=== PATIENT | female | born 1950 | race Caucasian/White ===

== ENCOUNTER 2016-06-01 16:40 | Inpatient (IN) ==
[2016-06-01] MEDS ORDERED: 0.9 % Sodium Chloride 500 ML IVC ONE (17:02)
[2016-06-01] MEDS ORDERED: Insulin Regular, Human 100 UNIT/ML IV ONE (17:02)
--- NOTE | 2016-06-01 17:05 | Emergency Department Note ---
Disposition Clinical Impression: Diabetes Qualifiers: Diabetes mellitus type: type 2 Diabetes mellitus complication status: without complication Diabetes mellitus longterm insulin use: with longterm use Qualified Code(s): E11.9 - Type 2 diabetes mellitus without complications Abdominal wall contusion Qualifiers: Encounter type: initial encounter Qualified Code(s): S30.1XXA - Contusion of abdominal wall, initial encounter Disposition: Admitted As Inpatient Condition: Fair Referrals: Kiel Watkins MD [Primary Care Provider] - Forms: ED Satisfaction Letter Time of Disposition: 18:18 Fall HPI - General Chief Complaint: ED Fall Stated Complaint: fall with rib pain Time Seen by Provider: 06/01/16 17:00 Source: patient Mode of arrival: ambulatory Limitations: no limitations Nursing Notes Reviewed: Yes Vital Signs Reviewed: Yes - History of Present Illness HPI Narrative: 66-year-old who had suffered a stroke a few years back and states she's been unsteady in her feet ever since states that her sugars up and running high and she lost her balance today and fell she's complaining of pain in the left chest and left upper abdomen. It was 510 on arrival here. 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 Fall From: standing Place Fall Occurred: home Loss of Consciousness: none Prolonged Down Time?: no Symptoms Prior to Fall: lightheadedness Context: tripped/slipped Severity: moderate Quality: aching Associated symptoms (after fall): Denies: headache, neck pain, numbness, weakness - Related Data Home Medications Medication Instructions Recorded Confirmed Duloxetine HCl [Cymbalta] 60 mg PO DAILY 12/05/14 04/11/16 Insulin ASPART [NovoLOG] 2 - 16 unit SQ TIDWM 12/05/14 04/11/16 Insulin DETEMIR [Levemir] 50 unit SQ BID 01/13/15 04/11/16 Sucralfate [Carafate] 1 gm PO BID 01/13/15 04/11/16 Amitriptyline [Elavil] 50 mg PO HS 09/17/15 04/11/16 Atorvastatin Calcium [Lipitor] 80 mg PO HS 09/17/15 04/11/16 Isosorbide MONOnitrate (24 HR) 30 mg PO DAILY 11/02/15 04/11/16 [Imdur] Metformin [Glucophage] 500 mg PO BIDWM 11/02/15 04/11/16 Oxybutynin [Ditropan] 5 mg PO BID 11/02/15 04/11/16 Cholecalciferol (Vitamin D3) 50,000 unit PO FR 02/29/16 04/11/16 [Vitamin D3] Previous Rx's Medication Instructions Recorded Aspirin 81 mg PO DAILY #30 tab.chew 09/20/15 Clopidogrel [Plavix] 75 mg PO DAILY #30 tablet 09/20/15 Metoprolol [Lopressor] 12.5 mg PO BID #60 tablet 09/20/15 Morphine Sulfate 15 mg PO Q6HR PRN #20 tab 02/17/16 Nystatin POWDER [Nystop] 1 appl TP TID #1 bottle 02/17/16 Metoclopramide [Reglan] 5 mg PO QIDAC 30 Days 03/08/16 ClonazePAM [Klonopin] 0.5 mg PO BID #60 tablet 04/12/16 Pantoprazole Sodium [Protonix] 40 mg PO HS 30 Days 04/12/16 Allergies Allergy/AdvReac Type Severity Reaction Status Date / Time ampicillin Allergy Severe See Verified 06/01/16 16:47 Comments ciprofloxacin Allergy Severe See Verified 06/01/16 16:47 Comments codeine Allergy Severe See Verified 06/01/16 16:47 Comments Cortisone Allergy Severe See Verified 06/01/16 16:47 Comments Hydromorphone Allergy Severe See Verified 06/01/16 16:47 Comments Penicillins Allergy Severe See Verified 06/01/16 16:47 Comments phenazopyridine Allergy Severe See Verified 06/01/16 16:47 [Phenazopyridine] Comments Sulfa (Sulfonamide Allergy Severe See Verified 06/01/16 16:47 Antibiotics) Comments Oxycodone Allergy Intermediate Hives Verified 06/01/16 16:47 Constitutional: Denies: fever, chills, weakness, weight change Eyes: Denies: eye pain, eye discharge, vision change ENT ED: Denies: ear pain, throat pain, dental pain, hearing loss, epistaxis, congestion, dysphagia Cardiovascular: Reports: chest pain (Chest wall pain). Denies: palpitations, dyspnea on exertion, edema, syncope Respiratory: Denies: cough, dyspnea, wheezes, hemoptysis, stridor Gastrointestinal: Reports: abdominal pain. Denies: nausea, vomiting, diarrhea, constipation, hematemesis, melena, hematochezia Genitourinary: Denies: dysuria, frequency, hematuria, discharge Musculoskeletal: Denies: back pain, neck pain, arthralgia, myalgia Integumentary: Denies: rash, abrasion, lesions Neurological: Denies: headache, weakness, numbness, paresthesias, confusion, abnormal gait, vertigo Psychiatric: Denies: anxiety, depression, suicidal thoughts, homicidal thoughts , auditory hallucinations, visual hallucinations Endocrine: Denies: fatigue Hematological/Lymphatic: Denies: easy bleeding, easy bruising Allergic/Immunologic: Denies: facial swelling, urticaria Fall PMH - Past Medical History Medical history: Reports: arthritis, asthma, COPD, coronary artery disease, CVA , diabetes, GERD, hypertension, kidney stones, myocardial infarction, osteoporosis, renal disease, other Surgical history: Reports: appendectomy, cholecystectomy, hysterectomy, thyroidectomy, ureteral stent, other Psychiatric history: Reports: anxiety, depression [employer] 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: non-contributory - Social History Smoking Status: Former smoker Alcohol use: Reports: none Drug use: Reports: none Physical Exam - General Limitations: no limitations General appearance: alert - Head Head exam: atraumatic, normocephalic, normal inspection - Eye Eye exam: Present: normal appearance, PERRL, EOMI - ENT ENT exam: normal exam, normal oropharynx, mucous membranes moist - Neck Neck exam: Present: normal inspection, full ROM, trachea midline - Chest Chest inspection: Present: normal inspection, symmetric chest wall rise, tenderness (Left lateral chest wall) - Respiratory Respiratory exam: Present: normal lung sounds bilaterally - Cardiovascular Cardiovascular exam: Present: regular rate, normal rhythm, normal heart sounds - Abdominal Exam Abdominal exam: Present: soft, tenderness. Absent: guarding, rebound Abdominal tenderness: Present: LLQ - Extremities Exam Extremities exam: Present: normal inspection, full ROM. Absent: tenderness, pedal edema - Expanded Lower Extremity Exam Neurovascular/Tendon exam: Absent: motor deficit, sensory deficit, tendon deficit - Back Exam Back exam: Present: normal inspection, full ROM. Absent: tenderness - Neurological Exam Neurological exam: Present: alert, oriented X3 - Psychiatric Psychiatric exam: Present: normal affect, normal mood - Skin Skin exam: Present: warm, dry, intact, normal color Course - Consultations Consultation #1: I discussed the case with Viki Bella nurse practitioner who will admit the patient. Time: 18:26 Vital Signs Temperature 97.5 F L 06/01/16 16:41 Pulse Rate 91 06/01/16 16:41 Respiratory Rate 20 06/01/16 16:41 Blood Pressure 164/86 06/01/16 16:41 O2 Sat by Pulse Oximetry 97 06/01/16 16:41 Temperature 97.5 F L 06/01/16 16:41 Pulse Rate 82 06/01/16 18:24 Respiratory Rate 16 06/01/16 18:24 Blood Pressure 108/72 06/01/16 18:24 O2 Sat by Pulse Oximetry 93 L 06/01/16 18:24 Oxygen Delivery Oxygen Delivery Room Air Fall - Lab Data Lab results reviewed: Yes I reviewed the patient's lab results. Result diagrams: 06/01/16 17:12 06/01/16 17:12 Lab Results 06/01/16 06/01/16 06/01/16 Range/Units 16:59 17:12 17:12 WBC (4.3-11.1) K/mcL RBC (3.82-4.97) M/mcL Hgb (11.5-15.4) g/dL Hct (35.3-44.9) % MCV (83.0-100.0) fL MCH (28.0-33.3) pg MCHC (31.6-35.5) g/dL RDW (11.5-14.5) % Plt Count (140-400) K/mcL MPV (9.4-12.4) fL Immature Gran % (0-4) % Seg Neutrophils % % Lymphocytes % % Monocytes % % Eosinophils % % Basophils % % Neutrophils # (1.6-8.9) K/mcL Lymphocytes # (0.6-4.6) K/mcL Monocytes # (0.0-1.3) K/mcL Eosinophils # (0.0-0.6) K/mcL Basophils # (0.0-0.2) K/mcL PT 11.8 (9.4-12.1) Seconds INR 1.1 APTT 31.1 (26.0-36.0) Seconds Sodium (136-145) mEq/L Potassium (3.5-4.5) mEq/L Chloride (98-109) mEq/L Carbon Dioxide (19-29) mEq/L BUN (7-20) mg/dL Creatinine (0.57-1.11) mg/dL Est GFR ( Amer) (> 60) Est GFR (Non-Af Amer) (> 60) BUN/Creatinine Ratio (6-26) Glucose (70-99) mg/dL POC Glucose 510 H* (58-89) Calculated Osmolality (280-300) Calcium (8.6-10.8) mg/dL Troponin I (0-0.03) ng/mL Beta-Hydroxybutyric Acd 0.11 (0.02-0.27) mmol/L 06/01/16 06/01/16 06/01/16 Range/Units 17:12 17:12 17:12 WBC 4.3 (4.3-11.1) K/mcL RBC 4.66 (3.82-4.97) M/mcL Hgb 11.7 (11.5-15.4) g/dL Hct 35.5 (35.3-44.9) % MCV 76.2 L (83.0-100.0) fL MCH 25.1 L (28.0-33.3) pg MCHC 33.0 (31.6-35.5) g/dL RDW 15.2 H (11.5-14.5) % Plt Count 165 (140-400) K/mcL MPV 9.6 (9.4-12.4) fL Immature Gran % 0.2 (0-4) % Seg Neutrophils % 64.1 % Lymphocytes % 22.8 % Monocytes % 9.6 % Eosinophils % 3.1 % Basophils % 0.2 % Neutrophils # 2.7 (1.6-8.9) K/mcL Lymphocytes # 1.0 (0.6-4.6) K/mcL Monocytes # 0.4 (0.0-1.3) K/mcL Eosinophils # 0.1 (0.0-0.6) K/mcL Basophils # 0.0 (0.0-0.2) K/mcL PT (9.4-12.1) Seconds INR APTT (26.0-36.0) Seconds Sodium 129 L (136-145) mEq/L Potassium 5.0 H (3.5-4.5) mEq/L Chloride 97 L (98-109) mEq/L Carbon Dioxide 20 (19-29) mEq/L BUN 13 (7-20) mg/dL Creatinine 1.09 (0.57-1.11) mg/dL Est GFR ( Amer) > 60 (> 60) Est GFR (Non-Af Amer) 50 L (> 60) BUN/Creatinine Ratio 12 (6-26) Glucose 581 H* (70-99) mg/dL POC Glucose (58-89) Calculated Osmolality 295 (280-300) Calcium 8.9 (8.6-10.8) mg/dL Troponin I 0.00 (0-0.03) ng/mL Beta-Hydroxybutyric Acd (0.02-0.27) mmol/L - Radiology Data Radiology results reviewed: Yes I reviewed the patient's radiology results. Abdomen/Pelvis CT 06/01/16 17:01 IMPRESSION: No acute traumatic findings are identified. Chronic caliectasis and thickening uroepithelium in the upper pole moiety of the left kidney. Correlation for urinary tract infection is suggested. D/ / Yonatan Price MD / Yonatan Price MD Interpreting Provider: Yonatan Price MD Chest CT 06/01/16 17:01 IMPRESSION: No acute abnormality in the chest on the noncontrast CT. No evidence of left rib fracture. Three-vessel coronary atherosclerosis. D/ / 06/01/2016 17:36:54 Willian Davila MD / [email or web address] Interpreting Provider: Willian Davila MD - EKG Data EKG attestation: Yes I reviewed and interpreted this EKG. EKG shows normal: sinus rhythm Rate: normal Rhythm: NSR Interpretation: no acute changes
[2016-06-01 17:25] LABS: Basophils % 0.2 %; Eosinophils # 0.1 K/mcL (0.0-0.6); Eosinophils % 3.1 %; Hematocrit 35.5 % (35.3-44.9); Hemoglobin 11.7 g/dL (11.5-15.4); Immature Granulocytes % 0.2 % (0-4); Lymphocytes % 22.8 %; Mean Corpuscular Hemoglobin 25.1 pg (28.0-33.3); Mean Corpuscular Volume 76.2 fL (83.0-100.0); Mean Platelet Volume 9.6 fL (9.4-12.4); Monocytes # 0.4 K/mcL (0.0-1.3); Monocytes % 9.6 %; Neutrophils # 2.7 K/mcL (1.6-8.9); Platelet Count 165 K/mcL (140-400); Red Blood Count 4.66 M/mcL (3.82-4.97); Red Cell Distribution Width 15.2 % (11.5-14.5); Segmented Neutrophils % 64.1 %
[2016-06-01 17:26] LABS: INR 1.1; Prothrombin Time 11.8 Seconds (9.4-12.1)
[2016-06-01 17:28] LABS: Activated Partial Thrombo Time 31.1 Seconds (26.0-36.0)
[2016-06-01 17:34] LABS: BUN/Creatinine Ratio 12 (6-26); Blood Urea Nitrogen 13 mg/dL (7-20); Calcium 8.9 mg/dL (8.6-10.8); Carbon Dioxide 20 mEq/L (19-29); Chloride 97 mEq/L (98-109); Osmolality,Calculated 295 (280-300); Sodium 129 mEq/L (136-145); eGFR For African Americans > 60 (> 60); eGFR For Non-African Americans 50 (> 60)
[2016-06-01 17:37] LABS: Glucose 581 mg/dL (70-99)
[2016-06-01] MEDS ORDERED: Ondansetron 4 MG/2 ML VIAL IVP ONE (17:48)
[2016-06-01] MEDS ORDERED: *HR* Morphine 2 MG/ML SYRINGE IVP ONE (17:48)
[2016-06-01 19:33] LABS: Bilirubin,Urine Negative (Negative); Blood,Urine Negative (Negative); Clarity,Urine Cloudy (Clear); Color,Urine Yellow (Yellow); Glucose,Urine (UA) >=1000 mg/dL (Normal); Ketones,Urine Negative (Negative); Leukocyte Esterase,Urine Moderate (Negative); Nitrite,Urine Positive (Negative); PH,Urine 6.5 pH Units (5.0-8.0); Protein,Urine Negative (Neg-Trace); Specific Gravity,Urine > 1.030 (1.010-1.025); Urobilinogen,Urine Normal (Normal)
[2016-06-01 19:35] LABS: Bacteria,Urine Many per hpf (None-Few); Hyaline Casts,Urine None Seen per lpf (None-Few); Squamous Epithelial Cell,Urine Moderate per lpf (None-Few); WBC,Urine 50-100 per hpf (0-3)
[2016-06-01] MEDS ORDERED: Naloxone 0.4 MG/ML INJ IVP PRN (21:44)
[2016-06-01] MEDS ORDERED: Acetaminophen 325 MG TABLET PO PRN (21:44)
[2016-06-01] MEDS ORDERED: D5% in Water 1,000 ML IV PRN (21:49)
[2016-06-01] MEDS ORDERED: *HR* Dextrose 50 % in Water (Syg) 50 ML SYRINGE IVP PRN (21:49)
[2016-06-01] MEDS ORDERED: Dextrose Gel 15 GM PO PRN ×2 (21:49)
--- NOTE | 2016-06-01 21:57 | Internal Med History&Physical ---
Date of Encounter: 06/01/16 Time of Encounter: 21:54 Assessment and Plan (1) Hyperglycemia Current visit: No Status: Acute Patient reports her blood sugars have been running high since Saturday and she has tried to get them under control. It sounds like she takes her basal dose of insulin, but is not always great at taking her sliding scale. Diabetic diet Continue home basal dose of insulin (50u Detemir BID) High dose sliding scale correction insulin ACHS hypoglycemic protocol Check blood sugars ACHS (2) DM (diabetes mellitus), type 2 Current visit: No Status: Chronic Patient reports her blood sugars have been running high since Saturday and she has tried to get them under control. It sounds like she takes her basal dose of insulin, but is not always great at taking her sliding scale. 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 CT of chest showed no acute fracture of ribs. CT Abd/Plevis showed no acute traumatic findings. Pain control with IV morphine PRN Narcan PRN for respiratory depression. Qualifiers: Encounter type: initial encounter Qualified Code(s): S30.1XXA - Contusion of abdominal wall, initial encounter (4) Candidiasis of breast Current visit: No Status: Acute Patient with chronic candidal infection under folds of breasts Nystatin powder TID. (5) UTI (urinary tract infection) Current visit: No Status: Acute Patient reports she has had chronic UTIs, has had a ureteral stent placed and follows with [facility]. She is not currently on any antibiotics for a UTI. Her UA is concerning for UTI, but may be contaminated. She denies any dysuria. Will hold off on treatment until the culture comes back. Qualifiers: Urinary tract infection type: acute cystitis Hematuria presence: without hematuria Qualified Code(s): N30.00 - Acute cystitis without hematuria (6) Hyperkalemia Current visit: Yes Status: Acute potassium of 5.0. IV fluids 0.9NS at 125mL/hr Patient getting insulin for hyperglycemia and expect potassium to come down with fluids and insulin, recheck chemistry in the morning. (7) DVT prophylaxis Current visit: Yes Status: Acute encourage ambulation anti-embolic stockings Heparin 5,000u SQ BID Internal Medicine - H&P: HPI Chief complaint: fall, hyperglycemia Admitted From: Emergency Dept Plans for Post Hospital Care: Home History of present illness: Ms. Ordoñez is a 66 year old female with history of hypertension, type 2 diabetes, hyperlipidemia, CVA, COPD, coronary artery disease who presented to the emergency department today after falling and with complaints of her blood sugar running high. He reports she lost her balance and fell on her left side did not hit her head she is complaining of pain and tenderness in her left abdomen and left chest. Evaluation in the ED was significant for blood sugar of 581, hyponatremia with sodium of 129, hyperkalemia with potassium of 5.0, troponin was negative. She had a CT of her chest and abdomen to evaluate for injury, and did not reveal any acute rib fracture. She was given a 500 mL bolus and 8 units of insulin as well as pain medicine for pain control. Exam patient is alert and oriented in no distress. Auscultation heart has regular rate and rhythm. She is tender on her left side from her shoulder all the way down to her hip. Past Med Surg Social Fam HX - Past Medical History Medical history: arthritis, asthma, COPD, coronary artery disease, CVA, diabetes , GERD, hypertension, kidney stones, myocardial infarction, osteoporosis, renal disease, other Psychiatric history: anxiety, depression - Past Surgical History Surgical History: appendectomy, cholecystectomy, hysterectomy, thyroidectomy, ureteral stent, other - Social History Smoking Status: Former smoker (44 pack years) Smokeless Tobacco Status: No Alcohol use: none Drug use: none - Family History Father Hx Family Cardiac Disorders: Yes (AAA) Hx Family Endocrine Disorder: Yes (DM) Mother Adopted: No Living Status: Hx Family Cardiac Disorders: Yes (HTN) Hx Family Cancer: Yes (Colon) Internal Medicine - H&P: Meds Duloxetine HCl [Cymbalta] 60 mg PO DAILY 12/05/14 [History] Insulin ASPART [NovoLOG] 2 - 16 unit SQ TIDWM 12/05/14 [History] Insulin DETEMIR [Levemir] 50 unit SQ BID 01/13/15 [History] Sucralfate [Carafate] 1 gm PO BID 01/13/15 [History] Amitriptyline [Elavil] 50 mg PO HS 09/17/15 [History] Atorvastatin Calcium [Lipitor] 80 mg PO HS 09/17/15 [History] Aspirin 81 mg PO DAILY #30 tab.chew 09/20/15 [Rx] Clopidogrel [Plavix] 75 mg PO DAILY #30 tablet 09/20/15 [Rx] Metoprolol [Lopressor] 12.5 mg PO BID #60 tablet 09/20/15 [Rx] Isosorbide MONOnitrate (24 HR) [Imdur] 30 mg PO DAILY 11/02/15 [History] Metformin [Glucophage] 500 mg PO BIDWM 11/02/15 [History] Nystatin POWDER [Nystop] 1 appl TP TID #1 bottle 02/17/16 [Rx] Pantoprazole Sodium [Protonix] 40 mg PO HS 30 Days 04/12/16 [Rx] Alprazolam [Xanax 0.25 MG Tablet] 0.25 mg PO TID PRN 06/01/16 [History] Solifenacin Succinate [Vesicare] 10 mg PO DAILY 06/01/16 [History] Allergies ampicillin Allergy (Severe, Verified 06/01/16 16:47) See Comments DOCUMENTED IN [employer] ciprofloxacin Allergy (Severe, Verified 06/01/16 16:47) See Comments DOCUMENTED IN [email or web address]. codeine Allergy (Severe, Verified 06/01/16 16:47) See Comments DOCUMENTED IN [employer][email or web address]. Cortisone Allergy (Severe, Verified 06/01/16 16:47) See Comments DOCUMENTED IN [email or web address]. Hydromorphone Allergy (Severe, Verified 06/01/16 16:47) See Comments DOCUMENTED IN [employer][email or web address]. Penicillins Allergy (Severe, Verified 06/01/16 16:47) See Comments DOCUMENTED IN [employer][email or web address]. phenazopyridine [Phenazopyridine] Allergy (Severe, Verified 06/01/16 16:47) See Comments DOCUMENTED IN [employer][email or web address]. Sulfa (Sulfonamide Antibiotics) Allergy (Severe, Verified 06/01/16 16:47) See Comments DOCUMENTED IN [employer].66. Oxycodone Allergy (Intermediate, Verified 06/01/16 16:47) Hives All Systems PM: A 10-system review of systems was performed and is negative for pertinent findings except as documented above in the HPI. - Constitutional Constitutional: no chills, no fever(s), no night sweats - EENT Eyes: no change in vision, no discharge, no pain, no photophobia Ears: no ear discharge, no ear pain, no tinnitus Nose, mouth and throat: no dysphagia, no nasal discharge, no neck pain, no sore throat - Cardiovascular Cardiovascular ROS IM: chest pain (left sided tenderness after fall), no diaphoresis, no dyspnea, no lightheadedness, no palpitations, no syncope - Respiratory Respiratory: no cough, no dyspnea, no wheezing, no excessive phlegm production - Gastrointestinal Gastrointestinal: abdominal pain (left sided tenderness after fall), no diarrhea , no hematemesis, no hematochezia, no melena, no nausea, no vomiting - Genitourinary Genitourinary: no change in urinary stream, no dysuria, no flank pain, no hematuria - Musculoskeletal Musculoskeletal ROS IM: myalgias (left shoulder), no numbness, no tingling - Integumentary Integumentary IM: rash (under breasts), no unusual bruising - Neurological Neurological ROS: no confusion, no convulsions, no focal weakness, no numbness, no tingling, no tremor(s) - Hematologic/Lymphatic Hematologic/Lymphatic: no easy bruising - Constitutional Vitals: Temp Pulse Resp BP Pulse Ox 98.3 F 85 16 171/79 95 06/01/16 19:57 06/01/16 19:57 06/01/16 19:57 06/01/16 19:57 06/01/16 19:57 General appearance: Present: A&O X 3, no acute distress - Head Head exam: Present: atraumatic, normocephalic - Eye Eye exam: Present: PERRL, conjuntiva pink, sclera anicteric Pupils: Present: PERRL - Neck Neck exam general surgery: Present: supple, trachea midline. Absent: lymphadenopathy - Respiratory Respiratory exam: Present: CTAB. Absent: accessory muscle use, rales, rhonchi, wheezes - Cardiovascular Cardiovascular exam: Present: RRR, +S1, +S2. Absent: diastolic murmur, gallop, rubs, systolic murmur - GI/Abdominal GI/Abdominal exam: Present: normal bowel sounds, soft, tenderness (left sided), no peritoneal signs. Absent: distended - Extremities Exam Extremities exam: Present: warm, radial pulses palpable and symetrical. Absent : calf tenderness, cyanotic, pedal edema - Neurological Exam Neurological exam: Present: CN II-XII intact, oriented X3, no focal deficits. Absent: pronater drift, facial droop, speech deficit - Skin Skin exam: Present: dry, intact, rash (under breasts ) Internal Med - H&P Results - Labs CBC & Chem 7: 06/01/16 17:12 06/01/16 17:12 Labs: Urine 06/01/16 Range/Units 19:21 Urine Color Yellow (Yellow) Urine Clarity Cloudy A (Clear) Urine pH 6.5 (5.0-8.0) pH Units Ur Specific [place] > 1.030 H (1.010-1.025) Urine Protein Negative (Neg-Trace) mg/dL Urine Glucose (UA) >=1000 H (Normal) mg/dL All Lab Results (24 Hours) 06/01/16 06/01/16 06/01/16 Range/Units 16:59 17:12 17:12 WBC (4.3-11.1) K/mcL RBC (3.82-4.97) M/mcL Hgb (11.5-15.4) g/dL Hct (35.3-44.9) % MCV (83.0-100.0) fL MCH (28.0-33.3) pg MCHC (31.6-35.5) g/dL RDW (11.5-14.5) % Plt Count (140-400) K/mcL MPV (9.4-12.4) fL Immature Gran % (0-4) % Seg Neutrophils % % Lymphocytes % % Monocytes % % Eosinophils % % Basophils % % Neutrophils # (1.6-8.9) K/mcL Lymphocytes # (0.6-4.6) K/mcL Monocytes # (0.0-1.3) K/mcL Eosinophils # (0.0-0.6) K/mcL Basophils # (0.0-0.2) K/mcL PT 11.8 (9.4-12.1) Seconds INR 1.1 APTT 31.1 (26.0-36.0) Seconds Sodium (136-145) mEq/L Potassium (3.5-4.5) mEq/L Chloride (98-109) mEq/L Carbon Dioxide (19-29) mEq/L BUN (7-20) mg/dL Creatinine (0.57-1.11) mg/dL Est GFR ( Amer) (> 60) Est GFR (Non-Af Amer) (> 60) BUN/Creatinine Ratio (6-26) Glucose (70-99) mg/dL POC Glucose 510 H* (58-89) Calculated Osmolality (280-300) Calcium (8.6-10.8) mg/dL Troponin I (0-0.03) ng/mL Beta-Hydroxybutyric Acd 0.11 (0.02-0.27) mmol/L Urine Color (Yellow) Urine Clarity (Clear) Urine pH (5.0-8.0) pH Units Ur Specific [place] (1.010-1.025) Urine Protein (Neg-Trace) mg/dL Urine Glucose (UA) (Normal) mg/dL Urine Ketones (Negative) mg/dL Urine Blood (Negative) Urine Nitrite (Negative) Urine Bilirubin (Negative) Urine Urobilinogen (Normal) mg/dL Ur Leukocyte Esterase (Negative) Urine Microscopic RBC (0-3) per hpf Urine Microscopic WBC (0-3) per hpf Ur Squamous Epith Cells (None-Few) per lpf Urine Bacteria (None-Few) per hpf Hyaline Casts (None-Few) per lpf Ur Culture Indicated? (NO) 06/01/16 06/01/16 06/01/16 Range/Units 17:12 17:12 17:12 WBC 4.3 (4.3-11.1) K/mcL RBC 4.66 (3.82-4.97) M/mcL Hgb 11.7 (11.5-15.4) g/dL Hct 35.5 (35.3-44.9) % MCV 76.2 L (83.0-100.0) fL MCH 25.1 L (28.0-33.3) pg MCHC 33.0 (31.6-35.5) g/dL RDW 15.2 H (11.5-14.5) % Plt Count 165 (140-400) K/mcL MPV 9.6 (9.4-12.4) fL Immature Gran % 0.2 (0-4) % Seg Neutrophils % 64.1 % Lymphocytes % 22.8 % Monocytes % 9.6 % Eosinophils % 3.1 % Basophils % 0.2 % Neutrophils # 2.7 (1.6-8.9) K/mcL Lymphocytes # 1.0 (0.6-4.6) K/mcL Monocytes # 0.4 (0.0-1.3) K/mcL Eosinophils # 0.1 (0.0-0.6) K/mcL Basophils # 0.0 (0.0-0.2) K/mcL PT (9.4-12.1) Seconds INR APTT (26.0-36.0) Seconds Sodium 129 L (136-145) mEq/L Potassium 5.0 H (3.5-4.5) mEq/L Chloride 97 L (98-109) mEq/L Carbon Dioxide 20 (19-29) mEq/L BUN 13 (7-20) mg/dL Creatinine 1.09 (0.57-1.11) mg/dL Est GFR ( Amer) > 60 (> 60) Est GFR (Non-Af Amer) 50 L (> 60) BUN/Creatinine Ratio 12 (6-26) Glucose 581 H* (70-99) mg/dL POC Glucose (58-89) Calculated Osmolality 295 (280-300) Calcium 8.9 (8.6-10.8) mg/dL Troponin I 0.00 (0-0.03) ng/mL Beta-Hydroxybutyric Acd (0.02-0.27) mmol/L Urine Color (Yellow) Urine Clarity (Clear) Urine pH (5.0-8.0) pH Units Ur Specific [place] (1.010-1.025) Urine Protein (Neg-Trace) mg/dL Urine Glucose (UA) (Normal) mg/dL Urine Ketones (Negative) mg/dL Urine Blood (Negative) Urine Nitrite (Negative) Urine Bilirubin (Negative) Urine Urobilinogen (Normal) mg/dL Ur Leukocyte Esterase (Negative) Urine Microscopic RBC (0-3) per hpf Urine Microscopic WBC (0-3) per hpf Ur Squamous Epith Cells (None-Few) per lpf Urine Bacteria (None-Few) per hpf Hyaline Casts (None-Few) per lpf Ur Culture Indicated? (NO) 06/01/16 06/01/16 06/01/16 Range/Units 18:26 19:21 20:04 WBC (4.3-11.1) K/mcL RBC (3.82-4.97) M/mcL Hgb (11.5-15.4) g/dL Hct (35.3-44.9) % MCV (83.0-100.0) fL MCH (28.0-33.3) pg MCHC (31.6-35.5) g/dL RDW (11.5-14.5) % Plt Count (140-400) K/mcL MPV (9.4-12.4) fL Immature Gran % (0-4) % Seg Neutrophils % % Lymphocytes % % Monocytes % % Eosinophils % % Basophils % % Neutrophils # (1.6-8.9) K/mcL Lymphocytes # (0.6-4.6) K/mcL Monocytes # (0.0-1.3) K/mcL Eosinophils # (0.0-0.6) K/mcL Basophils # (0.0-0.2) K/mcL PT (9.4-12.1) Seconds INR APTT (26.0-36.0) Seconds Sodium (136-145) mEq/L Potassium (3.5-4.5) mEq/L Chloride (98-109) mEq/L Carbon Dioxide (19-29) mEq/L BUN (7-20) mg/dL Creatinine (0.57-1.11) mg/dL Est GFR ( Amer) (> 60) Est GFR (Non-Af Amer) (> 60) BUN/Creatinine Ratio (6-26) Glucose (70-99) mg/dL POC Glucose 431 H* 385 H (58-89) Calculated Osmolality (280-300) Calcium (8.6-10.8) mg/dL Troponin I (0-0.03) ng/mL Beta-Hydroxybutyric Acd (0.02-0.27) mmol/L Urine Color Yellow (Yellow) Urine Clarity Cloudy A (Clear) Urine pH 6.5 (5.0-8.0) pH Units Ur Specific [place] > 1.030 H (1.010-1.025) Urine Protein Negative (Neg-Trace) mg/dL Urine Glucose (UA) >=1000 H (Normal) mg/dL Urine Ketones Negative (Negative) mg/dL Urine Blood Negative (Negative) Urine Nitrite Positive A (Negative) Urine Bilirubin Negative (Negative) Urine Urobilinogen Normal (Normal) mg/dL Ur Leukocyte Esterase Moderate H (Negative) Urine Microscopic RBC 5-15 H (0-3) per hpf Urine Microscopic WBC 50-100 H (0-3) per hpf Ur Squamous Epith Cells Moderate H (None-Few) per lpf Urine Bacteria Many H (None-Few) per hpf Hyaline Casts None Seen (None-Few) per lpf Ur Culture Indicated? YES A (NO)
[2016-06-01] MEDS: Insulin DETEMIR 100 UNIT/ML X5UNITS SQ SCH (22:54)
[2016-06-01] MEDS: 0.9 % Sodium Chloride 1,000 ML IVC SCH (22:54)
[2016-06-01] MEDS: Insulin LISPRO 300 UNITS/3 ML VIAL SQ SCH (22:55)
[2016-06-01] MEDS: *HR* Morphine 2 MG/ML SYRINGE IVP PRN (23:29)
[2016-06-02] MEDS: *HR* Morphine 2 MG/ML SYRINGE IVP PRN ×5 (04:01→21:37)
[2016-06-02 05:54] LABS: BUN/Creatinine Ratio 12 (6-26); Blood Urea Nitrogen 10 mg/dL (7-20); Calcium 8.9 mg/dL (8.6-10.8); Carbon Dioxide 22 mEq/L (19-29); Chloride 102 mEq/L (98-109); Glucose 245 mg/dL (70-99); Magnesium 1.8 mg/dL (1.6-2.6); Osmolality,Calculated 285 (280-300); Phosphorous 4.2 mg/dL (2.3-4.7); Potassium 4.6 mEq/L (3.5-4.5); Sodium 134 mEq/L (136-145); eGFR For African Americans > 60 (> 60); eGFR For Non-African Americans > 60 (> 60)
[2016-06-02] MEDS: *HR* Heparin 5,000 UNIT/ML VIAL SQ SCH ×2 (06:04→17:24)
[2016-06-02 06:06] LABS: Basophils % 0.4 %; Eosinophils # 0.2 K/mcL (0.0-0.6); Eosinophils % 4.3 %; Hemoglobin 11.5 g/dL (11.5-15.4); Immature Granulocytes % 0.2 % (0-4); Lymphocytes % 22.6 %; Mean Corpuscular HGB Conc 32.9 g/dL (31.6-35.5); Mean Corpuscular Hemoglobin 25.5 pg (28.0-33.3); Mean Corpuscular Volume 77.6 fL (83.0-100.0); Mean Platelet Volume 9.7 fL (9.4-12.4); Monocytes # 0.5 K/mcL (0.0-1.3); Monocytes % 10.3 %; Neutrophils # 2.8 K/mcL (1.6-8.9); Platelet Count 136 K/mcL (140-400); Red Blood Count 4.51 M/mcL (3.82-4.97); Red Cell Distribution Width 15.3 % (11.5-14.5); Segmented Neutrophils % 62.2 %
[2016-06-02] MEDS: 0.9 % Sodium Chloride 1,000 ML IVC SCH (09:03)
[2016-06-02] MEDS: Insulin LISPRO 300 UNITS/3 ML VIAL SQ SCH ×4 (09:03→20:37)
[2016-06-02] MEDS: Nystatin POWDER 30 GM BOTTLE TP SCH ×3 (09:04→20:37)
[2016-06-02] MEDS: Sucralfate 1 GM TABLET PO SCH ×2 (09:04→20:17)
[2016-06-02] MEDS: Aspirin 81 MG TAB.CHEW PO SCH (09:04)
[2016-06-02] MEDS: Insulin DETEMIR 100 UNIT/ML X5UNITS SQ SCH ×2 (09:04→20:19)
[2016-06-02] MEDS: Isosorbide MONOnitrate (24 HR) 30 MG TAB.ER.24H PO SCH (09:04)
--- NOTE | 2016-06-02 14:39 | Internal Med Progress Note ---
Date of Encounter: 06/02/16 Time of Encounter: 07:30 - Assessment and plan (1) UTI (urinary tract infection) Current Visit: Yes Status: Acute Assessment and plan: Pt with hx of chronic UTIs. Culture shows gram neg bacillus - add Ceftriaxone and Macrobid (recent hx of VRE). Await final culture results for further treatment plan. Due to her prior history - her UTI is complicated. 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 Qualifiers: Urinary tract infection type: acute cystitis Hematuria presence: with hematuria Qualified Code(s): N30.01 - Acute cystitis with hematuria (2) Diabetes Current Visit: Yes Status: Acute Assessment and plan: Blood sugars markedly elevated prior to admission. Sugars somewhat better overnight with fluid hydration. Most likely worsened by UTI as well. Continue management of sugars as well as treatment of infection. 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 Symptomatic management. Qualifiers: Encounter type: subsequent encounter Qualified Code(s): S30.1XXD - Contusion of abdominal wall, subsequent encounter (4) Hyperkalemia Current Visit: Yes Status: Acute Assessment and plan: Following - will recheck tomorrow. It is lower today. (5) CAD (coronary artery disease) Current Visit: No Status: Chronic Assessment and plan: Chronic issue. Qualifiers: Coronary Disease-Associated Artery/Lesion type: [place] artery [place] vs. transplanted heart: [place] heart Associated angina: without angina Qualified Code(s): I25.10 - Atherosclerotic heart disease of [place] coronary artery without angina pectoris (6) Obesity (BMI 30-39.9) Current Visit: No Status: Chronic - Subjective Interval history: Ms. Ordoñez is currently in observation due to hyperglycemia and recent fall. She has contusion of her L side and appears to have UTI as well. She is moderate to high risk at this time due to potential of worsening infection and glucose fluctuations. Ms. Ordoñez is having a lot of L side pain from her fall. No dyspnea or chest pain. She overall is having a lot of malaise. Urine is dark and has odor - she feels there is an infection. Has been following at [facility] for renal issues. No GI symptoms at this time. No fever. - Constitutional Vitals: Temp Pulse Resp BP Pulse Ox 98.5 F 67 16 160/72 94 L 06/02/16 11:08 06/02/16 11:08 06/02/16 11:08 06/02/16 11:08 06/02/16 11:08 General appearance: Present: A&O X 3, morbidly obese, answers questions appropriately - Head Head exam: Present: normocephalic - Eye Eye exam: Present: conjuntiva pink - ENT ENT exam: Present: mucous membranes dry - Respiratory Respiratory exam: Present: decreased breath sounds, CTAB - Cardiovascular Cardiovascular exam: Present: RRR. Absent: tachycardia - GI/Abdominal GI/Abdominal exam: Present: soft. Absent: tenderness Additional comments: Tenderness to palpation on L side in area of recent fall. Some ecchymosis noted in this area. - Extremities Exam Extremities exam: Present: warm. Absent: tenderness - Neurological Exam Neurological exam: Present: alert, oriented X3 - Skin Skin exam: Present: intact, warm Additional comments: Ecchymosis present. Internal Medicine: Result - Labs CBC & Chem 7: 06/02/16 04:52 06/02/16 04:52 Labs: Short CBC 06/02/16 Range/Units 04:52 WBC 4.5 (4.3-11.1) K/mcL Hgb 11.5 (11.5-15.4) g/dL Hct 35.0 L (35.3-44.9) % Plt Count 136 L (140-400) K/mcL Neutrophils # 2.8 (1.6-8.9) K/mcL BMP 06/02/16 04:52 Sodium 134 L Potassium 4.6 H Chloride 102 Carbon Dioxide 22 BUN 10 Creatinine 0.84 Glucose 245 H Calcium 8.9 Urine 06/01/16 Range/Units 19:21 Urine Color Yellow (Yellow) Urine Clarity Cloudy A (Clear) Urine pH 6.5 (5.0-8.0) pH Units Ur Specific [place] > 1.030 H (1.010-1.025) Urine Protein Negative (Neg-Trace) mg/dL Urine Glucose (UA) >=1000 H (Normal) mg/dL - ABG Interpretation ABG results: PT/INR, D-dimer PT 11.8 Seconds (9.4-12.1) 06/01/16 17:12 Consult Discharge Plan - Plan Referrals: Kiel Watkins MD [Primary Care Provider] -
[2016-06-02] MEDS: Nitrofurantoin (BID) 100 MG CAPSULE PO SCH (17:24)
[2016-06-02] MEDS: ALPRAZolam 0.25 MG TABLET PO PRN (20:17)
[2016-06-03] MEDS: *HR* Morphine 2 MG/ML SYRINGE IVP PRN ×2 (02:28→22:41)
[2016-06-03 04:39] LABS: Hematocrit 35.9 % (35.3-44.9); Hemoglobin 11.7 g/dL (11.5-15.4); Mean Corpuscular HGB Conc 32.6 g/dL (31.6-35.5); Mean Corpuscular Hemoglobin 25.3 pg (28.0-33.3); Mean Corpuscular Volume 77.5 fL (83.0-100.0); Mean Platelet Volume 9.8 fL (9.4-12.4); Platelet Count 148 K/mcL (140-400); Red Blood Count 4.63 M/mcL (3.82-4.97); Red Cell Distribution Width 15.3 % (11.5-14.5)
[2016-06-03 05:06] LABS: Alanine Aminotransferase 35 Units/L (0-55); Albumin 3.1 g/dL (3.5-5.0); Albumin/Globulin Ratio 0.7 (1.1-2.2); Alkaline Phosphatase 173 Units/L (38-126); Aspartate Amino Transferase 42 Units/L (5-34); BUN/Creatinine Ratio 14 (6-26); Bilirubin,Total 0.8 mg/dL (0.2-1.2); Blood Urea Nitrogen 13 mg/dL (7-20); Calcium 9.5 mg/dL (8.6-10.8); Carbon Dioxide 26 mEq/L (19-29); Chloride 98 mEq/L (98-109); Globulin 4.2 g/dL (2.4-3.5); Glucose 151 mg/dL (70-99); Magnesium 1.6 mg/dL (1.6-2.6); Osmolality,Calculated 283 (280-300); Potassium 4.2 mEq/L (3.5-4.5); Sodium 135 mEq/L (136-145); Total Protein 7.3 g/dL (6.0-8.3); eGFR For African Americans > 60 (> 60); eGFR For Non-African Americans > 60 (> 60)
[2016-06-03] MEDS: *HR* Heparin 5,000 UNIT/ML VIAL SQ SCH ×2 (06:21→17:47)
[2016-06-03] MEDS: Aspirin 81 MG TAB.CHEW PO SCH (07:55)
[2016-06-03] MEDS: Sucralfate 1 GM TABLET PO SCH ×2 (07:55→20:36)
[2016-06-03] MEDS: Isosorbide MONOnitrate (24 HR) 30 MG TAB.ER.24H PO SCH (07:55)
[2016-06-03] MEDS: Nitrofurantoin (BID) 100 MG CAPSULE PO SCH (07:56)
[2016-06-03] MEDS: Insulin LISPRO 300 UNITS/3 ML VIAL SQ SCH ×4 (07:56→20:44)
[2016-06-03] MEDS: Nystatin POWDER 30 GM BOTTLE TP SCH ×3 (07:57→22:45)
[2016-06-03] MEDS: Insulin DETEMIR 100 UNIT/ML X5UNITS SQ SCH ×2 (10:01→20:37)
[2016-06-03] MEDS ORDERED: Ketorolac 15 MG/ML VIAL IVP PRN (14:32)
--- NOTE | 2016-06-03 18:49 | Internal Med Progress Note ---
Date of Encounter: 06/03/16 Time of Encounter: 15:15 - Assessment and plan (1) UTI (urinary tract infection) Current Visit: Yes Status: Acute Assessment and plan: Pt with hx of chronic UTIs. Culture now with E. coli. D/C macrobid and continue Ceftriaxone. Anticipate d/c on PO Keflex. Qualifiers: Urinary tract infection type: acute cystitis Hematuria presence: with hematuria Qualified Code(s): N30.01 - Acute cystitis with hematuria (2) E coli infection Current Visit: Yes Status: Acute Assessment and plan: E.coli UTI (3) Diabetes Current Visit: Yes Status: Acute Assessment and plan: Blood sugars overall are better than on admit. Continue current management and anticipate d/c tomorrow. Qualifiers: Diabetes mellitus type: type 2 Diabetes mellitus complication status: with hyperglycemia Diabetes mellitus custodial insulin use: with custodial use Qualified Code(s): E11.65 - Type 2 diabetes mellitus with hyperglycemia; Z79.4 - pen[facility]entiary (current) use of insulin (4) Abdominal wall contusion Current Visit: Yes Status: Acute Assessment and plan: Pt s/p fall. PO pain meds started. PT/OT. Qualifiers: Encounter type: subsequent encounter Qualified Code(s): S30.1XXD - Contusion of abdominal wall, subsequent encounter (5) Hyperkalemia Current Visit: Yes Status: Resolved Assessment and plan: Resolved (6) CAD (coronary artery disease) Current Visit: No Status: Chronic Assessment and plan: Chronic issue. Qualifiers: Coronary Disease-Associated Artery/Lesion type: [place] artery [place] vs. transplanted heart: [place] heart Associated angina: without angina Qualified Code(s): I25.10 - Atherosclerotic heart disease of [place] coronary artery without angina pectoris (7) Obesity (BMI 30-39.9) Current Visit: No Status: Chronic (8) DESTINEE (obstructive sleep apnea) Current Visit: Yes Status: Acute Assessment and plan: Respiratory therapy consult - Subjective Interval history: Ms. Ordoñez is currently admitted due to hyperglycemia and recent fall. She has contusion of her L side and UTI. She is moderate to high risk at this time due to potential of worsening infection and glucose fluctuations. Ms. Ordoñez is somnolent today - most likely from IV pain medications. She also has not been wearing CPAP/bipap (she has both machines at home). No fever. Still has a lot of pain in her side and has not gotten up much she says. No GI symptoms. - Constitutional Vitals: Temp Pulse Resp BP Pulse Ox 98.2 F 71 16 142/64 90 L 06/03/16 15:29 06/03/16 15:29 06/03/16 15:29 06/03/16 15:29 06/03/16 15:29 General appearance: Present: A&O X 3, morbidly obese, answers questions appropriately - Head Head exam: Present: normocephalic - Eye Eye exam: Present: conjuntiva pink - ENT ENT exam: Present: mucous membranes dry - Respiratory Respiratory exam: Present: decreased breath sounds, CTAB - Cardiovascular Cardiovascular exam: Present: RRR. Absent: systolic murmur, tachycardia - GI/Abdominal GI/Abdominal exam: Present: soft. Absent: tenderness Additional comments: Ecchymoses on side on L - Extremities Exam Extremities exam: Present: warm - Neurological Exam Neurological exam: Present: alert, oriented X3 - Skin Skin exam: Present: dry, warm. Absent: rash Internal Medicine: Result - Labs CBC & Chem 7: 06/03/16 03:50 06/03/16 03:50 Labs: Short CBC 06/03/16 Range/Units 03:50 WBC 4.2 L (4.3-11.1) K/mcL Hgb 11.7 (11.5-15.4) g/dL Hct 35.9 (35.3-44.9) % Plt Count 148 (140-400) K/mcL BMP 06/03/16 03:50 Sodium 135 L Potassium 4.2 Chloride 98 Carbon Dioxide 26 BUN 13 Creatinine 0.91 Glucose 151 H Calcium 9.5 Liver Function 06/03/16 Range/Units 03:50 Total Bilirubin 0.8 (0.2-1.2) mg/dL AST 42 H (5-34) Units/L ALT 35 (0-55) Units/L Alkaline Phosphatase 173 H (38-126) Units/L Albumin 3.1 L (3.5-5.0) g/dL - ABG Interpretation ABG results: PT/INR, D-dimer PT 11.8 Seconds (9.4-12.1) 06/01/16 17:12 - VTE Documentation of Mechanical Device: Graduated compression elastic hosiery Consult Discharge Plan - Plan Referrals: Kiel Watkins MD [Primary Care Provider] -
[2016-06-03] MEDS: ALPRAZolam 0.25 MG TABLET PO PRN (20:35)
--- NOTE | 2016-06-03 22:39 | Electrocardiograph Report ---
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
[2016-06-04] MEDS: *HR* Heparin 5,000 UNIT/ML VIAL SQ SCH (06:18)
[2016-06-04] MEDS: Sucralfate 1 GM TABLET PO SCH (09:18)
[2016-06-04] MEDS: Insulin DETEMIR 100 UNIT/ML X5UNITS SQ SCH (09:19)
[2016-06-04] MEDS: Aspirin 81 MG TAB.CHEW PO SCH (09:19)
[2016-06-04] MEDS: Isosorbide MONOnitrate (24 HR) 30 MG TAB.ER.24H PO SCH (09:19)
[2016-06-04] MEDS: Insulin LISPRO 300 UNITS/3 ML VIAL SQ SCH ×3 (09:19→16:48)
[2016-06-04] MEDS: Nystatin POWDER 30 GM BOTTLE TP SCH ×2 (09:23→14:55)
[2016-06-04] MEDS ORDERED: cephALEXin 500 MG CAPSULE PO SCH (10:00)
[2016-06-04] MEDS: traMADol 50 MG TABLET PO PRN ×2 (10:20→16:41)
[2016-06-04 11:36] VITALS: BP 127/74
--- NOTE | 2016-06-04 12:27 | Discharge Summary ---
Date of Encounter: 06/04/16 Time of Encounter: 07:50 - Discharge Diagnosis (1) UTI (urinary tract infection) Priority: Primary Status: Acute Qualifiers: Urinary tract infection type: acute cystitis Hematuria presence: with hematuria Qualified Code(s): N30.01 - Acute cystitis with hematuria (2) E coli infection Priority: Primary Status: Acute (3) Diabetes Priority: Secondary Status: Acute Qualifiers: Diabetes mellitus type: type 2 Diabetes mellitus complication status: with hyperglycemia Diabetes mellitus senior care insulin use: with senior care use Qualified Code(s): E11.65 - Type 2 diabetes mellitus with hyperglycemia; 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 transplanted heart: [place] heart Associated angina: without angina Qualified Code(s): I25.10 - Atherosclerotic heart disease of [place] coronary artery without angina pectoris (7) Obesity (BMI 30-39.9) Priority: Secondary Status: Chronic (8) DESTINEE (obstructive sleep apnea) Priority: Secondary Status: Acute - Discharge Medications Prescriptions: Cephalexin [Keflex] 500 mg PO BID #14 capsule Home Medications: Duloxetine HCl [Cymbalta] 60 mg PO DAILY 12/05/14 [History] Insulin ASPART [NovoLOG] 2 - 16 unit SQ TIDWM 12/05/14 [History] Insulin DETEMIR [Levemir] 50 unit SQ BID 01/13/15 [History] Sucralfate [Carafate] 1 gm PO BID 01/13/15 [History] Amitriptyline [Elavil] 50 mg PO HS 09/17/15 [History] Atorvastatin Calcium [Lipitor] 80 mg PO HS 09/17/15 [History] Aspirin 81 mg PO DAILY #30 tab.chew 09/20/15 [Rx] Clopidogrel [Plavix] 75 mg PO DAILY #30 tablet 09/20/15 [Rx] Metoprolol [Lopressor] 12.5 mg PO BID #60 tablet 09/20/15 [Rx] Isosorbide MONOnitrate (24 HR) [Imdur] 30 mg PO DAILY 11/02/15 [History] Metformin [Glucophage] 500 mg PO BIDWM 11/02/15 [History] Nystatin POWDER [Nystop] 1 appl TP TID #1 bottle 02/17/16 [Rx] Pantoprazole Sodium [Protonix] 40 mg PO HS 30 Days 04/12/16 [Rx] Alprazolam [Xanax 0.25 MG Tablet] 0.25 mg PO TID PRN 06/01/16 [History] Solifenacin Succinate [Vesicare] 10 mg PO DAILY 06/01/16 [History] Cephalexin [Keflex] 500 mg PO BID #14 capsule 06/04/16 [Rx] Allergies/Adverse Reactions: Allergies ampicillin Allergy (Severe, Verified 06/01/16 16:47) See Comments DOCUMENTED IN Where Was it Filmed.66. ciprofloxacin Allergy (Severe, Verified 06/01/16 16:47) See Comments DOCUMENTED IN Where Was it Filmed.66. codeine Allergy (Severe, Verified 06/01/16 16:47) See Comments DOCUMENTED IN Where Was it Filmed.66. Cortisone Allergy (Severe, Verified 06/01/16 16:47) See Comments DOCUMENTED IN Where Was it Filmed.66. Hydromorphone Allergy (Severe, Verified 06/01/16 16:47) See Comments DOCUMENTED IN Where Was it Filmed.66. Penicillins Allergy (Severe, Verified 06/01/16 16:47) See Comments DOCUMENTED IN Where Was it Filmed.66. phenazopyridine [Phenazopyridine] Allergy (Severe, Verified 06/01/16 16:47) See Comments DOCUMENTED IN Where Was it Filmed.66. Sulfa (Sulfonamide Antibiotics) Allergy (Severe, Verified 06/01/16 16:47) See Comments DOCUMENTED IN Where Was it Filmed.66. Oxycodone Allergy (Intermediate, Verified 06/01/16 16:47) Hives Date of admission: 06/02/16 15:14 Primary care physician: Kiel Watkins MD Consults: 06/02/16 15:15 Consult to Occupational Therapy [CONS] Routine Comment: Evaluate, develop and implement POC Consult to Physical Therapy [CONS] Routine Comment: Evaluate, develop and implement POC 06/03/16 18:54 Consult to Respiratory Therapy [CONS] Routine Reason for Consult: Pt with DESTINEE - ? cpap or bipap Call Completed: No 06/04/16 11:07 Consult to Certified Procedural Coder [CONS] Routine Reason for SW Consult: discharge planning, recommend inpt therapy or HH with 24 hour supervision. Discharging clinician: Richard Cornejo Anticipated date of discharge: 06/04/16 - Patient Status Disposition: Home, Self-Care Condition: Fair Functional capacity at discharge: independent ambulation Overall status at discharge: patient is progressing back to baseline - Discharge Instructions Follow Up With: Anthony Coburn MD [Non-Partnered Physician] - 06/08/16 10:45 am - Diet and Activity Activity: resume usual activities as tolerated Diet: advance to your usual diet Hospital course: Ms. Ordoñez is a 66 year old female with hx of recurrent UTIs presented to ED after a fall. She had been feeling weaker and fell hitting the L side of her body. She was evaluated and placed into observation. Ms. Ordoñez was placed in observation for weakness and fall. She was found to have a UTI and placed on IV Ceftriaxone. Ultimately culture was positive for E. coli. She was treated for pain associated with her fall and was admitted to inpatient due to complicated UTI. On 06/04/16 she was changed to PO abx. She was evaluated by PT and was recommended rehab admission but she did not want to pursue that stay. She understood her risk for falls and significant injury. She was afebrile and BP was controlled. At that time she was felt stable for d/c. Script for bedside commode written. - Time Spent with Patient Total time spent providing and/or coordinating discharge services: 40min - Constitutional Vitals: Temp Pulse Resp BP Pulse Ox 98.0 F 77 16 127/74 90 L 06/04/16 11:35 06/04/16 11:35 06/04/16 11:35 06/04/16 11:35 06/04/16 11:35 General appearance: Present: A&O X 3, morbidly obese, answers questions appropriately - Head Head exam: Present: normocephalic - Eye Eye exam: Present: conjuntiva pink - ENT ENT exam: Present: mucous membranes moist - Respiratory Respiratory exam: Present: decreased breath sounds, CTAB - Cardiovascular Cardiovascular exam: Present: RRR. Absent: tachycardia - GI/Abdominal GI/Abdominal exam: Present: soft. Absent: tenderness - Extremities Exam Extremities exam: Present: warm. Absent: tenderness - Neurological Exam Neurological exam: Present: alert, oriented X3, no focal deficits - Skin Skin exam: Present: dry (Ecchymoses improving.), warm. Absent: rash - VTE Documentation of Mechanical Device: Graduated compression elastic hosiery
== END 2016-06-04 17:16 | disposition home or self-care (01) | DRG 690 ==
LOC: 3BNU 16:40 → EMEROO 16:40 → SUATTDRO 18:41 → 3BNU 19:30
PROVIDERS: ADMIT Nurse Practitioner Acute Care; ATTEND Internal Medicine

== ENCOUNTER 2016-09-18 10:07 | Inpatient (IN) ==
--- NOTE | 2016-09-18 10:24 | Emergency Department Note ---
Disposition Clinical Impression: Pyelonephritis Disposition: Admitted As Inpatient Referrals: Kiel Watkins MD [Primary Care Provider] - Forms: Work/School Release, ED Satisfaction Letter Abdominal Pain HPI - General Chief Complaint: ED Abdominal Pain Stated Complaint: ABD Pain Time Seen by Provider: 09/18/16 10:15 Source: patient Mode of arrival: ambulatory Nursing Notes Reviewed: Yes Vital Signs Reviewed: Yes - History of Present Illness Pt Subjective Complaint: abdominal pain Onset (ago): week(s) (3) Consistency: intermittent Location: diffuse Pain Scale: 7 Quality: aching, fullness Radiation: none Migration to: no migration Improves with: nothing Worsens with: nothing Associated symptoms: Reports: nausea Treatments prior to arrival: none - Related Data Home Medications Medication Instructions Recorded Confirmed Duloxetine HCl [Cymbalta] 60 mg PO DAILY 12/05/14 09/18/16 Insulin ASPART [NovoLOG] 2 - 20 unit SQ TIDWM 12/05/14 09/18/16 Insulin DETEMIR [Levemir] 54 unit SQ BID 01/13/15 09/18/16 Atorvastatin Calcium [Lipitor] 80 mg PO HS 09/17/15 09/18/16 Isosorbide MONOnitrate (24 HR) 30 mg PO DAILY 11/02/15 09/18/16 [Imdur] ALPRAZolam [Xanax 0.25 MG Tablet] 0.25 mg PO TID PRN 06/01/16 09/18/16 Solifenacin Succinate [Vesicare] 10 mg PO DAILY 06/01/16 09/18/16 Ergocalciferol (VITAMIN D2) 50,000 unit PO WE 09/18/16 09/18/16 [Vitamin D2] Linagliptin [Tradjenta] 5 mg PO DAILY 09/18/16 09/18/16 Metformin HCl [Metformin HCl ER] 500 mg PO BID 09/18/16 09/18/16 Oxygen 2 l NS AD PRN 09/18/16 09/18/16 Pantoprazole Sodium [Protonix] 40 mg PO DAILY 09/18/16 09/18/16 Previous Rx's Medication Instructions Recorded Aspirin 81 mg PO DAILY #30 tab.chew 09/20/15 Clopidogrel [Plavix] 75 mg PO DAILY #30 tablet 09/20/15 Allergies Allergy/AdvReac Type Severity Reaction Status Date / Time ampicillin Allergy Unknown See Verified 09/18/16 13:24 Comments Cortisone Allergy Unknown Hives Verified 09/18/16 13:24 Oxycodone Allergy Unknown Hives Verified 09/18/16 13:24 Penicillins Allergy Unknown See Verified 09/18/16 13:24 Comments Sulfa (Sulfonamide Allergy Unknown See Verified 09/18/16 13:24 Antibiotics) Comments ciprofloxacin AdvReac Unknown Rash Verified 09/18/16 13:24 codeine AdvReac Unknown Itching Verified 09/18/16 13:24 Hydromorphone AdvReac Unknown Vomiting Verified 09/18/16 13:24 phenazopyridine AdvReac Unknown Vomiting Verified 09/18/16 13:24 [Phenazopyridine] tramadol AdvReac Unknown Vomiting Verified 09/18/16 13:24 hydrocodone AdvReac Itching Verified 09/18/16 13:24 All systems ED: reviewed and negative except as stated. 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 Psychiatric history: Reports: anxiety, depression - Social History Smoking status: Former smoker Alcohol use: Reports: none Drug use: Reports: none Physical Exam - General Limitations: no limitations General appearance: alert, in no apparent distress - Head Head exam: atraumatic, normocephalic, normal inspection - Eye Eye exam: Present: normal appearance, PERRL, EOMI - Expanded Eye Exam Pupils: Left: reactive - ENT ENT exam: normal exam, normal oropharynx, mucous membranes moist - Expanded ENT Exam External ear exam: Present: normal external inspection Mouth exam: Present: normal external inspection Teeth exam: Present: normal inspection Throat exam: Present: normal inspection - Neck Neck exam: Present: normal inspection, full ROM, trachea midline - Chest Chest inspection: Present: normal inspection, symmetric chest wall rise - Respiratory Respiratory exam: Present: normal lung sounds bilaterally - Cardiovascular Cardiovascular exam: Present: regular rate, normal rhythm, normal heart sounds - Abdominal Exam Abdominal exam: Present: soft, normal bowel sounds. Absent: guarding, rebound Abdominal tenderness: Present: diffuse, mild - Extremities Exam Extremities exam: Present: normal inspection, full ROM. Absent: tenderness, pedal edema - Expanded Upper Extremity Exam Shoulder exam: Present: normal inspection, full ROM Arm exam: Present: normal inspection, full ROM Elbow exam: Present: normal inspection, full ROM Forearm/Wrist exam: Present: normal inspection, full ROM Hand exam: Present: normal inspection, full ROM Vascular exam: Normal: capillary refill, radial pulse - Expanded Lower Extremity Exam Hip/Pelvis exam: Present: normal inspection, full ROM Upper leg exam: Present: normal inspection, full ROM Knee exam: Present: normal inspection, full ROM Lower leg exam: Present: normal inspection, full ROM Ankle exam: Present: normal inspection, full ROM Foot/toe exam: Present: normal inspection, full ROM Neurovascular/Tendon exam: Absent: motor deficit, sensory deficit, tendon deficit - Back Exam Back exam: Present: normal inspection, full ROM. Absent: tenderness - Neurological Exam Neurological exam: Present: alert, oriented X3 - Expanded Neurological Exam Patient oriented to: Present: person, place, time Coma Scale Eye Opening: Spontaneous Coma Scale Motor Response: Obeys Commands Coma Scale Verbal Response: Oriented Coma Scale Total: 15 - Psychiatric Psychiatric exam: Present: normal affect, normal mood - Skin Skin exam: Present: warm, dry, intact, normal color Course - Consultations Consultation #1: dr. melgoza may admit to hospitalist and they can consult if requested Time: 12:57 Vital Signs Temperature 97.8 F 09/18/16 10:09 Pulse Rate 87 09/18/16 10:09 Respiratory Rate 18 09/18/16 10:09 Blood Pressure 178/93 09/18/16 10:09 O2 Sat by Pulse Oximetry 96 09/18/16 10:09 Temperature 97.8 F 09/18/16 10:09 Pulse Rate 77 09/18/16 13:15 Respiratory Rate 18 09/18/16 13:15 Blood Pressure 169/99 09/18/16 13:15 O2 Sat by Pulse Oximetry 96 09/18/16 13:15 Oxygen Delivery Oxygen Delivery Room Air Abdominal Pain - Differential Diagnosis Differential Diagnosis: Likely: AAA, constipation, diverticulitis, diverticulosis, hernia, ischemic bowel, pancreatitis, small bowel obstruction - Medical Records Medical records reviewed: Yes I reviewed the patient's medical records. - Lab Data Lab results reviewed: Yes I reviewed the patient's lab results. Result diagrams: 09/18/16 10:37 09/18/16 10:37 Lab Results 09/18/16 09/18/16 09/18/16 Range/Units 10:37 10:37 10:37 WBC 5.2 (4.3-11.1) K/mcL RBC 4.59 (3.82-4.97) M/mcL Hgb 11.5 (11.5-15.4) g/dL Hct 35.3 (35.3-44.9) % MCV 76.9 L (83.0-100.0) fL MCH 25.1 L (28.0-33.3) pg MCHC 32.6 (31.6-35.5) g/dL RDW 15.0 H (11.5-14.5) % Plt Count 203 (140-400) K/mcL MPV 9.0 L (9.4-12.4) fL Immature Gran % 0.4 (0-4) % Seg Neutrophils % 66.3 % Lymphocytes % 21.6 % Monocytes % 7.5 % Eosinophils % 3.8 % Basophils % 0.4 % Neutrophils # 3.5 (1.6-8.9) K/mcL Lymphocytes # 1.1 (0.6-4.6) K/mcL Monocytes # 0.4 (0.0-1.3) K/mcL Eosinophils # 0.2 (0.0-0.6) K/mcL Basophils # 0.0 (0.0-0.2) K/mcL Immature Plt Fraction 3.5 (1.1-6.1) % PT 11.2 (9.4-12.1) Seconds INR 1.0 Sodium 132 L (136-145) mEq/L Potassium 4.1 (3.5-4.5) mEq/L Chloride 99 (98-109) mEq/L Carbon Dioxide 23 (19-29) mEq/L BUN 17 (7-20) mg/dL Creatinine 1.11 (0.57-1.11) mg/dL Est GFR ( Amer) 59 L (> 60) Est GFR (Non-Af Amer) 49 L (> 60) BUN/Creatinine Ratio 15 (6-26) Glucose 411 H (70-99) mg/dL Calculated Osmolality 293 (280-300) Lactic Acid (0.5-2.2) mmol/L Calcium 8.9 (8.6-10.8) mg/dL Total Bilirubin 0.8 (0.2-1.2) mg/dL Direct Bilirubin 0.3 (0.0-0.5) mg/dL Indirect Bilirubin 0.5 (0.0-1.2) mg/dL AST 17 (5-34) Units/L ALT 14 (0-55) Units/L Alkaline Phosphatase 122 (38-126) Units/L Troponin I (0-0.03) ng/mL Serum Total Protein 7.5 (6.0-8.3) g/dL Albumin 3.2 L (3.5-5.0) g/dL Globulin 4.3 H (2.4-3.5) g/dL Albumin/Globulin Ratio 0.7 L (1.1-2.2) Amylase 28 (25-125) Units/L Lipase 22 (8-78) Units/L Urine Color (Yellow) Urine Clarity (Clear) Urine pH (5.0-8.0) pH Units Ur Specific [place] (1.010-1.025) Urine Protein (Neg-Trace) mg/dL Urine Glucose (UA) (Normal) mg/dL Urine Ketones (Negative) mg/dL Urine Blood (Negative) Urine Nitrite (Negative) Urine Bilirubin (Negative) Urine Urobilinogen (Normal) mg/dL Ur Leukocyte Esterase (Negative) Urine Microscopic WBC (0-3) per hpf Ur Squamous Epith Cells (None-Few) per lpf Urine Bacteria (None-Few) per hpf Hyaline Casts (None-Few) per lpf Urine Yeast (None Seen) per hpf Ur Culture Indicated? (NO) 09/18/16 09/18/16 09/18/16 Range/Units 10:37 10:37 10:49 WBC (4.3-11.1) K/mcL RBC (3.82-4.97) M/mcL Hgb (11.5-15.4) g/dL Hct (35.3-44.9) % MCV (83.0-100.0) fL MCH (28.0-33.3) pg MCHC (31.6-35.5) g/dL RDW (11.5-14.5) % Plt Count (140-400) K/mcL MPV (9.4-12.4) fL Immature Gran % (0-4) % Seg Neutrophils % % Lymphocytes % % Monocytes % % Eosinophils % % Basophils % % Neutrophils # (1.6-8.9) K/mcL Lymphocytes # (0.6-4.6) K/mcL Monocytes # (0.0-1.3) K/mcL Eosinophils # (0.0-0.6) K/mcL Basophils # (0.0-0.2) K/mcL Immature Plt Fraction (1.1-6.1) % PT (9.4-12.1) Seconds INR Sodium (136-145) mEq/L Potassium (3.5-4.5) mEq/L Chloride (98-109) mEq/L Carbon Dioxide (19-29) mEq/L BUN (7-20) mg/dL Creatinine (0.57-1.11) mg/dL Est GFR ( Amer) (> 60) Est GFR (Non-Af Amer) (> 60) BUN/Creatinine Ratio (6-26) Glucose (70-99) mg/dL Calculated Osmolality (280-300) Lactic Acid 2.7 H (0.5-2.2) mmol/L Calcium (8.6-10.8) mg/dL Total Bilirubin (0.2-1.2) mg/dL Direct Bilirubin (0.0-0.5) mg/dL Indirect Bilirubin (0.0-1.2) mg/dL AST (5-34) Units/L ALT (0-55) Units/L Alkaline Phosphatase (38-126) Units/L Troponin I 0.00 (0-0.03) ng/mL Serum Total Protein (6.0-8.3) g/dL Albumin (3.5-5.0) g/dL Globulin (2.4-3.5) g/dL Albumin/Globulin Ratio (1.1-2.2) Amylase (25-125) Units/L Lipase (8-78) Units/L Urine Color Yellow (Yellow) Urine Clarity Cloudy A (Clear) Urine pH 5.0 (5.0-8.0) pH Units Ur Specific [place] 1.026 H (1.010-1.025) Urine Protein Negative (Neg-Trace) mg/dL Urine Glucose (UA) >=1000 H (Normal) mg/dL Urine Ketones Negative (Negative) mg/dL Urine Blood Negative (Negative) Urine Nitrite Negative (Negative) Urine Bilirubin Negative (Negative) Urine Urobilinogen Normal (Normal) mg/dL Ur Leukocyte Esterase Moderate H (Negative) Urine Microscopic WBC TNTC H (0-3) per hpf Ur Squamous Epith Cells Many H (None-Few) per lpf Urine Bacteria Moderate H (None-Few) per hpf Hyaline Casts None Seen (None-Few) per lpf Urine Yeast Moderate H (None Seen) per hpf Ur Culture Indicated? YES A (NO) - Radiology Data Radiology results reviewed: Yes I reviewed the patient's radiology results.
[2016-09-18 10:44] LABS: Basophils % 0.4 %; Eosinophils # 0.2 K/mcL (0.0-0.6); Eosinophils % 3.8 %; Hematocrit 35.3 % (35.3-44.9); Hemoglobin 11.5 g/dL (11.5-15.4); Immature Granulocytes % 0.4 % (0-4); Immature Platelets 3.5 % (1.1-6.1); Lymphocytes # 1.1 K/mcL (0.6-4.6); Lymphocytes % 21.6 %; Mean Corpuscular HGB Conc 32.6 g/dL (31.6-35.5); Mean Corpuscular Hemoglobin 25.1 pg (28.0-33.3); Mean Corpuscular Volume 76.9 fL (83.0-100.0); Monocytes # 0.4 K/mcL (0.0-1.3); Monocytes % 7.5 %; Neutrophils # 3.5 K/mcL (1.6-8.9); Platelet Count 203 K/mcL (140-400); Red Blood Count 4.59 M/mcL (3.82-4.97); Segmented Neutrophils % 66.3 %
[2016-09-18 10:49] LABS: Prothrombin Time 11.2 Seconds (9.4-12.1)
[2016-09-18 11:03] LABS: Albumin 3.2 g/dL (3.5-5.0); Albumin/Globulin Ratio 0.7 (1.1-2.2); Bilirubin,Direct 0.3 mg/dL (0.0-0.5); Bilirubin,Indirect 0.5 mg/dL (0.0-1.2); Bilirubin,Total 0.8 mg/dL (0.2-1.2); Calcium 8.9 mg/dL (8.6-10.8); Globulin 4.3 g/dL (2.4-3.5); Potassium 4.1 mEq/L (3.5-4.5); Total Protein 7.5 g/dL (6.0-8.3)
[2016-09-18 12:21] LABS: Bilirubin,Urine Negative (Negative); Blood,Urine Negative (Negative); Clarity,Urine Cloudy (Clear); Color,Urine Yellow (Yellow); Glucose,Urine (UA) >=1000 mg/dL (Normal); Ketones,Urine Negative (Negative); Leukocyte Esterase,Urine Moderate (Negative); Nitrite,Urine Negative (Negative); Protein,Urine Negative (Neg-Trace); Specific Gravity,Urine 1.026 (1.010-1.025); Urobilinogen,Urine Normal (Normal)
[2016-09-18 12:24] LABS: Bacteria,Urine Moderate per hpf (None-Few); Hyaline Casts,Urine None Seen per lpf (None-Few); Squamous Epithelial Cell,Urine Many per lpf (None-Few); WBC,Urine TNTC per hpf (0-3)
[2016-09-18] MEDS ORDERED: 0.9 % Sodium Chloride 1,000 ML IVC ONE (12:24)
[2016-09-18 12:38] LABS: Yeast,Urine Moderate per hpf (None Seen)
[2016-09-18] MEDS ORDERED: Cefepime HCl 1,000 MG in D5% in Water (Mini-Bag+) 100 ML IVPB STA (13:11)
[2016-09-18] MEDS ORDERED: Ondansetron 4 MG/2 ML VIAL IVP PRN (14:29)
[2016-09-18] MEDS ORDERED: Naloxone 0.4 MG/ML INJ IVP PRN (14:29)
[2016-09-18] MEDS ORDERED: 0.9 % Sodium Chloride 1,000 ML IVC SCH (14:30)
--- NOTE | 2016-09-18 14:31 | Event Note ---
Date of Encounter: 09/18/16 Time of Encounter: 14:30 Patient seen and examined. 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 According to prior cultures will start the patient on Zyvox and cefepime. Hydration. Urology consultation. She is full code
[2016-09-18] MEDS ORDERED: ALPRAZolam 0.25 MG TABLET PO PRN (14:39)
[2016-09-18] MEDS ORDERED: D5% in Water 1,000 ML IVC PRN (14:46)
[2016-09-18] MEDS ORDERED: Dextrose Gel 15 GM PO PRN ×2 (14:46)
[2016-09-18] MEDS ORDERED: *HR* Dextrose 50 % in Water (Syg) 50 ML SYRINGE IVP PRN (14:46)
--- NOTE | 2016-09-18 15:02 | Internal Med History&Physical ---
Date of Encounter: 09/18/16 Time of Encounter: 14:00 Assessment and Plan (1) Emphysematous pyelonephritis Current visit: Yes Status: Acute 1 patient has history of chronic urinary tract infections as well as history of polynephritis. She seen urology in the past at [facility] she has had a ureter stent placement in the past. She has been experiencing abdominal pain subjective fevers. CT of abdomen revealed emphysematous pyelonephritis. Patient was started on cefepime in the ER will add linezolid patient has history of VRE. Awaiting urine culture results 2 IV fluids 3 consult urology (2) CAD (coronary artery disease) Current visit: No Status: Chronic 1 has history of ERNESTO will continue with Plavix and aspirin. Lipitor and Imdur 2 cardiac diet Qualifiers: Coronary Disease-Associated Artery/Lesion type: [place] artery [place] vs. transplanted heart: [place] heart Associated angina: without angina Qualified Code(s): I25.10 - Atherosclerotic heart disease of [place] coronary artery without angina pectoris (3) CKD (chronic kidney disease) stage 3, GFR 30-59 ml/min Current visit: No Status: Chronic (4) Diabetes Current visit: Yes Status: Chronic 1 patient has had elevated blood sugars we will continue with long-acting as well as sliding scale insulin and Accu-Cheks before meals at bedtime. Patient has had poor oral intake will cut long-acting in half for now 2 diabetic diet Qualifiers: Diabetes mellitus type: type 2 Diabetes mellitus complication status: without complication Diabetes mellitus long term care phlebotomist insulin use: with long term care phlebotomist use Qualified Code(s): E11.9 - Type 2 diabetes mellitus without complications ; Z79.4 - long term care social worker (current) use of insulin (5) DVT prophylaxis Current visit: No Status: Acute 1 heparin subcutaneous Internal Medicine - H&P: HPI Chief complaint: abd pain Admitted From: Emergency Dept Plans for Post Hospital Care: Home History of present illness: Ms. Ordoñez is a 66 year old female past medical history of diabetes type 2 GERD to slip lipidemia hypertension CVA TIA COPD recurrent UTIs CAD with stent placement. According the patient for past 5 days she has been experiencing abdominal swelling lower abdominal pain radiating to bilateral flank. She has subjective fevers as well as nausea vomiting anorexia. Patient does have a history of chronic UTIs does see urology at [facility]. She presented to her PCP this a.m. who advised her go to the ER for evaluation. According to ER records lab work did reveal patient had UTI as well as lactate was 2.7 there was no leukocytosis rest of lab work was unremarkable. CT of abdomen revealed emphysematous pyelonephritis. Patient was given cefepime and IV fluids. ER physician did speak with urology who suggested admission per hospitalist and consult as needed. Presently patient does not appear to be in any distress. She is hemodynamically stable at this time. She does complain of some mild abdominal pain lung sounds are clear heart sounds S1-S2 with no rubs clicks murmurs gallops noted. I reviewed this case Dr. Cruz who agrees with plan. Past Med Surg Social Fam HX - Past Medical History Medical history: arthritis, asthma, COPD, coronary artery disease, CVA, diabetes , GERD, hypertension, kidney stones, myocardial infarction, osteoporosis, renal disease, other Psychiatric history: anxiety, depression - Past Surgical History Surgical History: appendectomy, cholecystectomy, hysterectomy, thyroidectomy, ureteral stent, other - Social History Smoking Status: Former smoker Smokeless Tobacco Status: No Alcohol use: none Drug use: none - Family History Father Hx Family Cardiac Disorders: Yes (AAA) Hx Family Endocrine Disorder: Yes (DM) Mother Adopted: No Living Status: Hx Family Cardiac Disorders: Yes (HTN) Hx Family Cancer: Yes (Colon) Internal Medicine - H&P: Meds Duloxetine HCl [Cymbalta] 60 mg PO DAILY 12/05/14 [History] Insulin ASPART [NovoLOG] 2 - 20 unit SQ TIDWM 12/05/14 [History] Insulin DETEMIR [Levemir] 54 unit SQ BID 01/13/15 [History] Atorvastatin Calcium [Lipitor] 80 mg PO HS 09/17/15 [History] Aspirin 81 mg PO DAILY #30 tab.chew 09/20/15 [Rx] Clopidogrel [Plavix] 75 mg PO DAILY #30 tablet 09/20/15 [Rx] Isosorbide MONOnitrate (24 HR) [Imdur] 30 mg PO DAILY 11/02/15 [History] ALPRAZolam [Xanax 0.25 MG Tablet] 0.25 mg PO TID PRN 06/01/16 [History] Solifenacin Succinate [Vesicare] 10 mg PO DAILY 06/01/16 [History] Ergocalciferol (VITAMIN D2) [Vitamin D2] 50,000 unit PO WE 09/18/16 [History] Linagliptin [Tradjenta] 5 mg PO DAILY 09/18/16 [History] Metformin HCl [Metformin HCl ER] 500 mg PO BID 09/18/16 [History] Oxygen 2 l NS AD PRN 09/18/16 [History] Pantoprazole Sodium [Protonix] 40 mg PO DAILY 09/18/16 [History] Allergies ampicillin Allergy (Unknown, Verified 09/18/16 13:24) See Comments unknown childhood reaction Cortisone Allergy (Unknown, Verified 09/18/16 13:24) Hives Oxycodone Allergy (Unknown, Verified 09/18/16 13:24) Hives Penicillins Allergy (Unknown, Verified 09/18/16 13:24) See Comments childhood reaction Sulfa (Sulfonamide Antibiotics) Allergy (Unknown, Verified 09/18/16 13:24) See Comments unknown childhood reaction ciprofloxacin Adverse Reaction (Unknown, Verified 09/18/16 13:24) Rash codeine Adverse Reaction (Unknown, Verified 09/18/16 13:24) Itching Hydromorphone Adverse Reaction (Unknown, Verified 09/18/16 13:24) Vomiting DOCUMENTED IN [employer] 5.66. phenazopyridine [Phenazopyridine] Adverse Reaction (Unknown, Verified 09/18/16 13:24) Vomiting tramadol Adverse Reaction (Unknown, Verified 09/18/16 13:24) Vomiting hydrocodone Adverse Reaction (Verified 09/18/16 13:24) Itching All Systems PM: A 10-system review of systems was performed and is negative for pertinent findings except as documented above in the HPI. - Constitutional Constitutional: anorexia, fever(s) - EENT Eyes: no change in vision, no discharge, no pain, no photophobia - Cardiovascular Cardiovascular ROS IM: no chest pain, no diaphoresis, no dyspnea, no lightheadedness, no palpitations, no syncope - Respiratory Respiratory: no cough, no dyspnea, no wheezing, no excessive phlegm production - Gastrointestinal Gastrointestinal: abdominal pain, nausea, vomiting - Genitourinary Genitourinary: no change in urinary stream, no dysuria, no flank pain, no hematuria - Musculoskeletal Musculoskeletal ROS IM: no numbness, no tingling - Integumentary Integumentary IM: no rash, no unusual bruising - Neurological Neurological ROS: no confusion, no convulsions, no focal weakness, no numbness, no tingling, no tremor(s) - Hematologic/Lymphatic Hematologic/Lymphatic: no easy bruising - Constitutional Vitals: Temp Pulse Resp BP Pulse Ox 97.4 F L 79 16 184/84 95 09/18/16 14:31 09/18/16 14:31 09/18/16 14:31 09/18/16 14:31 09/18/16 14:31 General appearance: Present: A&O X 3 - Head Head exam: Present: atraumatic, normocephalic - Eye Eye exam: Present: PERRL, conjuntiva pink, sclera anicteric Pupils: Present: PERRL - Neck Neck exam general surgery: Present: supple, trachea midline. Absent: lymphadenopathy - Respiratory Respiratory exam: Present: CTAB. Absent: accessory muscle use, rales, rhonchi, wheezes - Cardiovascular Cardiovascular exam: Present: RRR, +S1, +S2. Absent: diastolic murmur, gallop, rubs, systolic murmur - GI/Abdominal GI/Abdominal exam: Present: normal bowel sounds, soft, no peritoneal signs. Absent: distended, tenderness - Extremities Exam Extremities exam: Present: warm, radial pulses palpable and symetrical. Absent : calf tenderness, cyanotic, pedal edema - Back Exam Back exam: Present: CVA tenderness (L), CVA tenderness (R) - Neurological Exam Neurological exam: Present: CN II-XII intact, oriented X3, no focal deficits. Absent: pronater drift, facial droop, speech deficit - Skin Skin exam: Present: dry, intact Internal Med - H&P Results - Labs CBC & Chem 7: 09/18/16 10:37 09/18/16 10:37 - Diagnostic Studies CT scan - abdomen Additional comments: Abdomen/Pelvis CT 09/18/16 10:57 IMPRESSION: 1. Air within upper and midpole calyces in the left kidney, as well as in the proximal left ureter. If there has been no recent instrumentation, findings are concerning for emphysematous pyelonephritis. No hydronephrosis. 2. Air within the urinary bladder, either due to infection or recent catheterization/instrumentation. 3. Stable nonobstructing left renal calculi. 4. Cirrhosis. 5. Severe coronary artery disease and vascular atherosclerotic disease. D/ / 09/18/2016 11:49:06 Israel Tucker MD / Hanna Fabian Interpreting Provider: Israel Tucker MD
[2016-09-18] MEDS: 0.9 % Sodium Chloride 1,000 ML IVC SCH (15:52)
[2016-09-18] MEDS: Insulin LISPRO 300 UNITS/3 ML VIAL SQ SCH ×2 (17:20→20:28)
[2016-09-18] MEDS: *HR* Heparin 5,000 UNIT/ML VIAL SQ SCH (17:21)
[2016-09-18] MEDS: Cefepime HCl 1,000 MG in D5% in Water (Mini-Bag+) 100 ML IVPB SCH (17:22)
[2016-09-18] MEDS: *HR* Morphine 2 MG/ML SYRINGE IVP PRN (20:28)
[2016-09-18] MEDS: Insulin DETEMIR 100 UNIT/ML X5UNITS SQ SCH (20:28)
[2016-09-18] MEDS ORDERED: INSULIN DETEMIR 25 UNIT SQ SCH (21:00)
[2016-09-19] MEDS: *HR* Morphine 2 MG/ML SYRINGE IVP PRN ×5 (00:34→20:42)
[2016-09-19] MEDS: Cefepime HCl 1,000 MG in D5% in Water (Mini-Bag+) 100 ML IVPB SCH ×2 (05:10→18:06)
[2016-09-19] MEDS: *HR* Heparin 5,000 UNIT/ML VIAL SQ SCH ×2 (05:10→18:05)
[2016-09-19 05:55] LABS: Basophils % 0.3 %; Eosinophils # 0.2 K/mcL (0.0-0.6); Eosinophils % 5.3 %; Hematocrit 32.5 % (35.3-44.9); Hemoglobin 10.5 g/dL (11.5-15.4); Immature Granulocytes % 0.3 % (0-4); Lymphocytes % 26.2 %; Mean Corpuscular HGB Conc 32.3 g/dL (31.6-35.5); Mean Corpuscular Hemoglobin 24.8 pg (28.0-33.3); Mean Corpuscular Volume 76.7 fL (83.0-100.0); Mean Platelet Volume 9.7 fL (9.4-12.4); Monocytes # 0.4 K/mcL (0.0-1.3); Monocytes % 9.6 %; Neutrophils # 2.2 K/mcL (1.6-8.9); Platelet Count 159 K/mcL (140-400); Red Blood Count 4.24 M/mcL (3.82-4.97); Red Cell Distribution Width 14.6 % (11.5-14.5); Segmented Neutrophils % 58.3 %
[2016-09-19] MEDS: 0.9 % Sodium Chloride 1,000 ML IVC SCH (06:05)
[2016-09-19 06:14] LABS: BUN/Creatinine Ratio 14 (6-26); Blood Urea Nitrogen 13 mg/dL (7-20); Calcium 8.4 mg/dL (8.6-10.8); Carbon Dioxide 28 mEq/L (19-29); Chloride 103 mEq/L (98-109); Glucose 237 mg/dL (70-99); Osmolality,Calculated 290 (280-300); Sodium 136 mEq/L (136-145); eGFR For African Americans > 60 (> 60); eGFR For Non-African Americans > 60 (> 60)
--- NOTE | 2016-09-19 07:42 | Urology - Consult Note ---
Date of Encounter: 09/19/16 Time of Encounter: 07:37 - Assessment and Plan (1) Emphysematous pyelonephritis Current Visit: Yes Status: Acute Assessment and plan: no urological surgical intervention at this time. A stent has been placed into the past for this problem, but did not help the situation. continue IV abx until cultures return. call with any questions. patient can f/u with Dr. Bañuelos in 2-3 weeks. Urology CN:HPI Consult date: 09/19/16 Reason for consult Urology: Other (air in collecting system) Requesting physician: Viki Bella History of present illness: Lizz is a 66 y/o female well known to urology for recurrent UTIs. The patient has had persistent air in her collecting system on the left side. She was referred to [facility] for possible heminephrectomy vs nephrectomy but was unable to undergo that procedure. the patient now returns with abd pain and CT showing air in left upper pole. Past Med Surg Social Fam HX - Past Medical History Medical history: arthritis, asthma, COPD, coronary artery disease, CVA, diabetes , GERD, hypertension, kidney stones, myocardial infarction, osteoporosis, renal disease, other Psychiatric history: anxiety, depression - Past Surgical History Surgical History: appendectomy, cholecystectomy, hysterectomy, thyroidectomy, ureteral stent, other - Social History Smoking Status: Former smoker Smokeless Tobacco Status: No Alcohol use: none Drug use: none - Family History Father Hx Family Cardiac Disorders: Yes (AAA) Hx Family Endocrine Disorder: Yes (DM) Mother Adopted: No Living Status: Hx Family Cardiac Disorders: Yes (HTN) Hx Family Cancer: Yes (Colon) Medications and Allergies Duloxetine HCl [Cymbalta] 60 mg PO DAILY 12/05/14 [History] Insulin ASPART [NovoLOG] 2 - 20 unit SQ TIDWM 12/05/14 [History] Insulin DETEMIR [Levemir] 54 unit SQ BID 01/13/15 [History] Atorvastatin Calcium [Lipitor] 80 mg PO HS 09/17/15 [History] Aspirin 81 mg PO DAILY #30 tab.chew 09/20/15 [Rx] Clopidogrel [Plavix] 75 mg PO DAILY #30 tablet 09/20/15 [Rx] Isosorbide MONOnitrate (24 HR) [Imdur] 30 mg PO DAILY 11/02/15 [History] ALPRAZolam [Xanax 0.25 MG Tablet] 0.25 mg PO TID PRN 06/01/16 [History] Solifenacin Succinate [Vesicare] 10 mg PO DAILY 06/01/16 [History] Ergocalciferol (VITAMIN D2) [Vitamin D2] 50,000 unit PO WE 09/18/16 [History] Linagliptin [Tradjenta] 5 mg PO DAILY 09/18/16 [History] Metformin HCl [Metformin HCl ER] 500 mg PO BID 09/18/16 [History] Oxygen 2 l NS AD PRN 09/18/16 [History] Pantoprazole Sodium [Protonix] 40 mg PO DAILY 09/18/16 [History] Allergies ampicillin Allergy (Unknown, Verified 09/18/16 13:24) See Comments unknown childhood reaction Cortisone Allergy (Unknown, Verified 09/18/16 13:24) Hives Oxycodone Allergy (Unknown, Verified 09/18/16 13:24) Hives Penicillins Allergy (Unknown, Verified 09/18/16 13:24) See Comments childhood reaction Sulfa (Sulfonamide Antibiotics) Allergy (Unknown, Verified 09/18/16 13:24) See Comments unknown childhood reaction ciprofloxacin Adverse Reaction (Unknown, Verified 09/18/16 13:24) Rash codeine Adverse Reaction (Unknown, Verified 09/18/16 13:24) Itching Hydromorphone Adverse Reaction (Unknown, Verified 09/18/16 13:24) Vomiting DOCUMENTED IN [employer] 5.66. phenazopyridine [Phenazopyridine] Adverse Reaction (Unknown, Verified 09/18/16 13:24) Vomiting tramadol Adverse Reaction (Unknown, Verified 09/18/16 13:24) Vomiting hydrocodone Adverse Reaction (Verified 09/18/16 13:24) Itching Review of Systems ROS unobtainable: due to mental status Exam Initial Vital Signs Temp Pulse Resp BP Pulse Ox 97.8 F 87 18 178/93 96 09/18/16 10:09 09/18/16 10:09 09/18/16 10:09 09/18/16 10:09 09/18/16 10:09 - General physical appearance Present: well developed - Cardiovascular Cardiovascular exam IM: RRR - Abdomen Abdomen: Present: soft Urology Results - Labs 09/19/16 04:27 09/19/16 04:27 Abnormal lab results WBC 3.7 K/mcL (4.3-11.1) L 09/19/16 04:27 Hgb 10.5 g/dL (11.5-15.4) L 09/19/16 04:27 Hct 32.5 % (35.3-44.9) L 09/19/16 04:27 MCV 76.7 fL (83.0-100.0) L 09/19/16 04:27 MCH 24.8 pg (28.0-33.3) L 09/19/16 04:27 RDW 14.6 % (11.5-14.5) H 09/19/16 04:27 Glucose 237 mg/dL (70-99) H 09/19/16 04:27 POC Glucose 251 (58-89) H 09/18/16 20:17 Lactic Acid 2.7 mmol/L (0.5-2.2) H 09/18/16 10:37 Calcium 8.4 mg/dL (8.6-10.8) L 09/19/16 04:27 Albumin 3.2 g/dL (3.5-5.0) L 09/18/16 10:37 Globulin 4.3 g/dL (2.4-3.5) H 09/18/16 10:37 Albumin/Globulin Ratio 0.7 (1.1-2.2) L 09/18/16 10:37 Urine Clarity Cloudy (Clear) A 09/18/16 10:49 Ur Specific [place] 1.026 (1.010-1.025) H 09/18/16 10:49 Urine Glucose (UA) >=1000 mg/dL (Normal) H 09/18/16 10:49 Ur Leukocyte Esterase Moderate (Negative) H 09/18/16 10:49 Urine Microscopic WBC TNTC per hpf (0-3) H 09/18/16 10:49 Ur Squamous Epith Cells Many per lpf (None-Few) H 09/18/16 10:49 Urine Bacteria Moderate per hpf (None-Few) H 09/18/16 10:49 Urine Yeast Moderate per hpf (None Seen) H 09/18/16 10:49 Ur Culture Indicated? YES (NO) A 09/18/16 10:49 Diabetes panel 09/19/16 Range/Units 04:27 Sodium 136 (136-145) mEq/L Potassium 4.0 (3.5-4.5) mEq/L Chloride 103 (98-109) mEq/L Carbon Dioxide 28 (19-29) mEq/L BUN 13 (7-20) mg/dL Creatinine 0.92 (0.57-1.11) mg/dL Glucose 237 H (70-99) mg/dL Calcium 8.4 L (8.6-10.8) mg/dL Calcium panel 09/19/16 Range/Units 04:27 Calcium 8.4 L (8.6-10.8) mg/dL Pituitary panel 09/19/16 Range/Units 04:27 Sodium 136 (136-145) mEq/L Potassium 4.0 (3.5-4.5) mEq/L Chloride 103 (98-109) mEq/L Carbon Dioxide 28 (19-29) mEq/L BUN 13 (7-20) mg/dL Creatinine 0.92 (0.57-1.11) mg/dL Glucose 237 H (70-99) mg/dL Calcium 8.4 L (8.6-10.8) mg/dL Adrenal panel 09/19/16 Range/Units 04:27 Sodium 136 (136-145) mEq/L Potassium 4.0 (3.5-4.5) mEq/L Chloride 103 (98-109) mEq/L Carbon Dioxide 28 (19-29) mEq/L BUN 13 (7-20) mg/dL Creatinine 0.92 (0.57-1.11) mg/dL Glucose 237 H (70-99) mg/dL Calcium 8.4 L (8.6-10.8) mg/dL All other labs normal. - Imaging CT scan - abdomen: image reviewed CT scan - pelvis: image reviewed Consult Discharge Plan - Plan Referrals: Kiel Watkins MD [Primary Care Provider] -
[2016-09-19] MEDS: Insulin LISPRO 300 UNITS/3 ML VIAL SQ SCH ×6 (08:29→20:45)
[2016-09-19] MEDS: Isosorbide MONOnitrate (24 HR) 30 MG TAB.ER.24H PO SCH (08:29)
[2016-09-19] MEDS: Aspirin 81 MG TAB.CHEW PO SCH (08:30)
[2016-09-19] MEDS: Insulin DETEMIR 100 UNIT/ML X5UNITS SQ SCH ×2 (08:31→20:45)
--- NOTE | 2016-09-19 11:21 | Internal Med Progress Note ---
Date of Encounter: 09/19/16 Time of Encounter: 11:21 - Assessment and plan (1) Essential hypertension Current Visit: Yes Status: Chronic Assessment and plan: Uncontrolled Add Norvasc to regimen, continue to monitor (2) CAD (coronary artery disease) Current Visit: Yes Status: Chronic Assessment and plan: Stable, continue home meds Qualifiers: Coronary Disease-Associated Artery/Lesion type: [place] artery [place] vs. transplanted heart: [place] heart Associated angina: without angina Qualified Code(s): I25.10 - Atherosclerotic heart disease of [place] coronary artery without angina pectoris (3) Obstructive sleep apnea Current Visit: Yes Status: Chronic Assessment and plan: BiPAP at night, ensure (4) Diabetes mellitus with nephropathy Current Visit: Yes Status: Chronic Assessment and plan: Increase insulin, FS uncontrolled ADA diet FS ACHS (5) CKD (chronic kidney disease) stage 3, GFR 30-59 ml/min Current Visit: Yes Status: Chronic Assessment and plan: Cr stable (6) Pyelonephritis Current Visit: Yes Status: Acute Assessment and plan: Follow final cultures Continue Cefepime, Zyvox Continue IV morphine, add tylenol prn - Subjective Interval history: Seen and evaluated at the bedside. 66-year-old female with recurrent urinary tract infections and chronic emphysema on the left kidney Other past medical history includes coronary artery disease, CKD stage III, and diabetes mellitus. evaluation noted and appreciated. Patient had been referred to [facility] for a partial nephrectomy or total nephrectomy however patient reports procedure was canceled because she had an CT and was placed on Plavix. She is currently being managed for UTI, urinary culture is pending. - Constitutional Vitals: Temp Pulse Resp BP Pulse Ox 98.1 F 89 16 192/73 93 09/19/16 07:45 09/19/16 07:45 09/19/16 07:45 09/19/16 07:45 09/19/16 07:45 General appearance: Present: A&O X 3, pleasant, no acute distress - Head Head exam: Present: atraumatic, normocephalic - Eye Eye exam: Present: PERRL, conjuntiva pink, sclera anicteric Pupils: Present: PERRL - Neck Neck exam general surgery: Present: supple, trachea midline. Absent: lymphadenopathy - Respiratory Respiratory exam: Present: CTAB. Absent: accessory muscle use, rales, rhonchi, wheezes - Cardiovascular Cardiovascular exam: Present: RRR, +S1, +S2. Absent: diastolic murmur, gallop, rubs, systolic murmur - GI/Abdominal GI/Abdominal exam: Present: normal bowel sounds, soft, no peritoneal signs. Absent: distended, tenderness - Extremities Exam Extremities exam: Present: warm, radial pulses palpable and symetrical. Absent : calf tenderness, cyanotic, pedal edema - Back Exam Back exam: Present: CVA tenderness (L) - Neurological Exam Neurological exam: Present: alert, CN II-XII intact, oriented X3, no focal deficits. Absent: pronater drift, facial droop, speech deficit - Skin Skin exam: Present: dry, intact Internal Medicine: Result - Labs CBC & Chem 7: 09/19/16 04:27 09/19/16 04:27 Labs: Short CBC 09/19/16 Range/Units 04:27 WBC 3.7 L (4.3-11.1) K/mcL Hgb 10.5 L (11.5-15.4) g/dL Hct 32.5 L (35.3-44.9) % Plt Count 159 (140-400) K/mcL Neutrophils # 2.2 (1.6-8.9) K/mcL BMP 09/19/16 04:27 Sodium 136 Potassium 4.0 Chloride 103 Carbon Dioxide 28 BUN 13 Creatinine 0.92 Glucose 237 H Calcium 8.4 L - ABG Interpretation ABG results: PT/INR, D-dimer PT 11.2 Seconds (9.4-12.1) 09/18/16 10:37 Consult Discharge Plan - Plan Referrals: Kiel Watkins MD [Primary Care Provider] -
[2016-09-19] MEDS ORDERED: Acetaminophen 325 MG TABLET PO PRN (11:26)
[2016-09-19] MEDS: amLODIPine 5 MG TABLET PO SCH (13:25)
[2016-09-19] MEDS: Simethicone 80 MG TAB.CHEW PO PRN (14:44)
[2016-09-19] MEDS: Acetaminophen 325 MG TABLET PO PRN (18:07)
[2016-09-20] MEDS: *HR* Morphine 2 MG/ML SYRINGE IVP PRN ×3 (03:20→13:03)
[2016-09-20] MEDS: *HR* Heparin 5,000 UNIT/ML VIAL SQ SCH ×2 (06:18→17:11)
[2016-09-20] MEDS: Cefepime HCl 1,000 MG in D5% in Water (Mini-Bag+) 100 ML IVPB SCH ×2 (06:18→17:53)
[2016-09-20] MEDS: Simethicone 80 MG TAB.CHEW PO PRN ×2 (06:27→21:20)
[2016-09-20] MEDS: Acetaminophen 325 MG TABLET PO PRN (06:27)
[2016-09-20 06:51] LABS: Basophils % 0.5 %; Eosinophils # 0.2 K/mcL (0.0-0.6); Eosinophils % 4.9 %; Hematocrit 33.7 % (35.3-44.9); Hemoglobin 10.8 g/dL (11.5-15.4); Immature Granulocytes % 0.5 % (0-4); Lymphocytes # 1.1 K/mcL (0.6-4.6); Lymphocytes % 29.3 %; Mean Corpuscular Hemoglobin 24.5 pg (28.0-33.3); Mean Corpuscular Volume 76.6 fL (83.0-100.0); Mean Platelet Volume 9.4 fL (9.4-12.4); Monocytes # 0.4 K/mcL (0.0-1.3); Platelet Count 154 K/mcL (140-400); Red Cell Distribution Width 14.8 % (11.5-14.5); Segmented Neutrophils % 54.8 %
[2016-09-20 06:53] LABS: Potassium 4.6 mEq/L (3.5-4.5)
[2016-09-20] MEDS: Aspirin 81 MG TAB.CHEW PO SCH (07:28)
[2016-09-20] MEDS: Isosorbide MONOnitrate (24 HR) 30 MG TAB.ER.24H PO SCH (07:28)
[2016-09-20] MEDS: amLODIPine 5 MG TABLET PO SCH (07:28)
[2016-09-20] MEDS: Insulin LISPRO 300 UNITS/3 ML VIAL SQ SCH ×7 (07:30→20:19)
[2016-09-20] MEDS: Insulin DETEMIR 100 UNIT/ML X5UNITS SQ SCH ×2 (07:43→20:18)
--- NOTE | 2016-09-20 11:03 | Internal Med Progress Note ---
Date of Encounter: 09/20/16 Time of Encounter: 11:02 - Assessment and plan (1) Essential hypertension Current Visit: Yes Status: Chronic Assessment and plan: Controlled now, continue current meds (2) CAD (coronary artery disease) Current Visit: Yes Status: Chronic Assessment and plan: Stable, continue home meds Qualifiers: Coronary Disease-Associated Artery/Lesion type: [place] artery [place] vs. transplanted heart: [place] heart Associated angina: without angina Qualified Code(s): I25.10 - Atherosclerotic heart disease of [place] coronary artery without angina pectoris (3) Obstructive sleep apnea Current Visit: Yes Status: Chronic Assessment and plan: BiPAP at night, ensure (4) Diabetes mellitus with nephropathy Current Visit: Yes Status: Chronic Assessment and plan: Increase insulin, FS uncontrolled ADA diet FS ACHS (5) CKD (chronic kidney disease) stage 3, GFR 30-59 ml/min Current Visit: Yes Status: Chronic Assessment and plan: Cr stable (6) Pyelonephritis Current Visit: Yes Status: Acute Assessment and plan: Follow final cultures Continue Cefepime, Zyvox Continue IV morphine, add tylenol prn - Subjective Interval history: Seen and evaluated at the bedside. 66-year-old female with recurrent urinary tract infections and chronic emphysema on the left kidney Other past medical history includes coronary artery disease, CKD stage III, and diabetes mellitus. evaluation noted and appreciated. Patient had been referred to [facility] for a partial nephrectomy or total nephrectomy however patient reports procedure was canceled because she had an LA and was placed on Plavix. She is currently being managed for UTI Urine culture resulted today with mixed vitaly Repeat urine culture has been ordered and sent Patient with multiple non-specific and subjective complains Will await final urine culture before discharge - Constitutional Vitals: Temp Pulse Resp BP Pulse Ox 98.0 F 76 16 126/70 94 09/20/16 08:00 09/20/16 08:00 09/20/16 08:00 09/20/16 08:00 09/20/16 08:00 General appearance: Present: A&O X 3, pleasant, no acute distress - Head Head exam: Present: atraumatic, normocephalic - Eye Eye exam: Present: PERRL, conjuntiva pink, sclera anicteric Pupils: Present: PERRL - Neck Neck exam general surgery: Present: supple, trachea midline. Absent: lymphadenopathy - Respiratory Respiratory exam: Present: CTAB. Absent: accessory muscle use, rales, rhonchi, wheezes - Cardiovascular Cardiovascular exam: Present: RRR, +S1, +S2. Absent: diastolic murmur, gallop, rubs, systolic murmur - GI/Abdominal GI/Abdominal exam: Present: normal bowel sounds, soft, no peritoneal signs. Absent: distended, tenderness - Extremities Exam Extremities exam: Present: warm, radial pulses palpable and symetrical. Absent : calf tenderness, cyanotic, pedal edema - Back Exam Back exam: Absent: CVA tenderness (L), CVA tenderness (R) - Neurological Exam Neurological exam: Present: alert, CN II-XII intact, oriented X3, no focal deficits. Absent: pronater drift, facial droop, speech deficit - Skin Skin exam: Present: dry, intact Internal Medicine: Result - Labs CBC & Chem 7: 09/20/16 05:34 09/20/16 05:34 Labs: Short CBC 09/20/16 Range/Units 05:34 WBC 3.7 L (4.3-11.1) K/mcL Hgb 10.8 L (11.5-15.4) g/dL Hct 33.7 L (35.3-44.9) % Plt Count 154 (140-400) K/mcL Neutrophils # 2.0 (1.6-8.9) K/mcL BMP 09/20/16 05:34 Sodium 136 Potassium 4.6 H Chloride 101 Carbon Dioxide 28 BUN 12 Creatinine 1.10 Glucose 257 H Calcium 9.0 - ABG Interpretation ABG results: PT/INR, D-dimer PT 11.2 Seconds (9.4-12.1) 09/18/16 10:37 Consult Discharge Plan - Plan Referrals: Kiel Watkins MD [Primary Care Provider] - 09/27/16 2:15 pm
[2016-09-20] MEDS ORDERED: Acetaminophen 325 MG TABLET PO PRN (13:19)
[2016-09-20] MEDS: Sennosides/Docusate Sodium TABLET PO SCH ×2 (17:11→20:24)
[2016-09-20] MEDS: Linezolid 600 MG TABLET PO SCH (20:19)
[2016-09-20] MEDS ORDERED: traMADol 50 MG TABLET PO PRN (22:43)
[2016-09-20] MEDS ORDERED: *HR* Morphine 2 MG/ML SYRINGE IVP ONE (22:48)
[2016-09-21] MEDS: *HR* Heparin 5,000 UNIT/ML VIAL SQ SCH (06:21)
[2016-09-21] MEDS: Cefepime HCl 1,000 MG in D5% in Water (Mini-Bag+) 100 ML IVPB SCH (06:21)
[2016-09-21] MEDS: Insulin DETEMIR 100 UNIT/ML X5UNITS SQ SCH (09:23)
[2016-09-21] MEDS: Isosorbide MONOnitrate (24 HR) 30 MG TAB.ER.24H PO SCH (09:23)
[2016-09-21] MEDS: amLODIPine 5 MG TABLET PO SCH (09:23)
[2016-09-21] MEDS: Aspirin 81 MG TAB.CHEW PO SCH (09:24)
[2016-09-21] MEDS: Sennosides/Docusate Sodium TABLET PO SCH (09:24)
[2016-09-21] MEDS: Linezolid 600 MG TABLET PO SCH (09:24)
[2016-09-21] MEDS: Insulin LISPRO 300 UNITS/3 ML VIAL SQ SCH ×4 (09:24→12:10)
--- NOTE | 2016-09-21 09:33 | Discharge Summary ---
Date of Encounter: 09/21/16 Time of Encounter: 09:33 - Discharge Diagnosis (1) Essential hypertension Priority: Secondary Status: Chronic (2) CAD (coronary artery disease) Priority: Secondary Status: Chronic Qualifiers: Coronary Disease-Associated Artery/Lesion type: [place] artery [place] vs. transplanted heart: [place] heart Associated angina: without angina Qualified Code(s): I25.10 - Atherosclerotic heart disease of [place] coronary artery without angina pectoris (3) Obstructive sleep apnea Priority: Secondary Status: Chronic (4) Diabetes mellitus with nephropathy Priority: Secondary Status: Chronic (5) CKD (chronic kidney disease) stage 3, GFR 30-59 ml/min Priority: Secondary Status: Chronic (6) Pyelonephritis Priority: Primary Status: Acute - Discharge Medications Prescriptions: Amlodipine Besylate 10 mg PO DAILY #30 tablet Cefdinir [Omnicef] 300 mg PO BID #20 capsule Home Medications: Duloxetine HCl [Cymbalta] 60 mg PO DAILY 12/05/14 [History] Insulin ASPART [NovoLOG] 2 - 20 unit SQ TIDWM 12/05/14 [History] Insulin DETEMIR [Levemir] 54 unit SQ BID 01/13/15 [History] Atorvastatin Calcium [Lipitor] 80 mg PO HS 09/17/15 [History] Aspirin 81 mg PO DAILY #30 tab.chew 09/20/15 [Rx] Clopidogrel [Plavix] 75 mg PO DAILY #30 tablet 09/20/15 [Rx] Isosorbide MONOnitrate (24 HR) [Imdur] 30 mg PO DAILY 11/02/15 [History] ALPRAZolam [Xanax 0.25 MG Tablet] 0.25 mg PO TID PRN 06/01/16 [History] Solifenacin Succinate [Vesicare] 10 mg PO DAILY 06/01/16 [History] Ergocalciferol (VITAMIN D2) [Vitamin D2] 50,000 unit PO WE 09/18/16 [History] Linagliptin [Tradjenta] 5 mg PO DAILY 09/18/16 [History] Metformin HCl [Metformin HCl ER] 500 mg PO BID 09/18/16 [History] Pantoprazole Sodium [Protonix] 40 mg PO DAILY 09/18/16 [History] Amlodipine Besylate 10 mg PO DAILY #30 tablet 09/21/16 [Rx] Cefdinir [Omnicef] 300 mg PO BID #20 capsule 09/21/16 [Rx] Allergies/Adverse Reactions: Allergies ampicillin Allergy (Unknown, Verified 09/18/16 13:24) See Comments unknown childhood reaction Cortisone Allergy (Unknown, Verified 09/18/16 13:24) Hives Oxycodone Allergy (Unknown, Verified 09/18/16 13:24) Hives Penicillins Allergy (Unknown, Verified 09/18/16 13:24) See Comments childhood reaction Sulfa (Sulfonamide Antibiotics) Allergy (Unknown, Verified 09/18/16 13:24) See Comments unknown childhood reaction ciprofloxacin Adverse Reaction (Unknown, Verified 09/18/16 13:24) Rash codeine Adverse Reaction (Unknown, Verified 09/18/16 13:24) Itching Hydromorphone Adverse Reaction (Unknown, Verified 09/18/16 13:24) Vomiting DOCUMENTED IN [employer] 5.66. phenazopyridine [Phenazopyridine] Adverse Reaction (Unknown, Verified 09/18/16 13:24) Vomiting tramadol Adverse Reaction (Unknown, Verified 09/18/16 13:24) Vomiting hydrocodone Adverse Reaction (Verified 09/18/16 13:24) Itching Date of admission: 09/18/16 14:29 Primary care physician: Kiel Watkins MD Consults: 09/18/16 14:49 Consult to Urology [CONS] Routine Consulting Provider: Urology Yvonne Reason for Consult: pyelonephritis Time Notified: 14:50 Call Completed: No 09/18/16 14:51 Consult to Nutrition [CONS] Routine Comment: Consulting Provider: NUTRITION Reason for Dietary Consult: PO Supplementation Discharging clinician: Malick Wu Anticipated date of discharge: 09/21/16 - Patient Status Disposition: Home, Self-Care Condition: Fair Functional capacity at discharge: independent ambulation Overall status at discharge: patient is back to baseline - Discharge Instructions Instructions: Amlodipine (By mouth), Cefdinir (By mouth), Urinary Tract Infection in Women (DC) Follow Up With: Kiel Watkins MD [Primary Care Provider] - 09/27/16 2:15 pm - Diet and Activity Activity: resume usual activities as tolerated Diet: diabetic diet, low fat, low cholesterol, low salt diet Interval History: See below Hospital course: Ms. Ordoñez is a 66 year old female past medical history of diabetes type 2, GERD, HLD, HTN, hx of CVA, CAD s/p stents, COPD, recurrent UTIs . According to the patient for 5 days prior to presentation, she has been experiencing abdominal swelling, lower abdominal pain radiating to bilateral flank. She has subjective fevers as well as nausea, vomiting and anorexia. Patient does have a history of chronic UTIs ,does see urology at [facility]. 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 According to ER records lab work did reveal patient had UTI as well as lactate was 2.7 there was no leukocytosis rest of lab work was unremarkable. CT of abdomen revealed emphysematous pyelonephritis. Patient was given cefepime and IV fluids. ER physician did speak with urology who suggested admission per hospitalist and consult as needed. Urology evaluated and recommended no intervention at this time, to follow up with own urologist as outpatient Initial urine culture was mixed vitaly and contaminated. Patient was started on Cefepime and Zyvox due to her microbiology history and multiple allergies Rrepeat urine culture 09/20 was negative, no growth Patient is stable, no evidence of sepsis She is discharged home on oral cephalosporin after thorough review of 2 years of urine microbiology She is strongly educated on need for compliance with her antibiotics Her blood pressure and blood sugars were slightly uncontrolled , necessitating addition of amlodipine to her home regimen Follow up with PCP and her own urologist Plan of care discussed, verbalized understanding Other chronic medical conditions were stable - Time Spent with Patient Total time spent providing and/or coordinating discharge services: Greater than 30 minutes (45 minutes spent on chart review, patient encounter, medication reconciliation and prescription, documentation) - Constitutional Vitals: Temp Pulse Resp BP Pulse Ox 98.4 F 74 17 132/86 95 09/21/16 07:48 09/21/16 07:48 09/21/16 07:48 09/21/16 07:48 09/21/16 07:48 General appearance: Present: A&O X 3, pleasant, no acute distress - Head Head exam: Present: atraumatic, normocephalic - Eye Eye exam: Present: PERRL, conjuntiva pink, sclera anicteric Pupils: Present: PERRL - Neck Neck exam general surgery: Present: supple, trachea midline. Absent: lymphadenopathy - Respiratory Respiratory exam: Present: CTAB. Absent: accessory muscle use, rales, rhonchi, wheezes - Cardiovascular Cardiovascular exam: Present: RRR, +S1, +S2. Absent: diastolic murmur, gallop, rubs, systolic murmur - GI/Abdominal GI/Abdominal exam: Present: normal bowel sounds, soft, no peritoneal signs. Absent: distended, tenderness - Extremities Exam Extremities exam: Present: warm, radial pulses palpable and symetrical. Absent : calf tenderness, cyanotic, pedal edema - Back Exam Back exam: Absent: CVA tenderness (L), CVA tenderness (R) - Neurological Exam Neurological exam: Present: alert, CN II-XII intact, oriented X3, no focal deficits. Absent: pronater drift, facial droop, speech deficit - Skin Skin exam: Present: dry, intact
[2016-09-21 11:04] VITALS: BP 125/72
== END 2016-09-21 13:53 | disposition home or self-care (01) | DRG 690 ==
LOC: EMEROO 10:07 → 3ANU 10:07 → SUATTDRO 14:29
PROVIDERS: ADMIT Hospitalist; ATTEND Internal Medicine

== ENCOUNTER 2017-01-25 12:07 | Inpatient (IN) ==
[2017-01-25 14:04] LABS: Basophils % 0.4 %; Eosinophils # 0.2 K/mcL (0.0-0.6); Eosinophils % 2.2 %; Hematocrit 37.6 % (35.3-44.9); Hemoglobin 12.5 g/dL (11.5-15.4); Immature Granulocytes % 0.2 % (0-4); Immature Platelets 3.2 % (1.1-6.1); Lymphocytes # 1.9 K/mcL (0.6-4.6); Lymphocytes % 22.7 %; Mean Corpuscular HGB Conc 33.2 g/dL (31.6-35.5); Mean Corpuscular Hemoglobin 25.1 pg (28.0-33.3); Mean Corpuscular Volume 75.5 fL (83.0-100.0); Mean Platelet Volume 9.3 fL (9.4-12.4); Monocytes # 0.6 K/mcL (0.0-1.3); Monocytes % 7.4 %; Neutrophils # 5.7 K/mcL (1.6-8.9); Platelet Count 208 K/mcL (140-400); Red Blood Count 4.98 M/mcL (3.82-4.97); Segmented Neutrophils % 67.1 %
[2017-01-25 14:15] LABS: BUN/Creatinine Ratio 14 (6-26); Blood Urea Nitrogen 15 mg/dL (7-20); Calcium 9.3 mg/dL (8.6-10.8); Carbon Dioxide 19 mEq/L (19-29); Chloride 99 mEq/L (98-109); Glucose 394 mg/dL (70-99); Osmolality,Calculated 289 (280-300); Sodium 131 mEq/L (136-145); eGFR For African Americans > 60 (> 60); eGFR For Non-African Americans 52 (> 60)
[2017-01-25 15:08] LABS: Bilirubin,Urine Negative (Negative); Blood,Urine Moderate (Negative); Clarity,Urine Turbid (Clear); Color,Urine Yellow (Yellow); Glucose,Urine (UA) >=1000 mg/dL (Normal); Ketones,Urine Negative (Negative); Leukocyte Esterase,Urine Large (Negative); Nitrite,Urine Negative (Negative); Protein,Urine 30 mg/dL (Neg-Trace); Specific Gravity,Urine 1.023 (1.010-1.025); Urobilinogen,Urine Normal (Normal)
[2017-01-25 15:10] LABS: Bacteria,Urine Many per hpf (None-Few); Hyaline Casts,Urine Few per lpf (None-Few); WBC,Urine TNTC per hpf (0-3)
[2017-01-25 15:20] LABS: Squamous Epithelial Cell,Urine Moderate per lpf (None-Few)
[2017-01-25 15:21] LABS: Yeast,Urine Many per hpf (None Seen)
--- NOTE | 2017-01-25 15:55 | Emergency Department Note ---
Disposition Clinical Impression: UTI (urinary tract infection), Generalized weakness, Emphysematous pyelonephritis, Failure to thrive, Depression Disposition: Admitted As Inpatient Condition: Good Referrals: Kiel Watkins MD [Primary Care Provider] - Forms: ED Satisfaction Letter Time of Disposition: 18:16 Nausea/Vomiting/Diarrhea HPI - General Chief complaint: ED Nausea/Vomiting/Diarrhea Stated complaint: nausea, dehydration Time Seen by Provider: 01/25/17 14:59 Source: patient Mode of arrival: ambulatory Limitations: no limitations Nursing Notes Reviewed: Yes Vital Signs Reviewed: Yes - History of Present Illness HPI Narrative: Patient presents to the ED with the chief complaint of nausea, vomiting, diarrhea and dehydration. Patient reports that for the last 2 weeks she has been feeling very unwell. She states that 2 weeks ago she started having very watery, multiple times per day, nonbloody diarrhea that lasted for 10 days. The last 3 or 4 days. She is not had any bowel movements that have been abnormal. She now complains that since the diarrhea stopped that she has been vomiting after trying to eat or drink anything. States she has been unable to take any of her medications due to vomiting. States that she feels weak and dehydrated. She said very little urination over this time as well. She does state that she had an infection in her kidney a few months ago. After reviewing her medical record, it does seem that she had emphysematous pyelonephritis at that time. She reports that she feels similar to that. She has had no fever, chest pain, shortness of breath. She does complain of diffuse crampy abdominal pain and describes it as someone kicked her in the stomach is intermittent with nothing really making it better or worse. She also complains of right "kidney pain" - Related Data Home Medications Medication Instructions Recorded Confirmed Duloxetine HCl [Cymbalta] 60 mg PO DAILY 12/05/14 01/25/17 Insulin ASPART [NovoLOG] 0 unit SQ BID 12/05/14 01/25/17 Insulin DETEMIR [Levemir] 60 unit SQ BID 01/13/15 01/25/17 Atorvastatin Calcium [Lipitor] 80 mg PO HS 09/17/15 01/25/17 Isosorbide MONOnitrate (24 HR) 30 mg PO DAILY 11/02/15 01/25/17 [Imdur] ALPRAZolam [Xanax 0.25 MG Tablet] 0.25 mg PO TID PRN 06/01/16 01/25/17 Solifenacin Succinate [Vesicare] 10 mg PO DAILY 06/01/16 01/25/17 Linagliptin [Tradjenta] 5 mg PO DAILY 09/18/16 01/25/17 Metformin HCl [Metformin HCl ER] 500 mg PO BID 09/18/16 01/25/17 Pantoprazole Sodium [Protonix] 40 mg PO DAILY 09/18/16 01/25/17 Previous Rx's Medication Instructions Recorded Aspirin 81 mg PO DAILY #30 tab.chew 09/20/15 Clopidogrel [Plavix] 75 mg PO DAILY #30 tablet 09/20/15 Amlodipine Besylate 10 mg PO DAILY #30 tablet 09/21/16 Allergies Allergy/AdvReac Type Severity Reaction Status Date / Time ampicillin Allergy Unknown See Verified 01/25/17 12:17 Comments Cortisone Allergy Unknown Hives Verified 01/25/17 12:17 Oxycodone Allergy Unknown Hives Verified 01/25/17 12:17 Penicillins Allergy Unknown See Verified 01/25/17 12:17 Comments Sulfa (Sulfonamide Allergy Unknown See Verified 01/25/17 12:17 Antibiotics) Comments ciprofloxacin AdvReac Unknown Rash Verified 01/25/17 12:17 codeine AdvReac Unknown Itching Verified 01/25/17 12:17 Hydromorphone AdvReac Unknown Vomiting Verified 01/25/17 12:17 phenazopyridine AdvReac Unknown Vomiting Verified 01/25/17 12:17 [Phenazopyridine] tramadol AdvReac Unknown Vomiting Verified 01/25/17 12:17 hydrocodone AdvReac Itching Verified 01/25/17 12:17 All systems ED: reviewed and negative except as stated. Constitutional: Reports: weakness, weight change (loss). Denies: fever, chills Eyes: Denies: vision change Cardiovascular: Denies: chest pain Respiratory: Denies: cough, dyspnea Gastrointestinal: Reports: abdominal pain, nausea, vomiting, diarrhea. Denies: hematemesis, melena, hematochezia Genitourinary: Denies: dysuria Musculoskeletal: Reports: back pain Integumentary: Denies: rash Neurological: Reports: weakness. Denies: headache Psychiatric: Reports: depression Endocrine: Reports: fatigue Past Medical History - Past Medical History Attestation: Yes The following information was validated with the patient. 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 - Social History Smoking Status: Former smoker Smokeless Tobacco Status: No Alcohol use: Reports: none Drug use: Reports: none Physical Exam - General Limitations: no limitations General appearance: alert, in no apparent distress - Head Head exam: atraumatic, normocephalic, normal inspection - Eye Eye exam: Present: normal appearance, PERRL, EOMI - ENT ENT exam: mucous membranes dry - Neck Neck exam: Present: normal inspection, full ROM, trachea midline - Chest Chest inspection: Present: normal inspection, symmetric chest wall rise - Respiratory Respiratory exam: Present: normal lung sounds bilaterally - Cardiovascular Cardiovascular exam: Present: regular rate, normal rhythm, normal heart sounds - Abdominal Exam Abdominal exam: Present: soft, tenderness. Absent: Non-Tender, distention, guarding, rebound, rigidity Abdominal tenderness: Present: diffuse, mild - Extremities Exam Extremities exam: Present: normal inspection, full ROM. Absent: tenderness, pedal edema - Neurological Exam Neurological exam: Present: alert, oriented X3 - Psychiatric Psychiatric exam: Present: depressed, flat affect - Skin Skin exam: Present: warm, dry, intact, normal color Course Course Narrative: Patient presenting with 2 week history of nausea, vomiting, diarrhea, right flank pain. No fever. Has had insulin as pyelonephritis previously and states it feels similar. Lab work looks okay so far, we will proceed with a CT of her abdomen and pelvis. Upon reevaluation, she was also complaining of a headache that has been gradual in onset over the last 10 days or so. She states that she feels off balance at times as well but has not fallen. Therefore, we will CT her head. Patient will likely be admitted to the hospital for MRI and volume replacement Vital Signs Temperature 98.4 F 01/25/17 12:13 Pulse Rate 82 01/25/17 12:13 Respiratory Rate 18 01/25/17 12:13 Blood Pressure 128/84 01/25/17 12:13 O2 Sat by Pulse Oximetry 95 01/25/17 12:13 Temperature 98.4 F 01/25/17 12:13 Pulse Rate 85 01/25/17 17:26 Respiratory Rate 18 01/25/17 17:26 Blood Pressure 116/59 01/25/17 17:26 O2 Sat by Pulse Oximetry 97 01/25/17 17:26 Oxygen Delivery Oxygen Delivery Room Air Nausea/Vomiting/Diarrhea - Lab Data Result diagrams: 01/25/17 13:57 01/25/17 13:57 Lab Results 01/25/17 01/25/17 01/25/17 Range/Units 13:57 13:57 13:57 WBC 8.5 (4.3-11.1) K/mcL RBC 4.98 H (3.82-4.97) M/mcL Hgb 12.5 (11.5-15.4) g/dL Hct 37.6 (35.3-44.9) % MCV 75.5 L (83.0-100.0) fL MCH 25.1 L (28.0-33.3) pg MCHC 33.2 (31.6-35.5) g/dL RDW 15.0 H (11.5-14.5) % Plt Count 208 (140-400) K/mcL MPV 9.3 L (9.4-12.4) fL Immature Gran % 0.2 (0-4) % Seg Neutrophils % 67.1 % Lymphocytes % 22.7 % Monocytes % 7.4 % Eosinophils % 2.2 % Basophils % 0.4 % Neutrophils # 5.7 (1.6-8.9) K/mcL Lymphocytes # 1.9 (0.6-4.6) K/mcL Monocytes # 0.6 (0.0-1.3) K/mcL Eosinophils # 0.2 (0.0-0.6) K/mcL Basophils # 0.0 (0.0-0.2) K/mcL Immature Plt Fraction 3.2 (1.1-6.1) % Sodium 131 L (136-145) mEq/L Potassium 4.0 (3.5-4.5) mEq/L Chloride 99 (98-109) mEq/L Carbon Dioxide 19 (19-29) mEq/L BUN 15 (7-20) mg/dL Creatinine 1.06 (0.57-1.11) mg/dL Est GFR ( Amer) > 60 (> 60) Est GFR (Non-Af Amer) 52 L (> 60) BUN/Creatinine Ratio 14 (6-26) Glucose 394 H (70-99) mg/dL Calculated Osmolality 289 (280-300) Calcium 9.3 (8.6-10.8) mg/dL Troponin I 0.01 (0-0.03) ng/mL Urine Color (Yellow) Urine Clarity (Clear) Urine pH (5.0-8.0) pH Units Ur Specific Raymond (1.010-1.025) Urine Protein (Neg-Trace) mg/dL Urine Glucose (UA) (Normal) mg/dL Urine Ketones (Negative) mg/dL Urine Blood (Negative) Urine Nitrite (Negative) Urine Bilirubin (Negative) Urine Urobilinogen (Normal) mg/dL Ur Leukocyte Esterase (Negative) Urine Microscopic RBC (0-3) per hpf Urine Microscopic WBC (0-3) per hpf Ur Squamous Epith Cells (None-Few) per lpf Urine Bacteria (None-Few) per hpf Hyaline Casts (None-Few) per lpf Urine Yeast (None Seen) per hpf Ur Culture Indicated? (NO) 01/25/17 Range/Units 15:00 WBC (4.3-11.1) K/mcL RBC (3.82-4.97) M/mcL Hgb (11.5-15.4) g/dL Hct (35.3-44.9) % MCV (83.0-100.0) fL MCH (28.0-33.3) pg MCHC (31.6-35.5) g/dL RDW (11.5-14.5) % Plt Count (140-400) K/mcL MPV (9.4-12.4) fL Immature Gran % (0-4) % Seg Neutrophils % % Lymphocytes % % Monocytes % % Eosinophils % % Basophils % % Neutrophils # (1.6-8.9) K/mcL Lymphocytes # (0.6-4.6) K/mcL Monocytes # (0.0-1.3) K/mcL Eosinophils # (0.0-0.6) K/mcL Basophils # (0.0-0.2) K/mcL Immature Plt Fraction (1.1-6.1) % Sodium (136-145) mEq/L Potassium (3.5-4.5) mEq/L Chloride (98-109) mEq/L Carbon Dioxide (19-29) mEq/L BUN (7-20) mg/dL Creatinine (0.57-1.11) mg/dL Est GFR ( Amer) (> 60) Est GFR (Non-Af Amer) (> 60) BUN/Creatinine Ratio (6-26) Glucose (70-99) mg/dL Calculated Osmolality (280-300) Calcium (8.6-10.8) mg/dL Troponin I (0-0.03) ng/mL Urine Color Yellow (Yellow) Urine Clarity Turbid A (Clear) Urine pH 6.0 (5.0-8.0) pH Units Ur Specific Raymond 1.023 (1.010-1.025) Urine Protein 30 H (Neg-Trace) mg/dL Urine Glucose (UA) >=1000 H (Normal) mg/dL Urine Ketones Negative (Negative) mg/dL Urine Blood Moderate H (Negative) Urine Nitrite Negative (Negative) Urine Bilirubin Negative (Negative) Urine Urobilinogen Normal (Normal) mg/dL Ur Leukocyte Esterase Large H (Negative) Urine Microscopic RBC 3-5 H (0-3) per hpf Urine Microscopic WBC TNTC H (0-3) per hpf Ur Squamous Epith Cells Moderate H (None-Few) per lpf Urine Bacteria Many H (None-Few) per hpf Hyaline Casts Few (None-Few) per lpf Urine Yeast Many H (None Seen) per hpf Ur Culture Indicated? YES A (NO) S.B.A.Marcia. - S.B.A.RRenée Situation: Demographics, MOA Background: Presenting Complaint, Relevant PMH, Meds, & Allergies Assessment: Vital Signs, Course and respsone to treatment, Exam Concerns, Patient/Family Expectation, Pertinant Lab Results, Outstanding Labs Recommendation: Barrier(s) to disposition, Recommendation based on pending studies, treatments, or consults S.B.A.R. Report Given to: Hospitalist service S.B.A.Noe Repor Time: 18:14 Attestation Statement - Attestation Attestation: I, Riley Boyd DO, examined this patient [id number] and my medical decision-making was reviewed with Dr. Michael Cerda, Resident Physician. I agree with the documented findings, disposition and treatment plan as described except to the extent set forth below. Please see my progress notes for details. 66-year-old female presents to emergency room with complaint of diffuse abdominal pain with nausea and vomiting. Patient is tearful and crying during initial evaluation. She said that she lost her son several months ago. Patient denies any chest pain shortness of breath headache or vision changes. Denies fevers or chills. Denies any diarrhea. Vital signs on presentation otherwise stable. Patient is alert oriented and speaking in full sentences. Otherwise examination is benign. Belly is benign. She does have moderate right -sided CVA tenderness. After reviewing the chart and previous patient is concerning CT findings with an edematous emphysematous kidney secondary infection. Patient to have CT imaging of the abdomen includes labs urinalysis pain medication and nausea medication as needed and disposition we determined. Antibiotics to be started this time with concern for possible urinary tract infection with pyelonephritis. Patient is otherwise showing no acute neurologic , pulmonary, cardiac etiology at this time. See detailed documentation of the physical exam, medical intervention, medical decision making process and disposition in the resident physician's note Patient found to have air contained within the kidney still at this time. She also has persisting or tract symptoms. IV antibiotics given. Admission process to be completed.
[2017-01-25] MEDS ORDERED: 0.9 % Sodium Chloride 1,000 ML IVC ONE (16:03)
[2017-01-25] MEDS ORDERED: Ondansetron 4 MG/2 ML VIAL IVP ONE (16:03)
[2017-01-25] MEDS ORDERED: *HR* FentaNYL (PF) 100 MCG/2 ML VIAL IVP ONE (16:04)
[2017-01-25] MEDS ORDERED: Naloxone 0.4 MG/ML INJ IVP PRN (20:18)
--- NOTE | 2017-01-25 20:25 | Internal Med History&Physical ---
<Malick Wu T - Last Filed: 01/25/17 23:01> Date of Encounter: 01/25/17 Internal Medicine - H&P: HPI History of present illness: Ms. Ordoñez is a 66 year old female Internal Medicine - H&P: Meds Duloxetine HCl [Cymbalta] 60 mg PO DAILY 12/05/14 [History] Insulin ASPART [NovoLOG] 0 unit SQ BID 12/05/14 [History] Insulin DETEMIR [Levemir] 60 unit SQ BID 01/13/15 [History] Atorvastatin Calcium [Lipitor] 80 mg PO HS 09/17/15 [History] Aspirin 81 mg PO DAILY #30 tab.chew 09/20/15 [Rx] Clopidogrel [Plavix] 75 mg PO DAILY #30 tablet 09/20/15 [Rx] Isosorbide MONOnitrate (24 HR) [Imdur] 30 mg PO DAILY 11/02/15 [History] ALPRAZolam [Xanax 0.25 MG Tablet] 0.25 mg PO TID PRN 06/01/16 [History] Solifenacin Succinate [Vesicare] 10 mg PO DAILY 06/01/16 [History] Linagliptin [Tradjenta] 5 mg PO DAILY 09/18/16 [History] Metformin HCl [Metformin HCl ER] 500 mg PO BID 09/18/16 [History] Pantoprazole Sodium [Protonix] 40 mg PO DAILY 09/18/16 [History] Amlodipine Besylate 10 mg PO DAILY #30 tablet 09/21/16 [Rx] 3 Allergy/AdvReac Type Severity Reaction Status Date / Time ampicillin Allergy Unknown See Verified 01/25/17 12:17 Comments Cortisone Allergy Unknown Hives Verified 01/25/17 12:17 Oxycodone Allergy Unknown Hives Verified 01/25/17 12:17 Penicillins Allergy Unknown See Verified 01/25/17 12:17 Comments Sulfa (Sulfonamide Allergy Unknown See Verified 01/25/17 12:17 Antibiotics) Comments ciprofloxacin AdvReac Unknown Rash Verified 01/25/17 12:17 codeine AdvReac Unknown Itching Verified 01/25/17 12:17 Hydromorphone AdvReac Unknown Vomiting Verified 01/25/17 12:17 phenazopyridine AdvReac Unknown Vomiting Verified 09/22/17 12:17 [Phenazopyridine] tramadol AdvReac Unknown Vomiting Verified 01/25/17 12:17 hydrocodone AdvReac Itching Verified 01/25/17 12:17 All Systems PM: A 10-system review of systems was performed and is negative for pertinent findings except as documented above in the HPI. - Constitutional Vitals: Temp Pulse Resp BP Pulse Ox 98.8 F 78 16 121/65 96 01/25/17 20:13 01/25/17 20:13 01/25/17 20:13 01/25/17 20:13 01/25/17 20:13 Internal Med - H&P Results - Labs CBC & Chem 7: 01/25/17 13:57 01/25/17 13:57 - Attending Attestation I have independently seen and examined this patient on 01/25/17 and reviewed plan of care with the MOBILE SALES ASSISTANT/resident physician and the patient 66 F who presents with L flank pain and anhedonia. She's severely depressed. She has a PMH of CAD with Stents, HTN, DESTINEE, CKD III DM with severe neuropathy and Recurrent UTIS, Chronic L kidney emphysema. Physical exam is unremarkable, she has no CVA tenderness Labs and Imaging reveiwed: Abd CT is unchanged from prior since 03/2016, Head CT with remote cerebellar infarct, CXR unremarkable, CBC/Chem noted for pseudohyponatremia and hyperglycemia. 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 Previous cultures were positive for Escherichia coli sensitive to Rocephin. We will continue with Rocephin awaiting urine sensitivity 2 have patient follow-up with urology as outpatient consult as needed (2) Diabetes Current visit: No Status: Acute Patient's blood sugar elevated at 400. She states that she has had poor oral intake and has not been monitoring her blood sugars due to recent nausea vomiting. We will continue with sliding scale as well as basal insulin. 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 We will continue to monitor sodium. Correct glucose with sliding scale insulin. 2 (4) Depression Current visit: Yes Status: Acute Patient's son recently and she has had difficulty coping with the period she has been internalizing feelings. She is on Cymbalta. However feels that this is not helpful. She has not participated in grief counseling, were received any therapy treatment. She denies any suicidal ideations at this time. 2 we will consult psychiatry-consult has been placed and notified Qualifiers: Depression Type: unspecified Qualified Code(s): F32.9 - Major depressive disorder, single episode, unspecified (5) DVT prophylaxis Current visit: No Status: Acute 1 [facility] Internal Medicine - H&P: HPI Chief complaint: abd pain Admitted From: Emergency Dept Plans for Post Hospital Care: Home History of present illness: Ms. Ordoñez is a 66 year old female past medical history of recurrent UTIs chronic emphysema left kidney CAD CK D3 diabetes. Patient has been experiencing nausea vomiting diarrhea for the past 2 weeks. She states that she has been feeling well, whenever she eats she feels nauseated and is unable to eat. She has been feeling weak and dehydrated and has noticed a decrease in urination. She has not been taking her medications for approximately 1 week due to the nausea and vomiting. She has been taking her insulin however her blood sugars have been erratic. She has been experiencing diffuse crampy abdominal pain as well as intermittent sharp stabbing pain there were no aggravating or relieving factors. She also has been under a lot of stress with the recent loss of her son. She has felt overwhelmed and sad, however she feel she must stay strong for her family. She presented to the ER with the above complaints. Lab work was obtained which did reveal hyponatremia sodium 131 as well as elevated glucose. Urinalysis does reveal UTI. CT of abdomen obtained revealed a small focus of gas left upper pole renal calyx with mild distention which could be related to emphysematous pyelonephrosis, with underlying duplicated collecting system. The distention the renal calyx and enhancement of the ureteralial lining unchanged. previous cultures have grown Escherichia coli which was sensitive to Rocephin. Patient was initiated on Rocephin and has been admitted for further workup and evaluation. Presently the patient denies any chest pain or shortness of breath. Her lung sounds are clear heart sounds are regular S1- S2 no murmurs clicks or gallops murmurs noted. Abdomen is soft tender to palpation particularly suprapubic area no CVA tenderness appreciated. Patient did express that she has been feeling sad and overwhelmed since the of her son. She has not received any grief counseling she is on Cymbalta however she feels it is not helping. She denies any suicidal ideations at this time. I reviewed this case with Dr. Wu who agrees with plan. Past Med Surg Social Fam HX - Past Medical History Medical history: diabetes, hypertension, myocardial infarction, TIA Psychiatric history: anxiety, depression - Past Surgical History Surgical History: appendectomy, cholecystectomy, hysterectomy, thyroidectomy, ureteral stent, other - Social History Smoking Status: Former smoker Smokeless Tobacco Status: No Alcohol use: none Drug use: none - Family History Father Hx Family Cardiac Disorders: Yes (AAA) Hx Family Endocrine Disorder: Yes (DM) Mother Adopted: No Living Status: Hx Family Cardiac Disorders: Yes (HTN) Hx Family Cancer: Yes (Colon) All Systems PM: A 10-system review of systems was performed and is negative for pertinent findings except as documented above in the HPI. - Constitutional Constitutional: anorexia, no chills, no fever(s), no night sweats - EENT Eyes: no change in vision, no discharge, no pain, no photophobia - Cardiovascular Cardiovascular ROS IM: no chest pain, no diaphoresis, no dyspnea, no lightheadedness, no palpitations, no syncope - Respiratory Respiratory: no cough, no dyspnea, no wheezing, no excessive phlegm production - Gastrointestinal Gastrointestinal: abdominal pain, diarrhea, nausea, vomiting, no hematemesis, no hematochezia, no melena - Genitourinary Genitourinary: no change in urinary stream, no dysuria, no flank pain, no hematuria - Musculoskeletal Musculoskeletal ROS IM: no numbness, no tingling - Integumentary Integumentary IM: no rash, no unusual bruising - Neurological Neurological ROS: no confusion, no convulsions, no focal weakness, no numbness, no tingling, no tremor(s) - Hematologic/Lymphatic Hematologic/Lymphatic: no easy bruising - Constitutional Vitals: Temp Pulse Resp BP Pulse Ox 98.8 F 78 16 121/65 96 01/25/17 20:13 01/25/17 20:13 01/25/17 20:13 01/25/17 20:13 01/25/17 20:13 General appearance: Present: A&O X 3, answers questions appropriately - Head Head exam: Present: atraumatic, normocephalic - Eye Eye exam: Present: PERRL, conjuntiva pink, sclera anicteric Pupils: Present: PERRL - Neck Neck exam general surgery: Present: supple, trachea midline. Absent: lymphadenopathy - Respiratory Respiratory exam: Present: CTAB. Absent: accessory muscle use, rales, rhonchi, wheezes - Cardiovascular Cardiovascular exam: Present: RRR, +S1, +S2. Absent: diastolic murmur, gallop, rubs, systolic murmur - GI/Abdominal GI/Abdominal exam: Present: normal bowel sounds, soft, tenderness, no peritoneal signs. Absent: distended - Extremities Exam Extremities exam: Present: warm, radial pulses palpable and symmetrical. Absent : calf tenderness, cyanotic, pedal edema - Neurological Exam Neurological exam: Present: CN II-XII intact, oriented X3, no focal deficits. Absent: pronater drift, facial droop, speech deficit - Skin Skin exam: Present: dry, intact Internal Med - H&P Results - Labs CBC & Chem 7: 01/25/17 13:57 01/25/17 13:57 - Diagnostic Studies Other Images Additional comments: Chest X-Ray 01/25/17 13:23 IMPRESSION: No acute cardiopulmonary process. D/ / 01/25/2017 13:48:44 Sandeep Haider MD / bcarter Interpreting Provider: Sandeep Haider MD Abdomen/Pelvis CT 01/25/17 15:54 IMPRESSION: A small focus of gas is noted with tiny left upper pole renal calyx, with mild distension and enhancement which could be related to emphysematous pyonephrosis, with a underlying duplicated collecting system. On the basis of this study, it is difficult to tell where the ureters join, though it is felt to be in the region of the proximal ureter. Of note, the distention of the renal calyx and enhancement of the urothelial lining is unchanged dating back to March of 2016. No other acute process is identified in the abdomen or pelvis. D/ / Sandeep Wilkerson MD / Sandeep Wilkerson MD Interpreting Provider: Sandeep Wilkerson MD Head CT 01/25/17 15:54 IMPRESSION: 1. No acute intracranial abnormality. 2. Moderate chronic white matter microvascular ischemic changes. 3. Remote posterior left cerebellar infarct. D/ / Santosh Brady MD / Santosh Brady MD Interpreting Provider: Santosh Brady MD
[2017-01-25] MEDS ORDERED: D5% in Water 1,000 ML IVC PRN (20:29)
[2017-01-25] MEDS ORDERED: Dextrose Gel 15 GM PO PRN ×2 (20:29)
[2017-01-25] MEDS ORDERED: *HR* Dextrose 50 % in Water (Syg) 50 ML SYRINGE IVP PRN (20:29)
[2017-01-25] MEDS ORDERED: 0.9 % Sodium Chloride 1,000 ML IVC SCH (20:30)
[2017-01-25] MEDS ORDERED: Insulin LISPRO 300 UNITS/3 ML VIAL SQ SCH (21:00)
[2017-01-25] MEDS: Insulin DETEMIR 100 UNIT/ML X5UNITS SQ SCH (21:19)
[2017-01-26] MEDS: *HR* Morphine 2 MG/ML SYRINGE IVP PRN ×3 (00:33→18:56)
[2017-01-26 03:49] LABS: Basophils % 0.4 %; Eosinophils # 0.2 K/mcL (0.0-0.6); Eosinophils % 2.2 %; Hematocrit 34.8 % (35.3-44.9); Hemoglobin 11.4 g/dL (11.5-15.4); Immature Granulocytes % 0.4 % (0-4); Lymphocytes # 1.2 K/mcL (0.6-4.6); Lymphocytes % 15.9 %; Mean Corpuscular HGB Conc 32.8 g/dL (31.6-35.5); Mean Corpuscular Hemoglobin 24.7 pg (28.0-33.3); Mean Corpuscular Volume 75.5 fL (83.0-100.0); Mean Platelet Volume 9.8 fL (9.4-12.4); Monocytes # 0.7 K/mcL (0.0-1.3); Monocytes % 8.4 %; Neutrophils # 5.6 K/mcL (1.6-8.9); Platelet Count 157 K/mcL (140-400); Red Blood Count 4.61 M/mcL (3.82-4.97); Red Cell Distribution Width 15.1 % (11.5-14.5); Segmented Neutrophils % 72.7 %
[2017-01-26 03:55] LABS: Hemoglobin A1C 10.7 %
[2017-01-26 03:59] LABS: Calcium 9.2 mg/dL (8.6-10.8); Potassium 4.3 mEq/L (3.5-4.5)
[2017-01-26] MEDS: *HR* Heparin 5,000 UNIT/ML VIAL SQ SCH ×2 (06:18→17:25)
[2017-01-26] MEDS: Aspirin 81 MG TAB.CHEW PO SCH (09:14)
[2017-01-26] MEDS: amLODIPine 5 MG TABLET PO SCH (09:14)
[2017-01-26] MEDS: Isosorbide MONOnitrate (24 HR) 30 MG TAB.ER.24H PO SCH (09:14)
[2017-01-26] MEDS: Insulin DETEMIR 100 UNIT/ML X5UNITS SQ SCH ×2 (09:14→21:01)
[2017-01-26] MEDS: Insulin LISPRO 300 UNITS/3 ML VIAL SQ SCH ×4 (09:15→21:10)
--- NOTE | 2017-01-26 11:54 | Internal Med Progress Note ---
<NahidmagdalenaguzmanJose Francisco paulino - Last Filed: 01/26/17 17:03> Date of Encounter: 01/26/17 Time of Encounter: 11:40 - Assessment and plan (1) Complicated UTI (urinary tract infection) Current Visit: No Status: Acute Assessment and plan: Patient has a history of recurrent UTI likely secondary to her chronic emphysematous pyleonephrosis. Urine culture was collected and results are pending. Previous cultures revealed positive for E. Coli with sensitivity to rocpehin. Patient is currently afebrile. - On day 2 of antibiotics. Continue rocephin. - Added microbid 100 mg BID. (2) Diabetes Current Visit: No Status: Acute Assessment and plan: Erick's glucose level has dropped from 394 to 372. - Continue sliding scale and basal insulin. - Continue diabetic diet. 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 Corrected sodium level is 140. - Continue to monitor. (4) Depression Current Visit: Yes Status: Acute Qualifiers: Depression Type: unspecified Qualified Code(s): F32.9 - Major depressive disorder, single episode, unspecified (5) DVT prophylaxis Current Visit: No Status: Acute Assessment and plan: On lovenox. - Subjective Interval history: Ms. Ordoñez is a 66 year old female past medical history of recurrent UTIs chronic emphysema left kidney CAD CK D3 diabetes. Patient has been experiencing nausea vomiting diarrhea for the past 2 weeks. She has also been experiencing intermittent abdominal pain for the past 2 weeks. When seen today, patient says that she is still nauseous, put that has improved since yesterday. She denies any vomiting. She admits to generalized abdominal cramps. She also admits to some light-headedness whenever she moves too quickly, but denies any dizziness or syncope. She says that she felt like she had a fever earlier this morning. She denies any shortness of breath. She also denies any dysuria or hematuria. - Constitutional Vitals: Temp Pulse Resp BP Pulse Ox 98.9 F 73 16 126/72 100 01/26/17 07:26 01/26/17 07:26 01/26/17 07:26 01/26/17 07:26 01/26/17 07:26 General appearance: Present: A&O X 3, answers questions appropriately - Respiratory Respiratory exam: Present: CTAB. Absent: respiratory distress, rhonchi, stridor , wheezes, tachypnea - Cardiovascular Cardiovascular exam: Present: RRR, +S1, +S2, systolic murmur. Absent: diastolic murmur - GI/Abdominal GI/Abdominal exam: Present: normal bowel sounds, soft, tenderness (Tenderness to deep palpation in all 4 quadrants. ). Absent: guarding, rebound - Extremities Exam Extremities exam: Present: radial pulses palpable and symmetrical. Absent: pedal edema Additional comments: Pedal pulses intact bilaterally. - Back Exam Back exam: Present: CVA tenderness (R) Internal Medicine: Result - Labs CBC & Chem 7: 01/26/17 03:38 01/26/17 03:38 Labs: Short CBC 01/26/17 Range/Units 03:38 WBC 7.7 (4.3-11.1) K/mcL Hgb 11.4 L (11.5-15.4) g/dL Hct 34.8 L (35.3-44.9) % Plt Count 157 (140-400) K/mcL Neutrophils # 5.6 (1.6-8.9) K/mcL BMP 01/26/17 03:38 Sodium 133 L Potassium 4.3 Chloride 101 Carbon Dioxide 20 BUN 16 Creatinine 1.13 H Glucose 372 H Calcium 9.2 Consult Discharge Plan - Plan Referrals: Kiel Watkins MD [Primary Care Provider] - <Pedrito Gomes - Last Filed: 01/26/17 17:22> Date of Encounter: 01/26/17 - Constitutional Vitals: Temp Pulse Resp BP Pulse Ox 98.3 F 82 16 120/55 92 01/26/17 16:09 01/26/17 16:09 01/26/17 16:09 01/26/17 16:09 01/26/17 16:09 Internal Medicine: Result - Labs CBC & Chem 7: 01/26/17 03:38 01/26/17 03:38 Labs: Short CBC 01/26/17 Range/Units 03:38 WBC 7.7 (4.3-11.1) K/mcL Hgb 11.4 L (11.5-15.4) g/dL Hct 34.8 L (35.3-44.9) % Plt Count 157 (140-400) K/mcL Neutrophils # 5.6 (1.6-8.9) K/mcL BMP 01/26/17 03:38 Sodium 133 L Potassium 4.3 Chloride 101 Carbon Dioxide 20 BUN 16 Creatinine 1.13 H Glucose 372 H Calcium 9.2 - Attending Attestation I examined this patient and my medical decision-making was reviewed with the Resident Physician, Dr. Weinstein. I agree with the documented findings, disposition and treatment plan as described except to the extent set forth below. I have independently obtained history and examined the patient and my findings are summarized below: Patient reports lower abdominal pain On exam she is in no acute distress. Heart tones are regular. Abdomen is soft tender to palpation with voluntary guarding and no rebound. Plan: Continue with ceftriaxone for UTI. Per chart review she had multiple UTIs with Escherichia coli sensitive to ceftriaxone and 1 episode of VRE UTI sensitive to Macrobid. I will add Macrobid until urine culture and sensitivities are reported.
[2017-01-26] MEDS: Ondansetron 4 MG/2 ML VIAL IVP PRN (12:21)
[2017-01-26] MEDS: Nitrofurantoin (BID) 100 MG CAPSULE PO SCH (17:25)
[2017-01-27] MEDS: *HR* Morphine 2 MG/ML SYRINGE IVP PRN ×2 (02:09→09:21)
[2017-01-27] MEDS: *HR* Heparin 5,000 UNIT/ML VIAL SQ SCH ×2 (05:27→17:42)
[2017-01-27 06:44] LABS: Hematocrit 31.2 % (35.3-44.9); Hemoglobin 10.1 g/dL (11.5-15.4); Lymphocytes % 26.8 %; Mean Corpuscular HGB Conc 32.4 g/dL (31.6-35.5); Mean Corpuscular Hemoglobin 24.6 pg (28.0-33.3); Mean Corpuscular Volume 75.9 fL (83.0-100.0); Mean Platelet Volume 9.8 fL (9.4-12.4); Monocytes % 13.9 %; Platelet Count 136 K/mcL (140-400); Red Blood Count 4.11 M/mcL (3.82-4.97); Red Cell Distribution Width 14.8 % (11.5-14.5); Segmented Neutrophils % 54.6 %
[2017-01-27 06:45] LABS: BUN/Creatinine Ratio 16 (6-26); Basophils % 0.5 %; Blood Urea Nitrogen 17 mg/dL (7-20); Calcium 8.7 mg/dL (8.6-10.8); Carbon Dioxide 24 mEq/L (19-29); Chloride 102 mEq/L (98-109); Eosinophils # 0.1 K/mcL (0.0-0.6); Eosinophils % 3.2 %; Glucose 350 mg/dL (70-99); Lymphocytes # 1.1 K/mcL (0.6-4.6); Monocytes # 0.6 K/mcL (0.0-1.3); Neutrophils # 2.2 K/mcL (1.6-8.9); Osmolality,Calculated 292 (280-300); Potassium 4.6 mEq/L (3.5-4.5); Sodium 133 mEq/L (136-145); eGFR For African Americans > 60 (> 60); eGFR For Non-African Americans 50 (> 60)
--- NOTE | 2017-01-27 08:41 | Internal Med Progress Note ---
<NahidmagdalenaguzmanJose Francisco paulino - Last Filed: 01/27/17 12:42> Date of Encounter: 01/27/17 Time of Encounter: 07:40 - Assessment and plan (1) Complicated UTI (urinary tract infection) Current Visit: No Status: Acute Assessment and plan: Patient has a history of recurrent UTI likely secondary to her chronic emphysematous pyleonephrosis. Urine culture reveals gram negative meliza. Awaiting sensitivity results. Previous cultures revealed positive for E. Coli with sensitivity to rocpehin. Patient is currently afebrile. - On day 3 of antibiotics. Continue rocephin. - Continue microbid 100 mg BID. (2) Diabetes Current Visit: No Status: Acute Assessment and plan: Hopet's glucose level has dropped from 372 to 350. - Continue sliding scale and basal insulin. - Continue diabetic diet. Qualifiers: Diabetes mellitus type: type 2 Diabetes mellitus complication status: with hyperglycemia Diabetes mellitus build and release manager insulin use: with build and release manager use Qualified Code(s): E11.65 - Type 2 diabetes mellitus with hyperglycemia; Z79.4 - longterm (current) use of insulin (3) Hyponatremia Current Visit: No Status: Acute Assessment and plan: pseudo-hyponatremia secondary to hyperglycemia. Corrected sodium level is 139. - Continue to monitor. (4) Depression Current Visit: Yes Status: Acute Assessment and plan: Patient's son recently and she has had difficulty coping with the period she has been internalizing feelings. She is on Cymbalta. However feels that this is not helpful. She has not participated in grief counseling, were received any therapy treatment. Psych consult has been placed. Qualifiers: Depression Type: unspecified Qualified Code(s): F32.9 - Major depressive disorder, single episode, unspecified (5) DVT prophylaxis Current Visit: No Status: Acute Assessment and plan: On lovenox. - Subjective Interval history: Ms. Ordoñez is a 66 year old female past medical history of recurrent UTIs chronic emphysema left kidney CAD CK D3 diabetes. Patient has been experiencing nausea vomiting diarrhea for the past 2 weeks. She has also been experiencing intermittent abdominal pain for the past 2 weeks. When seen today, patient says that she is still nauseous and has not changed since yesterday. She denies any vomiting. She admits to suprapubic pain. She also admits to some light- headedness whenever she moves too quickly, but denies any dizziness or syncope. She denies any shortness of breath. She says that she has no burning sensation with urination but feels suprapubic pain/cramp. She denies any hematuria. Denies fever. - Constitutional Vitals: Temp Pulse Resp BP Pulse Ox 98.2 F 74 14 148/66 92 01/27/17 07:23 01/27/17 07:23 01/27/17 07:23 01/27/17 07:23 01/27/17 07:23 General appearance: Present: A&O X 3, answers questions appropriately - Respiratory Respiratory exam: Present: CTAB. Absent: respiratory distress, rhonchi, wheezes , tachypnea - Cardiovascular Cardiovascular exam: Present: RRR, +S1, +S2, systolic murmur. Absent: diastolic murmur, tachycardia - GI/Abdominal GI/Abdominal exam: Present: normal bowel sounds, soft, tenderness (Suprapubic pain/discomfort upon deep palpation. ). Absent: guarding - Extremities Exam Extremities exam: Present: radial pulses palpable and symmetrical. Absent: pedal edema Additional comments: Pedal pulses intact bilaterally. Internal Medicine: Result - Labs CBC & Chem 7: 01/27/17 06:20 01/27/17 06:20 Labs: Short CBC 01/27/17 Range/Units 06:20 WBC 4.1 L (4.3-11.1) K/mcL Hgb 10.1 L (11.5-15.4) g/dL Hct 31.2 L (35.3-44.9) % Plt Count 136 L (140-400) K/mcL Neutrophils # 2.2 (1.6-8.9) K/mcL BMP 01/27/17 06:20 Sodium 133 L Potassium 4.6 H Chloride 102 Carbon Dioxide 24 BUN 17 Creatinine 1.09 Glucose 350 H Calcium 8.7 Consult Discharge Plan - Plan Referrals: Kiel Watkins MD [Primary Care Provider] - <Pedrito Gomes - Last Filed: 01/27/17 17:42> Date of Encounter: 01/27/17 - Constitutional Vitals: Temp Pulse Resp BP Pulse Ox 98.0 F 80 16 143/62 92 01/27/17 16:01 01/27/17 16:01 01/27/17 16:01 01/27/17 16:01 01/27/17 16:01 Internal Medicine: Result - Labs CBC & Chem 7: 01/27/17 06:20 01/27/17 06:20 Labs: Short CBC 01/27/17 Range/Units 06:20 WBC 4.1 L (4.3-11.1) K/mcL Hgb 10.1 L (11.5-15.4) g/dL Hct 31.2 L (35.3-44.9) % Plt Count 136 L (140-400) K/mcL Neutrophils # 2.2 (1.6-8.9) K/mcL BMP 01/27/17 06:20 Sodium 133 L Potassium 4.6 H Chloride 102 Carbon Dioxide 24 BUN 17 Creatinine 1.09 Glucose 350 H Calcium 8.7 - Attending Attestation I examined this patient and my medical decision-making was reviewed with the Resident Physician, Dr Denney. I agree with the documented findings, disposition and treatment plan as described except to the extent set forth below. My findings are summarized below: Patient reports abdominal and back pain. Pain improves with IV morphine. On exam she is in no acute distress. Abdomen is soft, nontender, nondistended with normoactive bowel sounds. Addendum to plan: Depression: I appreciate psychiatry recommendations. I will increase Cymbalta to 90 mg daily. For abdominal pain we will start oral morphine sulfate. She has tolerated IV morphine and has a reported allergy to oxycodone. She has at high risk for morbidity, mortality and complications due to severe infection and treatment with IV controlled substances.
[2017-01-27] MEDS: Nitrofurantoin (BID) 100 MG CAPSULE PO SCH ×2 (09:12→17:41)
[2017-01-27] MEDS: Aspirin 81 MG TAB.CHEW PO SCH (09:12)
[2017-01-27] MEDS: amLODIPine 5 MG TABLET PO SCH (09:12)
[2017-01-27] MEDS: Isosorbide MONOnitrate (24 HR) 30 MG TAB.ER.24H PO SCH (09:12)
[2017-01-27] MEDS: Insulin DETEMIR 100 UNIT/ML X5UNITS SQ SCH ×2 (09:13→21:36)
[2017-01-27] MEDS: Insulin LISPRO 300 UNITS/3 ML VIAL SQ SCH ×7 (09:13→21:37)
[2017-01-27] MEDS: Ondansetron 4 MG/2 ML VIAL IVP PRN (13:12)
--- NOTE | 2017-01-27 14:25 | Consult Note ---
Date of Encounter: 01/27/17 Time of Encounter: 11:45 Assessment & Recommendation (1) Depression Current visit: Yes Status: Chronic Qualifiers: Depression Type: unspecified Qualified Code(s): F32.9 - Major depressive disorder, single episode, unspecified History of Present Illness Requesting Physician: Pedrito Gomes MD Reason for consult: DEPRESSION History of present illness: Ms. Ordoñez is a 66 year old female consulted today for depression. admitted for pain , vomiting and diarrhea as per her. she is a pleasant 66 yr old MWF lives with her family, h/o depression for several years and as per her cymbalta working fine before but recently feels it is not doing so well feeling sad, increase worry about her kids and not having energy or motivation to do things she used to do, denies any suicidal / homicidal ideas, no psychosis, no manic episode. she has not seen any psychiatrist and gets her cymbalta from PCP. she lost her son in , he had been ill and had congenital heart and other deficit since , she adapted him as new born , he was 24 yrs old, his twin as new born in patients arm, she has adapted 7 children and she has 3 of her own. she states i feel guilty as i cannot cry for him and i feel sad, she has good support system. she has multiple medical illness. A/P depressive disorder plan Increase cymbalta to 90 mg follow up with counselling and psychiatric out patient for depression. Thank you for consult. will sigh=n off. CC: Pedrito Gomes MD Past Med Surg Social Fam HX - Past Medical History Medical history: diabetes, hypertension, myocardial infarction, TIA - Past Psychiatric History Psychiatric history: Reports: anxiety, depression Family psychiatric history: Yes Family History of Suicide: Completed (patients maternal grand mother and paternal aunt commited suicide.) - Past Surgical History Surgical History: appendectomy, cholecystectomy, hysterectomy, thyroidectomy, ureteral stent, other - Social History Smoking Status: Former smoker Smokeless Tobacco Status: No Alcohol use: none Drug use: none - Family History Father Hx Family Cardiac Disorders: Yes (AAA) Hx Family Endocrine Disorder: Yes (DM) Mother Adopted: No Living Status: Hx Family Cardiac Disorders: Yes (HTN) Hx Family Cancer: Yes (Colon) Medications & Allergies Duloxetine HCl [Cymbalta] 60 mg PO DAILY 12/05/14 [History] Insulin ASPART [NovoLOG] 0 unit SQ BID 12/05/14 [History] Insulin DETEMIR [Levemir] 60 unit SQ BID 01/13/15 [History] Atorvastatin Calcium [Lipitor] 80 mg PO HS 09/17/15 [History] Aspirin 81 mg PO DAILY #30 tab.chew 09/20/15 [Rx] Clopidogrel [Plavix] 75 mg PO DAILY #30 tablet 09/20/15 [Rx] Isosorbide MONOnitrate (24 HR) [Imdur] 30 mg PO DAILY 11/02/15 [History] ALPRAZolam [Xanax 0.25 MG Tablet] 0.25 mg PO TID PRN 06/01/16 [History] Solifenacin Succinate [Vesicare] 10 mg PO DAILY 06/01/16 [History] Linagliptin [Tradjenta] 5 mg PO DAILY 09/18/16 [History] Metformin HCl [Metformin HCl ER] 500 mg PO BID 09/18/16 [History] Pantoprazole Sodium [Protonix] 40 mg PO DAILY 09/18/16 [History] Amlodipine Besylate 10 mg PO DAILY #30 tablet 09/21/16 [Rx] 3 Allergy/AdvReac Type Severity Reaction Status Date / Time ampicillin Allergy Unknown See Verified 01/25/17 12:17 Comments Cortisone Allergy Unknown Hives Verified 01/25/17 12:17 Oxycodone Allergy Unknown Hives Verified 01/25/17 12:17 Penicillins Allergy Unknown See Verified 01/25/17 12:17 Comments Sulfa (Sulfonamide Allergy Unknown See Verified 01/25/17 12:17 Antibiotics) Comments ciprofloxacin AdvReac Unknown Rash Verified 01/25/17 12:17 codeine AdvReac Unknown Itching Verified 01/25/17 12:17 Hydromorphone AdvReac Unknown Vomiting Verified 01/25/17 12:17 phenazopyridine AdvReac Unknown Vomiting Verified 01/25/17 12:17 [Phenazopyridine] tramadol AdvReac Unknown Vomiting Verified 01/25/17 12:17 hydrocodone AdvReac Itching Verified 01/25/17 12:17 Review of Systems Psychiatric: Reports: depression Mental Status Exam Patient orientation: Yes Person, Yes Time, Yes Place Level of alertness: Alert Patient appearance: Appropriate Behavior: cooperative Psychomotor activity: Normal Eye contact: Maintains Eye Contact Mood description: Depressed, Anxious Affect description: congruent with mood Speech pattern: Normal rate, Normal rhythm, Normal tone, Coherent Speech volume: Normal Thought process: Intact Thought content: Yes Intact, Yes Guilt Attention span: Capable of Focused Attention Memory description: Grossly Intact Patient reliability: Reliable Historian Intelligence estimate: Average Judgment: Good Insight: Full Results - Vital Signs Vital signs: Temp Pulse Resp BP Pulse Ox 98.4 F 79 16 147/75 92 01/27/17 11:01/27/17 11:01/27/17 11:01/27/17 11:01/27/17 11:09 - Labs Labs: Laboratory Last Values WBC 4.1 K/mcL (4.3-11.1) L 01/27/17 06:20 RBC 4.11 M/mcL (3.82-4.97) 01/27/17 06:20 Hgb 10.1 g/dL (11.5-15.4) L 01/27/17 06:20 Hct 31.2 % (35.3-44.9) L 01/27/17 06:20 MCV 75.9 fL (83.0-100.0) L 01/27/17 06:20 MCH 24.6 pg (28.0-33.3) L 01/27/17 06:20 MCHC 32.4 g/dL (31.6-35.5) 01/27/17 06:20 RDW 14.8 % (11.5-14.5) H 01/27/17 06:20 Plt Count 136 K/mcL (140-400) L 01/27/17 06:20 MPV 9.8 fL (9.4-12.4) 01/27/17 06:20 Immature Gran % 1.0 % (0-4) 01/27/17 06:20 Seg Neutrophils % 54.6 % 01/27/17 06:20 Lymphocytes % 26.8 % 01/27/17 06:20 Monocytes % 13.9 % 01/27/17 06:20 Eosinophils % 3.2 % 01/27/17 06:20 Basophils % 0.5 % 01/27/17 06:20 Neutrophils # 2.2 K/mcL (1.6-8.9) 01/27/17 06:20 Lymphocytes # 1.1 K/mcL (0.6-4.6) 01/27/17 06:20 Monocytes # 0.6 K/mcL (0.0-1.3) 01/27/17 06:20 Eosinophils # 0.1 K/mcL (0.0-0.6) 01/27/17 06:20 Basophils # 0.0 K/mcL (0.0-0.2) 01/27/17 06:20 Immature Plt Fraction 3.2 % (1.1-6.1) 01/25/17 13:57 Sodium 133 mEq/L (136-145) L 01/27/17 06:20 Potassium 4.6 mEq/L (3.5-4.5) H 01/27/17 06:20 Chloride 102 mEq/L (98-109) 01/27/17 06:20 Carbon Dioxide 24 mEq/L (19-29) 01/27/17 06:20 BUN 17 mg/dL (7-20) 01/27/17 06:20 Creatinine 1.09 mg/dL (0.57-1.11) 01/27/17 06:20 Est GFR ( Amer) > 60 (> 60) 01/27/17 06:20 Est GFR (Non-Af Amer) 50 (> 60) L 01/27/17 06:20 BUN/Creatinine Ratio 16 (6-26) 01/27/17 06:20 Glucose 350 mg/dL (70-99) H 01/27/17 06:20 POC Glucose 374 (58-89) H 01/26/17 19:53 Est Mean Plasma Glucose 260 mg/dl 01/26/17 03:38 Hemoglobin A1c 10.7 % (-5.6) H 01/26/17 03:38 Calculated Osmolality 292 (280-300) 01/27/17 06:20 Calcium 8.7 mg/dL (8.6-10.8) 01/27/17 06:20 Troponin I 0.01 ng/mL (0-0.03) 01/25/17 13:57 Urine Color Yellow (Yellow) 01/25/17 15:00 Urine Clarity Turbid (Clear) A 01/25/17 15:00 Urine pH 6.0 pH Units (5.0-8.0) 01/25/17 15:00 Ur Specific [place] 1.023 (1.010-1.025) 01/25/17 15:00 Urine Protein 30 mg/dL (Neg-Trace) H 01/25/17 15:00 Urine Glucose (UA) >=1000 mg/dL (Normal) H 01/25/17 15:00 Urine Ketones Negative mg/dL (Negative) 01/25/17 15:00 Urine Blood Moderate (Negative) H 01/25/17 15:00 Urine Nitrite Negative (Negative) 01/25/17 15:00 Urine Bilirubin Negative (Negative) 01/25/17 15:00 Urine Urobilinogen Normal mg/dL (Normal) 01/25/17 15:00 Ur Leukocyte Esterase Large (Negative) H 01/25/17 15:00 Urine Microscopic RBC 3-5 per hpf (0-3) H 01/25/17 15:00 Urine Microscopic WBC TNTC per hpf (0-3) H 01/25/17 15:00 Ur Squamous Epith Cells Moderate per lpf (None-Few) H 01/25/17 15:00 Urine Bacteria Many per hpf (None-Few) H 01/25/17 15:00 Hyaline Casts Few per lpf (None-Few) 01/25/17 15:00 Urine Yeast Many per hpf (None Seen) H 01/25/17 15:00 Ur Culture Indicated? YES (NO) A 01/25/17 15:00 Consult Discharge Plan - Plan Referrals: Kiel Watkins MD [Primary Care Provider] -
[2017-01-28 04:28] LABS: Basophils % 0.5 %; Eosinophils # 0.1 K/mcL (0.0-0.6); Eosinophils % 3.3 %; Hematocrit 31.8 % (35.3-44.9); Hemoglobin 10.4 g/dL (11.5-15.4); Immature Granulocytes % 0.7 % (0-4); Lymphocytes # 1.2 K/mcL (0.6-4.6); Lymphocytes % 28.4 %; Mean Corpuscular HGB Conc 32.7 g/dL (31.6-35.5); Mean Corpuscular Hemoglobin 25.2 pg (28.0-33.3); Monocytes # 0.5 K/mcL (0.0-1.3); Monocytes % 10.6 %; Neutrophils # 2.4 K/mcL (1.6-8.9); Nucleated Red Blood Cells 0.7 /100 WBC (0); Platelet Count 148 K/mcL (140-400); Red Blood Count 4.13 M/mcL (3.82-4.97); Red Cell Distribution Width 14.9 % (11.5-14.5); Segmented Neutrophils % 56.5 %
[2017-01-28 04:45] LABS: BUN/Creatinine Ratio 17 (6-26); Blood Urea Nitrogen 15 mg/dL (7-20); Calcium 9.4 mg/dL (8.6-10.8); Carbon Dioxide 26 mEq/L (19-29); Chloride 100 mEq/L (98-109); Glucose 204 mg/dL (70-99); Osmolality,Calculated 287 (280-300); Potassium 4.4 mEq/L (3.5-4.5); Sodium 135 mEq/L (136-145); eGFR For African Americans > 60 (> 60); eGFR For Non-African Americans > 60 (> 60)
[2017-01-28] MEDS: *HR* Heparin 5,000 UNIT/ML VIAL SQ SCH ×2 (06:30→18:05)
[2017-01-28] MEDS: Insulin LISPRO 300 UNITS/3 ML VIAL SQ SCH ×7 (08:32→21:49)
[2017-01-28] MEDS: amLODIPine 5 MG TABLET PO SCH (08:32)
[2017-01-28] MEDS: Nitrofurantoin (BID) 100 MG CAPSULE PO SCH (08:32)
[2017-01-28] MEDS: Isosorbide MONOnitrate (24 HR) 30 MG TAB.ER.24H PO SCH (08:32)
[2017-01-28] MEDS: Aspirin 81 MG TAB.CHEW PO SCH (08:32)
[2017-01-28] MEDS: Insulin DETEMIR 100 UNIT/ML X5UNITS SQ SCH ×2 (08:32→21:47)
--- NOTE | 2017-01-28 08:36 | Electrocardiograph Report ---
[place] [id number] Test Date: 2017-01-25 Pat Name: Lizz Orodñez Department: 102 Room: 3B16 Gender: F Learning Support Services Director: : [id number] Requested By: Harman Silverman Order Number: [id number] Reading MD: Nick Cabrera DO Measurements Intervals [place] Rate: 75 P: 25 NE: 147 QRS: 28 QRSD: 94 T: 60 QT: 393 QTc: 421 Interpretive Statements SINUS RHYTHM Electronically Signed On 01-27-2017 10:18:27 EDT by Nick Cabrera DO
[2017-01-28] MEDS: Ondansetron 4 MG/2 ML VIAL IVP PRN (12:41)
--- NOTE | 2017-01-28 13:36 | Internal Med Progress Note ---
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 with sensitivity to rocpehin -Patient is currently afebrile. -Continue rocephin day 4 -stop macrobid -most likely discharge tomorrow on PO in antibiotics (2) Diabetes Current Visit: No Status: Acute Assessment and plan: Erick's glucose level has improved and is now 204 - Continue high-dose sliding scale and basal insulin. 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 She is on Cymbalta. However feels that this is not helpful. She has not participated in grief counseling. -Appreciate that Psych consulted on patient and increased Cymbalta dose to 90mg - she is to follow up with counseling and psychiatric outpatient for depression Qualifiers: Depression Type: unspecified Qualified Code(s): F32.9 - Major depressive disorder, single episode, unspecified (5) DVT prophylaxis Current Visit: No Status: Acute Assessment and plan: On heparin SQ - Subjective Interval history: -Patient is lying in bed comfortably -she stated that she feels much better however her urine still has an odor -she stated that she has some nausea - Constitutional Vitals: Temp Pulse Resp BP Pulse Ox 98.5 F 83 18 114/67 94 01/28/17 11:13 01/28/17 11:13 01/28/17 11:13 01/28/17 11:13 01/28/17 11:13 General appearance: Present: A&O X 3, answers questions appropriately Exam: Gen.: Vitals noted. No acute distress. AAOx3 HEENT: oropharynx clear, Normocephalic, atraumatic Cardiac: RRR, no murmur, +S1/S2 Pulmonary: CTA bilaterally, no wheezes, rales or rhonchi Abdomen: soft, tender right lower quadrant and inguinal region, Bowel sounds noted, no guarding back: right CVA tenderness Extremities: no BLE edema, nontender calf, no cyanosis or clubbing Neuro: A&Ox3, moves all extremities, no focal deficits Psych: Appropriate mood and behavior Internal Medicine: Result - Labs CBC & Chem 7: 01/28/17 03:27 01/28/17 03:27 Labs: Short CBC 01/28/17 Range/Units 03:27 WBC 4.3 (4.3-11.1) K/mcL Hgb 10.4 L (11.5-15.4) g/dL Hct 31.8 L (35.3-44.9) % Plt Count 148 (140-400) K/mcL Neutrophils # 2.4 (1.6-8.9) K/mcL BMP 01/28/17 03:27 Sodium 135 L Potassium 4.4 Chloride 100 Carbon Dioxide 26 BUN 15 Creatinine 0.89 Glucose 204 H Calcium 9.4 Consult Discharge Plan - Plan Referrals: Kiel Watkins MD [Primary Care Provider] - 02/04/17 10:15 am <Pedrito Gomes - Last Filed: 01/28/17 19:19> - Constitutional Vitals: Temp Pulse Resp BP Pulse Ox 99.2 F 80 16 117/57 92 01/28/17 18:30 01/28/17 18:30 01/28/17 18:30 01/28/17 18:30 01/28/17 18:30 Internal Medicine: Result - Labs CBC & Chem 7: 01/28/17 03:27 01/28/17 03:27 Labs: Short CBC 01/28/17 Range/Units 03:27 WBC 4.3 (4.3-11.1) K/mcL Hgb 10.4 L (11.5-15.4) g/dL Hct 31.8 L (35.3-44.9) % Plt Count 148 (140-400) K/mcL Neutrophils # 2.4 (1.6-8.9) K/mcL BMP 01/28/17 03:27 Sodium 135 L Potassium 4.4 Chloride 100 Carbon Dioxide 26 BUN 15 Creatinine 0.89 Glucose 204 H Calcium 9.4 - Attending Attestation I examined this patient and my medical decision-making was reviewed with the Resident Physician, Dr. Andersen. I agree with the documented findings, disposition and treatment plan as described except to the extent set forth below. My findings are summarized below: Patient is in no acute distress, awake alert oriented. Heart is regular, no murmurs. Abdomen is soft, tender to palpation Plan: I will check a bladder residual. Consult ID due to recurrent UTIs. Continue with ceftriaxone. Increased dosing to 2 g daily due to slow clinical response.
[2017-01-28] MEDS: *HR* Morphine 2 MG/ML SYRINGE IVP PRN ×2 (15:50→21:37)
[2017-01-28] MEDS ORDERED: WATER IVPB SCH (20:00)
[2017-01-28] MEDS ORDERED: D5 IVPB SCH (20:00)
[2017-01-28] MEDS ORDERED: CEFTRIAXONE IVPB SCH (20:00)
[2017-01-29] MEDS: *HR* Morphine 2 MG/ML SYRINGE IVP PRN ×4 (03:27→21:39)
[2017-01-29] MEDS: *HR* Heparin 5,000 UNIT/ML VIAL SQ SCH ×2 (06:11→16:21)
[2017-01-29 06:12] LABS: Basophils % 0.4 %; Eosinophils # 0.1 K/mcL (0.0-0.6); Eosinophils % 2.8 %; Hematocrit 32.6 % (35.3-44.9); Hemoglobin 10.5 g/dL (11.5-15.4); Immature Granulocytes % 0.4 % (0-4); Lymphocytes # 1.4 K/mcL (0.6-4.6); Lymphocytes % 29.3 %; Mean Corpuscular HGB Conc 32.2 g/dL (31.6-35.5); Mean Corpuscular Hemoglobin 24.9 pg (28.0-33.3); Mean Corpuscular Volume 77.3 fL (83.0-100.0); Mean Platelet Volume 9.9 fL (9.4-12.4); Monocytes # 0.6 K/mcL (0.0-1.3); Neutrophils # 2.6 K/mcL (1.6-8.9); Platelet Count 162 K/mcL (140-400); Red Blood Count 4.22 M/mcL (3.82-4.97); Red Cell Distribution Width 15.3 % (11.5-14.5); Segmented Neutrophils % 55.1 %
[2017-01-29 06:16] LABS: BUN/Creatinine Ratio 17 (6-26); Blood Urea Nitrogen 17 mg/dL (7-20); Calcium 9.1 mg/dL (8.6-10.8); Carbon Dioxide 27 mEq/L (19-29); Chloride 98 mEq/L (98-109); Glucose 281 mg/dL (70-99); Osmolality,Calculated 292 (280-300); Potassium 4.4 mEq/L (3.5-4.5); Sodium 135 mEq/L (136-145); eGFR For African Americans > 60 (> 60); eGFR For Non-African Americans 53 (> 60)
[2017-01-29] MEDS: Isosorbide MONOnitrate (24 HR) 30 MG TAB.ER.24H PO SCH (08:08)
[2017-01-29] MEDS: Aspirin 81 MG TAB.CHEW PO SCH (08:08)
[2017-01-29] MEDS: amLODIPine 5 MG TABLET PO SCH (08:08)
[2017-01-29] MEDS: Insulin LISPRO 300 UNITS/3 ML VIAL SQ SCH ×7 (08:09→22:26)
[2017-01-29] MEDS: Insulin DETEMIR 100 UNIT/ML X5UNITS SQ SCH ×2 (08:11→22:25)
--- NOTE | 2017-01-29 10:47 | Discharge Summary ---
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 (3) Hyponatremia Priority: Secondary Status: Acute (4) Depression Priority: Secondary Status: Chronic Qualifiers: Depression Type: unspecified Qualified Code(s): F32.9 - Major depressive disorder, single episode, unspecified (5) DVT prophylaxis Priority: Secondary Status: Acute - Discharge Medications Prescriptions: cephALEXin [Keflex] 500 mg PO QID 10 Days #40 capsule Home Medications: Duloxetine HCl [Cymbalta] 60 mg PO DAILY 12/05/14 [History] Insulin ASPART [NovoLOG] 0 unit SQ BID 12/05/14 [History] Insulin DETEMIR [Levemir] 60 unit SQ BID 01/13/15 [History] Atorvastatin Calcium [Lipitor] 80 mg PO HS 09/17/15 [History] Aspirin 81 mg PO DAILY #30 tab.chew 09/20/15 [Rx] Clopidogrel [Plavix] 75 mg PO DAILY #30 tablet 09/20/15 [Rx] Isosorbide MONOnitrate (24 HR) [Imdur] 30 mg PO DAILY 11/02/15 [History] ALPRAZolam [Xanax 0.25 MG Tablet] 0.25 mg PO TID PRN 06/01/16 [History] Solifenacin Succinate [Vesicare] 10 mg PO DAILY 06/01/16 [History] Linagliptin [Tradjenta] 5 mg PO DAILY 09/18/16 [History] Metformin HCl [Metformin HCl ER] 500 mg PO BID 09/18/16 [History] Pantoprazole Sodium [Protonix] 40 mg PO DAILY 09/18/16 [History] Amlodipine Besylate 10 mg PO DAILY #30 tablet 09/21/16 [Rx] cephALEXin [Keflex] 500 mg PO QID 10 Days #40 capsule 01/30/17 [Rx] Allergies/Adverse Reactions: 3 Allergy/AdvReac Type Severity Reaction Status Date / Time ampicillin Allergy Unknown See Verified 01/25/17 12:17 Comments Cortisone Allergy Unknown Hives Verified 01/25/17 12:17 Oxycodone Allergy Unknown Hives Verified 01/25/17 12:17 Penicillins Allergy Unknown See Verified 01/25/17 12:17 Comments Sulfa (Sulfonamide Allergy Unknown See Verified 01/25/17 12:17 Antibiotics) Comments ciprofloxacin AdvReac Unknown Rash Verified 01/25/17 12:17 codeine AdvReac Unknown Itching Verified 01/25/17 12:17 Hydromorphone AdvReac Unknown Vomiting Verified 01/25/17 12:17 phenazopyridine AdvReac Unknown Vomiting Verified 01/25/17 12:17 [Phenazopyridine] tramadol AdvReac Unknown Vomiting Verified 01/25/17 12:17 hydrocodone AdvReac Itching Verified 01/25/17 12:17 Date of admission: 01/25/17 20:18 Primary care physician: Kiel Watkins MD Consults: 01/25/17 22:39 Consult to Psychiatry [CONS] Routine Consulting Provider: Psychiatry [facility] Reason for Consult: depression Time Notified: 22:39 Call Completed: Yes 01/28/17 12:33 Consult to Occupational Therapy [CONS] Routine Comment: Evaluate, develop and implement POC Reason for Consult: concern for fall Consult to Physical Therapy [CONS] Routine Comment: Evaluate, develop and implement POC Reason for Consult: evaluate for rehab 01/29/17 08:36 Consult to Infectious Diseases [CONS] Routine Consulting Provider: Infectious Disease [facility] Reason for Consult: recurrent UTI secondary to emphysematous pyelonephritis Call Completed: Yes - Patient Status Disposition: Home, Self-Care Condition: Good - Discharge Instructions Instructions: Chest Pain (DC), Urinary Tract Infection in Women (DC), Depression (DC), Diabetes Mellitus Type 2 in Adults (DC), Chronic Obstructive Pulmonary Disease (DC), Clostridium Difficile Infection (DC) Follow Up With: Kiel Watkins MD [Primary Care Provider] - 02/04/17 10:15 am Additional Instructions: Finish the antibiotic F/U with your urologist in about a week return to ED if you should worsen Hospital course: Ms. Ordoñez is a 66 year old female - Time Spent with Patient Total time spent providing and/or coordinating discharge services: - Constitutional Vitals: Temp Pulse Resp BP Pulse Ox 98.2 F 76 18 121/69 90 01/29/17 07:06 01/29/17 07:06 01/29/17 07:06 01/29/17 07:06 01/29/17 07:06 General appearance: Present: A&O X 3, answers questions appropriately Exam: Gen.: Vitals noted. No acute distress. AAOx3 HEENT: oropharynx clear, Normocephalic, atraumatic Neck: Supple. No adenopathy. Cardiac: RRR, no murmur, +S1/S2 Pulmonary: CTA bilaterally, no wheezes, rales or rhonchi, equal chest expansion Abdomen: soft, minimal generalized tenderness, Bowel sounds noted, no guarding Extremities: no BLE edema, nontender calf, no cyanosis or clubbing Neuro: A&Ox3, moves all extremities, no focal deficits Psych: Appropriate mood and behavior <Pedrito Gomes - Last Filed: 01/31/17 07:47> Date of Encounter: 01/31/17 Date of admission: 01/25/17 20:18 Primary care physician: Kiel Watkins MD Consults: 01/25/17 22:39 Consult to Psychiatry [CONS] Routine Consulting Provider: Psychiatry [place] Reason for Consult: depression Time Notified: 22:39 Call Completed: Yes 01/28/17 12:33 Consult to Occupational Therapy [CONS] Routine Comment: Evaluate, develop and implement POC Reason for Consult: concern for fall Consult to Physical Therapy [CONS] Routine Comment: Evaluate, develop and implement POC Reason for Consult: evaluate for rehab 01/29/17 08:36 Consult to Infectious Diseases [CONS] Routine Consulting Provider: Infectious Disease [facility] Reason for Consult: recurrent UTI secondary to emphysematous pyelonephritis Call Completed: Yes Hospital course: Ms. Ordoñez is a 66 year old female - Time Spent with Patient Total time spent providing and/or coordinating discharge services: - Constitutional Vitals: Temp Pulse Resp BP Pulse Ox 98.4 F 71 15 109/70 93 01/30/17 06:51 01/30/17 06:51 01/30/17 06:51 01/30/17 06:51 01/30/17 06:51 - Attending Attestation I examined this patient and my medical decision-making was reviewed with the Resident Physician, Dr. Andersen. I agree with the documented findings, disposition and treatment plan as described except to the extent set forth below. Patient reports improvement in abdominal pain. Nausea has resolved. Plan: I appreciate ID recommendations. Transition to oral Keflex in anticipation of discharge. Follow-up with urology.
--- NOTE | 2017-01-29 15:07 | Infectious Disease Consult ---
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 According to the patient, she sees a urologist at [facility] for this. Based on the CT scan, I am not sure how much of this is contributing to the patient's current symptoms as it appears these findings are stable since March 2016. Causative organism likely K. pneumoniae that is intermediate susceptibility to nitrofurantoin, but otherwise morales-sensitive. The patient's poorly-controlled diabetes could be contributing to this recurrence. Recommend the patient be evaluated by her urologist. Additionally, telephone contact with the patient's urologist at [facility] or a urology consult while hospitalized may be beneficial to discuss further plan of care and treatment options from their standpoint. Continue Rocephin 2 grams IV daily. Duration of treatment depends on the clinical picture, but likely 14 days total. We can switch the patient to oral antibiotics when ready for discharge. The patient's allergy list limits our antibiotic selections so we will have to use a second-line medication to treat this infection. Recommend keflex 500mg PO QID to complete the 14 day course of treatment. (2) UTI (urinary tract infection) Status: Acute Assessment and plan: Causative organism K. pneumoniae. Continue antibiotics as above. Qualifiers: Urinary tract infection type: acute cystitis Hematuria presence: without hematuria Qualified Code(s): N30.00 - Acute cystitis without hematuria (3) Abdominal pain Status: Acute Assessment and plan: Improved. Etiology not entirely clear: emphysematous pyelonephritis vs cystitis vs. gastroenteritis. CT scan shows emphysematous pyelonephritis, unchanged from previous CT scan done back in March 2016. Qualifiers: Abdominal location: unspecified location Qualified Code(s): R10.9 - Unspecified abdominal pain (4) Nausea and vomiting Status: Resolved Qualifiers: Vomiting type: unspecified Vomiting Intractability: unspecified Qualified Code(s): R11.2 - Nausea with vomiting, unspecified (5) Hyponatremia Status: Acute Assessment and plan: Likely pseudo-hyponatremia secondary to hyperglycemia. Improved. (6) Anemia Status: Chronic Qualifiers: Anemia type: unspecified type Qualified Code(s): D64.9 - Anemia, unspecified (7) CAD (coronary artery disease) Status: Chronic Qualifiers: Coronary Disease-Associated Artery/Lesion type: tribal artery [place] vs. transplanted heart: tribal heart Associated angina: without angina Qualified Code(s): I25.10 - Atherosclerotic heart disease of tribal coronary artery without angina pectoris (8) Obesity (BMI 30-39.9) Status: Chronic Infectious Disease HPI - Data of Consult Patient: known to practice within the last 3 years Consult date: 01/29/17 Requesting Physician: Pedrito Gomes MD Primary Care Provider: Kiel Watkins MD - Consult Narrative Reason for consult: Emphysematous pyelonephritis History of present illness: Ms. Ordoñez is a 66 year old female has medical history of diabetes, hypertension, CAD, chronic kidney disease stage III, recurrent UTI, and chronic left kidney emphysematous pyelonephritis. The patient was admitted to the hospital January 25 for nausea, dehydration, and UTI. We are consulted January 29 for further recommendations regarding emphysematous pyelonephritis. The patient is a 58 year 6-year-old female, well-known to infectious disease service as we've been consulted on her case multiple times. Patient presented to the emergency department with complaints of 2 weeks of feeling generally unwell. She reported diarrhea for 2 weeks prior to admission but stopped 3-4 days before she came to the ER. She states that after the diarrhea subsided, she started having vomiting, abdominal pain, and right flank pain. Upon arrival , patient was afebrile and hemodynamically stable. Her white blood cell count was normal. Chest x-ray was negative. CT the abdomen and pelvis showed left emphysematous pyelonephritis, really unchanged from a past CAT scan in March 2016. The patient was also reporting some dizziness so CT of the head was done that was negative. Urinalysis was obtained that was positive for large amounts of leukocyte esterase, too numerous to count white blood cells, and many bacteria. Urine culture grew out Klebsiella pneumoniae. The patient was started on empiric IV antibiotics and admitted to the hospital for further evaluation and treatment. Since Admission, the patient has remained afebrile with a normal white blood cell count. She states she feels about 40% better. He has received 5 days of IV Rocephin. We have been asked to evaluate and make further recommendations. During my exam today, the patient states that she didn't have any fevers or chills or rigors prior to admission. She does report some dizziness and nausea associated with movement. She endorses the history of 2 weeks of diarrhea prior to the onset of her nausea and vomiting that started about 4 days prior to admission. She reports generalized abdominal pain, worse in the right lower quadrant that radiates around to her right flank although her CT findings indicate left-sided emphysematous pyelonephritis. She reports that the intermittent nausea continues as well as the dizziness especially when she is up to the bathroom or turns over in bed too quickly. She describes the abdominal pain as a dull and aching in nature. She does report some vaginal discomfort with urination and states she has the urge to go to the bathroom every hour. She denies oral thrush or skin lesions. She denies chest pain, shortness of breath, or cough. She does report that she was seen by her urologist at [facility] in late November. CC: Pedrito Gomes MD Past Med Surg Social Fam HX - Past Medical History Attestation: Yes The following information was validated with the patient. Source: patient, old records reviewed, nursing notes reviewed Medical history: diabetes, hypertension, myocardial infarction, TIA Psychiatric history: anxiety, depression - Past Surgical History Surgical History: appendectomy, cholecystectomy, hysterectomy, thyroidectomy, ureteral stent, other - Social History Smoking Status: Former smoker Smokeless Tobacco Status: No Alcohol use: none Drug use: none Occupational status: unemployed Current living situation: Home, With Family Activity Level: Uses cane/walker Recent Out of Country Travel Within the Last 8 Weeks: No Exposure or Possible Exposure to Illness During Travel: No - Family History Father Hx Family Cardiac Disorders: Yes (AAA) Hx Family Endocrine Disorder: Yes (DM) Mother Adopted: No Living Status: Hx Family Cardiac Disorders: Yes (HTN) Hx Family Cancer: Yes (Colon) Infectious Disease-CN:Meds Duloxetine HCl [Cymbalta] 60 mg PO DAILY 12/05/14 [History] Insulin ASPART [NovoLOG] 0 unit SQ BID 12/05/14 [History] Insulin DETEMIR [Levemir] 60 unit SQ BID 01/13/15 [History] Atorvastatin Calcium [Lipitor] 80 mg PO HS 09/17/15 [History] Aspirin 81 mg PO DAILY #30 tab.chew 09/20/15 [Rx] Clopidogrel [Plavix] 75 mg PO DAILY #30 tablet 09/20/15 [Rx] Isosorbide MONOnitrate (24 HR) [Imdur] 30 mg PO DAILY 11/02/15 [History] ALPRAZolam [Xanax 0.25 MG Tablet] 0.25 mg PO TID PRN 06/01/16 [History] Solifenacin Succinate [Vesicare] 10 mg PO DAILY 06/01/16 [History] Linagliptin [Tradjenta] 5 mg PO DAILY 09/18/16 [History] Metformin HCl [Metformin HCl ER] 500 mg PO BID 09/18/16 [History] Pantoprazole Sodium [Protonix] 40 mg PO DAILY 09/18/16 [History] Amlodipine Besylate 10 mg PO DAILY #30 tablet 09/21/16 [Rx] 3 Allergy/AdvReac Type Severity Reaction Status Date / Time ampicillin Allergy Unknown See Verified 01/25/17 12:17 Comments Cortisone Allergy Unknown Hives Verified 01/25/17 12:17 Oxycodone Allergy Unknown Hives Verified 01/25/17 12:17 Penicillins Allergy Unknown See Verified 01/25/17 12:17 Comments Sulfa (Sulfonamide Allergy Unknown See Verified 01/25/17 12:17 Antibiotics) Comments ciprofloxacin AdvReac Unknown Rash Verified 01/25/17 12:17 codeine AdvReac Unknown Itching Verified 01/25/17 12:17 Hydromorphone AdvReac Unknown Vomiting Verified 01/25/17 12:17 phenazopyridine AdvReac Unknown Vomiting Verified 01/25/17 12:17 [Phenazopyridine] tramadol AdvReac Unknown Vomiting Verified 01/25/17 12:17 hydrocodone AdvReac Itching Verified 01/25/17 12:17 All systems: reviewed and no additional remarkable complaints except as stated Exam - Constitutional Vitals: Temp Pulse Resp BP Pulse Ox 98.4 F 70 18 100/61 93 01/29/17 11:16 01/29/17 11:16 01/29/17 11:16 01/29/17 11:16 01/29/17 11:16 General appearance: cooperative, no acute distress, obese - Head Head exam: Present: atraumatic, normal inspection, normocephalic - Eye Eye exam: Present: EOMI, normal appearance, PERRL Pupils: Present: normal accommodation - ENT ENT exam: Present: mucous membranes moist - Neck Neck exam: Present: normal inspection - Respiratory Respiratory exam: Present: CTAB. Absent: rales, respiratory distress, rhonchi, wheezes - Cardiovascular Cardiovascular exam: Present: RRR, +S1, +S2 - GI/Abdominal GI/Abdominal exam: Present: normal bowel sounds, soft, tenderness (RLQ). Absent : distended - Extremities Exam Extremities exam: Present: normal inspection. Absent: joint swelling, pedal edema, tenderness - Back Exam Back exam: Present: CVA tenderness (R). Absent: CVA tenderness (L), paraspinal tenderness, vertebral tenderness - Neurological Exam Neurological exam: Present: alert, oriented X3, no focal deficits - Psychiatric Psychiatric exam: Present: normal affect, normal mood - Skin Skin exam: Present: dry, intact, normal color, warm Infectious Disease CN: Results - Labs CBC & Chem 7: 01/30/17 03:08 01/30/17 03:08 Cultures: Cultures 01/25/17 15:00 Urine Culture - Final Urine,Clean Catch Klebsiella pneu.ssp pneumoniae Consult Discharge Plan - Plan Referrals: Kiel Watkins MD [Primary Care Provider] - 02/04/17 10:15 am
--- NOTE | 2017-01-29 16:31 | Internal Med Progress Note ---
<Raya Andersen - Last Filed: 01/29/17 16:17> Date of Encounter: 01/29/17 Time of Encounter: 09:40 - Assessment and plan (1) Complicated UTI (urinary tract infection) Current Visit: No Status: Acute Assessment and plan: Patient has a history of recurrent UTI likely secondary to her chronic emphysematous pyleonephrosis -Patient is currently afebrile with normal WBC -patient denies dysuria, bladder fullness. She states her urine odor has improved CT abdomen concerning for emphysematous pyelonephrosis -Urine culture reveals klebsiella pneu. with sensitivity to rocpehin -Continue rocephin day 5 -appreciate ID input -will have patient follow-up with urology outpatient. Either her urologist in [place] or one of the urologist at [place] -most likely discharge tomorrow on PO in antibiotics for 14 days total which include the hospital antibiotics (2) Diabetes Current Visit: No Status: Acute Assessment and plan: Erick's glucose level has improved and is now 204 - Continue high-dose sliding scale and basal insulin. - Continue diabetic diet Qualifiers: Diabetes mellitus type: type 2 Diabetes mellitus complication status: with hyperglycemia Diabetes mellitus formulation technician insulin use: with snf use Qualified Code(s): E11.65 - Type 2 diabetes mellitus with hyperglycemia; Z79.4 - biztalk software developer (current) use of insulin (3) Hyponatremia Current Visit: Yes Status: Acute Assessment and plan: Improving most likely pseudo-hyponatremia secondary to hyperglycemia - Continue to monitor (4) Depression Current Visit: Yes Status: Chronic Assessment and plan: Patient's son recently and she has had difficulty coping with the period she has been internalizing feelings. She is on Cymbalta. However feels that this is not helpful. She has not participated in grief counseling. -Appreciate that Psych consulted on patient and increased Cymbalta dose to 90mg - she is to follow up with counseling and psychiatric outpatient for depression Qualifiers: Depression Type: unspecified Qualified Code(s): F32.9 - Major depressive disorder, single episode, unspecified (5) DVT prophylaxis Current Visit: No Status: Acute Assessment and plan: On heparin SQ - Subjective Interval history: -Patient is lying in bed comfortably -she stated that she feels much better however her urine still has an odor -she denies dysuria, bladder fullness, fever, chills -she stated that she has some nausea just when she moves fast - Constitutional Vitals: Temp Pulse Resp BP Pulse Ox 98.4 F 79 18 115/71 90 01/29/17 15:14 01/29/17 15:14 01/29/17 15:14 01/29/17 15:14 01/29/17 15:14 General appearance: Present: A&O X 3, answers questions appropriately Exam: Gen.: Vitals noted. No acute distress. AAOx3 HEENT: oropharynx clear, Normocephalic, atraumatic Neck: Supple. No adenopathy. Cardiac: RRR, no murmur, +S1/S2 Pulmonary: CTA bilaterally, no wheezes, rales or rhonchi, equal chest expansion Abdomen: soft, minimal generalized tenderness, Bowel sounds noted, no guarding Extremities: no BLE edema, nontender calf, no cyanosis or clubbing Neuro: A&Ox3, moves all extremities, no focal deficits Psych: Appropriate mood and behavior Internal Medicine: Result - Labs CBC & Chem 7: 01/29/17 05:10 01/29/17 05:10 Labs: Short CBC 01/29/17 Range/Units 05:10 WBC 4.7 (4.3-11.1) K/mcL Hgb 10.5 L (11.5-15.4) g/dL Hct 32.6 L (35.3-44.9) % Plt Count 162 (140-400) K/mcL Neutrophils # 2.6 (1.6-8.9) K/mcL BMP 01/29/17 05:10 Sodium 135 L Potassium 4.4 Chloride 98 Carbon Dioxide 27 BUN 17 Creatinine 1.03 Glucose 281 H Calcium 9.1 Consult Discharge Plan - Plan Referrals: Kiel Watkins MD [Primary Care Provider] - 02/04/17 10:15 am <Pedrito Gomes - Last Filed: 01/30/17 08:17> Date of Encounter: 01/29/17 - Constitutional Vitals: Temp Pulse Resp BP Pulse Ox 98.4 F 71 15 109/70 93 01/30/17 06:51 01/30/17 06:51 01/30/17 06:51 01/30/17 06:51 01/30/17 06:51 Internal Medicine: Result - Labs CBC & Chem 7: 01/30/17 03:08 01/30/17 03:08 Labs: Short CBC 01/30/17 Range/Units 03:08 WBC 4.6 (4.3-11.1) K/mcL Hgb 10.3 L (11.5-15.4) g/dL Hct 32.3 L (35.3-44.9) % Plt Count 159 (140-400) K/mcL Neutrophils # 2.4 (1.6-8.9) K/mcL BMP 01/30/17 03:08 Sodium 135 L Potassium 4.4 Chloride 98 Carbon Dioxide 27 BUN 18 Creatinine 1.00 Glucose 243 H Calcium 9.1 - Attending Attestation I examined this patient and my medical decision-making was reviewed with the Resident Physician, Dr. Andersen. I agree with the documented findings, disposition and treatment plan as described except to the extent set forth below. I have independently obtained history and examined the patient and my findings are summarized below: Patient reports improvement in abdominal pain. Bladder residual yesterday was less than 60 mL. On exam she is in no acute distress. Abdomen is soft and nontender. Heart is regular. Plan: Consult ID. We will discuss the case with urology to address recurrent urinary tract infections. Continue with ceftriaxone 2 g IV daily for complicated UTI.
[2017-01-29] MEDS ORDERED: D5 IVPB SCH (22:00)
[2017-01-29] MEDS ORDERED: WATER IVPB SCH (22:00)
[2017-01-29] MEDS ORDERED: CEFTRIAXONE IVPB SCH (22:00)
[2017-01-30 04:27] LABS: Basophils % 0.4 %; Eosinophils # 0.2 K/mcL (0.0-0.6); Eosinophils % 3.7 %; Hematocrit 32.3 % (35.3-44.9); Hemoglobin 10.3 g/dL (11.5-15.4); Immature Granulocytes % 0.4 % (0-4); Lymphocytes # 1.5 K/mcL (0.6-4.6); Lymphocytes % 31.6 %; Mean Corpuscular HGB Conc 31.9 g/dL (31.6-35.5); Mean Corpuscular Hemoglobin 24.8 pg (28.0-33.3); Mean Corpuscular Volume 77.8 fL (83.0-100.0); Mean Platelet Volume 9.8 fL (9.4-12.4); Monocytes # 0.5 K/mcL (0.0-1.3); Monocytes % 11.1 %; Neutrophils # 2.4 K/mcL (1.6-8.9); Platelet Count 159 K/mcL (140-400); Red Blood Count 4.15 M/mcL (3.82-4.97); Red Cell Distribution Width 15.2 % (11.5-14.5); Segmented Neutrophils % 52.8 %
[2017-01-30] MEDS: Ondansetron 4 MG/2 ML VIAL IVP PRN (04:34)
[2017-01-30 04:40] LABS: BUN/Creatinine Ratio 18 (6-26); Blood Urea Nitrogen 18 mg/dL (7-20); Calcium 9.1 mg/dL (8.6-10.8); Carbon Dioxide 27 mEq/L (19-29); Chloride 98 mEq/L (98-109); Glucose 243 mg/dL (70-99); Osmolality,Calculated 290 (280-300); Potassium 4.4 mEq/L (3.5-4.5); Sodium 135 mEq/L (136-145); eGFR For African Americans > 60 (> 60); eGFR For Non-African Americans 55 (> 60)
[2017-01-30] MEDS: *HR* Heparin 5,000 UNIT/ML VIAL SQ SCH (05:45)
[2017-01-30] MEDS: *HR* Morphine 2 MG/ML SYRINGE IVP PRN (05:45)
--- NOTE | 2017-01-30 09:16 | Discharge Summary ---
<Raya Andersen - Last Filed: 01/30/17 12:15> Date of Encounter: 01/30/17 Time of Encounter: 09:10 - Discharge Diagnosis (1) Complicated UTI (urinary tract infection) Priority: Primary Status: Acute (2) Diabetes Priority: Secondary Status: Acute Qualifiers: Diabetes mellitus type: type 2 Diabetes mellitus complication status: with hyperglycemia Diabetes mellitus tank terminal gauger insulin use: with custodial use Qualified Code(s): E11.65 - Type 2 diabetes mellitus with hyperglycemia; Z79.4 - tank terminal gauger (current) use of insulin (3) Hyponatremia Priority: Secondary Status: Acute (4) Depression Priority: Secondary Status: Chronic Qualifiers: Depression Type: unspecified Qualified Code(s): F32.9 - Major depressive disorder, single episode, unspecified (5) DVT prophylaxis Priority: Secondary Status: Acute - Discharge Medications Prescriptions: cephALEXin [Keflex] 500 mg PO QID 10 Days #40 capsule Home Medications: Duloxetine HCl [Cymbalta] 60 mg PO DAILY 12/05/14 [History] Insulin ASPART [NovoLOG] 0 unit SQ BID 12/05/14 [History] Insulin DETEMIR [Levemir] 60 unit SQ BID 01/13/15 [History] Atorvastatin Calcium [Lipitor] 80 mg PO HS 09/17/15 [History] Aspirin 81 mg PO DAILY #30 tab.chew 09/20/15 [Rx] Clopidogrel [Plavix] 75 mg PO DAILY #30 tablet 09/20/15 [Rx] Isosorbide MONOnitrate (24 HR) [Imdur] 30 mg PO DAILY 11/02/15 [History] ALPRAZolam [Xanax 0.25 MG Tablet] 0.25 mg PO TID PRN 06/01/16 [History] Solifenacin Succinate [Vesicare] 10 mg PO DAILY 06/01/16 [History] Linagliptin [Tradjenta] 5 mg PO DAILY 09/18/16 [History] Metformin HCl [Metformin HCl ER] 500 mg PO BID 09/18/16 [History] Pantoprazole Sodium [Protonix] 40 mg PO DAILY 09/18/16 [History] Amlodipine Besylate 10 mg PO DAILY #30 tablet 09/21/16 [Rx] cephALEXin [Keflex] 500 mg PO QID 10 Days #40 capsule 01/30/17 [Rx] Allergies/Adverse Reactions: 3 Allergy/AdvReac Type Severity Reaction Status Date / Time ampicillin Allergy Unknown See Verified 01/25/17 12:17 Comments Cortisone Allergy Unknown Hives Verified 01/25/17 12:17 Oxycodone Allergy Unknown Hives Verified 01/25/17 12:17 Penicillins Allergy Unknown See Verified 01/25/17 12:17 Comments Sulfa (Sulfonamide Allergy Unknown See Verified 01/25/17 12:17 Antibiotics) Comments ciprofloxacin AdvReac Unknown Rash Verified 01/25/17 12:17 codeine AdvReac Unknown Itching Verified 01/25/17 12:17 Hydromorphone AdvReac Unknown Vomiting Verified 01/25/17 12:17 phenazopyridine AdvReac Unknown Vomiting Verified 01/25/17 12:17 [Phenazopyridine] tramadol AdvReac Unknown Vomiting Verified 01/25/17 12:17 hydrocodone AdvReac Itching Verified 01/25/17 12:17 Date of admission: 01/25/17 20:18 Primary care physician: Kiel Watkins MD Consults: 01/25/17 22:39 Consult to Psychiatry [CONS] Routine Consulting Provider: Psychiatry [place] Reason for Consult: depression Time Notified: 22:39 Call Completed: Yes 01/28/17 12:33 Consult to Occupational Therapy [CONS] Routine Comment: Evaluate, develop and implement POC Reason for Consult: concern for fall Consult to Physical Therapy [CONS] Routine Comment: Evaluate, develop and implement POC Reason for Consult: evaluate for rehab 01/29/17 08:36 Consult to Infectious Diseases [CONS] Routine Consulting Provider: Infectious Disease [place] Reason for Consult: recurrent UTI secondary to emphysematous pyelonephritis Call Completed: Yes Discharging clinician: Pedrito Gomes - Patient Status Disposition: Home, Self-Care Condition: Good Functional capacity at discharge: uses cane/walker Overall status at discharge: patient is progressing back to baseline - Discharge Instructions Instructions: Chest Pain (DC), Urinary Tract Infection in Women (DC), Depression (DC), Diabetes Mellitus Type 2 in Adults (DC), Chronic Obstructive Pulmonary Disease (DC), Clostridium Difficile Infection (DC) Follow Up With: Kiel Watkins MD [Primary Care Provider] - 02/04/17 10:15 am Additional Instructions: Finish the antibiotic F/U with your urologist in about a week return to ED if you should worsen - Diet and Activity Activity: ambulate only with your walker, resume usual activities as tolerated Diet: advance to your usual diet Hospital course: Ms. Ordoñez is a 66 year old female - Time Spent with Patient Total time spent providing and/or coordinating discharge services: - Constitutional Vitals: Temp Pulse Resp BP Pulse Ox 98.4 F 71 15 109/70 93 01/30/17 06:51 01/30/17 06:51 01/30/17 06:51 01/30/17 06:51 01/30/17 06:51 General appearance: Present: A&O X 3, answers questions appropriately Exam: Gen.: Vitals noted. No acute distress. AAOx3 HEENT: oropharynx clear, Normocephalic, atraumatic Neck: Supple. No adenopathy. Cardiac: RRR, no murmur, +S1/S2 Pulmonary: CTA bilaterally, no wheezes, rales or rhonchi, equal chest expansion Abdomen: soft, minimal right lower quadrant tender, Bowel sounds noted, no guarding MSK: ROM intact, no joint swelling noted Extremities: no BLE edema, nontender calf, no cyanosis or clubbing Neuro: A&Ox3, moves all extremities Psych: Appropriate mood and behavior <Pedrito Gomes - Last Filed: 01/30/17 17:39> Date of Encounter: 01/30/17 Date of admission: 01/25/17 20:18 Primary care physician: Kiel Watkins MD Consults: 01/25/17 22:39 Consult to Psychiatry [CONS] Routine Consulting Provider: Psychiatry [place] Reason for Consult: depression Time Notified: 22:39 Call Completed: Yes 01/28/17 12:33 Consult to Occupational Therapy [CONS] Routine Comment: Evaluate, develop and implement POC Reason for Consult: concern for fall Consult to Physical Therapy [CONS] Routine Comment: Evaluate, develop and implement POC Reason for Consult: evaluate for rehab 01/29/17 08:36 Consult to Infectious Diseases [CONS] Routine Consulting Provider: Infectious Disease [place] Reason for Consult: recurrent UTI secondary to emphysematous pyelonephritis Call Completed: Yes - Patient Status Functional capacity at discharge: uses cane/walker Overall status at discharge: patient is progressing back to baseline Hospital course: Ms. Ordoñez is a 66 year old female - Time Spent with Patient Total time spent providing and/or coordinating discharge services: - Constitutional Vitals: Temp Pulse Resp BP Pulse Ox 98.0 F 83 17 106/64 93 01/30/17 11:04 01/30/17 11:04 01/30/17 11:04 01/30/17 11:04 01/30/17 11:04 - Attending Attestation I examined this patient and my medical decision-making was reviewed with the Resident Physician, Dr. Andersen. I agree with the documented findings, disposition and treatment plan as described except to the extent set forth below. Patient's abdominal pain has improved. She received 4 days of treatment with IV ceftriaxone for complicated UTI. Plan: We will switch to oral Keflex and will discharge her home. We advised her to follow up closely with her urologist.
[2017-01-30] MEDS: Isosorbide MONOnitrate (24 HR) 30 MG TAB.ER.24H PO SCH (09:21)
[2017-01-30] MEDS: Aspirin 81 MG TAB.CHEW PO SCH (09:21)
[2017-01-30] MEDS: Insulin LISPRO 300 UNITS/3 ML VIAL SQ SCH ×4 (09:22→11:53)
[2017-01-30] MEDS: Insulin DETEMIR 100 UNIT/ML X5UNITS SQ SCH (09:22)
[2017-01-30] MEDS: amLODIPine 5 MG TABLET PO SCH (09:22)
[2017-01-30 11:09] VITALS: BP 106/64
--- NOTE | 2017-01-30 12:47 | Infectious Disease Progress No ---
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 According to the patient, she sees a [facility] for [facility]. Based on the CT scan, I am not sure how much of this is contributing to the patient's current symptoms as it appears these findings are stable since March 2016. Causative organism likely K. pneumoniae that is intermediate susceptibility to nitrofurantoin, but otherwise morales-sensitive. The patient's poorly-controlled diabetes could be contributing to this recurrence. Case discussed with Dr. Hoyos who spoke with Urology --> recommends follow-up with the patient's urologist in [place]. Continue Rocephin 2 grams IV daily. Duration of treatment depends on the clinical picture, but likely 14 days total. We can switch the patient to oral antibiotics when ready for discharge. The patient's allergy list limits our antibiotic selections so we will have to use a second-line medication to treat this infection. Recommend keflex 500mg PO QID to complete the 14 day course of treatment. (2) UTI (urinary tract infection) Current Visit: No Status: Acute Causative organism K. pneumoniae. Continue antibiotics as above. Qualifiers: Urinary tract infection type: acute cystitis Hematuria presence: without hematuria Qualified Code(s): N30.00 - Acute cystitis without hematuria (3) Abdominal pain Current Visit: No Status: Acute Improved. Etiology not entirely clear: emphysematous pyelonephritis vs cystitis vs. gastroenteritis. CT scan shows emphysematous pyelonephritis, unchanged from previous CT scan done back in March 2016. Qualifiers: Abdominal location: unspecified location Qualified Code(s): R10.9 - Unspecified abdominal pain (4) Hyponatremia Current Visit: Yes Status: Acute Likely pseudo-hyponatremia secondary to hyperglycemia. Improved. (5) Anemia Current Visit: No Status: Chronic Qualifiers: Anemia type: unspecified type Qualified Code(s): D64.9 - Anemia, unspecified (6) CAD (coronary artery disease) Current Visit: No Status: Chronic Qualifiers: Coronary Disease-Associated Artery/Lesion type: [place] artery [place] vs. transplanted heart: [place] heart Associated angina: without angina Qualified Code(s): I25.10 - Atherosclerotic heart disease of [place] coronary artery without angina pectoris (7) Obesity (BMI 30-39.9) Current Visit: No Status: Chronic - Subjective Interval history: Patient seen and examined. No acute events noted overnight. Patient states she feels tired this morning. States her nausea is improved. States dizziness still the same. Denies fevers, chills, rigors. States abdominal and right flank pain improved. Denies diarrhea. Denies dysuria or urinary complaints. Denies oral thrush or skin lesions. Infect Dis PN-Objective Data - Labs CBC & Chem 7: 01/30/17 03:08 01/30/17 03:08 Labs: Laboratory Results - last 24 hr 01/28/17 01/28/17 01/29/17 11:11 14:53 12:01 WBC RBC Hgb Hct MCV MCH MCHC RDW Plt Count MPV Immature Gran % Seg Neutrophils % Lymphocytes % Monocytes % Eosinophils % Basophils % Neutrophils # Lymphocytes # Monocytes # Eosinophils # Basophils # Sodium Potassium Chloride Carbon Dioxide BUN Creatinine Est GFR ( Amer) Est GFR (Non-Af Amer) BUN/Creatinine Ratio Glucose POC Glucose 292 H 325 H 210 H Calculated Osmolality Calcium 01/29/17 01/29/17 01/30/17 15:11 20:46 03:08 WBC 4.6 RBC 4.15 Hgb 10.3 L Hct 32.3 L MCV 77.8 L MCH 24.8 L MCHC 31.9 RDW 15.2 H Plt Count 159 MPV 9.8 Immature Gran % 0.4 Seg Neutrophils % 52.8 Lymphocytes % 31.6 Monocytes % 11.1 Eosinophils % 3.7 Basophils % 0.4 Neutrophils # 2.4 Lymphocytes # 1.5 Monocytes # 0.5 Eosinophils # 0.2 Basophils # 0.0 Sodium Potassium Chloride Carbon Dioxide BUN Creatinine Est GFR ( Amer) Est GFR (Non-Af Amer) BUN/Creatinine Ratio Glucose POC Glucose 269 H 260 H Calculated Osmolality Calcium 01/30/17 03:08 WBC RBC Hgb Hct MCV MCH MCHC RDW Plt Count MPV Immature Gran % Seg Neutrophils % Lymphocytes % Monocytes % Eosinophils % Basophils % Neutrophils # Lymphocytes # Monocytes # Eosinophils # Basophils # Sodium 135 L Potassium 4.4 Chloride 98 Carbon Dioxide 27 BUN 18 Creatinine 1.00 Est GFR ( Amer) > 60 Est GFR (Non-Af Amer) 55 L BUN/Creatinine Ratio 18 Glucose 243 H POC Glucose Calculated Osmolality 290 Calcium 9.1 Exam - Constitutional Vitals: Temp Pulse Resp BP Pulse Ox 98.0 F 83 17 106/64 93 01/30/17 11:04 01/30/17 11:04 01/30/17 11:04 01/30/17 11:04 01/30/17 11:04 General appearance: cooperative, no acute distress, obese - Head Head exam: Present: atraumatic, normal inspection, normocephalic - Eye Eye exam: Present: EOMI, normal appearance, PERRL Pupils: Present: normal accommodation - ENT ENT exam: Present: mucous membranes moist - Neck Neck exam: Present: normal inspection - Respiratory Respiratory exam: Present: CTAB. Absent: rales, respiratory distress, rhonchi, wheezes - Cardiovascular Cardiovascular exam: Present: RRR, +S1, +S2 - GI/Abdominal GI/Abdominal exam: Present: distended (obese), normal bowel sounds, soft, tenderness (generalized, mild) - Extremities Exam Extremities exam: Present: normal inspection. Absent: joint swelling, pedal edema, tenderness - Back Exam Back exam: Present: CVA tenderness (R), normal inspection. Absent: paraspinal tenderness, vertebral tenderness - Neurological Exam Neurological exam: Present: alert, oriented X3, no focal deficits - Psychiatric Psychiatric exam: Present: normal affect, normal mood - Skin Skin exam: Present: dry, intact, normal color, warm Consult Discharge Plan - Plan Instructions: Chest Pain (DC), Urinary Tract Infection in Women (DC), Depression (DC), Diabetes Mellitus Type 2 in Adults (DC), Chronic Obstructive Pulmonary Disease (DC), Clostridium Difficile Infection (DC) Additional Instructions: Finish the antibiotic F/U with your urologist in about a week return to ED if you should worsen Referrals: Kiel Watkins MD [Primary Care Provider] - 02/04/17 10:15 am Prescriptions: cephALEXin [Keflex] 500 mg PO QID 10 Days #40 capsule
== END 2017-01-30 13:39 | disposition home or self-care (01) | DRG 690 ==
LOC: EMEROO 12:07 → 3BNU 12:07 → SUATTDRO 20:18
PROVIDERS: ADMIT Nurse Practitioner Family; ATTEND Internal Medicine

== ENCOUNTER 2017-04-19 20:41 | Inpatient (IN) ==
[2017-04-19] MEDS ORDERED: 0.9 % Sodium Chloride 1,000 ML IVC ONE (21:15)
[2017-04-19 21:44] LABS: Bilirubin,Urine Negative (Negative); Blood,Urine Small (Negative); Clarity,Urine Cloudy (Clear); Color,Urine Yellow (Yellow); Glucose,Urine (UA) >=1000 mg/dL (Normal); Ketones,Urine Negative (Negative); Leukocyte Esterase,Urine Small (Negative); Nitrite,Urine Positive (Negative); Protein,Urine Negative (Neg-Trace); Specific Gravity,Urine > 1.030 (1.010-1.025); Urobilinogen,Urine Normal (Normal)
--- NOTE | 2017-04-19 21:49 | Emergency Department Note ---
Disposition Clinical Impression: Pyelonephritis UTI (urinary tract infection) Qualifiers: Urinary tract infection type: acute pyelonephritis Qualified Code(s): N10 - Acute pyelonephritis Hyperglycemia due to type 2 diabetes mellitus Qualifiers: Diabetes mellitus intermediate insulin use: with intermediate use Qualified Code(s): E11.65 - Type 2 diabetes mellitus with hyperglycemia Disposition: Admitted As Inpatient Condition: Fair Time of Disposition: 23:25 General Adult HPI - General Chief complaint: ED Urogenital-Female Stated complaint: R flank/rib pain x1 week Time Seen by Provider: 04/19/17 20:49 Source: patient Mode of arrival: ambulatory Limitations: no limitations Nursing Notes Reviewed: Yes Vital Signs Reviewed: Yes - History of Present Illness HPI Narrative: 67-year-old female presents him her department with right-sided flank pain. She is also complaining of incontinence as well as increased urination. Patient states that she has not taken her insulin she is a type II diabetic and is insulin-dependent. She says she has not felt well complaining of abdominal pain. She has been increasing with urination as well as incontinence this is normal for her. She has not had a bowel movement in 3 days which again is normal for her. They state she is having some generalized abdominal pain. Patient otherwise is having no complaints. She does not have any chest pain or shortness of breath, back pain, neck pain, headaches, blurry vision. No generalized weakness or pain or tingling or nausea arms or legs. He states there have been no falls. Patient says the flank pain is on her right side radiating to the front. She has noticed pain with urination. She does have history of UTIs that have been pyelonephritis. She has never a history of kidney stones. Patient has had many abdominal surgeries including hysterectomy , appendectomy, cholecystectomy. Pain Scale: 8 - Related Data Home Medications Medication Instructions Recorded Confirmed Duloxetine HCl [Cymbalta] 60 mg PO DAILY 12/05/14 01/25/17 Insulin ASPART [NovoLOG] 0 unit SQ BID 12/05/14 01/25/17 Insulin DETEMIR [Levemir] 60 unit SQ BID 01/13/15 01/25/17 Atorvastatin Calcium [Lipitor] 80 mg PO HS 09/17/15 01/25/17 Isosorbide MONOnitrate (24 HR) 30 mg PO DAILY 11/02/15 01/25/17 [Imdur] ALPRAZolam [Xanax 0.25 MG Tablet] 0.25 mg PO TID PRN 06/01/16 01/25/17 Solifenacin Succinate [Vesicare] 10 mg PO DAILY 06/01/16 01/25/17 Linagliptin [Tradjenta] 5 mg PO DAILY 09/18/16 01/25/17 Metformin HCl [Metformin HCl ER] 500 mg PO BID 09/18/16 01/25/17 Pantoprazole Sodium [Protonix] 40 mg PO DAILY 09/18/16 01/25/17 Previous Rx's Medication Instructions Recorded Aspirin 81 mg PO DAILY #30 tab.chew 09/20/15 Clopidogrel [Plavix] 75 mg PO DAILY #30 tablet 09/20/15 Amlodipine Besylate 10 mg PO DAILY #30 tablet 09/21/16 cephALEXin [Keflex] 500 mg PO QID 10 Days #40 capsule 01/30/17 Allergies Allergy/AdvReac Type Severity Reaction Status Date / Time ampicillin Allergy Unknown See Verified 04/19/17 20:46 Comments Cortisone Allergy Unknown Hives Verified 04/19/17 20:46 Oxycodone Allergy Unknown Hives Verified 04/19/17 20:46 Penicillins Allergy Unknown See Verified 04/19/17 20:46 Comments Sulfa (Sulfonamide Allergy Unknown See Verified 04/19/17 20:46 Antibiotics) Comments ciprofloxacin AdvReac Unknown Rash Verified 04/19/17 20:46 codeine AdvReac Unknown Itching Verified 04/19/17 20:46 Hydromorphone AdvReac Unknown Vomiting Verified 04/19/17 20:46 phenazopyridine AdvReac Unknown Vomiting Verified 04/19/17 20:46 [Phenazopyridine] tramadol AdvReac Unknown Vomiting Verified 04/19/17 20:46 hydrocodone AdvReac Itching Verified 04/19/17 20:46 Review of Systems: 10 point review of systems done and negative unless otherwise stated in history of present illness. All systems ED: reviewed and negative except as stated. Past Medical History - Past Medical History Attestation: Yes The following information was validated with the patient. Medical history: Reports: diabetes, hypertension, myocardial infarction, renal disease, TIA Surgical history: Reports: appendectomy, cholecystectomy, hysterectomy, thyroidectomy, ureteral stent, other Psychiatric history: Reports: anxiety, depression BALLOON DIPPER history: Reports: non-contributory - Social History Smoking Status: Current some day smoker Smokeless Tobacco Status: No Alcohol use: Reports: none Drug use: Reports: none Physical Exam - General Limitations: no limitations General appearance: alert, in no apparent distress - Head Head exam: atraumatic, normocephalic, normal inspection - Eye Eye exam: Present: normal appearance, PERRL, EOMI - ENT ENT exam: normal exam, normal oropharynx, mucous membranes moist - Neck Neck exam: Present: normal inspection, full ROM, trachea midline - Chest Chest inspection: Present: normal inspection, symmetric chest wall rise - Respiratory Respiratory exam: Present: normal lung sounds bilaterally - Cardiovascular Cardiovascular exam: Present: regular rate, normal rhythm, normal heart sounds - Abdominal Exam Abdominal exam: Present: soft, tenderness, normal bowel sounds. Absent: distention, guarding, rebound, rigidity Abdominal tenderness: Present: diffuse, mild - Extremities Exam Extremities exam: Present: normal inspection, full ROM. Absent: tenderness, pedal edema - Back Exam Back exam: Present: normal inspection, full ROM, CVA tenderness (L). Absent: tenderness, CVA tenderness (R) - Neurological Exam Neurological exam: Present: alert, oriented X3 - Skin Skin exam: Present: warm, dry, intact, normal color Course Course Narrative: 58-year-old female presents the emergency department complaining of abdominal pain as well as urinary issues and right flank pain. We will get CT abdomen and pelvis without contrast will get chest x-ray EKG, troponin, CBC, BMP, lipase , lactate, blood cultures. We will give patient IV fluids. Will also check for DKA meds including beta hydroxybutyrate as well as Accu-Chek. Patient is okay with this plan. Vital Signs Temperature 97.3 F L 04/19/17 20:46 Pulse Rate 106 04/19/17 20:46 Respiratory Rate 20 04/19/17 20:46 Blood Pressure 181/81 04/19/17 20:46 O2 Sat by Pulse Oximetry 97 04/19/17 20:46 Temperature 97.3 F L 04/19/17 20:46 Pulse Rate 106 04/19/17 20:46 Respiratory Rate 16 04/20/17 00:15 Blood Pressure 178/80 04/20/17 00:15 O2 Sat by Pulse Oximetry 97 04/19/17 20:46 Oxygen Delivery Oxygen Delivery Room Air Medical Decision Making - MDM Narrative Medical decision making narrative: 67-year-old female presents to the emergency department complaining of right flank pain as well as pain with urination, as well as dry mouth. Patient is a type II diabetic not been taking her medications. Patient did have an elevated glucose but there is no anion gap she was mildly acidotic but did have an elevated lactate. 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 We did give patient 10 units of insulin. She also got 1 L of IV fluids. She was not currently in DKA. There was some stranding on this. Patient's urine did show urinary tract infection so we treated her with 1 g Rocephin. Patient was also given IV fluids. Patient did not have an anion gap. Chest x-ray and EKG were normal. Patient no elevated troponin. Patient most likely needs to be admitted for continued IV antibiotics as well as her lactic acidosis. Spoke with the hospitalist, Dr. Joseph agreed to admit the patient to their service. Patient is admitted to the hospitalist service in stable condition. Abdomen/Pelvis CT 04/19/17 21:12 IMPRESSION: At least a moderate amount of stool throughout the colon. Gas within the upper pole calices of left kidney which shows adjacent stranding. There is also gas within the nondependent urinary bladder. Correlation for pyelitis and/or cystitis is recommended. Findings of the left kidney have been present on prior studies including most recent 01/26/2017 CT of the abdomen. D/ / Soniya Cervantes Cha, MD / Soniya Cervantes Cha, MD Interpreting Provider: Soniya Cervantes Cha, MD Chest X-Ray 04/19/17 21:13 IMPRESSION: Stable portable study. D/ / Soniya Cervantes Cha, MD / Soniya Cervantes Cha, MD Interpreting Provider: Soniya Cervantes Cha, MD - Medical Records Medical records reviewed: Yes I reviewed the patient's medical records. - Lab Data Lab results reviewed: Yes I reviewed the patient's lab results. Result diagrams: 04/19/17 21:51 04/19/17 21:51 Lab Results 04/19/17 04/19/17 04/19/17 Range/Units 21:36 21:51 21:51 WBC 5.6 (4.3-11.1) K/mcL RBC 5.16 H (3.82-4.97) M/mcL Hgb 12.7 (11.5-15.4) g/dL Hct 38.2 (35.3-44.9) % MCV 74.0 L (83.0-100.0) fL MCH 24.6 L (28.0-33.3) pg MCHC 33.2 (31.6-35.5) g/dL RDW 14.5 (11.5-14.5) % Plt Count 206 (140-400) K/mcL MPV 9.6 (9.4-12.4) fL Immature Gran % 0.4 (0-4) % Seg Neutrophils % 60.7 % Lymphocytes % 28.5 % Monocytes % 6.6 % Eosinophils % 3.4 % Basophils % 0.4 % Neutrophils # 3.4 (1.6-8.9) K/mcL Lymphocytes # 1.6 (0.6-4.6) K/mcL Monocytes # 0.4 (0.0-1.3) K/mcL Eosinophils # 0.2 (0.0-0.6) K/mcL Basophils # 0.0 (0.0-0.2) K/mcL VBG pH (7.32-7.42) pH Units VBG pCO2 (41-51) mmHg VBG pO2 (25-50) mmHg VBG HCO3 (21-27) mEq/L Sodium 131 L (136-145) mEq/L Potassium 3.3 L (3.5-4.5) mEq/L Chloride 93 L (98-109) mEq/L Carbon Dioxide 27 (19-29) mEq/L BUN 13 (7-20) mg/dL Creatinine 1.19 H (0.57-1.11) mg/dL Est GFR ( Amer) 55 L (> 60) Est GFR (Non-Af Amer) 45 L (> 60) BUN/Creatinine Ratio 11 (6-26) Glucose 621 H* (70-99) mg/dL Calculated Osmolality 301 H (280-300) Lactic Acid (0.5-2.2) mmol/L Calcium 9.5 (8.6-10.8) mg/dL Total Bilirubin 0.6 (0.2-1.2) mg/dL AST 22 (5-34) Units/L ALT 17 (0-55) Units/L Alkaline Phosphatase 154 H (38-126) Units/L Troponin I (0-0.03) ng/mL Serum Total Protein 8.2 (6.0-8.3) g/dL Albumin 3.3 L (3.5-5.0) g/dL Globulin 4.9 H (2.4-3.5) g/dL Albumin/Globulin Ratio 0.7 L (1.1-2.2) Lipase 16 (8-78) Units/L Beta-Hydroxybutyric Acd 0.10 (0.02-0.27) mmol/L Urine Color Yellow (Yellow) Urine Clarity Cloudy A (Clear) Urine pH 6.0 (5.0-8.0) pH Units Ur Specific [place] > 1.030 H (1.010-1.025) Urine Protein Negative (Neg-Trace) mg/dL Urine Glucose (UA) >=1000 H (Normal) mg/dL Urine Ketones Negative (Negative) mg/dL Urine Blood Small H (Negative) Urine Nitrite Positive A (Negative) Urine Bilirubin Negative (Negative) Urine Urobilinogen Normal (Normal) mg/dL Ur Leukocyte Esterase Small H (Negative) Urine Microscopic RBC 0-3 (0-3) per hpf Urine Microscopic WBC 50-100 H (0-3) per hpf Ur Squamous Epith Cells Few (None-Few) per lpf Urine Bacteria Many H (None-Few) per hpf Hyaline Casts Test Not Performed Urine Yeast Moderate H (None Seen) per hpf Ur Culture Indicated? YES A (NO) 04/19/17 04/19/17 04/19/17 Range/Units 21:51 21:51 22:08 WBC (4.3-11.1) K/mcL RBC (3.82-4.97) M/mcL Hgb (11.5-15.4) g/dL Hct (35.3-44.9) % MCV (83.0-100.0) fL MCH (28.0-33.3) pg MCHC (31.6-35.5) g/dL RDW (11.5-14.5) % Plt Count (140-400) K/mcL MPV (9.4-12.4) fL Immature Gran % (0-4) % Seg Neutrophils % % Lymphocytes % % Monocytes % % Eosinophils % % Basophils % % Neutrophils # (1.6-8.9) K/mcL Lymphocytes # (0.6-4.6) K/mcL Monocytes # (0.0-1.3) K/mcL Eosinophils # (0.0-0.6) K/mcL Basophils # (0.0-0.2) K/mcL VBG pH 7.38 (7.32-7.42) pH Units VBG pCO2 52 H (41-51) mmHg VBG pO2 39 (25-50) mmHg VBG HCO3 30 H (21-27) mEq/L Sodium (136-145) mEq/L Potassium (3.5-4.5) mEq/L Chloride (98-109) mEq/L Carbon Dioxide (19-29) mEq/L BUN (7-20) mg/dL Creatinine (0.57-1.11) mg/dL Est GFR ( Amer) (> 60) Est GFR (Non-Af Amer) (> 60) BUN/Creatinine Ratio (6-26) Glucose (70-99) mg/dL Calculated Osmolality (280-300) Lactic Acid 2.8 H (0.5-2.2) mmol/L Calcium (8.6-10.8) mg/dL Total Bilirubin (0.2-1.2) mg/dL AST (5-34) Units/L ALT (0-55) Units/L Alkaline Phosphatase (38-126) Units/L Troponin I 0.01 (0-0.03) ng/mL Serum Total Protein (6.0-8.3) g/dL Albumin (3.5-5.0) g/dL Globulin (2.4-3.5) g/dL Albumin/Globulin Ratio (1.1-2.2) Lipase (8-78) Units/L Beta-Hydroxybutyric Acd (0.02-0.27) mmol/L Urine Color (Yellow) Urine Clarity (Clear) Urine pH (5.0-8.0) pH Units Ur Specific [place] (1.010-1.025) Urine Protein (Neg-Trace) mg/dL Urine Glucose (UA) (Normal) mg/dL Urine Ketones (Negative) mg/dL Urine Blood (Negative) Urine Nitrite (Negative) Urine Bilirubin (Negative) Urine Urobilinogen (Normal) mg/dL Ur Leukocyte Esterase (Negative) Urine Microscopic RBC (0-3) per hpf Urine Microscopic WBC (0-3) per hpf Ur Squamous Epith Cells (None-Few) per lpf Urine Bacteria (None-Few) per hpf Hyaline Casts Urine Yeast (None Seen) per hpf Ur Culture Indicated? (NO) - Radiology Data Radiology results reviewed: Yes I reviewed the patient's radiology results. - EKG Data EKG #1 EKG attestation: Yes I reviewed and interpreted this EKG. EKG results narrative: EKG done at 2124 view myself and attending shows sinus rhythm at a rate of 95, TN interval 155, QRS 96, QTC 423 with a normal axis. No acute ST changes, no acute T-wave abnormalities, no signs of any heart strain or heart block or hypertrophy, no signs of WPW/Brugada syndrome. There is no old EKG to compare this time. Attestation Statement - Attestation Attestation: I, Eduardo Casarez, examined this patient and my medical decision-making was reviewed with the MANAGER STATE/PA/Advanced Practice Nurse/Resident Physician. I agree with the documented findings, disposition and treatment plan as described except to the extent set forth below. 67-year-old female presents to emergency department for evaluation of right flank and abdominal pain. Patient has a history of emphysematous pyelonephritis and has required multiple admissions in the past. Patient states her symptoms feel similar to her previous symptoms with this disease. Urinalysis shows likely urinary tract infection. He should not likely has pyelonephritis based on tenderness to percussion of the CVA. CT of the abdomen and pelvis shows gas within the pelvis of the left kidney with adjacent fat stranding consistent with pyelitis. Patient was started on antibiotics emergency department and she will be admitted for further care and observation.
[2017-04-19 22:02] LABS: RBC,Urine 0-3 per hpf (0-3); Squamous Epithelial Cell,Urine Few per lpf (None-Few); WBC,Urine 50-100 per hpf (0-3); Yeast,Urine Moderate per hpf (None Seen)
[2017-04-19 22:03] LABS: Bacteria,Urine Many per hpf (None-Few)
[2017-04-19 22:03] LABS: Basophils % 0.4 %; Eosinophils # 0.2 K/mcL (0.0-0.6); Eosinophils % 3.4 %; Hematocrit 38.2 % (35.3-44.9); Hemoglobin 12.7 g/dL (11.5-15.4); Immature Granulocytes % 0.4 % (0-4); Lymphocytes # 1.6 K/mcL (0.6-4.6); Lymphocytes % 28.5 %; Mean Corpuscular HGB Conc 33.2 g/dL (31.6-35.5); Mean Corpuscular Hemoglobin 24.6 pg (28.0-33.3); Mean Platelet Volume 9.6 fL (9.4-12.4); Monocytes # 0.4 K/mcL (0.0-1.3); Monocytes % 6.6 %; Neutrophils # 3.4 K/mcL (1.6-8.9); Platelet Count 206 K/mcL (140-400); Red Blood Count 5.16 M/mcL (3.82-4.97); Red Cell Distribution Width 14.5 % (11.5-14.5); Segmented Neutrophils % 60.7 %
[2017-04-19 22:14] LABS: VBG HCO3 30 mEq/L (21-27); VBG PCO2 52 mmHg (41-51); VBG PH 7.38 pH Units (7.32-7.42); VBG PO2 39 mmHg (25-50)
[2017-04-19 22:16] LABS: Albumin 3.3 g/dL (3.5-5.0); Albumin/Globulin Ratio 0.7 (1.1-2.2); Bilirubin,Total 0.6 mg/dL (0.2-1.2); Calcium 9.5 mg/dL (8.6-10.8); Globulin 4.9 g/dL (2.4-3.5); Potassium 3.3 mEq/L (3.5-4.5); Total Protein 8.2 g/dL (6.0-8.3)
[2017-04-19 22:19] LABS: Beta-Hydroxybutyric Acid 0.1 mmol/L (0.02-0.27)
[2017-04-19] MEDS ORDERED: cefTRIAXone 1,000 MG in Water for inj. (sterile) 10 ML IVPB ONE (22:30)
[2017-04-19] MEDS ORDERED: Insulin Human Regular 10 UNIT in 0.9 % Sodium Chloride 10 ML IV ONE (23:29)
--- NOTE | 2017-04-20 00:16 | Internal Med History&Physical ---
<Raya Andersen - Last Filed: 04/20/17 01:53> Date of Encounter: 04/20/17 Time of Encounter: 00:13 Assessment and Plan (1) Pyelonephritis Current visit: No Status: Acute CT shows pyelonephritis of left kidney however clinical presentation and patient complains of right sided back pain but does still has chronic left side pain. She has had chronic problems with both kidneys in the past. Right-sided back pain started 6 days ago, she came in tonight because of incontinence and foul-smelling urine. Denies dysuria, fever, chills, hematuria. She has an extensive history of the emphysematous pyelonephrosis. Last admission 01/25/2017 urine culture grew Klebsiella sensitive to Rocephin, Infectious disease was consulted and she had follow-up outpatient. Urology has not planned intervention in the past. CT Abd showed gas within the upper pole with stranding of left kidney consistent with Pyelitis and/or cystitis. Findings present on prior imaging. 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 Patient reported that she did not take her insulin yesterday. 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 Ordoñez is a 67 year old female with a past medical history significant for UTI and emphysematous pyelonephritis, HTN, HLD, DM who presented to [facility] ED complaining of right sided back pain that began 6 days ago. She describes it as a sharp non- radiating pain. She came in today due to becoming incontinent which typically happens when she has a UTI. Additionally, she has foul-smelling urine, nausea(chronic), increased urinary frequency. She denied fever, chills, dysuria, abdominal pain, vomiting, shortness of breath, chest pain. She has a urologist in [place]. After her last admission for pyelonephritis she followed up with infectious disease due to Klebsiella pneumonia growing on urine culture, but at that visit she did not have infection so they said she did not have to come back. Urology had been consulted at last admission and recommended that she follow up with her urologist in [place] due to the recurrent emphysematous pyelonephritis. It has been recommended to her by one urologist to have a nephrectomy, however her urologist in [place] does not want to do nephrectomy due to he believes that the cause of the recurrent pyelonephritis needs to be found 1st. In the ED urinalysis demonstrated positive UTI with leukocyte esterase and nitrite positive. Urine and blood culture sent. Tachycardia 106, WBC WNL, afebrile, lactic acid 2.8, hyperglycemia glucose 621. Patient given 10 units of regular insulin in ED. CT Abd showed gas within the upper pole with stranding of left kidney consistent with Pyelitis and/or cystitis. Chest x-ray was stable. EKG showed normal sinus rhythm with no ST changes. Past Med Surg Social Fam HX - Past Medical History Medical history: diabetes, hyperlipidemia, hypertension, myocardial infarction, renal disease, TIA Psychiatric history: anxiety, depression - Past Surgical History Surgical History: appendectomy, cholecystectomy, hysterectomy, thyroidectomy, ureteral stent, other - Social History Smoking Status: Current some day smoker Smokeless Tobacco Status: No Alcohol use: none Drug use: none - Family History Father Hx Family Cardiac Disorders: Yes (AAA) Hx Family Endocrine Disorder: Yes (DM) Mother Adopted: No Living Status: Hx Family Cardiac Disorders: Yes (HTN) Hx Family Cancer: Yes (Colon) Internal Medicine - H&P: Meds Duloxetine HCl [Cymbalta] 60 mg PO DAILY 12/05/14 [History] Insulin ASPART [NovoLOG] 0 unit SQ BID 12/05/14 [History] Insulin DETEMIR [Levemir] 60 unit SQ BID 01/13/15 [History] Atorvastatin Calcium [Lipitor] 80 mg PO HS 09/17/15 [History] Aspirin 81 mg PO DAILY #30 tab.chew 09/20/15 [Rx] Clopidogrel [Plavix] 75 mg PO DAILY #30 tablet 09/20/15 [Rx] Isosorbide MONOnitrate (24 HR) [Imdur] 30 mg PO DAILY 11/02/15 [History] ALPRAZolam [Xanax 0.25 MG Tablet] 0.25 mg PO TID PRN 06/01/16 [History] Solifenacin Succinate [Vesicare] 10 mg PO DAILY 06/01/16 [History] Linagliptin [Tradjenta] 5 mg PO DAILY 09/18/16 [History] Metformin HCl [Metformin HCl ER] 500 mg PO BID 09/18/16 [History] Pantoprazole Sodium [Protonix] 40 mg PO DAILY 09/18/16 [History] Amlodipine Besylate 10 mg PO DAILY #30 tablet 09/21/16 [Rx] cephALEXin [Keflex] 500 mg PO QID 10 Days #40 capsule 01/30/17 [Rx] 3 Allergy/AdvReac Type Severity Reaction Status Date / Time ampicillin Allergy Unknown See Verified 04/19/17 20:46 Comments Cortisone Allergy Unknown Hives Verified 04/19/17 20:46 Oxycodone Allergy Unknown Hives Verified 04/19/17 20:46 Penicillins Allergy Unknown See Verified 04/19/17 20:46 Comments Sulfa (Sulfonamide Allergy Unknown See Verified 04/19/17 20:46 Antibiotics) Comments ciprofloxacin AdvReac Unknown Rash Verified 04/19/17 20:46 codeine AdvReac Unknown Itching Verified 04/19/17 20:46 Hydromorphone AdvReac Unknown Vomiting Verified 04/19/17 20:46 phenazopyridine AdvReac Unknown Vomiting Verified 04/19/17 20:46 [Phenazopyridine] tramadol AdvReac Unknown Vomiting Verified 04/19/17 20:46 hydrocodone AdvReac Itching Verified 04/19/17 20:46 All Systems PM: A 10-system review of systems was performed and is negative for pertinent findings except as documented above in the HPI. - Constitutional Constitutional: no chills, no fever(s), no weakness - EENT Nose, mouth and throat: dry mouth, no sinus pain, no sore throat - Cardiovascular Cardiovascular ROS IM: no chest pain, no diaphoresis, no palpitations, no syncope - Respiratory Respiratory: no cough, no dyspnea, no wheezing - Gastrointestinal Gastrointestinal: nausea, no abdominal pain, no cramping, no hematochezia, no melena, no vomiting - Genitourinary Genitourinary: flank pain (right sided worse than left), urinary frequency, urinary incontinence, no dysuria, no hematuria - Integumentary Integumentary IM: no rash, no skin ulcer - Neurological Neurological ROS: no dizziness, no focal weakness, no headache(s) - Psychiatric Psychiatric: no confusion - Hematologic/Lymphatic Hematologic/Lymphatic: no lymphadenopathy - Constitutional Vitals: Temp Pulse Resp BP Pulse Ox 97.3 F L 106 20 181/81 97 04/19/17 20:46 04/19/17 20:46 04/19/17 20:46 04/19/17 20:46 04/19/17 20:46 General appearance: Present: A&O X 3, pleasant, no acute distress, obese - Head Head exam: Present: atraumatic, normocephalic - ENT ENT exam: Present: mucous membranes dry - Respiratory Respiratory exam: Present: CTAB. Absent: rales, rhonchi, stridor - Cardiovascular Cardiovascular exam: Present: RRR, +S1, +S2. Absent: clicks - GI/Abdominal GI/Abdominal exam: Present: normal bowel sounds, soft. Absent: guarding, tenderness - Extremities Exam Extremities exam: Present: normal inspection. Absent: calf tenderness - Back Exam Back exam: Present: CVA tenderness (L), CVA tenderness (R) (right worse). Absent: rash noted - Psychiatric Psychiatric exam: Present: normal affect, normal mood - Skin Skin exam: Present: dry, intact Internal Med - H&P Results - Labs CBC & Chem 7: 04/19/17 21:51 04/19/17 21:51 Labs: Short CBC 04/19/17 Range/Units 21:51 WBC 5.6 (4.3-11.1) K/mcL Hgb 12.7 (11.5-15.4) g/dL Hct 38.2 (35.3-44.9) % Plt Count 206 (140-400) K/mcL Neutrophils # 3.4 (1.6-8.9) K/mcL BMP 04/19/17 21:51 Sodium 131 L Potassium 3.3 L Chloride 93 L Carbon Dioxide 27 BUN 13 Creatinine 1.19 H Glucose 621 H* Calcium 9.5 Cardiac Enzymes 04/19/17 Range/Units 21:51 Troponin I 0.01 (0-0.03) ng/mL Liver Function 04/19/17 Range/Units 21:51 Total Bilirubin 0.6 (0.2-1.2) mg/dL AST 22 (5-34) Units/L ALT 17 (0-55) Units/L Alkaline Phosphatase 154 H (38-126) Units/L Albumin 3.3 L (3.5-5.0) g/dL Urine 04/19/17 Range/Units 21:36 Urine Color Yellow (Yellow) Urine Clarity Cloudy A (Clear) Urine pH 6.0 (5.0-8.0) pH Units Ur Specific [place] > 1.030 H (1.010-1.025) Urine Protein Negative (Neg-Trace) mg/dL Urine Glucose (UA) >=1000 H (Normal) mg/dL - ABG Interpretation ABG results: 04/19/17 22:08 VBG pH 7.38 VBG pCO2 52 H VBG pO2 39 VBG HCO3 30 H - Impressions ITS Impressions Abdomen/Pelvis CT 04/19/17 21:12 IMPRESSION: At least a moderate amount of stool throughout the colon. Gas within the upper pole calices of left kidney which shows adjacent stranding. There is also gas within the nondependent urinary bladder. Correlation for pyelitis and/or cystitis is recommended. Findings of the left kidney have been present on prior studies including most recent 01/26/2017 CT of the abdomen. D/ / Soniya Cervantes Cha, MD / Soniya Cervantes Cha, MD Interpreting Provider: Soniya Cervantes Cha, MD Chest X-Ray 04/19/17 21:13 IMPRESSION: Stable portable study. D/ / Soniya Cervantes Cha, MD / Soniya Cervantes Cha, MD Interpreting Provider: Soniya Cervantes Cha, MD <Mario Joseph - Last Filed: 04/20/17 02:21> Date of Encounter: 04/20/17 Internal Medicine - H&P: HPI History of present illness: Ms. Ordoñez is a 67 year old female All Systems PM: A 10-system review of systems was performed and is negative for pertinent findings except as documented above in the HPI. - Constitutional Vitals: Temp Pulse Resp BP Pulse Ox 97.9 F 92 18 154/91 95 04/20/17 00:39 04/20/17 00:39 04/20/17 00:39 04/20/17 00:39 04/20/17 00:39 Internal Med - H&P Results - Labs CBC & Chem 7: 04/20/17 01:52 04/20/17 01:52 Labs: Short CBC 04/20/17 Range/Units 01:52 WBC 6.8 (4.3-11.1) K/mcL Hgb 11.6 (11.5-15.4) g/dL Hct 34.4 L (35.3-44.9) % Plt Count 185 (140-400) K/mcL Neutrophils # 4.2 (1.6-8.9) K/mcL - Attending Attestation I examined this patient and my medical decision-making was reviewed with the Resident Physician. I agree with the documented findings, disposition and treatment plan as described except to the extent set forth below Reported 5 days hx of right flank pain associated with urinary incontinent today Denies n/v/diarrhea/fever/chills/constipation Some constipation General - AAO x 3 Psych - Appropriate affect/speech. No agitation Eyes - GLORIA. Eye lids intact. No scleral icterus Heart - Sinus. RRR. S1 and S2 present. No added HS/murmurs appreciated. No elevated JVD appreciated. Lung - Adequate air entry b/l, No crackles/wheezes appreciated GI - Soft, non-tender. No hepatosplenomegaly/ascites. BS+ - right CVA tenderness Skin - Intact. No rash/petechiae/ecchymosis. Warm extremities MSK - Joints with normal ROM. No joint swellings ROS 14 point review of systems reviewed as best as possible given presentation. Pertinent positive or negative as per HPI or otherwise reviewed as negative XR/XR chest 1V portable IMPRESSION: Stable portable study. CT/CT abd pelvis wo no iv no oral IMPRESSION: At least a moderate amount of stool throughout the colon. Gas within the upper pole calices of left kidney which shows adjacent stranding. There is also gas within the nondependent urinary bladder. Correlation for pyelitis and/or cystitis is recommended. Findings of the left kidney have been present on prior studies including most recent 01/26/2017 CT of the abdomen. 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 reports poor compliance
[2017-04-20] MEDS ORDERED: Naloxone 0.4 MG/ML INJ IVP PRN (00:20)
[2017-04-20] MEDS ORDERED: Ondansetron ODT 4 MG TAB.RAPDIS SL PRN (00:20)
[2017-04-20] MEDS ORDERED: *HR* Dextrose 50 % in Water (Syg) 50 ML SYRINGE IVP PRN (00:27)
[2017-04-20] MEDS ORDERED: Dextrose Gel 15 GM PO PRN (00:29)
[2017-04-20] MEDS ORDERED: *HR* Morphine 2 MG/ML SYRINGE IVP PRN (00:30)
[2017-04-20] MEDS ORDERED: Insulin Human Regular 100 UNIT in 0.9 % Sodium Chloride 100 ML IVC SCH (00:30)
[2017-04-20] MEDS: 0.9 % Sodium Chloride 1,000 ML IVC SCH ×2 (01:11→11:09)
[2017-04-20] MEDS: Insulin LISPRO 300 UNITS/3 ML VIAL SQ SCH ×5 (01:12→21:25)
[2017-04-20 02:00] LABS: Basophils % 0.4 %; Eosinophils # 0.2 K/mcL (0.0-0.6); Eosinophils % 3.1 %; Hematocrit 34.4 % (35.3-44.9); Hemoglobin 11.6 g/dL (11.5-15.4); Immature Granulocytes % 0.3 % (0-4); Lymphocytes # 1.8 K/mcL (0.6-4.6); Lymphocytes % 26.8 %; Mean Corpuscular HGB Conc 33.7 g/dL (31.6-35.5); Mean Corpuscular Hemoglobin 24.7 pg (28.0-33.3); Mean Corpuscular Volume 73.3 fL (83.0-100.0); Mean Platelet Volume 9.4 fL (9.4-12.4); Monocytes # 0.6 K/mcL (0.0-1.3); Monocytes % 8.1 %; Neutrophils # 4.2 K/mcL (1.6-8.9); Platelet Count 185 K/mcL (140-400); Red Blood Count 4.69 M/mcL (3.82-4.97); Red Cell Distribution Width 14.4 % (11.5-14.5); Segmented Neutrophils % 61.3 %
[2017-04-20] MEDS ORDERED: Potassium Chloride 40 MEQ, Lidocaine 1% 2 ML in D5% in Water 500 ML IVPB ONE ×2 (02:00→06:55)
[2017-04-20 02:15] LABS: BUN/Creatinine Ratio 15 (6-26); Blood Urea Nitrogen 13 mg/dL (7-20); Calcium 8.7 mg/dL (8.6-10.8); Carbon Dioxide 26 mEq/L (19-29); Chloride 98 mEq/L (98-109); Glucose 329 mg/dL (70-99); Osmolality,Calculated 291 (280-300); Potassium 2.9 mEq/L (3.5-4.5); Sodium 134 mEq/L (136-145); eGFR For African Americans > 60 (> 60); eGFR For Non-African Americans > 60 (> 60)
[2017-04-20] MEDS: *HR* Morphine 2 MG/ML SYRINGE IVP PRN ×4 (02:39→21:23)
[2017-04-20] MEDS ORDERED: Potassium Chloride Elixir 20 MEQ/15 ML UDC GTUBE ONE (06:56)
[2017-04-20] MEDS: *HR* Heparin 5,000 UNIT/ML VIAL SQ SCH ×2 (07:23→17:19)
[2017-04-20] MEDS: cefTRIAXone 2,000 MG in Water for inj. (sterile) 20 ML IVP SCH (08:33)
[2017-04-20] MEDS ORDERED: Insulin DETEMIR 100 UNIT/ML X5UNITS SQ SCH (09:00)
[2017-04-20] MEDS: Ondansetron 4 MG/2 ML VIAL IVP PRN ×2 (14:32→21:24)
--- NOTE | 2017-04-20 15:32 | Internal Med Progress Note ---
<Estuardo Montes - Last Filed: 04/20/17 15:29> Date of Encounter: 04/20/17 Time of Encounter: 15:30 - Assessment and plan (1) Pyelonephritis Current Visit: No Status: Acute Assessment and plan: Symptomatic pyelonephritis with hx of chronic emphysematous pyleonephrosis.- Urology has not planned intervention in the past. CT Abd showed gas within the upper pole with stranding of left kidney consistent with Pyelitis and/or cystitis. Findings present on prior imaging. CXR stable - Most recent UTI 01/25/17 grew Klebsiella sensitive to Rocephin. urinalysis positive for leukocyte esterase and nitrate Plan: - Continue Rocephin, patient afebrile, no leukocytosis, asymptomatic. - Urine cultures pending. - Control hyperglycemia to decrease glucose urea. (2) Complicated UTI (urinary tract infection) Current Visit: No Status: Acute Assessment and plan: Plan as above. -recurrent UTI likely secondary to her chronic emphysematous pyleonephrosis (3) MARIBEL (acute kidney injury) Current Visit: No Status: Acute Assessment and plan: resolved, likely secondary to urinary tract infection and pyelonephritis. - Discontinue IV fluids, recommend/encouraged oral intake (4) Hypokalemia Current Visit: No Status: Acute Assessment and plan: Potassium 2.9. After potassium chloride replacement repeat potassium is 4.0. - Stop further replacement at this time - If she continues to have hypokalemia consider renal loss, also hyperglycemia. Plan: - recheck in am. Replace as necessary. (5) Hyperglycemia due to type 2 diabetes mellitus Current Visit: Yes Status: Acute Assessment and plan: Current blood sugar is 337, patient takes Levemir 60 units twice a day. She was on Levemir 10 units twice a day since admission. 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 - Subjective Interval history: Ms. Ordoñez has been seen and evaluated at bedside.she is alert awake interactive no acute distress. She states that she has occasional sharp pain that comes and goes in her back but is tolerable at this time. Much improved since admission. Denies any chest pain, palpitations, shortness of breath, abdominal pains nausea vomiting diarrhea constipation. She has a Ledezma catheter in place and denies any urinary discomfort. She does feel tired for which she says is a chronic issue and that she is iron deficient - Constitutional Vitals: Temp Pulse Resp BP Pulse Ox 98.9 F 83 15 151/67 96 04/20/17 11:02 04/20/17 11:02 04/20/17 11:02 04/20/17 11:02 04/20/17 11:02 General appearance: Present: A&O X 3, pleasant, no acute distress, obese - Head Head exam: Present: atraumatic, normocephalic - Eye Eye exam: Present: PERRL, conjuntiva pink, sclera anicteric Pupils: Present: PERRL - Neck Neck exam general surgery: Present: supple, trachea midline. Absent: lymphadenopathy - Respiratory Respiratory exam: Present: CTAB. Absent: accessory muscle use, rales, rhonchi, wheezes - Cardiovascular Cardiovascular exam: Present: RRR, +S1, +S2. Absent: diastolic murmur, gallop, rubs, systolic murmur - GI/Abdominal GI/Abdominal exam: Present: normal bowel sounds, soft, no peritoneal signs. Absent: distended, tenderness - Extremities Exam Extremities exam: Present: warm, radial pulses palpable and symmetrical. Absent : calf tenderness, cyanotic, pedal edema - Neurological Exam Neurological exam: Present: CN II-XII intact, oriented X3, no focal deficits. Absent: pronater drift, facial droop, speech deficit - Skin Skin exam: Present: dry, intact Internal Medicine: Result - Labs CBC & Chem 7: 04/20/17 01:52 04/20/17 13:26 Labs: BMP 04/20/17 13:26 Potassium 4.0 D Consult Discharge Plan - Plan Referrals: Kiel Watkins MD [Primary Care Provider] - <Richard Cornejo - Last Filed: 04/20/17 17:30> Date of Encounter: 04/20/17 - Constitutional Vitals: Temp Pulse Resp BP Pulse Ox 98.9 F 83 18 125/66 96 04/20/17 17:12 04/20/17 17:12 04/20/17 17:12 04/20/17 17:12 04/20/17 17:12 Internal Medicine: Result - Labs CBC & Chem 7: 04/20/17 01:52 04/20/17 13:26 Labs: BMP 04/20/17 13:26 Potassium 4.0 D - Attending Attestation I examined this patient and my medical decision-making was reviewed with the Resident Physician on 04/20/17. I agree with the documented findings, disposition and treatment plan as described except to the extent set forth below. Ms Ordoñez was admitted early this AM for acute pyelonephritis. She has hx of emphysematous pyelonephritis. She does not have obstruction. She has been recommended to go to [facility] in the past for further evaluation and treatment ( partial or complete nephrectomy). Agree with assessment and plan as documented above.
[2017-04-20 16:39] LABS: % Iron Saturation 11 % (15-50); Iron 35 mcg/dL (50-170); Transferrin 223 mg/dL (180-382)
[2017-04-20 16:59] LABS: Ferritin 82 ng/ml (5-204)
[2017-04-20] MEDS: Insulin DETEMIR 100 UNIT/ML X5UNITS SQ SCH ×2 (17:26→21:24)
[2017-04-20] MEDS ORDERED: Iron Sucrose Complex 200 MG in 0.9 % Sodium Chloride 100 ML IVPB ONE (17:45)
[2017-04-21] MEDS: *HR* Morphine 2 MG/ML SYRINGE IVP PRN ×4 (03:55→22:17)
[2017-04-21] MEDS: Ondansetron 4 MG/2 ML VIAL IVP PRN ×4 (03:55→22:24)
[2017-04-21] MEDS: *HR* Heparin 5,000 UNIT/ML VIAL SQ SCH ×2 (06:47→16:56)
[2017-04-21 07:43] LABS: Basophils % 0.4 %; Eosinophils # 0.3 K/mcL (0.0-0.6); Eosinophils % 5.7 %; Hematocrit 36.9 % (35.3-44.9); Hemoglobin 11.8 g/dL (11.5-15.4); Immature Granulocytes % 0.2 % (0-4); Lymphocytes # 1.2 K/mcL (0.6-4.6); Lymphocytes % 26.5 %; Mean Corpuscular Hemoglobin 24.2 pg (28.0-33.3); Mean Corpuscular Volume 75.6 fL (83.0-100.0); Mean Platelet Volume 9.7 fL (9.4-12.4); Monocytes # 0.3 K/mcL (0.0-1.3); Monocytes % 7.4 %; Neutrophils # 2.7 K/mcL (1.6-8.9); Platelet Count 185 K/mcL (140-400); Red Blood Count 4.88 M/mcL (3.82-4.97); Red Cell Distribution Width 14.7 % (11.5-14.5); Segmented Neutrophils % 59.8 %
[2017-04-21 07:59] LABS: Alanine Aminotransferase 53 Units/L (0-55); Albumin 2.8 g/dL (3.5-5.0); Albumin/Globulin Ratio 0.7 (1.1-2.2); Alkaline Phosphatase 238 Units/L (38-126); Aspartate Amino Transferase 91 Units/L (5-34); BUN/Creatinine Ratio 9 (6-26); Bilirubin,Total 0.8 mg/dL (0.2-1.2); Blood Urea Nitrogen 7 mg/dL (7-20); Calcium 8.9 mg/dL (8.6-10.8); Carbon Dioxide 29 mEq/L (19-29); Chloride 101 mEq/L (98-109); Globulin 4.3 g/dL (2.4-3.5); Glucose 209 mg/dL (70-99); Osmolality,Calculated 290 (280-300); Potassium 3.6 mEq/L (3.5-4.5); Sodium 138 mEq/L (136-145); Total Protein 7.1 g/dL (6.0-8.3); eGFR For African Americans > 60 (> 60); eGFR For Non-African Americans > 60 (> 60)
[2017-04-21] MEDS: Insulin DETEMIR 100 UNIT/ML X5UNITS SQ SCH ×2 (08:05→20:15)
[2017-04-21] MEDS: cefTRIAXone 2,000 MG in Water for inj. (sterile) 20 ML IVP SCH (08:05)
[2017-04-21] MEDS: Insulin LISPRO 300 UNITS/3 ML VIAL SQ SCH ×4 (08:06→20:18)
--- NOTE | 2017-04-21 14:37 | Internal Med Progress Note ---
<JyotiEstuardo Jay - Last Filed: 04/21/17 15:18> Date of Encounter: 04/21/17 Time of Encounter: 14:34 - Assessment and plan (1) Pyelonephritis Current Visit: Yes Status: Acute Assessment and plan: Symptomatic pyelonephritis with hx of chronic emphysematous pyleonephrosis.- Urology has not planned intervention in the past. CT Abd showed gas within the upper pole with stranding of left kidney consistent with Pyelitis and/or cystitis. Findings present on prior imaging. CXR stable - Most recent UTI 01/25/17 grew Klebsiella sensitive to Rocephin. urinalysis positive for leukocyte esterase and nitrate 04/21: UC growing Gram negative rods. Stable continue current treatment. Plan: - Continue Rocephin, patient afebrile, no leukocytosis, asymptomatic. - Urine cultures pending. - Control hyperglycemia to decrease glucose urea. (2) Complicated UTI (urinary tract infection) Current Visit: Yes Status: Acute Assessment and plan: Plan as above. -recurrent UTI likely secondary to her chronic emphysematous pyleonephrosis (3) MARIBEL (acute kidney injury) Current Visit: Yes Status: Acute Assessment and plan: resolved, likely secondary to urinary tract infection and pyelonephritis. - Discontinue IV fluids, recommend/encouraged oral intake (4) Hypokalemia Current Visit: Yes Status: Acute Assessment and plan: Potassium 3.6. - Stop further replacement at this time Plan: - recheck in am. - Replace as necessary. (5) Hyperglycemia due to type 2 diabetes mellitus Current Visit: Yes Status: Acute Assessment and plan: Current blood sugar is 200's, patient takes Levemir 60 units twice a day. 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 - Senna and Miralax scheduled. - Encouraged oral hydration. Qualifiers: Qualified Code(s): K59.00 - Constipation, unspecified (7) DVT prophylaxis Current Visit: Yes Status: Acute Assessment and plan: Subcutaneous heparin every 8 hours. - Subjective Interval history: Ms. Ordoñez has been seen and evaluated at bedside.she is alert awake interactive no acute distress. She complains of continued right sided flank pain and nausea. She states that the pain is the same as prior, stays localized but she does have some abdominal discomfort and nausea. She has felt constipated and did have a bowel movement earlier but has had fewer bowel movements than her usual. Her is at bedside and after long discussion regarding her diabetes she only takes 60 units Levemir once a day and mealtime dosing. Her glucoses usually run in the 300s at home and she is unable to read her glucometer so she does not check her glucose regularly. She has very unhappy with her medical stay and says that she has undergone significant medical health issues the last several years which have been draining her. - Constitutional Vitals: Temp Pulse Resp BP Pulse Ox 98.1 F 79 17 151/72 98 04/21/17 11:15 04/21/17 11:15 04/21/17 11:15 04/21/17 11:15 04/21/17 11:15 General appearance: Present: A&O X 3, pleasant, no acute distress, obese - Head Head exam: Present: atraumatic, normocephalic - Eye Eye exam: Present: PERRL, conjuntiva pink, sclera anicteric Pupils: Present: PERRL - Neck Neck exam general surgery: Present: supple, trachea midline. Absent: lymphadenopathy - Respiratory Respiratory exam: Present: CTAB. Absent: accessory muscle use, rales, rhonchi, wheezes - Cardiovascular Cardiovascular exam: Present: RRR, +S1, +S2. Absent: diastolic murmur, gallop, rubs, systolic murmur - GI/Abdominal GI/Abdominal exam: Present: normal bowel sounds, soft, tenderness (palpation of the right upper quadrent. ), no peritoneal signs. Absent: distended - Extremities Exam Extremities exam: Present: warm, radial pulses palpable and symmetrical. Absent : calf tenderness, cyanotic, pedal edema - Neurological Exam Neurological exam: Present: CN II-XII intact, oriented X3, no focal deficits. Absent: pronater drift, facial droop, speech deficit - Skin Skin exam: Present: dry, intact Internal Medicine: Result - Labs CBC & Chem 7: 04/21/17 07:05 04/21/17 07:05 Labs: Short CBC 04/21/17 Range/Units 07:05 WBC 4.6 (4.3-11.1) K/mcL Hgb 11.8 (11.5-15.4) g/dL Hct 36.9 (35.3-44.9) % Plt Count 185 (140-400) K/mcL Neutrophils # 2.7 (1.6-8.9) K/mcL BMP 04/21/17 07:05 Sodium 138 Potassium 3.6 Chloride 101 Carbon Dioxide 29 BUN 7 Creatinine 0.78 Glucose 209 H Calcium 8.9 Liver Function 04/21/17 Range/Units 07:05 Total Bilirubin 0.8 (0.2-1.2) mg/dL AST 91 H (5-34) Units/L ALT 53 (0-55) Units/L Alkaline Phosphatase 238 H (38-126) Units/L Albumin 2.8 L (3.5-5.0) g/dL Consult Discharge Plan - Plan Referrals: Kiel Watkins MD [Primary Care Provider] - <Richard Cornejo - Last Filed: 04/21/17 16:03> Date of Encounter: 04/21/17 - Assessment and plan (1) Acute pyelonephritis Current Visit: Yes Status: Acute Assessment and plan: Pt with recurrent pyelonephritis. Currently on IV abx. Final cx result pending - gram neg meliza growing (2) Constipation Current Visit: Yes Status: Acute Qualifiers: Constipation type: slow transit constipation Qualified Code(s): K59.01 - Slow transit constipation (3) Hyperglycemia due to type 2 diabetes mellitus Current Visit: Yes Status: Acute Qualifiers: Diabetes mellitus custodial insulin use: with custodial use Qualified Code( s): E11.65 - Type 2 diabetes mellitus with hyperglycemia; Z79.4 - [facility] ( current) use of insulin; Z79.4 - [facility] (current) use of insulin; Z79.4 - terminal worker (current) use of insulin; Z79.4 - [facility] (current) use of insulin (4) Hypokalemia Current Visit: Yes Status: Acute (5) Abdominal pain Current Visit: No Status: Acute Qualifiers: Abdominal location: right upper quadrant Qualified Code(s): R10.11 - Right upper quadrant pain (6) Hypertension Current Visit: No Status: Chronic Qualifiers: Hypertension type: essential hypertension Qualified Code(s): I10 - Essential (primary) hypertension (7) Anemia Current Visit: No Status: Chronic Qualifiers: Anemia type: other cause Other causes of anemia: chronic disease, other Qualified Code(s): D63.8 - Anemia in other chronic diseases classified elsewhere (8) CAD (coronary artery disease) Current Visit: No Status: Chronic Qualifiers: Coronary Disease-Associated Artery/Lesion type: [place] artery [place] vs. transplanted heart: [place] heart Associated angina: without angina Qualified Code(s): I25.10 - Atherosclerotic heart disease of [place] coronary artery without angina pectoris - Constitutional Vitals: Temp Pulse Resp BP Pulse Ox 98.7 F 77 18 126/89 97 04/21/17 15:04 04/21/17 15:04 04/21/17 15:04 04/21/17 15:04 04/21/17 15:04 Internal Medicine: Result - Labs CBC & Chem 7: 04/21/17 07:05 04/21/17 07:05 Labs: Short CBC 04/21/17 Range/Units 07:05 WBC 4.6 (4.3-11.1) K/mcL Hgb 11.8 (11.5-15.4) g/dL Hct 36.9 (35.3-44.9) % Plt Count 185 (140-400) K/mcL Neutrophils # 2.7 (1.6-8.9) K/mcL BMP 04/21/17 07:05 Sodium 138 Potassium 3.6 Chloride 101 Carbon Dioxide 29 BUN 7 Creatinine 0.78 Glucose 209 H Calcium 8.9 Liver Function 04/21/17 Range/Units 07:05 Total Bilirubin 0.8 (0.2-1.2) mg/dL AST 91 H (5-34) Units/L ALT 53 (0-55) Units/L Alkaline Phosphatase 238 H (38-126) Units/L Albumin 2.8 L (3.5-5.0) g/dL - Attending Attestation I examined this patient and my medical decision-making was reviewed with the Resident Physician on 04/21/17. I agree with the documented findings, disposition and treatment plan as described except to the extent set forth below. Ms Ordoñez is currently admitted for acute pyelonephritis. She remains moderate to high risk due to potential for worsening clinical status. Ms Ordoñez feels very tired today. She is still having RUQ discomfort. CT showed constipation. No fever or chills. Some nausea. No diarrhea (constipated on CT ). Blood sugars out of control at home due to difficulty seeing her glucometer. Exam Alert. Comfortable Mucus membranes dry Heart reg Lungs clear at this time. I/P 1. Pyelonephritis 2. RUQ pain 3. Constipation Further diagnoses and plan as above.
[2017-04-21] MEDS: Sennosides 8.6 MG TABLET PO SCH (20:17)
[2017-04-22] MEDS: Ondansetron 4 MG/2 ML VIAL IVP PRN ×2 (04:28→11:48)
[2017-04-22] MEDS: *HR* Morphine 2 MG/ML SYRINGE IVP PRN (04:28)
[2017-04-22] MEDS: *HR* Heparin 5,000 UNIT/ML VIAL SQ SCH ×2 (06:31→18:43)
[2017-04-22] MEDS: Sennosides 8.6 MG TABLET PO SCH ×2 (08:29→20:35)
[2017-04-22] MEDS: cefTRIAXone 2,000 MG in Water for inj. (sterile) 20 ML IVP SCH (08:30)
[2017-04-22] MEDS: Insulin LISPRO 300 UNITS/3 ML VIAL SQ SCH ×4 (08:31→20:32)
[2017-04-22] MEDS: Insulin DETEMIR 100 UNIT/ML X5UNITS SQ SCH ×2 (08:31→20:33)
[2017-04-22 09:06] LABS: BUN/Creatinine Ratio 9 (6-26); Blood Urea Nitrogen 10 mg/dL (7-20); Calcium 9.2 mg/dL (8.6-10.8); Carbon Dioxide 30 mEq/L (19-29); Chloride 97 mEq/L (98-109); Glucose 399 mg/dL (70-99); Osmolality,Calculated 296 (280-300); Sodium 135 mEq/L (136-145); eGFR For African Americans > 60 (> 60); eGFR For Non-African Americans 51 (> 60)
[2017-04-22 09:07] LABS: Potassium 4.2 mEq/L (3.5-4.5)
[2017-04-22] MEDS ORDERED: Insulin DETEMIR 100 UNIT/ML X5UNITS SQ SCH (09:25)
--- NOTE | 2017-04-22 09:35 | Internal Med Progress Note ---
<Masood Decker - Last Filed: 04/22/17 10:47> Date of Encounter: 04/22/17 Time of Encounter: 09:00 - Assessment and plan (1) Pyelonephritis Current Visit: No Status: Acute Assessment and plan: Urine cultures did grow E. Coli sensitive to Rocephin which she is already on Sensitivities demonstrate resistance to ampicillin, Levaquin, and Bactrim; will consider Macrobid upon DC Blood cultures remain negative and she is afebrile without elevated white count or tachycardia Still does not have adequate pain control, will increase morphine to q4hr Plan to transfer off 2N to any bed without telemetry (2) Complicated UTI (urinary tract infection) Current Visit: Yes Status: Acute Assessment and plan: Plan as above with Rocephin IV (3) Hyperglycemia due to type 2 diabetes mellitus Current Visit: Yes Status: Acute Assessment and plan: Sugars remain elevated in 300's this morning Will increase basal Levemir from 25 to 40 units BID Continue high dose SSI and ACHS accuchecks Qualifiers: Diabetes mellitus care home insulin use: with meterman use Qualified Code( s): E11.65 - Type 2 diabetes mellitus with hyperglycemia; 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 She still is having left flank pain from her chronic pyelonephritis, but states she has not experienced any fevers since admission. Has no issues with breathing, although she was placed on oxygen overnight due to de-saturating in the high 80s. Denies any chest pain, nausea, vomiting, diarrhea, or constipation. - Constitutional Vitals: Temp Pulse Resp BP Pulse Ox 98.4 F 74 18 103/56 98 04/22/17 07:09 04/22/17 07:09 04/22/17 07:09 04/22/17 07:09 04/22/17 08:36 General appearance: Present: cooperative, pleasant, no acute distress, obese - Head Head exam: Present: atraumatic, normocephalic - Eye Eye exam: Present: PERRL, conjuntiva pink, sclera anicteric - Neck Neck exam general surgery: Present: supple, trachea midline. Absent: lymphadenopathy - Respiratory Respiratory exam: Present: CTAB. Absent: accessory muscle use, rales, rhonchi, wheezes - Cardiovascular Cardiovascular exam: Present: RRR, +S1, +S2. Absent: diastolic murmur, gallop, rubs, systolic murmur - GI/Abdominal GI/Abdominal exam: Present: normal bowel sounds, soft, no peritoneal signs. Absent: distended, tenderness - Extremities Exam Extremities exam: Present: warm, radial pulses palpable and symmetrical. Absent : calf tenderness, cyanotic, pedal edema - Neurological Exam Neurological exam: Present: alert, no focal deficits. Absent: facial droop, speech deficit - Skin Skin exam: Present: dry, intact Internal Medicine: Result - Labs CBC & Chem 7: 04/21/17 07:05 04/22/17 08:47 Labs: BMP 04/22/17 08:47 Sodium 135 L Potassium 4.2 Chloride 97 L Carbon Dioxide 30 H BUN 10 Creatinine 1.07 Glucose 399 H Calcium 9.2 Consult Discharge Plan - Plan Referrals: Kiel Watkins MD [Primary Care Provider] - (SENT WEB REQUEST ON 04-22-17 @ 4700) <Richard Cornejo - Last Filed: 04/22/17 15:18> Date of Encounter: 04/22/17 - Assessment and plan (1) Acute pyelonephritis Current Visit: Yes Status: Acute (2) Constipation Current Visit: Yes Status: Acute Qualifiers: Constipation type: slow transit constipation Qualified Code(s): K59.01 - Slow transit constipation (3) Hyperglycemia due to type 2 diabetes mellitus Current Visit: Yes Status: Acute Qualifiers: Diabetes mellitus meterman insulin use: with care home use Qualified Code( s): E11.65 - Type 2 diabetes mellitus with hyperglycemia; Z79.4 - half-way ( current) use of insulin; Z79.4 - half-way (current) use of insulin; Z79.4 - termite control servicer (current) use of insulin; Z79.4 - half-way (current) use of insulin (4) Hypokalemia Current Visit: Yes Status: Resolved (5) Abdominal pain Current Visit: No Status: Resolved Qualifiers: Abdominal location: right upper quadrant Qualified Code(s): R10.11 - Right upper quadrant pain (6) Hypertension Current Visit: No Status: Chronic Qualifiers: Hypertension type: essential hypertension Qualified Code(s): I10 - Essential (primary) hypertension (7) Anemia Current Visit: No Status: Chronic Qualifiers: Anemia type: other cause Other causes of anemia: chronic disease, other Qualified Code(s): D63.8 - Anemia in other chronic diseases classified elsewhere (8) CAD (coronary artery disease) Current Visit: No Status: Chronic Qualifiers: Coronary Disease-Associated Artery/Lesion type: [place] artery [place] vs. transplanted heart: [place] heart Associated angina: without angina Qualified Code(s): I25.10 - Atherosclerotic heart disease of [place] coronary artery without angina pectoris - Constitutional Vitals: Temp Pulse Resp BP Pulse Ox 98.7 F 79 16 143/60 93 04/22/17 14:34 04/22/17 14:34 04/22/17 14:34 04/22/17 14:34 04/22/17 14:34 Internal Medicine: Result - Labs CBC & Chem 7: 04/21/17 07:05 04/22/17 08:47 Labs: BMP 04/22/17 08:47 Sodium 135 L Potassium 4.2 Chloride 97 L Carbon Dioxide 30 H BUN 10 Creatinine 1.07 Glucose 399 H Calcium 9.2 - Attending Attestation I examined this patient and my medical decision-making was reviewed with the Resident Physician on 04/22/17. I agree with the documented findings, disposition and treatment plan as described except to the extent set forth below. Ms Ordoñez is currently admitted for acute L emphysematous pyelonephritis. She remains moderate to high risk due to continued pain and need for continued IV abx. Ms Ordoñez is still having pain in her L side. No fever. Appetite is fair. No diarrhea. Still no BM recorded in chart. Tolerating IV abx. Exam Alert. Comfortable Mucus membranes dry Heart reg No wheeze Abd soft I/P 1. Acute emphysematous pyelo - cx with E. coli. On IV Ceftriaxone. Continues with pain in area. Will ask urology for input regarding any other needed treatment. 2. Hyperglycemia - adjusting insulin. She cannot read her accucheck machine well. 3. HTN Further diagnoses and plan as above.
[2017-04-22] MEDS ORDERED: *HR* Morphine 2 MG/ML SYRINGE IVP SCH (12:00)
--- NOTE | 2017-04-22 12:08 | Electrocardiograph Report ---
[address] [address] Test Date: 2017-04-19 Pat Name: Lizz Ordoñez Department: 103 Room: 2N02 Gender: F Paleobotanist: EKP : 1950 Requested By: Devan Carlson Order Number: [id number] Reading MD: Artem Ochoa MD Measurements Intervals [place] Rate: 95 P: 52 VT: 155 QRS: 38 QRSD: 96 T: 59 QT: 371 QTc: 423 Interpretive Statements SINUS RHYTHM Electronically Signed On 04-22-2017 12:06:34 EST by Artem Ochoa MD
[2017-04-22] MEDS: *HR* Promethazine 25 MG/ML VIAL IVP PRN (14:58)
[2017-04-22] MEDS ORDERED: *HR* Morphine 2 MG/ML SYRINGE IVP PRN (15:15)
--- NOTE | 2017-04-22 17:13 | Urology - Consult Note ---
Date of Encounter: 04/22/17 Time of Encounter: 17:11 - Assessment and Plan (1) Complicated UTI (urinary tract infection) Current Visit: Yes Status: Acute Assessment and plan: 67-year-old woman with poorly controlled diabetes and chronic urinary tract infection. Her recent CT again showed gas within her left upper pole collecting system. She has some small stone debris in the lower pole calyx. The stone fragments are quite small. Her urine culture has grown out Escherichia coli which is sensitive to cephalosporins. She has been given Rocephin while in the hospital. Management of her urinary tract infections has been very difficult. With her diabetes, the infections become more severe. We have referred her to a tertiary care center, and there hasn't been much definitive treatment for her. Again is reasonable to continue with antibiotic coverage at this time with a cephalosporin. Consider cefdinir 300 mg by mouth twice a day for 10 days upon discharge. In regards to management of her nephrolithiasis, we can discuss further as an outpatient. The stone fragments are very small, and removal of them will be unlikely to improve her clinical status. It may be reasonable to repeat a nuclear renal scan in the future to follow her renal function. She had a nuclear renal scan on August 29, 2015 which showed 40% function of the left kidney with the right kidney showing 60% function. If her renal function differential has worsened on the left side, we might consider nephrectomy if this left kidney is no longer functioning. However, she has had a recent CO and is a very poor surgical candidate for a nephrectomy. I will continue to follow along with you while she is an inpatient. Thank you very much for allowing me to participate in her care. (2) Nephrolithiasis Current Visit: Yes Status: Acute Urology CN:HPI Consult date: 04/22/17 Reason for consult Urology: Other (Emphysematous pyelonephritis) Requesting physician: Masood Decker History of present illness: 67-year-old woman who is well-known to the urology service was readmitted for left emphysematous pyelonephritis. She previously had left ureteral stent placed , but this did not seem to improve her risk of infection. Her blood sugars showed significant hyperglycemia. Urine culture is growing out Escherichia coli. She has been afebrile since admission. Her white blood cell count is normal. She was referred to Dr. Rosa at [facility] for further evaluation. She is somnolent today and was not particularly detailed in her history. Based upon previous notes it seems like he had performed a diagnostic ureteroscopy, which led to a postoperative urinary tract infection requiring admission. According to her, he is not entertaining nephrectomy or upper pole heminephrectomy at this time. Past Med Surg Social Fam HX - Past Medical History Medical history: diabetes, hyperlipidemia, hypertension, myocardial infarction, renal disease, TIA Psychiatric history: anxiety, depression - Past Surgical History Surgical History: appendectomy, cholecystectomy, hysterectomy, thyroidectomy, ureteral stent, other - Social History Smoking Status: Current some day smoker Smokeless Tobacco Status: No Alcohol use: none Drug use: none - Family History Father History Unknown: Yes Hx Family Cardiac Disorders: Yes (AAA) Hx Family Endocrine Disorder: Yes (DM) Mother History Unknown: Yes Adopted: No Living Status: Hx Family Cardiac Disorders: Yes (HTN) Hx Family Cancer: Yes (Colon) Medications and Allergies Duloxetine HCl [Cymbalta] 60 mg PO BID 12/05/14 [History] Insulin ASPART [NovoLOG] 2 - 20 unit SQ TID PRN 12/05/14 [History] Insulin DETEMIR [Levemir] 54 unit SQ BID 01/13/15 [History] Atorvastatin Calcium [Lipitor] 80 mg PO HS 09/17/15 [History] Aspirin 81 mg PO DAILY #30 tab.chew 09/20/15 [Rx] Isosorbide MONOnitrate (24 HR) [Imdur] 30 mg PO DAILY 11/02/15 [History] ALPRAZolam [Xanax 0.25 MG Tablet] 0.25 mg PO TID PRN 06/01/16 [History] Solifenacin Succinate [Vesicare] 10 mg PO DAILY 06/01/16 [History] Pantoprazole Sodium [Protonix] 40 mg PO DAILY 09/18/16 [History] Amlodipine Besylate 10 mg PO DAILY #30 tablet 09/21/16 [Rx] 3 Allergy/AdvReac Type Severity Reaction Status Date / Time ampicillin Allergy Unknown See Verified 04/19/17 20:46 Comments Cortisone Allergy Unknown Hives Verified 04/19/17 20:46 Oxycodone Allergy Unknown Hives Verified 04/19/17 20:46 Penicillins Allergy Unknown See Verified 04/19/17 20:46 Comments Sulfa (Sulfonamide Allergy Unknown See Verified 04/19/17 20:46 Antibiotics) Comments ciprofloxacin AdvReac Unknown Rash Verified 04/19/17 20:46 codeine AdvReac Unknown Itching Verified 04/19/17 20:46 Hydromorphone AdvReac Unknown Vomiting Verified 04/19/17 20:46 phenazopyridine AdvReac Unknown Vomiting Verified 04/19/17 20:46 [Phenazopyridine] tramadol AdvReac Unknown Vomiting Verified 04/19/17 20:46 hydrocodone AdvReac Itching Verified 04/19/17 20:46 Review of Systems - Constitutional no chills, no fever(s) - EENT Nose, mouth and throat: no dizziness - Cardiovascular no chest pain - Respiratory no dyspnea - Gastrointestinal no nausea, no vomiting - Genitourinary Genitourinary: no flank pain, no hematuria - Musculoskeletal no back pain - Integumentary no erythema, no rash - Neurological no weakness - Psychiatric no suicidal ideation - Hematologic/Lymphatic no easy bleeding - Allergic/Immunologic no wheezing Exam Initial Vital Signs Temp Pulse Resp BP Pulse Ox 97.3 F L 106 20 181/81 97 04/19/17 20:46 04/19/17 20:46 04/19/17 20:46 04/19/17 20:46 04/19/17 20:46 - General physical appearance Present: well developed, well nourished, no distress - Eyes Absent: icteric - ENT Present: normal nares - Neck Present: no masses - Respiratory Present: normal respiratory effort - Cardiovascular Cardiovascular exam IM: RRR - Abdomen Abdomen: Present: soft Urology Results - Labs 04/21/17 07:05 04/22/17 08:47 Abnormal lab results MCV 75.6 fL (83.0-100.0) L 04/21/17 07:05 MCH 24.2 pg (28.0-33.3) L 04/21/17 07:05 RDW 14.7 % (11.5-14.5) H 04/21/17 07:05 VBG pCO2 52 mmHg (41-51) H 04/19/17 22:08 VBG HCO3 30 mEq/L (21-27) H 04/19/17 22:08 Sodium 135 mEq/L (136-145) L 04/22/17 08:47 Chloride 97 mEq/L (98-109) L 04/22/17 08:47 Carbon Dioxide 30 mEq/L (19-29) H 04/22/17 08:47 Est GFR (Non-Af Amer) 51 (> 60) L 04/22/17 08:47 Glucose 399 mg/dL (70-99) H 04/22/17 08:47 POC Glucose 361 (58-89) H 04/22/17 16:00 Iron 35 mcg/dL (50-170) L 04/20/17 16:18 % Saturation 11 % (15-50) L 04/20/17 16:18 AST 91 Units/L (5-34) H 04/21/17 07:05 Alkaline Phosphatase 238 Units/L (38-126) H 04/21/17 07:05 Albumin 2.8 g/dL (3.5-5.0) L 04/21/17 07:05 Globulin 4.3 g/dL (2.4-3.5) H 04/21/17 07:05 Albumin/Globulin Ratio 0.7 (1.1-2.2) L 04/21/17 07:05 Urine Clarity Cloudy (Clear) A 04/19/17 21:36 Ur Specific [place] > 1.030 (1.010-1.025) H 04/19/17 21:36 Urine Glucose (UA) >=1000 mg/dL (Normal) H 04/19/17 21:36 Urine Blood Small (Negative) H 04/19/17 21:36 Urine Nitrite Positive (Negative) A 04/19/17 21:36 Ur Leukocyte Esterase Small (Negative) H 04/19/17 21:36 Urine Microscopic WBC 50-100 per hpf (0-3) H 04/19/17 21:36 Urine Bacteria Many per hpf (None-Few) H 04/19/17 21:36 Urine Yeast Moderate per hpf (None Seen) H 04/19/17 21:36 Ur Culture Indicated? YES (NO) A 04/19/17 21:36 Diabetes panel 04/22/17 Range/Units 08:47 Sodium 135 L (136-145) mEq/L Potassium 4.2 (3.5-4.5) mEq/L Chloride 97 L (98-109) mEq/L Carbon Dioxide 30 H (19-29) mEq/L BUN 10 (7-20) mg/dL Creatinine 1.07 (0.57-1.11) mg/dL Glucose 399 H (70-99) mg/dL Calcium 9.2 (8.6-10.8) mg/dL Calcium panel 04/22/17 Range/Units 08:47 Calcium 9.2 (8.6-10.8) mg/dL Pituitary panel 04/22/17 Range/Units 08:47 Sodium 135 L (136-145) mEq/L Potassium 4.2 (3.5-4.5) mEq/L Chloride 97 L (98-109) mEq/L Carbon Dioxide 30 H (19-29) mEq/L BUN 10 (7-20) mg/dL Creatinine 1.07 (0.57-1.11) mg/dL Glucose 399 H (70-99) mg/dL Calcium 9.2 (8.6-10.8) mg/dL Adrenal panel 04/22/17 Range/Units 08:47 Sodium 135 L (136-145) mEq/L Potassium 4.2 (3.5-4.5) mEq/L Chloride 97 L (98-109) mEq/L Carbon Dioxide 30 H (19-29) mEq/L BUN 10 (7-20) mg/dL Creatinine 1.07 (0.57-1.11) mg/dL Glucose 399 H (70-99) mg/dL Calcium 9.2 (8.6-10.8) mg/dL All other labs normal. - Imaging CT scan - abdomen: report reviewed, image reviewed CT scan - pelvis: report reviewed, image reviewed Consult Discharge Plan - Plan Referrals: Kiel Watkins MD [Primary Care Provider] - (SENT WEB REQUEST ON 04-22-17 @ 1798)
[2017-04-23] MEDS: *HR* Promethazine 25 MG/ML VIAL IVP PRN (00:02)
[2017-04-23 05:02] LABS: Alanine Aminotransferase 42 Units/L (0-55); Albumin 2.7 g/dL (3.5-5.0); Albumin/Globulin Ratio 0.7 (1.1-2.2); Alkaline Phosphatase 184 Units/L (38-126); Aspartate Amino Transferase 29 Units/L (5-34); BUN/Creatinine Ratio 15 (6-26); Bilirubin,Total 0.6 mg/dL (0.2-1.2); Blood Urea Nitrogen 14 mg/dL (7-20); Carbon Dioxide 28 mEq/L (19-29); Chloride 100 mEq/L (98-109); Globulin 3.9 g/dL (2.4-3.5); Glucose 178 mg/dL (70-99); Osmolality,Calculated 287 (280-300); Potassium 4.2 mEq/L (3.5-4.5); Sodium 136 mEq/L (136-145); Total Protein 6.6 g/dL (6.0-8.3); eGFR For African Americans > 60 (> 60); eGFR For Non-African Americans > 60 (> 60)
[2017-04-23 05:06] LABS: Basophils % 0.4 %; Eosinophils # 0.2 K/mcL (0.0-0.6); Eosinophils % 4.3 %; Hemoglobin 11.4 g/dL (11.5-15.4); Immature Granulocytes % 0.4 % (0-4); Lymphocytes # 1.4 K/mcL (0.6-4.6); Lymphocytes % 31.2 %; Mean Corpuscular HGB Conc 31.7 g/dL (31.6-35.5); Mean Corpuscular Hemoglobin 24.4 pg (28.0-33.3); Mean Corpuscular Volume 77.1 fL (83.0-100.0); Mean Platelet Volume 9.8 fL (9.4-12.4); Monocytes # 0.4 K/mcL (0.0-1.3); Neutrophils # 2.4 K/mcL (1.6-8.9); Platelet Count 179 K/mcL (140-400); Red Blood Count 4.67 M/mcL (3.82-4.97); Red Cell Distribution Width 14.9 % (11.5-14.5); Segmented Neutrophils % 54.7 %
[2017-04-23] MEDS: *HR* Heparin 5,000 UNIT/ML VIAL SQ SCH (06:02)
[2017-04-23 07:12] VITALS: BP 149/83
--- NOTE | 2017-04-23 07:47 | Urology Progress Note ---
Date of Encounter: 04/23/17 Time of Encounter: 07:45 - Assessment and Plan (1) Complicated UTI (urinary tract infection) Current Visit: Yes Status: Acute Assessment and plan: Yogesh to d/c home with oral antibiotics. Follow up in urology clinic in 2-3 weeks for further discussion. Consider repeat referral to Dr. Rosa. Yogesh to d/c [place]. (2) Nephrolithiasis Current Visit: Yes Status: Acute Assessment and plan: Will hold off on treatment at this time as these are very small stones. Progress Note Narrative: No changes overnight. Urine is draining clear in the [place]. No fevers or chills. Objective Initial Vital Signs Temp Pulse Resp BP Pulse Ox 97.3 F L 106 20 181/81 97 04/19/17 20:46 04/19/17 20:46 04/19/17 20:46 04/19/17 20:46 04/19/17 20:46 - General physical appearance Present: well developed, well nourished, no distress - Respiratory Present: normal respiratory effort - Abdomen Present: soft - Genitourinary Urine Appearance: Present: Clear - Labs 04/23/17 04:38 04/23/17 04:38 Diabetes panel 04/22/17 04/23/17 Range/Units 08:47 04:38 Sodium 135 L 136 (136-145) mEq/L Potassium 4.2 4.2 (3.5-4.5) mEq/L Chloride 97 L 100 (98-109) mEq/L Carbon Dioxide 30 H 28 (19-29) mEq/L BUN 10 14 (7-20) mg/dL Creatinine 1.07 0.91 (0.57-1.11) mg/dL Glucose 399 H 178 H (70-99) mg/dL Calcium 9.2 9.0 (8.6-10.8) mg/dL AST 29 (5-34) Units/L ALT 42 (0-55) Units/L Alkaline Phosphatase 184 H (38-126) Units/L Albumin 2.7 L (3.5-5.0) g/dL Calcium panel 04/22/17 04/23/17 Range/Units 08:47 04:38 Calcium 9.2 9.0 (8.6-10.8) mg/dL Albumin 2.7 L (3.5-5.0) g/dL Pituitary panel 04/22/17 04/23/17 Range/Units 08:47 04:38 Sodium 135 L 136 (136-145) mEq/L Potassium 4.2 4.2 (3.5-4.5) mEq/L Chloride 97 L 100 (98-109) mEq/L Carbon Dioxide 30 H 28 (19-29) mEq/L BUN 10 14 (7-20) mg/dL Creatinine 1.07 0.91 (0.57-1.11) mg/dL Glucose 399 H 178 H (70-99) mg/dL Calcium 9.2 9.0 (8.6-10.8) mg/dL Adrenal panel 04/22/17 04/23/17 Range/Units 08:47 04:38 Sodium 135 L 136 (136-145) mEq/L Potassium 4.2 4.2 (3.5-4.5) mEq/L Chloride 97 L 100 (98-109) mEq/L Carbon Dioxide 30 H 28 (19-29) mEq/L BUN 10 14 (7-20) mg/dL Creatinine 1.07 0.91 (0.57-1.11) mg/dL Glucose 399 H 178 H (70-99) mg/dL Calcium 9.2 9.0 (8.6-10.8) mg/dL Total Bilirubin 0.6 (0.2-1.2) mg/dL AST 29 (5-34) Units/L ALT 42 (0-55) Units/L Alkaline Phosphatase 184 H (38-126) Units/L Albumin 2.7 L (3.5-5.0) g/dL Consult Discharge Plan - Plan Referrals: Kiel Watkins MD [Primary Care Provider] - (SENT WEB REQUEST ON 04-22-17 @ 1371)
--- NOTE | 2017-04-23 07:47 | Discharge Summary ---
Date of Encounter: 04/23/17 Time of Encounter: 07:45 - Discharge Diagnosis (1) UTI (urinary tract infection) Priority: Primary Status: Acute Qualifiers: Urinary tract infection type: acute cystitis Hematuria presence: without hematuria Qualified Code(s): N30.00 - Acute cystitis without hematuria (2) CAD (coronary artery disease) Priority: Secondary Status: Chronic Qualifiers: Coronary Disease-Associated Artery/Lesion type: [place] artery [place] vs. transplanted heart: [place] heart Associated angina: without angina Qualified Code(s): I25.10 - Atherosclerotic heart disease of [place] coronary artery without angina pectoris (3) Generalized weakness Priority: Primary Status: Chronic (4) Diabetes Priority: Secondary Status: Acute Qualifiers: Diabetes mellitus type: type 2 Diabetes mellitus complication status: with hyperglycemia Diabetes mellitus joint terminal attack controller insulin use: with assisted use Qualified Code(s): E11.65 - Type 2 diabetes mellitus with hyperglycemia; Z79.4 - terminal gauger (current) use of insulin (5) MARIBEL (acute kidney injury) Priority: Primary Status: Resolved - Discharge Medications Prescriptions: Cefdinir [Omnicef] 300 mg PO BID #20 capsule Home Medications: Duloxetine HCl [Cymbalta] 60 mg PO BID 12/05/14 [History] Insulin ASPART [NovoLOG] 2 - 20 unit SQ TID PRN 12/05/14 [History] Insulin DETEMIR [Levemir] 54 unit SQ BID 01/13/15 [History] Atorvastatin Calcium [Lipitor] 80 mg PO HS 09/17/15 [History] Aspirin 81 mg PO DAILY #30 tab.chew 09/20/15 [Rx] Isosorbide MONOnitrate (24 HR) [Imdur] 30 mg PO DAILY 11/02/15 [History] ALPRAZolam [Xanax 0.25 MG Tablet] 0.25 mg PO TID PRN 06/01/16 [History] Solifenacin Succinate [Vesicare] 10 mg PO DAILY 06/01/16 [History] Pantoprazole Sodium [Protonix] 40 mg PO DAILY 09/18/16 [History] Amlodipine Besylate 10 mg PO DAILY #30 tablet 09/21/16 [Rx] Cefdinir [Omnicef] 300 mg PO BID #20 capsule 04/23/17 [Rx] Allergies/Adverse Reactions: 3 Allergy/AdvReac Type Severity Reaction Status Date / Time ampicillin Allergy Unknown See Verified 04/19/17 20:46 Comments Cortisone Allergy Unknown Hives Verified 04/19/17 20:46 Oxycodone Allergy Unknown Hives Verified 04/19/17 20:46 Penicillins Allergy Unknown See Verified 04/19/17 20:46 Comments Sulfa (Sulfonamide Allergy Unknown See Verified 04/19/17 20:46 Antibiotics) Comments ciprofloxacin AdvReac Unknown Rash Verified 04/19/17 20:46 codeine AdvReac Unknown Itching Verified 04/19/17 20:46 Hydromorphone AdvReac Unknown Vomiting Verified 04/19/17 20:46 phenazopyridine AdvReac Unknown Vomiting Verified 04/19/17 20:46 [Phenazopyridine] tramadol AdvReac Unknown Vomiting Verified 04/19/17 20:46 hydrocodone AdvReac Itching Verified 04/19/17 20:46 Date of admission: 04/20/17 04:22 Primary care physician: Kiel Watkins MD Consults: 04/22/17 09:26 Consult to Occupational Therapy [CONS] Routine Comment: Evaluate, develop and implement POC Reason for Consult: history of frequent falls, CVA, may need HH/rehab upon DC Consult to Physical Therapy [CONS] Routine Comment: Evaluate, develop and implement POC Reason for Consult: history of frequent falls, CVA, may need HH/rehab upon DC Consult to Small Business Consultant [CONS] Routine Reason for SW Consult: history of frequent falls, CVA, may need HH/rehab upon DC 04/22/17 11:08 Consult to Invasive Line Access Team [CONS] Routine Reason for Consult: limited vascular access Line Type: EPIV 04/22/17 13:11 Consult to Urology [CONS] Routine Consulting Provider: Urology Yvonne Reason for Consult: chronic pyelonephritis, possible stones complicating UTI Call Completed: No - Patient Status Disposition: Home, Self-Care Overall status at discharge: patient is progressing back to baseline - Discharge Instructions Instructions: Urinary Tract Infection in Women (DC) Follow Up With: Kiel Watkins MD [Primary Care Provider] - 05/08/17 3:15 pm () Additional Instructions: Follow-up appointments: If there is not an appointment listed below, please call your physician and schedule a follow-up appointment. If you have congestive heart failure and your symptoms return, make an appointment with your physician. Medication List: Carry an up to date list of medications you are taking at all time. We have given you an updated medication list including any new medications that you have been prescribed. Please provide that list to your primary provider Symptoms: If your condition changes or you experience any of the following symptoms, notify your physician immediately: Unusual or worsening pain, fever, persistent nausea and vomiting, bleeding, increase in swelling (especially in your legs), sudden weight gain, extreme dizziness, chest pain, increased drainage or redness from a wound or incision. Go to the emergency department if you experience a problem with breathing. Weights: If you have a history of swelling or shortness of breath, weigh yourself daily and notify your physician if you have a weight gain of two or more pounds in one day or 5 or more pounds in a week. If you experience any of the warning signs for stroke: Sudden numbness or weakness of the face, arm or leg; especially on one side of the body, sudden confusion, trouble speaking or understanding, sudden trouble seeing in one or both eyes, sudden trouble walking, dizziness, loss of balance or coordination, sudden sever headache with no cause; Call 911 or go to the emergency room. Stroke is a medical emergency. Some risk factors for stroke: Age, cigarette smoking, diabetes, excessive alcohol consumption, family history , high blood pressure, overweight, physical inactivity, prior stroke, heart attack, diagnosis of carotid artery stenosis or other artery disease. If you smoke, STOP: Smoking or tobacco use significantly increases your risk of heart and lung disease. Your chance of disease greatly increases if you continue to smoke. For more information, call the [place] tobacco quit line for smoking cessation QUIT-NOW ( ) - Diet and Activity Activity: resume usual activities as tolerated Diet: diabetic diet Hospital course: Ms. Ordoñez is a 67 year old female with a past medical history significant for UTI and emphysematous pyelonephritis, HTN, HLD, DM who presented to [facility] ED complaining of right sided back pain that began 6 days ago. She had become incontinent which typically happens when she has a UTI. Additionally, she has had foul-smelling urine and increased urinary frequency. In the ED urinalysis demonstrated positive UTI with leukocyte esterase and nitrite positive. She had tachycardia, WBC WNL, afebrile, lactic acid 2.8, hyperglycemia glucose 621. Patient given 10 units of regular insulin in ED. CT Abd showed gas within the upper pole with stranding of left kidney consistent with Pyelitis and/or cystitis. She was treated for pyelonephritis with IV Rocephin. She was seen by urology as she has had a history of pyelonephritis in the past and and apparently was recommended a nephrectomy at some point. Urology recommended against it for now. They did do recommend that the patient be treated appropriately oral antibiotics and they recommended cefdinir total. The patient was stable for discharge on 04/23/2017 - Time Spent with Patient Total time spent providing and/or coordinating discharge services: - Constitutional Vitals: Temp Pulse Resp BP Pulse Ox 98.3 F 71 16 149/83 97 04/23/17 07:06 04/23/17 07:06 04/23/17 07:06 04/23/17 07:06 04/23/17 07:06 General appearance: Present: cooperative, pleasant, no acute distress, obese Exam: GEN: NAD CVS: RRR. S1, S2, No m/r/g RESP: CTAB ABD: Soft, NT, ND, +BS EXT: No edema. 2+ DP. No rashes NEURO: Nonfocal
[2017-04-23] MEDS ORDERED: Aspirin 81 MG TAB.CHEW PO SCH (09:00)
[2017-04-23] MEDS: Insulin LISPRO 300 UNITS/3 ML VIAL SQ SCH (09:20)
[2017-04-23] MEDS: cefTRIAXone 2,000 MG in Water for inj. (sterile) 20 ML IVP SCH (09:22)
[2017-04-23] MEDS: Insulin DETEMIR 100 UNIT/ML X5UNITS SQ SCH (09:22)
[2017-04-23] MEDS: Sennosides 8.6 MG TABLET PO SCH (09:22)
--- NOTE | 2017-04-23 10:54 | Physician Discharge Referral ---
Home Health/Hosp Referral Info Transfer to: Home Health - Diagnosis (1) UTI (urinary tract infection) Status: Acute (2) CAD (coronary artery disease) Priority: Secondary Status: Chronic (3) Generalized weakness Priority: Primary Status: Chronic (4) Diabetes Priority: Secondary Status: Acute (5) MARIBEL (acute kidney injury) Priority: Primary Status: Resolved (6) Hyperglycemia Priority: Secondary Status: Acute (7) Hypoglycemia Priority: Secondary Status: Acute - Respiratory Orders Smoking Cessation: Smoking cessation has been advised. For more information, call the [place] Tobacco Quit Line at 8-773-SKHANOW. - Diet/Nutrition Diet/Nutrition Orders: Regular - Services Needed Following services are medically necessary services: Nursing, Home Health Aide, Physical Therapy, Med Social Work - Transfer Medications Prescriptions: Cefdinir [Omnicef] 300 mg PO BID #20 capsule Home Medications: Duloxetine HCl [Cymbalta] 60 mg PO BID 12/05/14 [History] Insulin ASPART [NovoLOG] 2 - 20 unit SQ TID PRN 12/05/14 [History] Insulin DETEMIR [Levemir] 54 unit SQ BID 01/13/15 [History] Atorvastatin Calcium [Lipitor] 80 mg PO HS 09/17/15 [History] Aspirin 81 mg PO DAILY #30 tab.chew 09/20/15 [Rx] Isosorbide MONOnitrate (24 HR) [Imdur] 30 mg PO DAILY 11/02/15 [History] ALPRAZolam [Xanax 0.25 MG Tablet] 0.25 mg PO TID PRN 06/01/16 [History] Solifenacin Succinate [Vesicare] 10 mg PO DAILY 06/01/16 [History] Pantoprazole Sodium [Protonix] 40 mg PO DAILY 09/18/16 [History] Amlodipine Besylate 10 mg PO DAILY #30 tablet 09/21/16 [Rx] Cefdinir [Omnicef] 300 mg PO BID #20 capsule 04/23/17 [Rx] Allergies/Adverse Reactions: 3 Allergy/AdvReac Type Severity Reaction Status Date / Time ampicillin Allergy Unknown See Verified 04/19/17 20:46 Comments Cortisone Allergy Unknown Hives Verified 04/19/17 20:46 Oxycodone Allergy Unknown Hives Verified 04/19/17 20:46 Penicillins Allergy Unknown See Verified 04/19/17 20:46 Comments Sulfa (Sulfonamide Allergy Unknown See Verified 04/19/17 20:46 Antibiotics) Comments ciprofloxacin AdvReac Unknown Rash Verified 04/19/17 20:46 codeine AdvReac Unknown Itching Verified 04/19/17 20:46 Hydromorphone AdvReac Unknown Vomiting Verified 04/19/17 20:46 phenazopyridine AdvReac Unknown Vomiting Verified 04/19/17 20:46 [Phenazopyridine] tramadol AdvReac Unknown Vomiting Verified 04/19/17 20:46 hydrocodone AdvReac Itching Verified 04/19/17 20:46 Certification: Further, I certify that my clinical findings support that this patient is homebound (i.e. absences from home require considerable and taxing effort and are for medical reasons or zoroastrian services or infrequently or short duration when for other reasons) because: Homebound Reason: Patient requires assistance of a person or device to safely leave home Attestation: My signature below is to certify that this patient is under my care and that I, or nurse practitioner, or a physician's assistant director of security working with me, has a face-to -face encounter with this patient.
== END 2017-04-23 12:00 | disposition home or self-care (01) | DRG 690 ==
LOC: 2ANU 20:41 → EMEROO 20:41 → 2NNU 23:52 → SUATTDRO 04-20 04:22 → 3ANU 04-22 12:10
PROVIDERS: ADMIT Internal Medicine Hematology & Oncology; ATTEND Internal Medicine

== ENCOUNTER 2018-05-02 16:09 | Observation (INO) ==
[2018-05-02] MEDS ORDERED: 0.9 % Sodium Chloride 1,000 ML IVC ONE (16:25)
[2018-05-02] MEDS ORDERED: Prochlorperazine 10 MG/2 ML VIAL IVP ONE (16:34)
--- NOTE | 2018-05-02 16:40 | Emergency Department Note ---
Disposition Clinical Impression: Dizziness, Elevated blood pressure reading, Hyperglycemia CVA (cerebral vascular accident) Qualifiers: CVA mechanism: unspecified Qualified Code(s): I63.9 - Cerebral infarction, unspecified Headache Qualifiers: Headache type: unspecified Headache chronicity pattern: unspecified pattern Intractability: not intractable Qualified Code(s): R51 - Headache Disposition: Admitted As Inpatient Condition: Fair Referrals: Kiel Watkins MD [Primary Care Provider] - Forms: ED Satisfaction Letter General Adult HPI - General Chief complaint: ED Headache Stated complaint: Migraine Time Seen by Provider: 05/02/18 16:22 Source: EMS Limitations: no limitations Nursing Notes Reviewed: Yes Vital Signs Reviewed: Yes - History of Present Illness Pain Scale: 8 - Related Data Home Medications Medication Instructions Recorded Confirmed Duloxetine HCl [Cymbalta] 60 mg PO BID 12/05/14 04/23/18 Insulin ASPART [NovoLOG] 24 unit SQ BID 12/05/14 04/23/18 Atorvastatin Calcium [Lipitor] 10 mg PO HS 09/17/15 04/23/18 Pantoprazole Sodium [Protonix] 40 mg PO DAILY 09/18/16 04/23/18 Ergocalciferol (VITAMIN D2) 50,000 unit PO QWEEK 02/19/18 04/23/18 [Vitamin D2] Gabapentin [Neurontin] 300 mg PO HS 02/19/18 04/23/18 Mirabegron [Myrbetriq] 50 mg PO DAILY 02/19/18 04/23/18 metFORMIN [Glucophage] 500 mg PO BIDWM 02/19/18 04/23/18 Allergies Allergy/AdvReac Type Severity Reaction Status Date / Time ampicillin Allergy Unknown See Verified 05/02/18 16:21 Comments Cortisone Allergy Unknown Hives Verified 05/02/18 16:21 Oxycodone Allergy Unknown Hives Verified 05/02/18 16:21 Penicillins Allergy Unknown See Verified 05/02/18 16:21 Comments Sulfa (Sulfonamide Allergy Unknown See Verified 05/02/18 16:21 Antibiotics) Comments ciprofloxacin AdvReac Unknown Rash Verified 05/02/18 16:21 codeine AdvReac Unknown Itching Verified 05/02/18 16:21 Hydromorphone AdvReac Unknown Vomiting Verified 05/02/18 16:21 phenazopyridine AdvReac Unknown Vomiting Verified 05/02/18 16:21 [Phenazopyridine] tramadol AdvReac Unknown Vomiting Verified 05/02/18 16:21 hydrocodone AdvReac Itching Verified 04/23/18 09:19 Past Medical History - Past Medical History Medical history: Reports: COPD, CVA, diabetes, hyperlipidemia, hypertension, myocardial infarction, renal disease, other Surgical history: Reports: appendectomy, cholecystectomy, hysterectomy, thyroidectomy, ureteral stent, other Psychiatric history: Reports: anxiety, depression 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 - Social History Smoking Status: Former smoker Smokeless Tobacco Status: No Alcohol use: Reports: none, occasionally Drug use: Reports: none Physical Exam - General Limitations: no limitations General appearance: alert, in no apparent distress Course Vital Signs Temperature 98.4 F 05/02/18 16:15 Pulse Rate 80 05/02/18 16:15 Respiratory Rate 16 05/02/18 16:15 Blood Pressure 160/79 05/02/18 16:15 O2 Sat by Pulse Oximetry 94 05/02/18 16:15 Temperature 98.4 F 05/02/18 16:15 Pulse Rate 75 05/02/18 18:42 Respiratory Rate 16 05/02/18 18:42 Blood Pressure 164/74 05/02/18 18:42 O2 Sat by Pulse Oximetry 94 05/02/18 18:42 Oxygen Delivery Oxygen Delivery Room Air Medical Decision Making - [facility] Narrative Medical decision making narrative: Head CT 05/02/18 16:23 IMPRESSION: 1. No acute intracranial abnormality. 2. Cerebral and cerebellar parenchymal volume loss with chronic microvascular white matter ischemic disease. D/ / Yonatan Alarcon MD / Yonatan Alarcon MD Interpreting Provider: Yonatan Alarcon MD 1900 hrs. with her symptoms were negative and bring her into the hospital hospice as accepted - Lab Data Result diagrams: 05/02/18 18:01 05/02/18 16:24 Lab Results 05/02/18 05/02/18 05/02/18 Range/Units 16:24 16:35 18:01 WBC 5.6 (4.3-11.1) K/mcL RBC 4.64 (3.82-4.97) M/mcL Hgb 11.6 (11.5-15.4) g/dL Hct 36.0 (35.3-44.9) % MCV 77.6 L (83.0-100.0) fL MCH 25.0 L (28.0-33.3) pg MCHC 32.2 (31.6-35.5) g/dL RDW 14.9 H (11.5-14.5) % Plt Count 168 (140-400) K/mcL MPV 9.7 (9.4-12.4) fL Immature Gran % 0.4 (0-4) % Seg Neutrophils % 57.9 % Lymphocytes % 29.5 % Monocytes % 9.1 % Eosinophils % 2.7 % Basophils % 0.4 % Neutrophils # 3.3 (1.6-8.9) K/mcL Lymphocytes # 1.7 (0.6-4.6) K/mcL Monocytes # 0.5 (0.0-1.3) K/mcL Eosinophils # 0.2 (0.0-0.6) K/mcL Basophils # 0.0 (0.0-0.2) K/mcL Sodium 134 L (136-145) mEq/L Potassium 4.3 (3.5-5.1) mEq/L Chloride 101 (98-107) mEq/L Carbon Dioxide 28 (23-29) mEq/L BUN 15 (8-23) mg/dL Creatinine 0.97 (0.60-1.20) mg/dL Est GFR ( Amer) > 60 (> 60) Est GFR (Non-Af Amer) 57 L (> 60) BUN/Creatinine Ratio 15 (6-26) Glucose 275 H (70-105) mg/dL Calculated Osmolality 289 (280-300) Calcium 9.0 (8.6-10.3) mg/dL Specimen Rejected Clotted Attestation Statement - Attestation Attestation: This documentation is done with the assistance of Dragon dictation. Despite efforts made to ensure accuracy, there may be inaccuracies in scarifier operator or spelling and typographical errors. I examined this patient and my medical decision-making was reviewed with the Resident Physician. I agree with the documented findings, disposition and treatment plan as described except to the extent set forth below. Patient seen and evaluated on arrival with EMS and Dr. Britton, I agree with his evaluation and management plan, supervised the care the patient's stay. Patient presents today from home. She said she had a sudden headache about an hour ago. She sits in the back of her head. She felt like she is in a pass out but did not her helped lower her to the ground. She did not strike her head she has no deficits in her arms or no deficits of speech she said she has had "micro strokes" in the past but nothing that left her with any deficits. Says she gets headaches once a while but nothing like this. She was nauseous earlier but not now. Denies any chest pain. Blood pressure is elevated by medics. Were going to give her some for headache CT her head check labs and reassess. She is in agreement with this plan.
--- NOTE | 2018-05-02 16:53 | Emergency Department Note ---
Disposition Clinical Impression: Dizziness, Elevated blood pressure reading, Hyperglycemia CVA (cerebral vascular accident) Qualifiers: CVA mechanism: unspecified Qualified Code(s): I63.9 - Cerebral infarction, unspecified Headache Qualifiers: Headache type: unspecified Headache chronicity pattern: unspecified pattern Intractability: not intractable Qualified Code(s): R51 - Headache Disposition: Admitted As Inpatient Condition: Fair Referrals: Kiel Watkins MD [Primary Care Provider] - Forms: ED Satisfaction Letter Time of Disposition: 18:52 Headache HPI - General Chief Complaint: ED Headache Stated Complaint: Migraine Time Seen by Provider: 05/02/18 16:22 Source: patient, EMS Mode of arrival: EMS Limitations: no limitations Nursing Notes Reviewed: Yes Vital Signs Reviewed: Yes - History of Present Illness HPI Narrative: A 68-year-old female with history of CVA, COPD, chronic kidney disease and diabetes high blood pressure presents for evaluation of headache. Patient noted a sudden onset headache that occurred prior to presentation. States it occurred about an hour prior to presentation. Noted to occur in the back of her head feels a sharp pain. Reported some dizziness which is described as not the room spinning. Possibly additional. Patient also noted that she was leaning into the left side. Does have a history of CVA in the past with alert slurred speech and facial droop with leaning to the right side. Patient denies being any blood thinners. Patient denies any chest pain. No fevers. No nausea or vomiting. Pain Scale: 8 - Related Data Home Medications Medication Instructions Recorded Confirmed Duloxetine HCl [Cymbalta] 60 mg PO BID 12/05/14 04/23/18 Insulin ASPART [NovoLOG] 24 unit SQ BID 12/05/14 04/23/18 Atorvastatin Calcium [Lipitor] 10 mg PO HS 09/17/15 04/23/18 Pantoprazole Sodium [Protonix] 40 mg PO DAILY 09/18/16 04/23/18 Ergocalciferol (VITAMIN D2) 50,000 unit PO QWEEK 02/19/18 04/23/18 [Vitamin D2] Gabapentin [Neurontin] 300 mg PO HS 02/19/18 04/23/18 Mirabegron [Myrbetriq] 50 mg PO DAILY 02/19/18 04/23/18 metFORMIN [Glucophage] 500 mg PO BIDWM 02/19/18 04/23/18 Allergies Allergy/AdvReac Type Severity Reaction Status Date / Time ampicillin Allergy Unknown See Verified 05/02/18 16:21 Comments Cortisone Allergy Unknown Hives Verified 05/02/18 16:21 Oxycodone Allergy Unknown Hives Verified 05/02/18 16:21 Penicillins Allergy Unknown See Verified 05/02/18 16:21 Comments Sulfa (Sulfonamide Allergy Unknown See Verified 05/02/18 16:21 Antibiotics) Comments ciprofloxacin AdvReac Unknown Rash Verified 05/02/18 16:21 codeine AdvReac Unknown Itching Verified 05/02/18 16:21 Hydromorphone AdvReac Unknown Vomiting Verified 05/02/18 16:21 phenazopyridine AdvReac Unknown Vomiting Verified 05/02/18 16:21 [Phenazopyridine] tramadol AdvReac Unknown Vomiting Verified 05/02/18 16:21 hydrocodone AdvReac Itching Verified 04/23/18 09:19 All systems ED: reviewed and negative except as stated. 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 Absent: miosis - ENT ENT exam: normal exam, mucous membranes moist - Neck Neck exam: Present: normal inspection - Chest Chest inspection: Present: normal inspection, symmetric chest wall rise - Respiratory Respiratory exam: Present: normal lung sounds bilaterally. Absent: respiratory distress - Cardiovascular Cardiovascular exam: Present: regular rate, normal rhythm. Absent: systolic murmur - Abdominal Exam Abdominal exam: Present: soft, Non-Tender - Extremities Exam Extremities exam: Present: normal inspection. Absent: pedal edema - Expanded Lower Extremity Exam Neurovascular/Tendon exam: Present: normal capillary refill - Back Exam Back exam: Present: normal inspection - Neurological Exam Neurological exam: Present: alert, oriented X3, CN II-XII intact - Expanded Neurological Exam Patient oriented to: Present: person, place, time Speech: Present: fluid speech Cranial nerves: EOM function (II, III, IV, ): Normal, facial sensation (V): Normal, facial palsy (VII): Normal, spinal accessory function (XI): Normal, tongue deviation (XII): Normal Cerebellar function: finger to nose: Normal Motor strength - LUE: 5/5 Motor strength - RUE: 5/5 Motor strength - LLE: 5/5 Motor strength - RLE: 5/5 Coma Scale Eye Opening: Spontaneous Coma Scale Motor Response: Obeys Commands Coma Scale Verbal Response: Oriented Coma Scale Total: 15 - Skin Skin exam: Present: warm, dry, intact, normal color Course Course Narrative: Patient seen and examined. Patient is not a stroke alert is a patient has no neurologic deficits. Patient will get a head CT given her prior history. Patient also given appropriate pain medication basic labs. Disposition likely be admission. - Reevaluation(s) Reevaluation #1: Patient's neuro exam is unchanged. Difficulty obtaining IV access. Will attem pt ultrasound-guided IV. Time: 18:07 Reevaluation #2: Patient seen and examined. Patient received her pain medication. Patient's initial negative head CT for bleed. Given the patient's dizziness as well as leaning to the left side patient will be admitted for possible CVA. Time: 18:50 Vital Signs Temperature 98.4 F 05/02/18 16:15 Pulse Rate 80 05/02/18 16:15 Respiratory Rate 16 05/02/18 16:15 Blood Pressure 160/79 05/02/18 16:15 O2 Sat by Pulse Oximetry 94 05/02/18 16:15 Temperature 98.4 F 05/02/18 16:15 Pulse Rate 75 05/02/18 18:42 Respiratory Rate 16 05/02/18 18:42 Blood Pressure 164/74 05/02/18 18:42 O2 Sat by Pulse Oximetry 94 05/02/18 18:42 Oxygen Delivery Oxygen Delivery Room Air Headache - MDM Narrative Medical decision making narrative: Patient presented for concerns of a headache. Patient did have a headache that occurred 1 hour prior to ED presentation. Patient did meet a six-hour cutoff window with a negative head CT for acute bleed for subarachnoid. Patient does not appear to have a subarachnoid however the patient does have some dizziness as well as feeling like she is following to the left side. Does have a history of CVA in the remote past she states approximately 4-5 years ago. Patient denies any focal weaknesses. On exam the patient has no acute findings. Patient was given some Compazine to help with the headache. Patient had get basic labs and a head CT which showed evidence of chronic microvascular disease. Patient was hypertensive initially upon ED presentation and blood pressure improved with ED evaluation. Patient's symptoms are not necessarily consistent with subarachnoid with a negative head CT was in a six-hour onset of headache. Patient would likely benefit from MRI with vascular neck imaging and optimal medical management. Patient was not a stroke alert. - Lab Data Lab results reviewed: Yes I reviewed the patient's lab results. Result diagrams: 05/02/18 18:01 05/02/18 16:24 Lab Results 05/02/18 05/02/18 05/02/18 Range/Units 16:24 16:35 18:01 WBC 5.6 (4.3-11.1) K/mcL RBC 4.64 (3.82-4.97) M/mcL Hgb 11.6 (11.5-15.4) g/dL Hct 36.0 (35.3-44.9) % MCV 77.6 L (83.0-100.0) fL MCH 25.0 L (28.0-33.3) pg MCHC 32.2 (31.6-35.5) g/dL RDW 14.9 H (11.5-14.5) % Plt Count 168 (140-400) K/mcL MPV 9.7 (9.4-12.4) fL Immature Gran % 0.4 (0-4) % Seg Neutrophils % 57.9 % Lymphocytes % 29.5 % Monocytes % 9.1 % Eosinophils % 2.7 % Basophils % 0.4 % Neutrophils # 3.3 (1.6-8.9) K/mcL Lymphocytes # 1.7 (0.6-4.6) K/mcL Monocytes # 0.5 (0.0-1.3) K/mcL Eosinophils # 0.2 (0.0-0.6) K/mcL Basophils # 0.0 (0.0-0.2) K/mcL Sodium 134 L (136-145) mEq/L Potassium 4.3 (3.5-5.1) mEq/L Chloride 101 (98-107) mEq/L Carbon Dioxide 28 (23-29) mEq/L BUN 15 (8-23) mg/dL Creatinine 0.97 (0.60-1.20) mg/dL Est GFR ( Amer) > 60 (> 60) Est GFR (Non-Af Amer) 57 L (> 60) BUN/Creatinine Ratio 15 (6-26) Glucose 275 H (70-105) mg/dL Calculated Osmolality 289 (280-300) Calcium 9.0 (8.6-10.3) mg/dL Specimen Rejected Clotted - Radiology Data Radiology results reviewed: Yes I reviewed the patient's radiology results. Head CT 05/02/18 16:23 IMPRESSION: 1. No acute intracranial abnormality. 2. Cerebral and cerebellar parenchymal volume loss with chronic microvascular white matter ischemic disease. D/ / Yonatan Alarcon MD / Yonatan Alarcon MD Interpreting Provider: Yonatan Alarcon MD - EKG Data EKG attestation: Yes I reviewed and interpreted this EKG. EKG shows normal: sinus rhythm Rate: normal Rhythm: NSR [place]/QRS: left axis deviation S.B.A.RRenée - S.B.AJanuary Situation: Demographics Background: Presenting Complaint Assessment: Vital Signs, Course and respsone to treatment, Patient/Family Expectation Recommendation: Barrier(s) to disposition, Recommendation based on pending studies, treatments, or consults S.B.A.RRenée Report Given to: Hospitalist Nova Repor Time: 18:58 NIH Stroke Scale - Level of Consciousness LOC: Alert - LOC Questions LOC Questions: Answers both correctly - LOC Commands LOC Commands: Performs both correctly - Best Gaze Best Gaze: Normal - Visual Visual: No visual loss - Facial Palsy Facial Palsy: Normal - Motor Arms Motor Arm-Left: No drift for 10 seconds Motor Arm-Right: No drift for 10 seconds - Motor Legs Motor Leg-Left: No drift for 5 seconds Motor Leg-Right: No drift for 5 seconds - Limb Ataxia Limb Ataxia: Absent of affected limb too weak to perform exam - Sensory Sensory: Normal - Best Language Best Language: No aphasia - Dysarthria Dysarthria: Normal - Extinction and Inattention Extinction and Inattention: Normal - NIHSS Total Score NIHSS Total Score: 0
[2018-05-02 17:29] LABS: BUN/Creatinine Ratio 15 (6-26); Blood Urea Nitrogen 15 mg/dL (8-23); Carbon Dioxide 28 mEq/L (23-29); Chloride 101 mEq/L (98-107); Glucose 275 mg/dL (70-105); Osmolality,Calculated 289 (280-300); Potassium 4.3 mEq/L (3.5-5.1); Sodium 134 mEq/L (136-145); eGFR For Non-African Americans 57 (> 60)
[2018-05-02 18:35] LABS: Basophils % 0.4 %; Eosinophils # 0.2 K/mcL (0.0-0.6); Eosinophils % 2.7 %; Hemoglobin 11.6 g/dL (11.5-15.4); Immature Granulocytes % 0.4 % (0-4); Lymphocytes # 1.7 K/mcL (0.6-4.6); Lymphocytes % 29.5 %; Mean Corpuscular HGB Conc 32.2 g/dL (31.6-35.5); Mean Corpuscular Volume 77.6 fL (83.0-100.0); Mean Platelet Volume 9.7 fL (9.4-12.4); Monocytes # 0.5 K/mcL (0.0-1.3); Monocytes % 9.1 %; Neutrophils # 3.3 K/mcL (1.6-8.9); Platelet Count 168 K/mcL (140-400); Red Blood Count 4.64 M/mcL (3.82-4.97); Red Cell Distribution Width 14.9 % (11.5-14.5); Segmented Neutrophils % 57.9 %
[2018-05-02] MEDS ORDERED: Aspirin 325 MG TABLET PO ONE (18:47)
[2018-05-02] MEDS ORDERED: Naloxone 0.4 MG/ML INJ IVP PRN (20:33)
--- NOTE | 2018-05-02 20:39 | Internal Med History&Physical ---
Date of Encounter: 05/02/18 Time of Encounter: 21:45 Internal Medicine - H&P: HPI Chief complaint: CVA Admitted From: Emergency Dept History of present illness: Ms. Ordoñez is a 68 year old female Patient presented to the emergency room for evaluation of headache, which had a sudden onset about an hour prior to her presentation. Headache focal to the back of her head and sharp in nature. She also reported some dizziness as if the room was spinning around her. She has a history of CVA in the past that presented with slurred speech, facial droop and right side leaning that occurred 4-5 years ago. In the emergency room patient was evaluated and demonstrated no neurological deficits. Her CBC showed MCV of 77.6 otherwise within normal limits. BMP showed baseline chronic kidney disease stage III and elevated glucose of 275. Head CT showed no acute intracranial abnormality, but did demonstrate cerebral and cerebellar parenchymal volume loss with chronic microvascular white matter ischemic disease. Patient was given a dose of aspirin, as well as Compazine for her nausea. She was also started on IV fluid bolus and admitted to the hospital for further observation. On my evaluation patient states that her headache is much improved. She said it started about 3 PM in the afternoon had noted that she was starting to fall towards her left which is unusual for her. After her previous stroke she was falling to the right. She is also noticed struggling with word finding. Her convinced her to come to the hospital. Currently her headache is improved but she has some slight nausea, but no vomiting. She denies diarrhea, constipation, chest pain abdominal pain. She also denies vision changes. Past Med Surg Social Fam HX - Past Medical History Medical history: COPD, CVA, diabetes, hyperlipidemia, hypertension, myocardial infarction, renal disease, other Additional medical history: broke right ankle Psychiatric history: anxiety, depression - Past Surgical History Surgical History: appendectomy, cholecystectomy, hysterectomy, thyroidectomy, ureteral stent, other Additional surgical history: bladder surgery, TRACH - Social History Smoking Status: Former smoker Smokeless Tobacco Status: No Alcohol use: none, occasionally Drug use: none - Family History Father Hx Family Cardiac Disorders: Yes (AAA) Hx Family Endocrine Disorder: Yes (DM) Mother Adopted: No Living Status: Hx Family Cardiac Disorders: Yes (HTN) Hx Family Cancer: Yes (Colon) Internal Medicine - H&P: Meds Duloxetine HCl [Cymbalta] 60 mg PO BID 12/05/14 [History] Insulin ASPART [NovoLOG] 10 - 24 unit SQ TID 12/05/14 [History] Atorvastatin Calcium [Lipitor] 10 mg PO HS 09/17/15 [History] Pantoprazole Sodium [Protonix] 40 mg PO DAILY 09/18/16 [History] Ergocalciferol (VITAMIN D2) [Vitamin D2] 50,000 unit PO CAMPOS 02/19/18 [History] Gabapentin [Neurontin] 300 mg PO HS 02/19/18 [History] Mirabegron [Myrbetriq] 50 mg PO DAILY 02/19/18 [History] metFORMIN [Glucophage] 500 mg PO BIDWM 02/19/18 [History] Insulin Degludec [Tresiba Flextouch U-100] 110 unit SQ QAM 05/02/18 [History] Allergy/AdvReac Type Severity Reaction Status Date / Time ampicillin Allergy Unknown See Verified 05/02/18 16:21 Comments Cortisone Allergy Unknown Hives Verified 05/02/18 16:21 Oxycodone Allergy Unknown Hives Verified 05/02/18 16:21 Penicillins Allergy Unknown See Verified 05/02/18 16:21 Comments Sulfa (Sulfonamide Allergy Unknown See Verified 05/02/18 16:21 Antibiotics) Comments ciprofloxacin AdvReac Unknown Rash Verified 05/02/18 16:21 codeine AdvReac Unknown Itching Verified 05/02/18 16:21 Hydromorphone AdvReac Unknown Vomiting Verified 05/02/18 16:21 phenazopyridine AdvReac Unknown Vomiting Verified 05/02/18 16:21 [Phenazopyridine] tramadol AdvReac Unknown Vomiting Verified 05/02/18 16:21 hydrocodone AdvReac Itching Verified 04/23/18 09:19 All Systems PM: A 10-system review of systems was performed and is negative for pertinent findings except as documented above in the HPI. - Constitutional Vitals: Temp Pulse Resp BP Pulse Ox 98.4 F 82 16 176/92 95 05/02/18 16:15 05/02/18 20:20 05/02/18 20:20 05/02/18 20:20 05/02/18 20:16 General appearance: Present: cooperative, A&O X 3, pleasant, no acute distress, answers questions appropriately Exam: - - Head Head exam: Present: normal inspection - Eye Eye exam: Present: EOMI, normal appearance - Neck Neck exam general surgery: Present: full ROM. Absent: tenderness - Respiratory Respiratory exam: Present: CTAB. Absent: decreased breath sounds, respiratory distress, wheezes - Cardiovascular Cardiovascular exam: Present: RRR. Absent: diastolic murmur, systolic murmur - GI/Abdominal GI/Abdominal exam: Present: normal bowel sounds, soft. Absent: tenderness - Extremities Exam Extremities exam: Present: warm, radial pulses palpable and symmetrical. Absent : calf tenderness, pedal edema, tenderness - Neurological Exam Neurological exam: Present: no focal deficits. Absent: strengths equal and symetr throughout, facial droop, speech deficit Additional comments: Left-sided weakness upper and lower extremity greater than right. No facial droop. - Skin Skin exam: Present: dry, normal color, warm Internal Med - H&P Results - Labs CBC & Chem 7: 05/02/18 18:01 05/02/18 16:24 Labs: Short CBC 05/02/18 Range/Units 18:01 WBC 5.6 (4.3-11.1) K/mcL Hgb 11.6 (11.5-15.4) g/dL Hct 36.0 (35.3-44.9) % Plt Count 168 (140-400) K/mcL Neutrophils # 3.3 (1.6-8.9) K/mcL BMP 05/02/18 16:24 Sodium 134 L Potassium 4.3 Chloride 101 Carbon Dioxide 28 BUN 15 Creatinine 0.97 Glucose 275 H Calcium 9.0 - Impressions ITS Impressions Head CT 05/02/18 16:23 IMPRESSION: 1. No acute intracranial abnormality. 2. Cerebral and cerebellar parenchymal volume loss with chronic microvascular white matter ischemic disease. D/ / 05/02/2018 18:09:41 Yonatan Alarcon MD / lennie Interpreting Provider: Yonatan Alarcon MD - Assessment and plan (1) CVA (cerebral vascular accident) Current Visit: Yes Status: Acute Assessment and plan: Patient demonstrates left-sided weakness. CT head showed no acute intracranial abnormality. Patient's brain MRI performed this evening also showed no acute infarct. Patient's last echocardiogram was 2 years ago. Echocardiogram in the morning Carotid Dopplers PT OT consultation Neurology consultation Speech therapy consultation Continue aspirin Continue statin Qualifiers: CVA mechanism: unspecified Qualified Code(s): I63.9 - Cerebral infarction, unspecified (2) Headache Current Visit: Yes Status: Acute Assessment and plan: Improved after interventions in the emergency room. Continue to monitor Qualifiers: Headache type: unspecified Headache chronicity pattern: unspecified pattern Intractability: not intractable Qualified Code(s): R51 - Headache (3) Hyperglycemia due to type 2 diabetes mellitus Current Visit: No Status: Acute Assessment and plan: Diabetic diet Insulin sliding scale as needed Monitor blood sugars with meals and at night Qualifiers: Diabetes mellitus rat exterminator insulin use: with rat exterminator use Qualified Code(s): E11.65 - Type 2 diabetes mellitus with hyperglycemia; Z79.4 - long-term (current) use of insulin (4) DVT prophylaxis Current Visit: No Status: Acute Assessment and plan: Subcutaneous heparin - Time Spent With Patient Total time spent is greater than 50% in coordination of care (as documented) at patient's floor/unit and/or counseling patient: Greater than 35 minutes
[2018-05-03] MEDS ORDERED: D5% in Water 1,000 ML IVC PRN (00:49)
[2018-05-03] MEDS ORDERED: Dextrose Gel 15 GM/37.5 ML TUBE PO PRN ×2 (00:49)
[2018-05-03] MEDS ORDERED: *HR* Dextrose 50 % in Water (Syg) 50 ML SYRINGE IVP PRN (00:49)
[2018-05-03 03:38] LABS: BUN/Creatinine Ratio 14 (6-26); Blood Urea Nitrogen 14 mg/dL (8-23); Calcium 8.6 mg/dL (8.6-10.3); Carbon Dioxide 26 mEq/L (23-29); Chloride 105 mEq/L (98-107); Glucose 257 mg/dL (70-105); Osmolality,Calculated 295 (280-300); Potassium 3.7 mEq/L (3.5-5.1); Sodium 138 mEq/L (136-145); eGFR For Non-African Americans 55 (> 60)
[2018-05-03] MEDS: *HR* Heparin 5,000 UNIT/ML VIAL SQ SCH ×2 (05:57→17:05)
[2018-05-03 06:25] LABS: Hematocrit 34.7 % (35.3-44.9); Mean Corpuscular HGB Conc 31.7 g/dL (31.6-35.5); Mean Corpuscular Hemoglobin 24.9 pg (28.0-33.3); Mean Corpuscular Volume 78.5 fL (83.0-100.0); Mean Platelet Volume 9.4 fL (9.4-12.4); Platelet Count 153 K/mcL (140-400); Red Blood Count 4.42 M/mcL (3.82-4.97)
[2018-05-03] MEDS: Insulin LISPRO 300 UNITS/3 ML VIAL SQ SCH ×3 (09:22→17:05)
[2018-05-03] MEDS: Aspirin 81 MG TAB.CHEW PO SCH (09:25)
[2018-05-03] MEDS: Nystatin POWDER 30 GM BOTTLE TP SCH ×2 (11:27→20:01)
--- NOTE | 2018-05-03 12:51 | Neurology - Consult Note ---
Date of Encounter: 05/03/18 Time of Encounter: 12:45 Assessment and Plan (1) Vascular headache, not intractable Current Visit: Yes Status: Acute Patient does not give her profound history of recurrent headaches that are severe. I do believe that this was a vascular type headache likely migraine, provoked by uncontrolled hypertension. She is doing much better now and neuroimaging although revealed abnormalities on the MRI did not reveal evidence of an acute infarct. Her metabolic profile other than the hyponatremia and hyperglycemia is fairly unremarkable. Carotid Doppler study and echocardiogram were unremarkable. Although I believe that this was simply a symptomatic headache due to uncontrolled hypertension, I would recommend obtaining a CTA scan of the brain in order to rule out the outside chance of an aneurysm. He mentions that her father had an aneurysm. I will reevaluate her tomorrow. History of Present Illness HPI: The chart was reviewed, the patient was seen and examined personally. Ms. Ordoñez is a 68 year old female who is seen for neurologic consultation secondary to headache and dizziness. The headache and dizziness onset suddenly yesterday while at home. She denies doing anything out of the ordinary. She states that she was simply walking from one room to the other. She experienced a very intense headache in the occipital nuchal region. She denied any recent changes, numbness tingling or paresthesias of the face arms or legs. She did feel "dizzy however denies vertigo. She felt as though she was "falling to the left". Upon arrival to the ED she was hypotensive, with 204/98 being the highest recorded blood pressure since admission. She has had a series of testing including laboratory work which revealed her to be slightly hyponatremic sodium 134, and glucose was elevated at 275. Otherwise her glucose, electrolytes panel, BUN/creatinine CBC with differential were fairly unremarkable. MRI scan of the brain did reveal significant deep white matter hyperintensities consistent with lacunar infarcts, there is an old left cerebellar lacunar infarct and si gnificant right matter changes in the reta were also present. There is some cortical atrophy and small chronic infarct in the left parietal lobe. She states that she felt somewhat nauseated, but does not vomit. Her symptoms are improved with Compazine which helped a headache and nausea. She feels much better now. Past Med Surg Social Fam HX - Past Medical History Medical history: COPD, CVA, diabetes, hyperlipidemia, hypertension, myocardial infarction, renal disease, other Additional medical history: broke right ankle Psychiatric history: anxiety, depression - Past Surgical History Surgical History: appendectomy, cholecystectomy, hysterectomy, thyroidectomy, ureteral stent, other Additional surgical history: bladder surgery, TRACH - Social History Smoking Status: Former smoker Smokeless Tobacco Status: No Alcohol use: none, occasionally Drug use: none - Family History Father Hx Family Cardiac Disorders: Yes (AAA) Hx Family Endocrine Disorder: Yes (DM) Mother Adopted: No Living Status: Hx Family Cardiac Disorders: Yes (HTN) Hx Family Cancer: Yes (Colon) Medications and Allergies Duloxetine HCl [Cymbalta] 60 mg PO BID 12/05/14 [History] Insulin ASPART [NovoLOG] 10 - 24 unit SQ TID 12/05/14 [History] Atorvastatin Calcium [Lipitor] 10 mg PO HS 09/17/15 [History] Pantoprazole Sodium [Protonix] 40 mg PO DAILY 09/18/16 [History] Ergocalciferol (VITAMIN D2) [Vitamin D2] 50,000 unit PO CAMPOS 02/19/18 [History] Gabapentin [Neurontin] 300 mg PO HS 02/19/18 [History] Mirabegron [Myrbetriq] 50 mg PO DAILY 02/19/18 [History] metFORMIN [Glucophage] 500 mg PO BIDWM 02/19/18 [History] Insulin Degludec [Tresiba Flextouch U-100] 110 unit SQ QAM 05/02/18 [History] Allergy/AdvReac Type Severity Reaction Status Date / Time ampicillin Allergy Unknown See Verified 05/02/18 16:21 Comments Cortisone Allergy Unknown Hives Verified 05/02/18 16:21 Oxycodone Allergy Unknown Hives Verified 05/02/18 16:21 Penicillins Allergy Unknown See Verified 05/02/18 16:21 Comments Sulfa (Sulfonamide Allergy Unknown See Verified 05/02/18 16:21 Antibiotics) Comments ciprofloxacin AdvReac Unknown Rash Verified 05/02/18 16:21 codeine AdvReac Unknown Itching Verified 05/02/18 16:21 Hydromorphone AdvReac Unknown Vomiting Verified 05/02/18 16:21 phenazopyridine AdvReac Unknown Vomiting Verified 05/02/18 16:21 [Phenazopyridine] tramadol AdvReac Unknown Vomiting Verified 05/02/18 16:21 hydrocodone AdvReac Itching Verified 04/23/18 09:19 All Systems: The remainder of the systems were reviewed and are negative Review of Systems: The balance of the systems review is negative. Physical Examination - Vital Signs Vital Signs: Initial Vital Signs Temp Pulse Resp BP Pulse Ox 98.4 F 80 16 160/79 94 05/02/18 16:15 05/02/18 16:15 05/02/18 16:15 05/02/18 16:15 05/02/18 16:15 - Neurologic Detailed motor examination: other (No focal or lateralized deficits are present. There is some giveaway weakness of the shoulder girdle.) Detailed sensory examination: other (There is decreased sensation to pinprick in a distal to proximal gradient.) Reflex and gait examination: other (Deep tendon reflexes are diminished of the upper and lower extremities throughout. No long tract signs are present. No ankle clonus is present.) Mental Status Examination: awake, alert, oriented to person, oriented to place, oriented to time, follows commands appropriately, answers questions appropriately, no agnosia, no aphasia, no aproxia Cranial nerve examination: PERRL, EOMI, visual rothman intact, corneal reflexes brisk symmetrically, sensory to face intact, mastication intact, no facial asymmetry is present, no dysarthria, hearing is intact symmetrically, soft palate elevates bilaterally upon phonation, tongue protrudes midline Cerebellar examination: no dysmetria, performs finger to nose and heel to alvarez symmetrically without ataxia Results - Laboratory Findings CBC and BMP: 05/03/18 06:07 05/03/18 03:05 Abnormal lab findings: Abnormal lab results Hgb 11.0 g/dL (11.5-15.4) L 05/03/18 06:07 Hct 34.7 % (35.3-44.9) L 05/03/18 06:07 MCV 78.5 fL (83.0-100.0) L 05/03/18 06:07 MCH 24.9 pg (28.0-33.3) L 05/03/18 06:07 RDW 15.0 % (11.5-14.5) H 05/03/18 06:07 Est GFR (Non-Af Amer) 55 (> 60) L 05/03/18 03:05 Glucose 257 mg/dL (70-105) H 05/03/18 03:05 Consult Discharge Plan - Plan Referrals: Kiel Watkins MD [Primary Care Provider] -
[2018-05-03] MEDS ORDERED: Isovue-370 500 ML INFUS..BTL IV ONE (13:02)
--- NOTE | 2018-05-03 13:15 | Internal Med Progress Note ---
Hospitalist Progress Note - Encounter Date of Encounter: 05/03/18 Time of Encounter: 13:12 - Subjective Interval History: I evaluated patient earlier today. She had come to the ER with complaints of sudden onset severe headache radiating from her posterior head up to the front. She does not have that severe headache anymore. She also has had resolution of weakness in her left upper and lower extremity. She reports that she mainly felt like she was falling towards her left side but not did not perceive any focal weakness. She denies any vision changes. No nausea or vomiting. Denies a history of migraine headaches or recurrent episodes of headaches. - Exam Vitals: Temp Pulse Resp BP Pulse Ox 98.6 F 90 17 157/76 97 05/03/18 12:00 05/03/18 13:10 05/03/18 12:00 05/03/18 13:10 05/03/18 12:00 Exam: General: Patient is alert, no acute distress, oriented x 3 Respiratory: Good respiratory effort. Normal breath sounds. No wheezing or crackles. Cardiovascular: Regular rate and rhythm. s1 and s2 normal No clicks, rubs, gallops, or murmurs. No pedal edema Abdomen: Abdomen is soft, nontender. Bowel sounds are present Musculoskeletal: Spontaneously moving all extremities Skin: warm, dry, intact. Neuro: Alert oriented x 3 normal cranial nerves, patient reports decreased sensation on the left side of her face compared to the right. Normal strength in all 4 extremities. no focal deficits - Assessment and Plan (1) Elevated blood pressure reading Current Visit: Yes Status: Acute Assessment and Plan: Patient has elevated blood pressure. Has not been on any medications for hypertension at home. We will start her on lisinopril as her uncontrolled blood pressure may have caused her headache. Blood pressure was 190/83 this afternoo n. We will also place her on intravenous hydralazine. (2) CVA (cerebral vascular accident) Current Visit: Yes Status: Ruled-out Assessment and Plan: MRI negative for any acute stroke. Neurology consult appreciated. (3) Vascular headache, not intractable Current Visit: Yes Status: Acute Assessment and Plan: Patient reports symptoms of sudden onset headache which could be migraine or due to uncontrolled hypertension. Neurology consult appreciated. We will await CT angiogram per the recommendations. Continue symptomatic treatment. PTOT consultation to evaluate. (4) DVT prophylaxis Current Visit: No Status: Acute Assessment and Plan: On subcutaneous heparin (5) Diabetes Current Visit: Yes Status: Chronic Assessment and Plan: Patient is blood sugars were 136 this morning. We will continue sliding scale insulin and adjust insulin regimen accordingly. Patient is a Tresiba at home. We will resume this medication aS patient reports poor response to Levemir. DVT Prophylaxis: On subcutaneous heparin - Time Spent with Patient Total time spent is greater than 50% in coordination of care (as documented) at patient's floor/unit and/or counseling patient: Internal Medicine: Result - Labs CBC & Chem 7: 05/03/18 06:07 05/03/18 03:05 Labs: Short CBC 05/02/18 05/03/18 Range/Units 18:01 06:07 WBC 5.6 4.7 (4.3-11.1) K/mcL Hgb 11.6 11.0 L (11.5-15.4) g/dL Hct 36.0 34.7 L (35.3-44.9) % Plt Count 168 153 (140-400) K/mcL Neutrophils # 3.3 (1.6-8.9) K/mcL BMP 05/02/18 05/03/18 16:24 03:05 Sodium 134 L 138 Potassium 4.3 3.7 Chloride 101 105 Carbon Dioxide 28 26 BUN 15 14 Creatinine 0.97 1.00 Glucose 275 H 257 H Calcium 9.0 8.6 - Impressions Impressions Head CT 05/02/18 16:23 IMPRESSION: 1. No acute intracranial abnormality. 2. Cerebral and cerebellar parenchymal volume loss with chronic microvascular white matter ischemic disease. D/ / 05/02/2018 18:09:41 Yonatan Alarcon MD / lennie Interpreting Provider: Yonatan Alarcon MD Brain MRI 05/02/18 20:34 IMPRESSION: No acute infarct. D/ / Arjun Maynard MD / Arjun Maynard MD Interpreting Provider: Arjun Maynard MD Echocardiogram 05/03/18 01:36 Impressions: LVEF 65-70%. Normal LV chamber size, wall thickness and systolic function. Indeterminate diastolic function. Normal right ventricular structure and function. No significant valvular dysfunction. No evidence of pulmonary hypertension. Non-diagnostic of PFO with agitated saline contrast. Left Ventricular Wall Motion: Rest Echo Findings All wall segments showed normal motion. Findings: ECG Findings * Normal sinus rhythm. Study Quality * Technically sub-optimal due to clinical status, no TDI.. Left Ventricle * LVEF 65-70%. * Normal LV chamber size, wall thickness and systolic function. * Indeterminate diastolic function. Right Ventricle * Normal right ventricular structure and function. Left Atrium * Normal left atrial size. Right Atrium * Normal right atrial size. Interatrial Septum * Non-diagnostic of PFO with agitated saline contrast. * No evidence of PFO by color Doppler. Aortic Valve * Moderately calcified aortic valve leaflets. * No aortic stenosis. * No aortic regurgitation. Mitral Valve * Moderately calcified mitral valve leaflets. * No mitral stenosis. * No mitral regurgitation. Tricuspid Valve * Normal tricuspid valve structure. * No tricuspid stenosis. * Trace tricuspid regurgitation. * Unable to estimate RVSP due to lack of TR jet. * No evidence of pulmonary hypertension. * Estimated RA pressure is 3 mmHg. Pulmonic Valve * Pulmonic valve is not well visualized. * No pulmonic stenosis. * Trace pulmonic regurgitation. Aorta * Normally sized aortic root. Pericardium * The pericardium appears normal. IVC * Normal IVC dimensions and inspiratory collapse. 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
[2018-05-03] MEDS ORDERED: Insulin LISPRO 300 UNITS/3 ML VIAL SQ SCH (21:00)
[2018-05-03] MEDS ORDERED: MYRBETRIQ 50 MG TABLET PO SCH (21:00)
[2018-05-03] MEDS ORDERED: Gabapentin 300 MG CAPSULE PO SCH (21:00)
[2018-05-04] MEDS: *HR* Heparin 5,000 UNIT/ML VIAL SQ SCH (05:25)
[2018-05-04 07:41] VITALS: BP 149/82
[2018-05-04] MEDS: Aspirin 81 MG TAB.CHEW PO SCH (08:39)
[2018-05-04] MEDS: Nystatin POWDER 30 GM BOTTLE TP SCH (08:40)
[2018-05-04] MEDS: Insulin LISPRO 300 UNITS/3 ML VIAL SQ SCH ×2 (08:41→12:38)
[2018-05-04] MEDS ORDERED: TRESIBA FLEXTOUCH 200 UNITS/ML SQ SCH (09:00)
[2018-05-04] MEDS ORDERED: Acetaminophen 325 MG TABLET PO PRN (12:58)
--- NOTE | 2018-05-04 13:46 | Discharge Summary ---
- NOTES TO OUTPATIENT PROVIDER Notes to Outpatient Provider: Patient with history of COPD, diabetes, hypertension, prior CVA who presented to the ER with complaints of severe headache of sudden onset along with weakness resulting in her falling towards her left side with ambulation. She was evaluated in the ER and hospitalized for further workup with concern for stroke. She had an MRI of the brain which did not show any acute stroke. Neurology was consulted for her headache. Neurology recommended doing a CT angiogram to rule out any aneurysm. CT of the head was done which did not show any aneurysm. Patient does have vertebral artery stenosis. Patient's headache has now resolved. Does not have any focal weakness. Clinically, she is stable to be discharged home. She will follow up with neurology after discharge for further management of her headaches which appear to be vascular in nature. Patient also has uncontrolled hypertension and has been placed on lisinopril. She will follow up with her primary care provider for further management of this condition. Date of Encounter: 05/04/18 Time of Encounter: 13:44 - Discharge Diagnosis (1) Vascular headache, not intractable Priority: Primary Status: Acute (2) Essential hypertension Priority: Secondary Status: Chronic (3) Elevated blood pressure reading Priority: Secondary Status: Acute (4) CVA (cerebral vascular accident) Priority: Secondary Status: Ruled-out Qualifiers: CVA mechanism: unspecified Qualified Code(s): I63.9 - Cerebral infarction, unspecified (5) DVT prophylaxis Priority: Secondary Status: Acute (6) Diabetes Priority: Secondary Status: Chronic Qualifiers: Diabetes mellitus type: type 2 Diabetes mellitus fci insulin use: with fci use Diabetes mellitus complication status: without complication Qualified Code(s): E11.9 - Type 2 diabetes mellitus without complications; 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 Ordoñez is a 68 year old female Patient with history of COPD, diabetes, hypertension, prior CVA who presented to the ER with complaints of severe headache of sudden onset along with weakness resulting in her falling towards her left side with ambulation. She was evaluated in the ER and hospitalized for further workup with concern for stroke. She had an MRI of the brain which did not show any acute stroke. Neurology was consulted for her headache. Neurology recommended doing a CT angiogram to rule out any aneurysm. CT of the head was done which did not show any aneurysm. Patient does have vertebral artery stenosis. Patient's headache has now resolved. Does not have any focal weakness. Clinically, she is stable to be discharged home. She will follow up with neurology after discharge for further management of her headaches which appear to be vascular in nature. Patient also has uncontrolled hypertension and has been placed on lisinopril. She will follow up with her primary care provider for further management of hypertension. Discharge discussed with: patient, family - Time Spent with Patient Total time spent providing and/or coordinating discharge services: Less than 30 minutes (25 min) - Discharge Medications Prescriptions: Aspirin Enteric Coated [Aspirin EC] 81 mg PO DAILY #30 tablet. Lisinopril [Zestril] 5 mg PO DAILY #30 tablet Nystatin POWDER [Nystop] 1 appl TP BID #1 bottle Home Medications: Duloxetine HCl [Cymbalta] 60 mg PO BID 12/05/14 [History] Insulin ASPART [NovoLOG] 10 - 24 unit SQ TID 12/05/14 [History] Atorvastatin Calcium [Lipitor] 10 mg PO HS 09/17/15 [History] Pantoprazole Sodium [Protonix] 40 mg PO DAILY 09/18/16 [History] Ergocalciferol (VITAMIN D2) [Vitamin D2] 50,000 unit PO CAMPOS 02/19/18 [History] Gabapentin [Neurontin] 300 mg PO HS 02/19/18 [History] Mirabegron [Myrbetriq] 50 mg PO DAILY 02/19/18 [History] metFORMIN [Glucophage] 500 mg PO BIDWM 02/19/18 [History] Insulin Degludec [Tresiba Flextouch U-100] 110 unit SQ QAM 05/02/18 [History] Aspirin Enteric Coated [Aspirin EC] 81 mg PO DAILY #30 tablet. 05/04/18 [Rx] Lisinopril [Zestril] 5 mg PO DAILY #30 tablet 05/04/18 [Rx] Nystatin POWDER [Nystop] 1 appl TP BID #1 bottle 05/04/18 [Rx] Allergies/Adverse Reactions: Allergy/AdvReac Type Severity Reaction Status Date / Time ampicillin Allergy Unknown See Verified 05/02/18 16:21 Comments Cortisone Allergy Unknown Hives Verified 05/02/18 16:21 Oxycodone Allergy Unknown Hives Verified 05/02/18 16:21 Penicillins Allergy Unknown See Verified 05/02/18 16:21 Comments Sulfa (Sulfonamide Allergy Unknown See Verified 05/02/18 16:21 Antibiotics) Comments ciprofloxacin AdvReac Unknown Rash Verified 05/02/18 16:21 codeine AdvReac Unknown Itching Verified 05/02/18 16:21 Hydromorphone AdvReac Unknown Vomiting Verified 05/02/18 16:21 phenazopyridine AdvReac Unknown Vomiting Verified 05/02/18 16:21 [Phenazopyridine] tramadol AdvReac Unknown Vomiting Verified 05/02/18 16:21 hydrocodone AdvReac Itching Verified 04/23/18 09:19 Date of admission: 05/02/18 19:34 Primary care physician: Kiel Watkins MD Consults: 05/03/18 00:43 Consult to Neurology [CONS] Routine Consulting Provider: Neurology [facility] Reason for Consult: CVA, history of strokes in the past. Currently feeling weak to the left and struggling with word finding. Call Completed: No 05/03/18 00:46 Consult to Speech Therapy [CONS] Routine Comment: Evaluate, develop and implement POC Reason for Consult: CVA, having difficulty with word finding. Denies issues with swallowing. Passed bedside swallow evaluation. Call Completed: No Discharging clinician: Vashti Yadav Anticipated date of discharge: 05/04/18 - Constitutional Vitals: Temp Pulse Resp BP Pulse Ox 98.2 F 79 16 149/82 95 05/04/18 07:31 05/04/18 07:31 05/04/18 07:31 05/04/18 07:31 05/04/18 07:31 General appearance: Present: cooperative, A&O X 3, pleasant, no acute distress, answers questions appropriately Exam: . - Respiratory Respiratory exam: Present: CTAB. Absent: accessory muscle use, rales, rhonchi, wheezes - Cardiovascular Cardiovascular exam: Present: RRR, +S1, +S2. Absent: diastolic murmur, gallop, rubs, systolic murmur - GI/Abdominal GI/Abdominal exam: Present: normal bowel sounds, soft, no peritoneal signs. Absent: distended, tenderness - Patient Status Disposition: Home, Self-Care Condition: Good Functional capacity at discharge: independent ambulation Overall status at discharge: patient is progressing back to baseline - Discharge Instructions Instructions: Chronic Hypertension (DC) Follow Up With: Kiel Watkins MD [Primary Care Provider] - (in 1-2 weeks) Dwaine Antonio DO [Partnered Physician] - (in 1-2 weeks) - Diet and Activity Activity: increase activity as tolerated Diet: diabetic diet, low fat, low cholesterol, low salt diet
--- NOTE | 2018-05-06 15:14 | Electrocardiograph Report ---
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
--- NOTE | 2018-05-07 11:35 | Electrocardiograph Report ---
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
== END 2018-05-04 15:40 | disposition home or self-care (01) ==
LOC: EMEROOARM 16:09 → 2NENU 16:09
PROVIDERS: ADMIT Internal Medicine; ATTEND Internal Medicine

== ENCOUNTER 2018-12-31 20:03 | Inpatient (IN) ==
[2018-12-31] MEDS ORDERED: Ondansetron 4 MG/2 ML VIAL IVP ONE (20:55)
[2018-12-31] MEDS ORDERED: *HR* FentaNYL (PF) 100 MCG/2 ML VIAL IVP ONE (20:58)
[2018-12-31] MEDS ORDERED: Isovue-370 500 ML BOTTLE IVP ONE (20:58)
--- NOTE | 2018-12-31 21:19 | Emergency Department Note ---
Disposition Clinical Impression: Pyelonephritis of left kidney Disposition: Admitted As Inpatient Condition: Good Referrals: Kiel Watkins MD [Primary Care Provider] - Forms: ED Satisfaction Letter, Work/School Release Time of Disposition: 23:39 General Adult HPI - General Chief complaint: ED General Medical Stated complaint: L Flank Pain Time Seen by Provider: 12/31/18 20:16 Source: patient, family Mode of arrival: private vehicle Limitations: physical limitation Nursing Notes Reviewed: Yes Vital Signs Reviewed: Yes - History of Present Illness HPI Narrative: 68-year-old female that was recently diagnosed with possible UTI, but was told to wait until she hears from her primary care physician to start any antibiotics. Patient presents with bilateral flank pain that has been worsening for the last week. Patient was seen by her primary care physician who gave her prescription for Macrobid but told her not to start taking until culture results were available. Patient is also reporting some nausea, anorexia, suprapubic a bdominal pain. Patient denies hematuria that she knows of. Patient denies fevers or chills. Pain Scale: 8 - Related Data Home Medications Medication Instructions Recorded Confirmed Duloxetine HCl [Cymbalta] 60 mg PO BID 12/05/14 12/31/18 Insulin ASPART [NovoLOG] 10 - 24 unit SQ BID 12/05/14 12/31/18 Pantoprazole Sodium [Protonix] 40 mg PO DAILY 09/18/16 12/31/18 Ergocalciferol (VITAMIN D2) 50,000 unit PO CAMPOS 02/19/18 12/31/18 [Vitamin D2] Gabapentin [Neurontin] 300 mg PO HS 02/19/18 12/31/18 Mirabegron [Myrbetriq] 50 mg PO DAILY 02/19/18 12/31/18 metFORMIN [Glucophage] 1,000 mg PO BID 02/19/18 12/31/18 Insulin Degludec [Tresiba 86 unit SQ QAM 05/02/18 12/31/18 Flextouch U-100] Atorvastatin Calcium [Lipitor] 1 tab PO DAILY 08/05/18 12/31/18 Clotrimazole 1% CRM 1 appl .ROUTE BID 08/05/18 12/31/18 Doxylamine Succinate [Unisom] 1 tab PO HS 08/05/18 12/31/18 Topiramate [Topamax] 25 mg PO DAILY 09/26/18 12/31/18 Clopidogrel [Plavix] 75 mg PO DAILY 10/30/18 12/31/18 Previous Rx's Medication Instructions Recorded Aspirin Enteric Coated [Aspirin EC] 81 mg PO DAILY #30 tablet. 05/04/18 Lisinopril [Zestril] 5 mg PO DAILY #30 tablet 05/04/18 Metoprolol XL (24 HR) Succ [Toprol 25 mg PO DAILY #30 tab.er.24h 09/27/18 XL] Allergies Allergy/AdvReac Type Severity Reaction Status Date / Time ampicillin Allergy Unknown See Verified 12/31/18 20:25 Comments Cortisone Allergy Unknown Hives Verified 12/31/18 20:25 oxycodone [Oxycodone] Allergy Unknown Hives Verified 12/31/18 20:25 Penicillins Allergy Unknown See Verified 12/31/18 20:25 Comments Sulfa (Sulfonamide Allergy Unknown See Verified 12/31/18 20:25 Antibiotics) Comments ciprofloxacin AdvReac Unknown Rash Verified 12/31/18 20:25 codeine AdvReac Unknown Itching Verified 12/31/18 20:25 hydromorphone [Hydromorphone] AdvReac Unknown Vomiting Verified 12/31/18 20:25 phenazopyridine AdvReac Unknown Vomiting Verified 12/31/18 20:25 [Phenazopyridine] tramadol AdvReac Unknown Vomiting Verified 12/31/18 20:25 hydrocodone AdvReac Itching Verified 12/31/18 20:25 Review of Systems: In addition to that documented in the HPI above, the additional ROS was obtained: Constitutional: Denies fevers or chills Eyes: Denies vision changes ENMT: Denies sore throat CV: Denies chest pain Resp: Denies SOB GI: Denies vomiting or diarrhea Reports nausea and suprapubic abd pain : Denies painful urination but states she has never had dysuria even when she had "severe UTI's" in the past. MSK: Denies recent trauma Skin: Reports skin itching so bad that she scratches it until it bleeds Neuro: Denies new numbness or tingling or weakness Reports chronic numbness/tingling in her fingers Endocrine: Denies unexpected weight loss Heme: Denies bleeding disorders Past Medical History - Past Medical History Attestation: Yes The following information was validated with the patient. Medical history: Reports: COPD, coronary artery disease, CVA, diabetes, GERD, hyperlipidemia, hypertension, kidney stones, myocardial infarction, renal disease, TIA, other Surgical history: Reports: appendectomy, cataract, cholecystectomy, hysterectomy, orthopedic, other, thyroidectomy, ureteral stent, other Psychiatric history: Reports: anxiety, depression [employer] history: Reports: non-contributory - Social History Smoking Status: Former smoker Smokeless Tobacco Status: No Alcohol use: Reports: none Drug use: Reports: none Physical Exam General: A&O x 3. No acute distress. Appears uncomfortable. Well developed, well nourished. Head: atraumatic, normocephalic. ENT: No conjunctival injection, no scleral icterus. PERRLA. EOMI. Oropharynx non- erythematous. mucous membranes moist. Neuro: No focal deficits, no speech deficit, no facial droop, mentating well. BUE/BLE Str 5/5. Pulm: Lungs CTAB A/P. No wheezes, rales, ronchi. Cardio: RRR no m/r/g. Chest not tender to palpation. Abd: Soft, non-distended. Normoactive bowel sounds. Tender to palpation in suprapubic area specifically, as well as RUQ, and mild diffuse pain. No guarding. Non rigid. Yeast in the fold of her pannus. Back: Pain with palpation of bilateral flanks Extremities: Radial pulses 2+ brianda, dorsalis pedis/posterior tibialis 2+ brianda. No LE edema. No cyanosis, clubbing. Skin: Multiple areas of excoriation consistent with her story of scratching. Psych: Appropriate mood and affect. Answers questions appropriately. Cooperative with exam. - General Limitations: physical limitation General appearance: alert Course Vital Signs Temperature 99.0 F 12/31/18 20:19 Pulse Rate 108 12/31/18 20:19 Respiratory Rate 22 12/31/18 20:19 Blood Pressure 100/52 12/31/18 20:19 O2 Sat by Pulse Oximetry 96 12/31/18 20:19 Temperature 99.0 F 12/31/18 20:19 Pulse Rate 102 12/31/18 22:13 Respiratory Rate 22 12/31/18 20:19 Blood Pressure 103/73 12/31/18 22:13 O2 Sat by Pulse Oximetry 96 12/31/18 20:19 Oxygen Delivery Oxygen Delivery Room Air Medical Decision Making - MDM Narrative Medical decision making narrative: 68-year-old female that presents with concern for bilateral flank pain with possible UTI diagnosed last week without any antibiotics taken. We will obtain CBC, BMP, lipase, LFTs, lactic. We will obtain CT with IV contrast if renal function is sufficient. Disposition pending. 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 Patient was started on 1 g of Rocephin. Urology was consulted who state that they will see the patient in the morning. They had nothing to add to the workup. Patient was admitted to the hospitalist Dr. Tee who agreed to accept the patient to his service. Results of the workup including any imaging and/or labwork was shared with the patient at bedside. Patient was given an opportunity to ask questions at bedside and all of their concerns were addressed. Patient verbalized understanding and agreement with plan of care. Pt remained stable while in the department. On reexamination patient states that her pain had only decreased to a 9 out of 10, from a 10 out of 10. Patient will be given an additional dose of pain control before she leaves the department. - Medical Records Medical records reviewed: Yes I reviewed the patient's medical records. - Lab Data Lab results reviewed: Yes I reviewed the patient's lab results. Result diagrams: 12/31/18 21:15 12/31/18 21:15 Lab Results 12/31/18 12/31/18 12/31/18 Range/Units 21:15 21:15 21:15 WBC 15.4 H (4.3-11.1) K/mcL RBC 4.69 (3.82-4.97) M/mcL Hgb 12.2 (11.5-15.4) g/dL Hct 36.9 (35.3-44.9) % MCV 78.7 L (83.0-100.0) fL MCH 26.0 L (28.0-33.3) pg MCHC 33.1 (31.6-35.5) g/dL RDW 15.6 H (11.5-14.5) % Plt Count 209 (140-400) K/mcL MPV 9.7 (9.4-12.4) fL Immature Gran % 0.7 (0-4) % Seg Neutrophils % 80.2 % Lymphocytes % 10.4 % Monocytes % 8.1 % Eosinophils % 0.3 % Basophils % 0.3 % Neutrophils # 12.4 H (1.6-8.9) K/mcL Lymphocytes # 1.6 (0.6-4.6) K/mcL Monocytes # 1.2 (0.0-1.3) K/mcL Eosinophils # 0.1 (0.0-0.6) K/mcL Basophils # 0.0 (0.0-0.2) K/mcL Sodium 126 L (136-145) mEq/L Potassium 4.4 (3.5-5.1) mEq/L Chloride 94 L (98-107) mEq/L Carbon Dioxide 22 L (23-29) mEq/L BUN 18 (8-23) mg/dL Creatinine 1.45 H (0.60-1.20) mg/dL Est GFR ( Amer) 43 L (> 60) Est GFR (Non-Af Amer) 36 L (> 60) BUN/Creatinine Ratio 12 (6-26) Glucose 227 H (70-105) mg/dL Calculated Osmolality 271 L (280-300) Lactic Acid 1.7 (0.5-2.2) mmol/L Calcium 9.3 (8.6-10.3) mg/dL Total Bilirubin 0.9 (0.3-1.0) mg/dL Direct Bilirubin 0.3 H (0.0-0.2) mg/dL Indirect Bilirubin 0.6 (0.0-1.2) mg/dL AST 17 (13-39) Units/L ALT 10 (7-52) Units/L Alkaline Phosphatase 85 (34-104) Units/L Troponin I < 0.03 (< 0.04) ng/mL Serum Total Protein 7.9 (6.4-8.9) g/dL Albumin 4.0 (3.5-5.7) g/dL Globulin 3.9 H (2.4-3.5) g/dL Albumin/Globulin Ratio 1.0 L (1.1-2.2) Lipase 10 L (11-82) Units/L Urine Color (Yellow) Urine Clarity (Clear) Urine pH (5.0-8.0) pH Units Ur Specific [place] (1.010-1.025) Urine Protein (Neg-Trace) mg/dL Urine Glucose (UA) (Normal) mg/dL Urine Ketones (Negative) mg/dL Urine Blood (Negative) Urine Nitrite (Negative) Urine Bilirubin (Negative) Urine Urobilinogen (Normal) mg/dL Ur Leukocyte Esterase (Negative) Urine Microscopic RBC (0-3) per hpf Urine Microscopic WBC (0-3) per hpf Ur Squamous Epith Cells (None-Few) per lpf Urine Bacteria (None-Few) per hpf Hyaline Casts (None-Few) per lpf Ur Culture Indicated? (NO) Urine Creatinine mg/dL Urine Sodium mEq/L Urine Potassium mEq/L Urine Chloride mEq/L 12/31/18 12/31/18 Range/Units 22:48 22:48 WBC (4.3-11.1) K/mcL RBC (3.82-4.97) M/mcL Hgb (11.5-15.4) g/dL Hct (35.3-44.9) % MCV (83.0-100.0) fL MCH (28.0-33.3) pg MCHC (31.6-35.5) g/dL RDW (11.5-14.5) % Plt Count (140-400) K/mcL MPV (9.4-12.4) fL Immature Gran % (0-4) % Seg Neutrophils % % Lymphocytes % % Monocytes % % Eosinophils % % Basophils % % Neutrophils # (1.6-8.9) K/mcL Lymphocytes # (0.6-4.6) K/mcL Monocytes # (0.0-1.3) K/mcL Eosinophils # (0.0-0.6) K/mcL Basophils # (0.0-0.2) K/mcL Sodium (136-145) mEq/L Potassium (3.5-5.1) mEq/L Chloride (98-107) mEq/L Carbon Dioxide (23-29) mEq/L BUN (8-23) mg/dL Creatinine (0.60-1.20) mg/dL Est GFR ( Amer) (> 60) Est GFR (Non-Af Amer) (> 60) BUN/Creatinine Ratio (6-26) Glucose (70-105) mg/dL Calculated Osmolality (280-300) Lactic Acid (0.5-2.2) mmol/L Calcium (8.6-10.3) mg/dL Total Bilirubin (0.3-1.0) mg/dL Direct Bilirubin (0.0-0.2) mg/dL Indirect Bilirubin (0.0-1.2) mg/dL AST (13-39) Units/L ALT (7-52) Units/L Alkaline Phosphatase (34-104) Units/L Troponin I (< 0.04) ng/mL Serum Total Protein (6.4-8.9) g/dL Albumin (3.5-5.7) g/dL Globulin (2.4-3.5) g/dL Albumin/Globulin Ratio (1.1-2.2) Lipase (11-82) Units/L Urine Color Yellow (Yellow) Urine Clarity Clear (Clear) Urine pH 7.0 (5.0-8.0) pH Units Ur Specific [place] 1.014 (1.010-1.025) Urine Protein Trace (Neg-Trace) mg/dL Urine Glucose (UA) 100 H (Normal) mg/dL Urine Ketones Negative (Negative) mg/dL Urine Blood Negative (Negative) Urine Nitrite Negative (Negative) Urine Bilirubin Negative (Negative) Urine Urobilinogen Normal (Normal) mg/dL Ur Leukocyte Esterase Moderate H (Negative) Urine Microscopic RBC 5-15 H (0-3) per hpf Urine Microscopic WBC 50-100 H (0-3) per hpf Ur Squamous Epith Cells Few (None-Few) per lpf Urine Bacteria None Seen (None-Few) per hpf Hyaline Casts Few (None-Few) per lpf Ur Culture Indicated? YES A (NO) Urine Creatinine 110 mg/dL Urine Sodium 93.4 mEq/L Urine Potassium 86.2 mEq/L Urine Chloride 110 mEq/L - Radiology Data Radiology results reviewed: Yes I reviewed the patient's radiology results. Abdomen/Pelvis CT 12/31/18 20:58 IMPRESSION: Moderate asymmetric left perinephric stranding. There is prominence the left renal pelvis as well as left renal pelvic gas. Thickening of the urothelium of the left renal pelvis and upper left ureter is suspected. 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 Gas within the urinary bladder. Correlation for recent instrumentation is recommended. An infectious etiology is also possible. Left nephrolithiasis. Fatty infiltration of the liver. D/ / Soniya Cervantes Cha, MD / Soniya Cervantes Cha, MD Interpreting Provider: Soniya Cervantes Cha, MD - EKG Data EKG #1 EKG attestation: Yes I reviewed and interpreted this EKG. EKG results narrative: Heart rate 107, rhythm sinus tachycardia, axis normal. Intervals within normal limits. No ST segment elevation or depression noted. When compared with previous EKG dated 05/04/2018 the only significant change is the rate.
[2018-12-31 21:29] LABS: Basophils % 0.3 %; Eosinophils # 0.1 K/mcL (0.0-0.6); Eosinophils % 0.3 %; Hematocrit 36.9 % (35.3-44.9); Hemoglobin 12.2 g/dL (11.5-15.4); Immature Granulocytes % 0.7 % (0-4); Lymphocytes # 1.6 K/mcL (0.6-4.6); Lymphocytes % 10.4 %; Mean Corpuscular HGB Conc 33.1 g/dL (31.6-35.5); Mean Corpuscular Volume 78.7 fL (83.0-100.0); Mean Platelet Volume 9.7 fL (9.4-12.4); Monocytes # 1.2 K/mcL (0.0-1.3); Monocytes % 8.1 %; Neutrophils # 12.4 K/mcL (1.6-8.9); Platelet Count 209 K/mcL (140-400); Red Blood Count 4.69 M/mcL (3.82-4.97); Red Cell Distribution Width 15.6 % (11.5-14.5); Segmented Neutrophils % 80.2 %; White Blood Count 15.4 K/mcL (4.3-11.1)
[2018-12-31 21:52] LABS: Alanine Aminotransferase 10 Units/L (7-52); Alkaline Phosphatase 85 Units/L (34-104); Aspartate Amino Transferase 17 Units/L (13-39); BUN/Creatinine Ratio 12 (6-26); Bilirubin,Direct 0.3 mg/dL (0.0-0.2); Bilirubin,Indirect 0.6 mg/dL (0.0-1.2); Bilirubin,Total 0.9 mg/dL (0.3-1.0); Blood Urea Nitrogen 18 mg/dL (8-23); Calcium 9.3 mg/dL (8.6-10.3); Carbon Dioxide 22 mEq/L (23-29); Chloride 94 mEq/L (98-107); Globulin 3.9 g/dL (2.4-3.5); Glucose 227 mg/dL (70-105); Lipase 10 Units/L (11-82); Osmolality,Calculated 271 (280-300); Potassium 4.4 mEq/L (3.5-5.1); Sodium 126 mEq/L (136-145); Total Protein 7.9 g/dL (6.4-8.9); eGFR For African Americans 43 (> 60); eGFR For Non-African Americans 36 (> 60)
[2018-12-31 21:53] LABS: Troponin I < 0.03 ng/mL (< 0.04)
--- NOTE | 2018-12-31 22:00 | Emergency Department Note ---
Disposition Clinical Impression: Pyelonephritis of left kidney UTI (urinary tract infection) Qualifiers: Urinary tract infection type: acute cystitis Hematuria presence: with hematuria Qualified Code(s): N30.01 - Acute cystitis with hematuria Disposition: Admitted As Inpatient Condition: Good Time of Disposition: 23:50 General Adult HPI - General Chief complaint: ED General Medical Stated complaint: L Flank Pain Time Seen by Provider: 12/31/18 20:16 Source: patient, family Mode of arrival: private vehicle Limitations: physical limitation - History of Present Illness Pain Scale: 8 - Related Data Home Medications Medication Instructions Recorded Confirmed Duloxetine HCl [Cymbalta] 60 mg PO BID 12/05/14 12/31/18 Insulin ASPART [NovoLOG] 10 - 24 unit SQ BID 12/05/14 12/31/18 Pantoprazole Sodium [Protonix] 40 mg PO DAILY 09/18/16 12/31/18 Ergocalciferol (VITAMIN D2) 50,000 unit PO CAMPOS 02/19/18 12/31/18 [Vitamin D2] Gabapentin [Neurontin] 300 mg PO HS 02/19/18 12/31/18 Mirabegron [Myrbetriq] 50 mg PO DAILY 02/19/18 12/31/18 metFORMIN [Glucophage] 1,000 mg PO BID 02/19/18 12/31/18 Insulin Degludec [Tresiba 86 unit SQ QAM 05/02/18 12/31/18 Flextouch U-100] Atorvastatin Calcium [Lipitor] 1 tab PO DAILY 08/05/18 12/31/18 Clotrimazole 1% CRM 1 appl .ROUTE BID 08/05/18 12/31/18 Doxylamine Succinate [Unisom] 1 tab PO HS 08/05/18 12/31/18 Topiramate [Topamax] 25 mg PO DAILY 09/26/18 12/31/18 Clopidogrel [Plavix] 75 mg PO DAILY 10/30/18 12/31/18 Previous Rx's Medication Instructions Recorded Aspirin Enteric Coated [Aspirin EC] 81 mg PO DAILY #30 tablet.dr 05/04/18 Lisinopril [Zestril] 5 mg PO DAILY #30 tablet 05/04/18 Metoprolol XL (24 HR) Succ [Toprol 25 mg PO DAILY #30 tab.er.24h 09/27/18 XL] Allergies Allergy/AdvReac Type Severity Reaction Status Date / Time ampicillin Allergy Unknown See Verified 12/31/18 20:25 Comments Cortisone Allergy Unknown Hives Verified 12/31/18 20:25 oxycodone [Oxycodone] Allergy Unknown Hives Verified 12/31/18 20:25 Penicillins Allergy Unknown See Verified 12/31/18 20:25 Comments Sulfa (Sulfonamide Allergy Unknown See Verified 12/31/18 20:25 Antibiotics) Comments ciprofloxacin AdvReac Unknown Rash Verified 12/31/18 20:25 codeine AdvReac Unknown Itching Verified 12/31/18 20:25 hydromorphone [Hydromorphone] AdvReac Unknown Vomiting Verified 12/31/18 20:25 phenazopyridine AdvReac Unknown Vomiting Verified 12/31/18 20:25 [Phenazopyridine] tramadol AdvReac Unknown Vomiting Verified 12/31/18 20:25 hydrocodone AdvReac Itching Verified 12/31/18 20:25 Past Medical History - Past Medical History Medical history: Reports: COPD, coronary artery disease, CVA, diabetes, GERD, hyperlipidemia, hypertension, kidney stones, myocardial infarction, renal disease, TIA, other Surgical history: Reports: appendectomy, cataract, cholecystectomy, hysterectomy, orthopedic, other, thyroidectomy, ureteral stent, other Psychiatric history: Reports: anxiety, depression [employer] history: Reports: non-contributory - Social History Smoking Status: Former smoker Smokeless Tobacco Status: No Alcohol use: Reports: none Drug use: Reports: none Physical Exam - General Limitations: physical limitation General appearance: alert Course Vital Signs Temperature 99.0 F 12/31/18 20:19 Pulse Rate 108 12/31/18 20:19 Respiratory Rate 22 12/31/18 20:19 Blood Pressure 100/52 12/31/18 20:19 O2 Sat by Pulse Oximetry 96 12/31/18 20:19 Temperature 99.0 F 12/31/18 20:19 Pulse Rate 102 12/31/18 22:13 Respiratory Rate 22 12/31/18 20:19 Blood Pressure 103/73 12/31/18 22:13 O2 Sat by Pulse Oximetry 96 12/31/18 20:19 Oxygen Delivery Oxygen Delivery Room Air Medical Decision Making - MDM Narrative Medical decision making narrative: CT confirms pyelonephritis with significant left perinephric stranding as well a s evidence of emphysematous pyelonephritis. I have ordered Rocephin. Consulted with urology. He was okay with plan. Patient will be seen by them tomorrow. We will admit to hospitalist. - Medical Records Medical records reviewed: Yes I reviewed the patient's medical records. - Lab Data Lab results reviewed: Yes I reviewed the patient's lab results. Result diagrams: 12/31/18 21:15 12/31/18 21:15 Lab Results 12/31/18 12/31/18 12/31/18 Range/Units 21:15 21:15 21:15 WBC 15.4 H (4.3-11.1) K/mcL RBC 4.69 (3.82-4.97) M/mcL Hgb 12.2 (11.5-15.4) g/dL Hct 36.9 (35.3-44.9) % MCV 78.7 L (83.0-100.0) fL MCH 26.0 L (28.0-33.3) pg MCHC 33.1 (31.6-35.5) g/dL RDW 15.6 H (11.5-14.5) % Plt Count 209 (140-400) K/mcL MPV 9.7 (9.4-12.4) fL Immature Gran % 0.7 (0-4) % Seg Neutrophils % 80.2 % Lymphocytes % 10.4 % Monocytes % 8.1 % Eosinophils % 0.3 % Basophils % 0.3 % Neutrophils # 12.4 H (1.6-8.9) K/mcL Lymphocytes # 1.6 (0.6-4.6) K/mcL Monocytes # 1.2 (0.0-1.3) K/mcL Eosinophils # 0.1 (0.0-0.6) K/mcL Basophils # 0.0 (0.0-0.2) K/mcL Sodium 126 L (136-145) mEq/L Potassium 4.4 (3.5-5.1) mEq/L Chloride 94 L (98-107) mEq/L Carbon Dioxide 22 L (23-29) mEq/L BUN 18 (8-23) mg/dL Creatinine 1.45 H (0.60-1.20) mg/dL Est GFR ( Amer) 43 L (> 60) Est GFR (Non-Af Amer) 36 L (> 60) BUN/Creatinine Ratio 12 (6-26) Glucose 227 H (70-105) mg/dL Calculated Osmolality 271 L (280-300) Lactic Acid 1.7 (0.5-2.2) mmol/L Calcium 9.3 (8.6-10.3) mg/dL Total Bilirubin 0.9 (0.3-1.0) mg/dL Direct Bilirubin 0.3 H (0.0-0.2) mg/dL Indirect Bilirubin 0.6 (0.0-1.2) mg/dL AST 17 (13-39) Units/L ALT 10 (7-52) Units/L Alkaline Phosphatase 85 (34-104) Units/L Troponin I < 0.03 (< 0.04) ng/mL Serum Total Protein 7.9 (6.4-8.9) g/dL Albumin 4.0 (3.5-5.7) g/dL Globulin 3.9 H (2.4-3.5) g/dL Albumin/Globulin Ratio 1.0 L (1.1-2.2) Lipase 10 L (11-82) Units/L Urine Color (Yellow) Urine Clarity (Clear) Urine pH (5.0-8.0) pH Units Ur Specific [place] (1.010-1.025) Urine Protein (Neg-Trace) mg/dL Urine Glucose (UA) (Normal) mg/dL Urine Ketones (Negative) mg/dL Urine Blood (Negative) Urine Nitrite (Negative) Urine Bilirubin (Negative) Urine Urobilinogen (Normal) mg/dL Ur Leukocyte Esterase (Negative) Urine Microscopic RBC (0-3) per hpf Urine Microscopic WBC (0-3) per hpf Ur Squamous Epith Cells (None-Few) per lpf Urine Bacteria (None-Few) per hpf Hyaline Casts (None-Few) per lpf Ur Culture Indicated? (NO) Urine Creatinine mg/dL Urine Sodium mEq/L Urine Potassium mEq/L Urine Chloride mEq/L 12/31/18 12/31/18 Range/Units 22:48 22:48 WBC (4.3-11.1) K/mcL RBC (3.82-4.97) M/mcL Hgb (11.5-15.4) g/dL Hct (35.3-44.9) % MCV (83.0-100.0) fL MCH (28.0-33.3) pg MCHC (31.6-35.5) g/dL RDW (11.5-14.5) % Plt Count (140-400) K/mcL MPV (9.4-12.4) fL Immature Gran % (0-4) % Seg Neutrophils % % Lymphocytes % % Monocytes % % Eosinophils % % Basophils % % Neutrophils # (1.6-8.9) K/mcL Lymphocytes # (0.6-4.6) K/mcL Monocytes # (0.0-1.3) K/mcL Eosinophils # (0.0-0.6) K/mcL Basophils # (0.0-0.2) K/mcL Sodium (136-145) mEq/L Potassium (3.5-5.1) mEq/L Chloride (98-107) mEq/L Carbon Dioxide (23-29) mEq/L BUN (8-23) mg/dL Creatinine (0.60-1.20) mg/dL Est GFR ( Amer) (> 60) Est GFR (Non-Af Amer) (> 60) BUN/Creatinine Ratio (6-26) Glucose (70-105) mg/dL Calculated Osmolality (280-300) Lactic Acid (0.5-2.2) mmol/L Calcium (8.6-10.3) mg/dL Total Bilirubin (0.3-1.0) mg/dL Direct Bilirubin (0.0-0.2) mg/dL Indirect Bilirubin (0.0-1.2) mg/dL AST (13-39) Units/L ALT (7-52) Units/L Alkaline Phosphatase (34-104) Units/L Troponin I (< 0.04) ng/mL Serum Total Protein (6.4-8.9) g/dL Albumin (3.5-5.7) g/dL Globulin (2.4-3.5) g/dL Albumin/Globulin Ratio (1.1-2.2) Lipase (11-82) Units/L Urine Color Yellow (Yellow) Urine Clarity Clear (Clear) Urine pH 7.0 (5.0-8.0) pH Units Ur Specific [place] 1.014 (1.010-1.025) Urine Protein Trace (Neg-Trace) mg/dL Urine Glucose (UA) 100 H (Normal) mg/dL Urine Ketones Negative (Negative) mg/dL Urine Blood Negative (Negative) Urine Nitrite Negative (Negative) Urine Bilirubin Negative (Negative) Urine Urobilinogen Normal (Normal) mg/dL Ur Leukocyte Esterase Moderate H (Negative) Urine Microscopic RBC 5-15 H (0-3) per hpf Urine Microscopic WBC 50-100 H (0-3) per hpf Ur Squamous Epith Cells Few (None-Few) per lpf Urine Bacteria None Seen (None-Few) per hpf Hyaline Casts Few (None-Few) per lpf Ur Culture Indicated? YES A (NO) Urine Creatinine 110 mg/dL Urine Sodium 93.4 mEq/L Urine Potassium 86.2 mEq/L Urine Chloride 110 mEq/L - Radiology Data Radiology results reviewed: Yes I reviewed the patient's radiology results. Attestation Statement - Attestation Attestation: I examined this patient and my medical decision-making was reviewed with the Resident Physician. I agree with the documented findings, disposition and treatment plan as described except to the extent set forth below. 5-year-old female presents to ER for bilateral flank pain. She also has pain under both ribs anteriorly. No vomiting or diarrhea. She states she thought she had a urine infection recently in the last week or so. Her doctor had sent off a urine but apparently it was a dirty urine specimen. They were awaiting the culture reports to come back. They had not started her on any antibiotics. She denies fevers. We did check some lab work. She does have a leukocytosis and she has elevation of her creatinine which is elevated from her baseline. We will change the order for the CT scan to go without contrast due to her renal function.
[2018-12-31] MEDS ORDERED: 0.9 % Sodium Chloride 1,000 ML IVC ONE (22:50)
[2018-12-31] MEDS ORDERED: cefTRIAXone 1,000 MG in Water for inj. (sterile) 10 ML IVP ONE (23:13)
[2018-12-31 23:14] LABS: Bilirubin,Urine Negative (Negative); Blood,Urine Negative (Negative); Clarity,Urine Clear (Clear); Color,Urine Yellow (Yellow); Glucose,Urine (UA) 100 mg/dL (Normal); Ketones,Urine Negative (Negative); Leukocyte Esterase,Urine Moderate (Negative); Nitrite,Urine Negative (Negative); Potassium,Urine 86.2 mEq/L; Protein,Urine Trace mg/dL (Neg-Trace); Sodium, Urine 93.4 mEq/L; Specific Gravity,Urine 1.014 (1.010-1.025); Urobilinogen,Urine Normal (Normal)
[2018-12-31 23:15] LABS: Bacteria,Urine None Seen per hpf (None-Few); Hyaline Casts,Urine Few per lpf (None-Few); Squamous Epithelial Cell,Urine Few per lpf (None-Few); WBC,Urine 50-100 per hpf (0-3)
[2018-12-31] MEDS ORDERED: Morphine Sulfate 2 MG/ML SYRINGE IVP ONE (23:35)
[2019-01-01] MEDS ORDERED: Ketorolac 30 MG/ML VIAL IVP ONE (00:56)
[2019-01-01] MEDS ORDERED: *HR* Dextrose 50 % in Water (Syg) 50 ML SYRINGE IVP PRN (00:58)
[2019-01-01] MEDS ORDERED: Acetaminophen 325 MG TABLET PO PRN (00:58)
[2019-01-01] MEDS ORDERED: Dextrose Gel 15 GM/37.5 ML TUBE PO PRN ×2 (00:58)
[2019-01-01] MEDS: Insulin DETEMIR 100 UNIT/ML X5UNITS SQ SCH ×2 (01:00→21:21)
--- NOTE | 2019-01-01 02:05 | Internal Med History&Physical ---
Date of Encounter: 01/01/19 Time of Encounter: 02:04 Internal Medicine - H&P: HPI Chief complaint: flank pain Admitted From: Home Plans for Post Hospital Care: Home History of present illness: Lizz Ordoñez is a morbidly obese 68-year-old woman with coronary artery disease, diabetes, hypertension, hyperlipidemia, cerebrovascular disease, peripheral vascular disease and obstructive sleep apnea who presents emergency room with a complaint of bilateral flank pain that has been worsening for the past week as well as suprapubic discomfort, nausea without vomiting. She says she was diagnosed with a possible UTI by her primary care physician who prescribed her nitrofurantoin but told her not to start taking it until the culture results were available. She never received the follow-up call indicating whether or not to start taking the antimicrobial and due to her ongoing symptoms decided to see k medical attention today. On arrival she was tachycardic and in notable discomfort requiring high doses of opiate medications. Lab work revealed her leukocyte count of 15.4 and urinalysis showing pyuria and leukocyte esterase. A CT scan of her abdomen was done and it showed moderate asymmetric left perinephric stranding, left renal pelvic gas and thickening of the urothelium. The findings are suspicious for emphysematous pyelonephritis. She denies any recent instrumentation to her genitourinary tract that would cause gas seen. She was given 1 dose of ceftriaxone and is admitted for further care. Upon my assessment she was a notable distress from the pain. Vitals: Reviewed General: Morbidly obese woman lying in bed with antalgic posturing. Skin: Warm and dry HEENT: Dry mucous membranes. No conjunctivae pallor. Neck: No lymphadenopathy. No JVD. No carotid bruits. No palpable thyroid. Chest: Normal thoracic expansion. Normal breath sounds. Clear to auscultation. Heart: Normal S1 & S2; rhythmic. No rubs or murmurs. Abdomen: Non-distended, soft and mildly tender to palpation in the suprapubic region. (+) CVA tenderness on the left. Extremities: No clubbing, cyanosis or edema. No calf tenderness. Normal distal pulses. Neurological: Awake, alert and oriented to person, place and time. No focal deficits. Psych: Affect appropriate. Assessment/Plan 1. Emphysematous pyelonephritis: Review of prior records reveal she has had multiple UTIs in the past but this case may be the most severe. Will ensure blood and urine cultures have been sent. Start ertapenem 1gr q24hrs for now pending further clinical evolution and culture results after which it can be narrowed accordingly. Urology consult placed for monitoring of the situation. 2. Acute on chronic kidney disease: Suspect prerenal in etiology from poor oral intake during the period of feeling unwell. She appears notably dehydrated. Fluid resuscitation will be started. 3. Electrolyte imbalance: As evidenced by hyponatremia and hypochloremia. Suspect hypovolemic in origin. Normal saline being given; will recheck. 4. Diabetes: Will start basal levemir insulin in conjunction with sliding scale while hospitalized. 5. CAD: Continue DAPT and statin. 6. DESTINEE: CPAP qhs ordered. Past Med Surg Social Fam HX - Past Medical History Medical history: COPD, coronary artery disease, CVA, diabetes, GERD, hyperlipidemia, hypertension, kidney stones, myocardial infarction, renal disease, TIA, other Additional medical history: CAD in seminole artery. TYPE 2 DM, HX OF PYELONEPHRITIS. carpal tunnel syndrome of left wrist. vitamin B12 deficiency. heart disease. allergies. sleep apnea. dyslipidemia. nicotine dependence. chronic back pain. thoracic DDD. thoracic hernation T8/9. throacic radicular pain. osteopenia. retinized pigmentosis. obesity. mood disorder. hx of gastric ulcer. urinary retention. pyelonephritis. right ankle. vitamin D deficient. spinal stenoisus. neuropathy. GI bleed. abdominal mass. paresthesias. UTI. trigger release right hand Psychiatric history: anxiety, depression - Past Surgical History Surgical History: appendectomy, cataract, cholecystectomy, hysterectomy, orthopedic, other, thyroidectomy, ureteral stent, other Additional surgical history: hx OF TRACHEOSTOMY AND THYROID MASS REMOVAL. cardiac cath with one stent. tracheostomy as a baby. right meniscal repair. right synovectomy. tonsilectomy and adenoidectomy. right ankle surgery (fracture repair). b/l foot surgery. total abdominal hysterectomy. tubal ligation. left heart catherization x2. EGD. esophagitis/ gastritis. colonoscopy. adenoma with mild atypia. dental surgery. rt long trigger finger release. LHC, no stents. kidney stents. EGD. stent placement - Social History Smoking Status: Former smoker Smokeless Tobacco Status: No Alcohol use: none Drug use: none - Family History Father Hx Family Cardiac Disorders: Yes (AAA) Hx Family Endocrine Disorder: Yes (DM) Mother Adopted: No Living Status: Hx Family Cardiac Disorders: Yes (HTN) Hx Family Cancer: Yes (Colon) Internal Medicine - H&P: Meds Duloxetine HCl [Cymbalta] 60 mg PO BID 12/05/14 [History] Insulin ASPART [NovoLOG] 10 - 24 unit SQ BID 12/05/14 [History] Pantoprazole Sodium [Protonix] 40 mg PO DAILY 09/18/16 [History] Ergocalciferol (VITAMIN D2) [Vitamin D2] 50,000 unit PO CAMPOS 02/19/18 [History] Gabapentin [Neurontin] 300 mg PO HS 02/19/18 [History] Mirabegron [Myrbetriq] 50 mg PO DAILY 02/19/18 [History] metFORMIN [Glucophage] 1,000 mg PO BID 02/19/18 [History] Insulin Degludec [Tresiba Flextouch U-100] 86 unit SQ QAM 05/02/18 [History] Aspirin Enteric Coated [Aspirin EC] 81 mg PO DAILY #30 tablet.dr 05/04/18 [Rx] Lisinopril [Zestril] 5 mg PO DAILY #30 tablet 05/04/18 [Rx] Atorvastatin Calcium [Lipitor] 1 tab PO DAILY 08/05/18 [History] Clotrimazole 1% CRM 1 appl .ROUTE BID 08/05/18 [History] Doxylamine Succinate [Unisom] 1 tab PO HS 08/05/18 [History] Topiramate [Topamax] 25 mg PO DAILY 09/26/18 [History] Metoprolol XL (24 HR) Succ [Toprol XL] 25 mg PO DAILY #30 tab.er.24h 09/27/18 [Rx] Clopidogrel [Plavix] 75 mg PO DAILY 10/30/18 [History] Allergy/AdvReac Type Severity Reaction Status Date / Time ampicillin Allergy Unknown See Verified 12/31/18 20:25 Comments Cortisone Allergy Unknown Hives Verified 12/31/18 20:25 oxycodone [Oxycodone] Allergy Unknown Hives Verified 12/31/18 20:25 Penicillins Allergy Unknown See Verified 12/31/18 20:25 Comments Sulfa (Sulfonamide Allergy Unknown See Verified 12/31/18 20:25 Antibiotics) Comments ciprofloxacin AdvReac Unknown Rash Verified 12/31/18 20:25 codeine AdvReac Unknown Itching Verified 12/31/18 20:25 hydromorphone [Hydromorphone] AdvReac Unknown Vomiting Verified 12/31/18 20:25 phenazopyridine AdvReac Unknown Vomiting Verified 12/31/18 20:25 [Phenazopyridine] tramadol AdvReac Unknown Vomiting Verified 12/31/18 20:25 hydrocodone AdvReac Itching Verified 12/31/18 20:25 All Systems PM: A 10-system review of systems was performed and is negative for pertinent findings except as documented above in the HPI. - Constitutional Vitals: Temp Pulse Resp BP Pulse Ox 98.9 F 94 15 131/87 90 01/01/19 00:54 01/01/19 00:54 01/01/19 00:54 01/01/19 00:54 01/01/19 00:54 Exam: . Internal Med - H&P Results - Labs CBC & Chem 7: 12/31/18 21:15 12/31/18 21:15 Labs: Short CBC 12/31/18 Range/Units 21:15 WBC 15.4 H (4.3-11.1) K/mcL Hgb 12.2 (11.5-15.4) g/dL Hct 36.9 (35.3-44.9) % Plt Count 209 (140-400) K/mcL Neutrophils # 12.4 H (1.6-8.9) K/mcL BMP 12/31/18 21:15 Sodium 126 L Potassium 4.4 Chloride 94 L Carbon Dioxide 22 L BUN 18 Creatinine 1.45 H Glucose 227 H Calcium 9.3 Cardiac Enzymes 12/31/18 Range/Units 21:15 Troponin I < 0.03 (< 0.04) ng/mL Liver Function 12/31/18 Range/Units 21:15 Total Bilirubin 0.9 (0.3-1.0) mg/dL Direct Bilirubin 0.3 H (0.0-0.2) mg/dL AST 17 (13-39) Units/L ALT 10 (7-52) Units/L Alkaline Phosphatase 85 (34-104) Units/L Albumin 4.0 (3.5-5.7) g/dL Urine 12/31/18 Range/Units 22:48 Urine Color Yellow (Yellow) Urine Clarity Clear (Clear) Urine pH 7.0 (5.0-8.0) pH Units Ur Specific [place] 1.014 (1.010-1.025) Urine Protein Trace (Neg-Trace) mg/dL Urine Glucose (UA) 100 H (Normal) mg/dL - Impressions ITS Impressions Abdomen/Pelvis CT 12/31/18 20:58 IMPRESSION: Moderate asymmetric left perinephric stranding. There is prominence the left renal pelvis as well as left renal pelvic gas. Thickening of the urothelium of the left renal pelvis and upper left ureter is suspected. 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 Gas within the urinary bladder. Correlation for recent instrumentation is recommended. An infectious etiology is also possible. Left nephrolithiasis. Fatty infiltration of the liver. D/ / Soniya Cervantes Cha, MD / Soniya Cervantes Cha, MD Interpreting Provider: Soniya Cervantes Cha, MD - Time Spent With Patient Total time spent is greater than 50% in coordination of care (as documented) at patient's floor/unit and/or counseling patient:
[2019-01-01] MEDS: Ertapenem 1,000 MG in 0.9 % Sodium Chloride Mini Bag 100 ML IVPB SCH (02:56)
[2019-01-01 04:33] LABS: Basophils % 0.3 %; Eosinophils % 0.1 %; Hematocrit 34.1 % (35.3-44.9); Hemoglobin 10.9 g/dL (11.5-15.4); Immature Granulocytes % 0.8 % (0-4); Lymphocytes # 1.3 K/mcL (0.6-4.6); Lymphocytes % 8.1 %; Mean Corpuscular Volume 81.4 fL (83.0-100.0); Mean Platelet Volume 9.5 fL (9.4-12.4); Monocytes # 1.3 K/mcL (0.0-1.3); Monocytes % 8.5 %; Neutrophils # 12.7 K/mcL (1.6-8.9); Platelet Count 187 K/mcL (140-400); Red Blood Count 4.19 M/mcL (3.82-4.97); Red Cell Distribution Width 15.9 % (11.5-14.5); Segmented Neutrophils % 82.2 %; White Blood Count 15.5 K/mcL (4.3-11.1)
[2019-01-01 04:51] LABS: Calcium 8.7 mg/dL (8.6-10.3); Potassium 4.6 mEq/L (3.5-5.1)
[2019-01-01] MEDS: *HR* Heparin 5,000 UNIT/ML VIAL SQ SCH ×3 (05:38→21:40)
[2019-01-01] MEDS ORDERED: Ketorolac 30 MG/ML VIAL IVP PRN (06:00)
[2019-01-01] MEDS: 0.9 % Sodium Chloride 1,000 ML IVC SCH ×2 (06:50→10:51)
[2019-01-01] MEDS ORDERED: Morphine Sulfate ER (12 HR) 30 MG TABLET.ER PO ONE (07:00)
[2019-01-01] MEDS: Aspirin Enteric Coated 81 MG Tablet PO SCH (07:13)
[2019-01-01] MEDS: Insulin LISPRO 300 UNITS/3 ML VIAL SQ SCH ×4 (07:13→21:11)
[2019-01-01] MEDS: Metoprolol XL (24 HR) Succ 25 MG TAB.ER.24H PO SCH (07:14)
[2019-01-01] MEDS: Topiramate 25 MG TABLET PO SCH (07:14)
--- NOTE | 2019-01-01 07:54 | Internal Med Progress Note ---
<Raymond Denis - Last Filed: 01/01/19 13:40> Hospitalist Progress Note - Encounter Date of Encounter: 01/01/19 Time of Encounter: 09:30 - Subjective Interval History: Pt awake, appears drowsy. States that has significant pain at the bilateral flanks/back/abdomen. Had nausea and abdominal pain following her PO toradol dose. Denies subjective fever, chills. Admits significant fatigue. - Exam Vitals: Temp Pulse Resp BP Pulse Ox 98.5 F 95 20 129/80 95 01/01/19 06:40 01/01/19 06:40 01/01/19 06:40 01/01/19 06:40 01/01/19 06:40 Exam: Gen: A&Ox3, mild distress secondary to pain. HEENT: atraumatic, normocephalic, mucous membranes moist. Resp: CTA bilaterally, no wheezing, rhonchi, or rales. CV: RRR, Normal S1 and S2. No murmur, gallops, or rubs. GI/Abdominal exam: bowel sounds normal throughout, moderate-severe bilateral flank tenderness to palpation, no hepatomegaly. Ext: no cyanosis, clubbing, edema. LE pulses +1 bilaterally. Neuro: no focal deficits, CN grossly intact. - Assessment and Plan (1) Emphysematous pyelonephritis Current Visit: No Status: Acute Assessment and Plan: CT scan 12/31/18 demonstrated emphysematous pyelo of the left kidney. Patient sta rted on ertapenem. Urology consulted, recommend continuation of abx therapy w/o surgical intervention. - Continue IV ertapenem at this time. Awaiting urine/blood cultures. - Urology will continue to follow. (2) Abdominal pain Current Visit: No Status: Acute Assessment and Plan: Pt continues to report significant abdominal and flank pain. Pt had nausea, increased abdominal pain after PO toradol. - Will start 5 mg Oxycodone SL. - PRN IV benadryl for possible reaction based on allergy history. - Zofran for nausea. (3) MARIBEL (acute kidney injury) Current Visit: No Status: Acute Assessment and Plan: Creatinine elevated from 1.45 to 1.59 since admission. - Continue IV fluids, monitor renal status. - Avoid nephrotoxic drugs. (4) Hyponatremia Current Visit: No Status: Acute Assessment and Plan: Hyponatremia likely hypovolemic in etiology. Currently asymptomatic. Sodium increased from 126 to 128 since admission with IV fluids. - Continue IV fluids. - Avoid dehydration. (5) Poorly controlled diabetes mellitus Current Visit: No Status: Acute Assessment and Plan: Glucose down from 227 to 212 since admission. Will continue current basal-bolus regimen. - Continue basal Levemir 30 U. - Continue Humalog sliding scale. DVT Prophylaxis: Heparin 5,000 U SQ. - Time Spent with Patient Total time spent is greater than 50% in coordination of care (as documented) at patient's floor/unit and/or counseling patient: Plan of Care Discussed with: patient Internal Medicine: Result - Labs CBC & Chem 7: 01/01/19 04:20 01/01/19 04:20 Labs: Short CBC 12/31/18 01/01/19 Range/Units 21:15 04:20 WBC 15.4 H 15.5 H (4.3-11.1) K/mcL Hgb 12.2 10.9 L (11.5-15.4) g/dL Hct 36.9 34.1 L (35.3-44.9) % Plt Count 209 187 (140-400) K/mcL Neutrophils # 12.4 H 12.7 H (1.6-8.9) K/mcL BMP 12/31/18 01/01/19 21:15 04:20 Sodium 126 L 128 L Potassium 4.4 4.6 Chloride 94 L 96 L Carbon Dioxide 22 L 22 L BUN 18 22 Creatinine 1.45 H 1.59 H Glucose 227 H 212 H Calcium 9.3 8.7 Cardiac Enzymes 12/31/18 Range/Units 21:15 Troponin I < 0.03 (< 0.04) ng/mL Liver Function 12/31/18 Range/Units 21:15 Total Bilirubin 0.9 (0.3-1.0) mg/dL Direct Bilirubin 0.3 H (0.0-0.2) mg/dL AST 17 (13-39) Units/L ALT 10 (7-52) Units/L Alkaline Phosphatase 85 (34-104) Units/L Albumin 4.0 (3.5-5.7) g/dL Urine 12/31/18 Range/Units 22:48 Urine Color Yellow (Yellow) Urine Clarity Clear (Clear) Urine pH 7.0 (5.0-8.0) pH Units Ur Specific [place] 1.014 (1.010-1.025) Urine Protein Trace (Neg-Trace) mg/dL Urine Glucose (UA) 100 H (Normal) mg/dL - Impressions Impressions Abdomen/Pelvis CT 12/31/18 20:58 IMPRESSION: Moderate asymmetric left perinephric stranding. There is prominence the left renal pelvis as well as left renal pelvic gas. Thickening of the urothelium of the left renal pelvis and upper left ureter is suspected. 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 Gas within the urinary bladder. Correlation for recent instrumentation is recommended. An infectious etiology is also possible. Left nephrolithiasis. Fatty infiltration of the liver. D/ / Soniya Cervantes Cha, MD / Soniya Cervantes Cha, MD Interpreting Provider: Soniya Cervantes Cha, MD Consult Discharge Plan - Plan Referrals: Kiel Watkins MD [Primary Care Provider] - <Richard Cornejo - Last Filed: 01/01/19 15:24> Hospitalist Progress Note - Encounter Date of Encounter: 01/01/19 - Exam Vitals: Temp Pulse Resp BP Pulse Ox 97.9 F 96 20 156/70 95 01/01/19 11:33 01/01/19 11:33 01/01/19 11:33 01/01/19 11:33 01/01/19 11:33 - Time Spent with Patient Total time spent is greater than 50% in coordination of care (as documented) at patient's floor/unit and/or counseling patient: Internal Medicine: Result - Labs CBC & Chem 7: 01/01/19 04:20 01/01/19 04:20 Labs: Short CBC 12/31/18 01/01/19 Range/Units 21:15 04:20 WBC 15.4 H 15.5 H (4.3-11.1) K/mcL Hgb 12.2 10.9 L (11.5-15.4) g/dL Hct 36.9 34.1 L (35.3-44.9) % Plt Count 209 187 (140-400) K/mcL Neutrophils # 12.4 H 12.7 H (1.6-8.9) K/mcL BMP 12/31/18 01/01/19 21:15 04:20 Sodium 126 L 128 L Potassium 4.4 4.6 Chloride 94 L 96 L Carbon Dioxide 22 L 22 L BUN 18 22 Creatinine 1.45 H 1.59 H Glucose 227 H 212 H Calcium 9.3 8.7 Cardiac Enzymes 12/31/18 01/01/19 Range/Units 21:15 09:08 Troponin I < 0.03 < 0.03 (< 0.04) ng/mL Liver Function 12/31/18 Range/Units 21:15 Total Bilirubin 0.9 (0.3-1.0) mg/dL Direct Bilirubin 0.3 H (0.0-0.2) mg/dL AST 17 (13-39) Units/L ALT 10 (7-52) Units/L Alkaline Phosphatase 85 (34-104) Units/L Albumin 4.0 (3.5-5.7) g/dL Urine 12/31/18 Range/Units 22:48 Urine Color Yellow (Yellow) Urine Clarity Clear (Clear) Urine pH 7.0 (5.0-8.0) pH Units Ur Specific [place] 1.014 (1.010-1.025) Urine Protein Trace (Neg-Trace) mg/dL Urine Glucose (UA) 100 H (Normal) mg/dL - Impressions Impressions Abdomen/Pelvis CT 12/31/18 20:58 IMPRESSION: Moderate asymmetric left perinephric stranding. There is prominence the left renal pelvis as well as left renal pelvic gas. Thickening of the urothelium of the left renal pelvis and upper left ureter is suspected. 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 Gas within the urinary bladder. Correlation for recent instrumentation is recommended. An infectious etiology is also possible. Left nephrolithiasis. Fatty infiltration of the liver. D/ / Soniya Cervantes Cha, MD / Soniya Cervantes Cha, MD Interpreting Provider: Soniya Cervantes Cha, MD - Attending Attestation I examined this patient and my medical decision-making was reviewed with the Resident Physician on 01/01/19. I agree with the documented findings, disposition and treatment plan as described except to the extent set forth below. Ms Ordoñez was admitted earlier today with acute emphysematous pyelonephritis. She continues to have flank pain. Exam Alert. Mild distress Mucus membranes dry Heart not tachy Agree with assessment and plan as above and in H&P <Raymond Denis - Last Filed: 01/01/19 13:40> (2) Abdominal pain Qualifiers: Abdominal location: unspecified location Qualified Code(s): R10.9 - Unspecified abdominal pain
[2019-01-01] MEDS ORDERED: (Mirabegron [Myrbetriq] 50 MG) PO SCH (09:00)
--- NOTE | 2019-01-01 10:22 | Urology - Consult Note ---
<Bell Galan N - Last Filed: 01/01/19 10:19> Date of Encounter: 01/01/19 Time of Encounter: 09:00 - Assessment and Plan (1) Pyelonephritis of left kidney Current Visit: Yes Status: Acute Assessment and plan: Patient is a 68-year-old female who presents with emphysematous pyelonephritis. Vital signs are currently stable and afebrile. Renal function appears diminished from baseline of a serum creatinine of 1.59. Patient is receiving IV ertapenem. At this time, we do not anticipate any urologic surgical int ervention. We will continue with IV antibiotics and fluids. Urology will continue to follow. Urology CN:HPI Consult date: 01/01/19 Reason for consult Urology: Other (emphysematous pyelonephritis) Requesting physician: Ana Coy History of present illness: Patient is a 68-year-old female who presents with a history of left emphysematous pyelonephritis. Patient is well known to our practice, and she has a long-standing history of recurrent urinary tract infections. Patient is an uncontrolled diabetic, and she was previously referred to Dr. Rosa at [facility] for second opinion. Patient has also undergone ureteral stents previously, but these were ineffective for her. Patient reports a 1-2 week history of bilateral flank pain and fatigue. She admits to occasional urge incontinence, but she denies any dysuria, frequency, hesitancy or gross hematuria. Patient denies any fever or chills. She admits to a history of nephrolithiasis, but she denies any known family history of renal stones or malignancy. Past Med Surg Social Fam HX - Past Medical History Medical history: COPD, coronary artery disease, CVA, diabetes, GERD, hyperlipidemia, hypertension, kidney stones, myocardial infarction, renal disease, TIA, other Additional medical history: CAD in [place] artery. TYPE 2 DM, HX OF PYELONEPHRITIS. carpal tunnel syndrome of left wrist. vitamin B12 deficiency. heart disease. allergies. sleep apnea. dyslipidemia. nicotine dependence. chronic back pain. thoracic DDD. thoracic hernation T8/9. throacic radicular pain. osteopenia. retinized pigmentosis. obesity. mood disorder. hx of gastric ulcer. urinary retention. pyelonephritis. right ankle. vitamin D deficient. spinal stenoisus. neuropathy. GI bleed. abdominal mass. parest hesias. UTI. trigger release right hand Psychiatric history: anxiety, depression - Past Surgical History Surgical History: appendectomy, cataract, cholecystectomy, hysterectomy, orthopedic, other, thyroidectomy, ureteral stent, other Additional surgical history: hx OF TRACHEOSTOMY AND THYROID MASS REMOVAL. cardiac cath with one stent. tracheostomy as a baby. right meniscal repair. right synovectomy. tonsilectomy and adenoidectomy. right ankle surgery (fracture repair). b/l foot surgery. total abdominal hysterectomy. tubal ligation. left heart catherization x2. EGD. esophagitis/ gastritis. colonoscopy. adenoma with mild atypia. dental surgery. rt long trigger finger release. LHC, no stents. kidney stents. EGD. stent placement - Social History Smoking Status: Former smoker Smokeless Tobacco Status: No Alcohol use: none Drug use: none - Family History Father Hx Family Cardiac Disorders: Yes (AAA) Hx Family Endocrine Disorder: Yes (DM) Mother Adopted: No Living Status: Hx Family Cardiac Disorders: Yes (HTN) Hx Family Cancer: Yes (Colon) Medications and Allergies Duloxetine HCl [Cymbalta] 60 mg PO BID 12/05/14 [History] Insulin ASPART [NovoLOG] 10 - 24 unit SQ BID 12/05/14 [History] Pantoprazole Sodium [Protonix] 40 mg PO DAILY 09/18/16 [History] Ergocalciferol (VITAMIN D2) [Vitamin D2] 50,000 unit PO CAMPOS 02/19/18 [History] Gabapentin [Neurontin] 300 mg PO HS 02/19/18 [History] Mirabegron [Myrbetriq] 50 mg PO DAILY 02/19/18 [History] metFORMIN [Glucophage] 1,000 mg PO BID 02/19/18 [History] Insulin Degludec [Tresiba Flextouch U-100] 86 unit SQ QAM 05/02/18 [History] Aspirin Enteric Coated [Aspirin EC] 81 mg PO DAILY #30 tablet.dr 05/04/18 [Rx] Lisinopril [Zestril] 5 mg PO DAILY #30 tablet 05/04/18 [Rx] Atorvastatin Calcium [Lipitor] 1 tab PO DAILY 08/05/18 [History] Clotrimazole 1% CRM 1 appl .ROUTE BID 08/05/18 [History] Doxylamine Succinate [Unisom] 1 tab PO HS 08/05/18 [History] Topiramate [Topamax] 25 mg PO DAILY 09/26/18 [History] Metoprolol XL (24 HR) Succ [Toprol XL] 25 mg PO DAILY #30 tab.er.24h 09/27/18 [Rx] Clopidogrel [Plavix] 75 mg PO DAILY 10/30/18 [History] Allergy/AdvReac Type Severity Reaction Status Date / Time ampicillin Allergy Unknown See Verified 12/31/18 20:25 Comments Cortisone Allergy Unknown Hives Verified 12/31/18 20:25 oxycodone [Oxycodone] Allergy Unknown Hives Verified 12/31/18 20:25 Penicillins Allergy Unknown See Verified 12/31/18 20:25 Comments Sulfa (Sulfonamide Allergy Unknown See Verified 12/31/18 20:25 Antibiotics) Comments ciprofloxacin AdvReac Unknown Rash Verified 12/31/18 20:25 codeine AdvReac Unknown Itching Verified 12/31/18 20:25 hydromorphone [Hydromorphone] AdvReac Unknown Vomiting Verified 12/31/18 20:25 phenazopyridine AdvReac Unknown Vomiting Verified 12/31/18 20:25 [Phenazopyridine] tramadol AdvReac Unknown Vomiting Verified 12/31/18 20:25 hydrocodone AdvReac Itching Verified 12/31/18 20:25 Review of Systems - Constitutional fatigue, weakness, no chills, no fever(s) - EENT Nose, mouth and throat: no dizziness, no headache(s) - Cardiovascular no chest pain, no diaphoresis, no dyspnea - Respiratory no cough, no dyspnea - Gastrointestinal abdominal pain, nausea, no vomiting - Genitourinary Genitourinary: flank pain, urinary incontinence, urinary urgency, no change in urinary stream, no difficulty urinating, no dysuria, no hematuria, no urinary frequency, no urinary hesitancy - Musculoskeletal back pain, no muscle weakness - Integumentary no erythema, no rash - Neurological no confusion, no syncope - Psychiatric no anxiety, no confusion - Hematologic/Lymphatic no easy bleeding, no easy bruising - Allergic/Immunologic no throat swelling, no wheezing Exam Initial Vital Signs Temp Pulse Resp BP Pulse Ox 99.0 F 108 22 100/52 96 12/31/18 20:19 12/31/18 20:19 12/31/18 20:19 12/31/18 20:19 12/31/18 20:19 - General physical appearance Present: no distress, no pain - Eyes Present: PERRL, normal ocular movement - ENT Present: normal nares, no congestion - Neck Present: no masses, trachea midline, no lymphadenopathy - Respiratory Present: normal respiratory effort - Cardiovascular Cardiovascular exam IM: RRR - Abdomen Abdomen: Present: soft, non tender. Absent: distended - Genitourinary Present: other (Left CVAT) - Integumentary Present: no rash, no abnormal pigmentation - Neurologic Present: normal coordination - Musculoskeletal Present: other (Normal posture) Urology Results - Labs 01/01/19 04:20 01/01/19 04:20 Abnormal lab results WBC 15.5 K/mcL (4.3-11.1) H 01/01/19 04:20 Hgb 10.9 g/dL (11.5-15.4) L 01/01/19 04:20 Hct 34.1 % (35.3-44.9) L 01/01/19 04:20 MCV 81.4 fL (83.0-100.0) L 01/01/19 04:20 MCH 26.0 pg (28.0-33.3) L 01/01/19 04:20 RDW 15.9 % (11.5-14.5) H 01/01/19 04:20 Neutrophils # 12.7 K/mcL (1.6-8.9) H 01/01/19 04:20 Sodium 128 mEq/L (136-145) L 01/01/19 04:20 Chloride 96 mEq/L (98-107) L 01/01/19 04:20 Carbon Dioxide 22 mEq/L (23-29) L 01/01/19 04:20 Creatinine 1.59 mg/dL (0.60-1.20) H 01/01/19 04:20 Est GFR ( Amer) 39 (> 60) L 01/01/19 04:20 Est GFR (Non-Af Amer) 32 (> 60) L 01/01/19 04:20 Glucose 212 mg/dL (70-105) H 01/01/19 04:20 POC Glucose 207 mg/dL (70-99) H 01/01/19 06:30 Calculated Osmolality 276 (280-300) L 01/01/19 04:20 Direct Bilirubin 0.3 mg/dL (0.0-0.2) H 12/31/18 21:15 Globulin 3.9 g/dL (2.4-3.5) H 12/31/18 21:15 Albumin/Globulin Ratio 1.0 (1.1-2.2) L 12/31/18 21:15 Lipase 10 Units/L (11-82) L 12/31/18 21:15 Urine Glucose (UA) 100 mg/dL (Normal) H 12/31/18 22:48 Ur Leukocyte Esterase Moderate (Negative) H 12/31/18 22:48 Urine Microscopic RBC 5-15 per hpf (0-3) H 12/31/18 22:48 Urine Microscopic WBC 50-100 per hpf (0-3) H 12/31/18 22:48 Ur Culture Indicated? YES (NO) A 12/31/18 22:48 Diabetes panel 12/31/18 01/01/19 Range/Units 21:15 04:20 Sodium 126 L 128 L (136-145) mEq/L Potassium 4.4 4.6 (3.5-5.1) mEq/L Chloride 94 L 96 L (98-107) mEq/L Carbon Dioxide 22 L 22 L (23-29) mEq/L BUN 18 22 (8-23) mg/dL Creatinine 1.45 H 1.59 H (0.60-1.20) mg/dL Glucose 227 H 212 H (70-105) mg/dL Calcium 9.3 8.7 (8.6-10.3) mg/dL AST 17 (13-39) Units/L ALT 10 (7-52) Units/L Alkaline Phosphatase 85 (34-104) Units/L Albumin 4.0 (3.5-5.7) g/dL Calcium panel 12/31/18 01/01/19 Range/Units 21:15 04:20 Calcium 9.3 8.7 (8.6-10.3) mg/dL Albumin 4.0 (3.5-5.7) g/dL Pituitary panel 12/31/18 01/01/19 Range/Units 21:15 04:20 Sodium 126 L 128 L (136-145) mEq/L Potassium 4.4 4.6 (3.5-5.1) mEq/L Chloride 94 L 96 L (98-107) mEq/L Carbon Dioxide 22 L 22 L (23-29) mEq/L BUN 18 22 (8-23) mg/dL Creatinine 1.45 H 1.59 H (0.60-1.20) mg/dL Glucose 227 H 212 H (70-105) mg/dL Calcium 9.3 8.7 (8.6-10.3) mg/dL Adrenal panel 12/31/18 01/01/19 Range/Units 21:15 04:20 Sodium 126 L 128 L (136-145) mEq/L Potassium 4.4 4.6 (3.5-5.1) mEq/L Chloride 94 L 96 L (98-107) mEq/L Carbon Dioxide 22 L 22 L (23-29) mEq/L BUN 18 22 (8-23) mg/dL Creatinine 1.45 H 1.59 H (0.60-1.20) mg/dL Glucose 227 H 212 H (70-105) mg/dL Calcium 9.3 8.7 (8.6-10.3) mg/dL Total Bilirubin 0.9 (0.3-1.0) mg/dL AST 17 (13-39) Units/L ALT 10 (7-52) Units/L Alkaline Phosphatase 85 (34-104) Units/L Albumin 4.0 (3.5-5.7) g/dL All other labs normal. - Imaging CT scan - abdomen: report reviewed, image reviewed CT scan - pelvis: report reviewed, image reviewed Consult Discharge Plan - Plan Referrals: Kiel Watkins MD [Primary Care Provider] - <Ancelmo Soria - Last Filed: 01/01/19 17:45> Date of Encounter: 01/01/19 - Assessment and Plan (1) Recurrent UTI Current Visit: Yes Status: Acute Assessment and plan: Patient with chronic issues of recurrent UTI. Likely related to poorly controlled diabetes. Patient also with history of multidrug-resistant infections. (2) Left flank pain Current Visit: Yes Status: Acute Assessment and plan: Likely related to left pyelonephritis. Continue with broad-spectrum antimicrobial coverage at this time. (3) Emphysematous pyelonephritis of left kidney Current Visit: Yes Status: Acute (4) Pyelonephritis of left kidney Current Visit: Yes Status: Acute Assessment and plan: Patient was seen and examined independently. I agree with the plan as written by Bell Galan. Patient should continue with broad-spectrum antimicrobial coverage. No urgent need for left ureteral stent placement. Patient has had this performed in the past and did not significantly improve her overall condition. We will continue to follow along closely. (5) MARIBEL (acute kidney injury) Current Visit: No Status: Acute Assessment and plan: Patient's serum creatinine slightly above baseline. We will continue to watch closely. Exam Initial Vital Signs Temp Pulse Resp BP Pulse Ox 99.0 F 108 22 100/52 96 12/31/18 20:19 12/31/18 20:19 12/31/18 20:19 12/31/18 20:19 12/31/18 20:19 Urology Results - Labs 01/01/19 04:20 01/01/19 04:20 Abnormal lab results WBC 15.5 K/mcL (4.3-11.1) H 01/01/19 04:20 Hgb 10.9 g/dL (11.5-15.4) L 01/01/19 04:20 Hct 34.1 % (35.3-44.9) L 01/01/19 04:20 MCV 81.4 fL (83.0-100.0) L 01/01/19 04:20 MCH 26.0 pg (28.0-33.3) L 01/01/19 04:20 RDW 15.9 % (11.5-14.5) H 01/01/19 04:20 Neutrophils # 12.7 K/mcL (1.6-8.9) H 01/01/19 04:20 Sodium 128 mEq/L (136-145) L 01/01/19 04:20 Chloride 96 mEq/L (98-107) L 01/01/19 04:20 Carbon Dioxide 22 mEq/L (23-29) L 01/01/19 04:20 Creatinine 1.59 mg/dL (0.60-1.20) H 01/01/19 04:20 Est GFR ( Amer) 39 (> 60) L 01/01/19 04:20 Est GFR (Non-Af Amer) 32 (> 60) L 01/01/19 04:20 Glucose 212 mg/dL (70-105) H 01/01/19 04:20 POC Glucose 148 mg/dL (70-99) H 01/01/19 11:41 Calculated Osmolality 276 (280-300) L 01/01/19 04:20 Direct Bilirubin 0.3 mg/dL (0.0-0.2) H 12/31/18 21:15 Globulin 3.9 g/dL (2.4-3.5) H 12/31/18 21:15 Albumin/Globulin Ratio 1.0 (1.1-2.2) L 12/31/18 21:15 Lipase 10 Units/L (11-82) L 12/31/18 21:15 Urine Glucose (UA) 100 mg/dL (Normal) H 12/31/18 22:48 Ur Leukocyte Esterase Moderate (Negative) H 12/31/18 22:48 Urine Microscopic RBC 5-15 per hpf (0-3) H 12/31/18 22:48 Urine Microscopic WBC 50-100 per hpf (0-3) H 12/31/18 22:48 Ur Culture Indicated? YES (NO) A 12/31/18 22:48 E. coli (PCR) DETECTED (Not Detect) A 12/31/18 21:15 Diabetes panel 12/31/18 01/01/19 Range/Units 21:15 04:20 Sodium 126 L 128 L (136-145) mEq/L Potassium 4.4 4.6 (3.5-5.1) mEq/L Chloride 94 L 96 L (98-107) mEq/L Carbon Dioxide 22 L 22 L (23-29) mEq/L BUN 18 22 (8-23) mg/dL Creatinine 1.45 H 1.59 H (0.60-1.20) mg/dL Glucose 227 H 212 H (70-105) mg/dL Calcium 9.3 8.7 (8.6-10.3) mg/dL AST 17 (13-39) Units/L ALT 10 (7-52) Units/L Alkaline Phosphatase 85 (34-104) Units/L Albumin 4.0 (3.5-5.7) g/dL Calcium panel 12/31/18 01/01/19 Range/Units 21:15 04:20 Calcium 9.3 8.7 (8.6-10.3) mg/dL Albumin 4.0 (3.5-5.7) g/dL Pituitary panel 12/31/18 01/01/19 Range/Units 21:15 04:20 Sodium 126 L 128 L (136-145) mEq/L Potassium 4.4 4.6 (3.5-5.1) mEq/L Chloride 94 L 96 L (98-107) mEq/L Carbon Dioxide 22 L 22 L (23-29) mEq/L BUN 18 22 (8-23) mg/dL Creatinine 1.45 H 1.59 H (0.60-1.20) mg/dL Glucose 227 H 212 H (70-105) mg/dL Calcium 9.3 8.7 (8.6-10.3) mg/dL Adrenal panel 12/31/18 01/01/19 Range/Units 21:15 04:20 Sodium 126 L 128 L (136-145) mEq/L Potassium 4.4 4.6 (3.5-5.1) mEq/L Chloride 94 L 96 L (98-107) mEq/L Carbon Dioxide 22 L 22 L (23-29) mEq/L BUN 18 22 (8-23) mg/dL Creatinine 1.45 H 1.59 H (0.60-1.20) mg/dL Glucose 227 H 212 H (70-105) mg/dL Calcium 9.3 8.7 (8.6-10.3) mg/dL Total Bilirubin 0.9 (0.3-1.0) mg/dL AST 17 (13-39) Units/L ALT 10 (7-52) Units/L Alkaline Phosphatase 85 (34-104) Units/L Albumin 4.0 (3.5-5.7) g/dL All other labs normal.
[2019-01-01] MEDS ORDERED: Ondansetron ODT 4 MG TAB.RAPDIS SL PRN (10:27)
[2019-01-01 14:40] LABS: Acinetobacter baumannii by PCR Not Detected (Not Detect); Candida albicans by PCR Not Detected (Not Detect); Candida glabrata by PCR Not Detected (Not Detect); Candida krusei by PCR Not Detected (Not Detect); Candida parapsilosis by PCR Not Detected (Not Detect); Candida tropicalis by PCR Not Detected (Not Detect); Enterobacter cloacae Cmplx PCR Not Detected (Not Detect); Enterococcus by PCR Not Detected (Not Detect); Escherichia coli by PCR DETECTED (Not Detect); Klebsiella oxytoca by PCR Not Detected (Not Detect); Klebsiella pneumoniae by PCR Not Detected (Not Detect); Proteus by PCR Not Detected (Not Detect); Pseudomonas aeruginosa by PCR Not Detected (Not Detect); Serratia marcescens by PCR Not Detected (Not Detect); Staphylococcus aureus by PCR Not Detected (Not Detect); Staphylococcus by PCR Not Detected (Not Detect); Streptococcus agalactiae(B)PCR Not Detected (Not Detect); Streptococcus by PCR Not Detected (Not Detect); Streptococcus pneumoniae PCR Not Detected (Not Detect); Streptococcus pyogenes (A) PCR Not Detected (Not Detect); blaKPC Carbapenem-Resist Gene Not Detected (Not Detect); mecA Methicillin-Resist Gene Not Detected (Not Detect); vanA/B Vancomycin-Resist Genes Not Detected (Not Detect)
--- NOTE | 2019-01-01 14:53 | Electrocardiograph Report ---
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
[2019-01-01] MEDS ORDERED: Gabapentin 300 MG CAPSULE PO SCH (21:00)
[2019-01-01] MEDS ORDERED: DOXYLAMINE SUCCINATE PO SCH (21:00)
[2019-01-02 04:24] LABS: Basophils % 0.2 %; Eosinophils % 0.1 %; Hematocrit 34.9 % (35.3-44.9); Hemoglobin 10.7 g/dL (11.5-15.4); Immature Granulocytes % 1.4 % (0-4); Lymphocytes # 0.7 K/mcL (0.6-4.6); Lymphocytes % 4.6 %; Mean Corpuscular HGB Conc 30.7 g/dL (31.6-35.5); Mean Corpuscular Hemoglobin 25.9 pg (28.0-33.3); Mean Corpuscular Volume 84.5 fL (83.0-100.0); Mean Platelet Volume 10.2 fL (9.4-12.4); Monocytes # 0.9 K/mcL (0.0-1.3); Monocytes % 5.9 %; Neutrophils # 12.9 K/mcL (1.6-8.9); Platelet Count 163 K/mcL (140-400); Red Blood Count 4.13 M/mcL (3.82-4.97); Red Cell Distribution Width 16.4 % (11.5-14.5); Segmented Neutrophils % 87.8 %; White Blood Count 14.7 K/mcL (4.3-11.1)
[2019-01-02 04:42] LABS: Calcium 8.5 mg/dL (8.6-10.3); Potassium 5.1 mEq/L (3.5-5.1)
[2019-01-02] MEDS: *HR* Heparin 5,000 UNIT/ML VIAL SQ SCH ×3 (06:47→20:41)
--- NOTE | 2019-01-02 08:47 | Internal Med Progress Note ---
<Raymond Denis - Last Filed: 01/02/19 15:47> Hospitalist Progress Note - Encounter Date of Encounter: 01/02/19 Time of Encounter: 09:00 - Subjective Interval History: Pt is awake in bed. Drowsy secondary to meds. Still having bilateral flank pain, unable to appreciate improvement secondary to drowsiness. Abdominal pain appears to be improved. Narayanan catheter in place. - Exam Vitals: Temp Pulse Resp BP Pulse Ox 99.7 F H 105 20 127/76 95 01/02/19 07:22 01/02/19 07:22 01/02/19 07:22 01/02/19 07:22 01/02/19 07:22 Exam: Gen: A&Ox2, drowsy, medicated. HEENT: atraumatic, normocephalic, mucous membranes moist. Resp: CTA bilaterally, no wheezing, rhonchi, or rales. CV: RRR, Normal S1 and S2. No murmur, gallops, or rubs. GI/Abdominal exam: bowel sounds normal throughout, bilateral flank tenderness to palpation, no hepatomegaly. : Narayanan catheter in place. Ext: no cyanosis, clubbing, edema. LE pulses +1 bilaterally. Neuro: drowsy, no focal deficits, small pupils, CN grossly intact. - Assessment and Plan (1) Emphysematous pyelonephritis Current Visit: No Status: Acute Assessment and Plan: WBC 14.7, creatinine up from 1.6 to 3.23. Urology recommends narayanan catheter, prep for possible ureteral stent. Urine sensitivity demonstrated e. coli sensitive to ceftriaxone. Plan to de-escalate tomorrow to Rocephin per Dr. Pina. - Ertepenam dose recieved today, will d/c. Start Rocephin 2 g IV tomorrow. - NPO at midnight for possible ureteral stent. (2) Abdominal pain Current Visit: No Status: Acute Assessment and Plan: Pain present, hard to discern secondary to pts mental status from pain meds. We d/c all opioid analgesics at this time. Pt recieved one dose of narcan which improved her mental status. She is now at baseline IV benadryl was given prior to SL oxycodone which likely contributed to pts drowsiness and altered mental status. Order was for PRN if reaction to oxycodone occured. - D/C cymbalta, IV benadryl, oxycodone. - Continue to monitor. (3) MARIBEL (acute kidney injury) Current Visit: No Status: Acute Assessment and Plan: Creatine increased from 1.6 to 3.23. Possible concern for uremia secondary to pts mental status. However it was determined this change was likely from analgesics. Narayanan catheter placed with plan for urinary diversion tomorrow per urology. - Continue IV fluids. - Avoid nephrotoxic drugs. - Daily BUN/Cr monitoring. (4) Hyponatremia Current Visit: No Status: Resolved Assessment and Plan: Hyponatremia has responded to IV fluids. Likely hypovolemic in etiology. Sodium 134 today. - Continue IV fluids. - Monitor with daily electrolytes. - Monitor for mental status changes. (5) Poorly controlled diabetes mellitus Current Visit: No Status: Acute Assessment and Plan: BS down to 146 today. Pt has had poor PO intake secondary to mental status. - Monitor for hypoglycemia. - Continue basal-bolus regimen. - Time Spent with Patient Total time spent is greater than 50% in coordination of care (as documented) at patient's floor/unit and/or counseling patient: Plan of Care Discussed with: patient Internal Medicine: Result - Labs CBC & Chem 7: 01/02/19 03:55 01/02/19 03:55 Labs: Short CBC 01/02/19 Range/Units 03:55 WBC 14.7 H (4.3-11.1) K/mcL Hgb 10.7 L (11.5-15.4) g/dL Hct 34.9 L (35.3-44.9) % Plt Count 163 (140-400) K/mcL Neutrophils # 12.9 H (1.6-8.9) K/mcL BMP 01/02/19 03:55 Sodium 134 L Potassium 5.1 Chloride 100 Carbon Dioxide 21 L BUN 36 H Creatinine 3.23 H Glucose 146 H Calcium 8.5 L Cardiac Enzymes 01/01/19 Range/Units 09:08 Troponin I < 0.03 (< 0.04) ng/mL Consult Discharge Plan - Plan Referrals: Kiel Watkins MD [Primary Care Provider] - <Richard Cornejo - Last Filed: 01/02/19 16:40> Hospitalist Progress Note - Encounter Date of Encounter: 01/02/19 - Exam Vitals: Temp Pulse Resp BP Pulse Ox 98.9 F 111 16 100/48 91 01/02/19 13:46 01/02/19 13:46 01/02/19 13:46 01/02/19 13:46 01/02/19 13:46 - Assessment and Plan (1) Acute pyelonephritis Current Visit: No Status: Acute (2) MARIBEL (acute kidney injury) Current Visit: No Status: Acute (3) Bacteremia Current Visit: No Status: Acute (4) CAD (coronary artery disease) Current Visit: No Status: Acute (5) Diabetes Current Visit: No Status: Chronic (6) CKD (chronic kidney disease) stage 3, GFR 30-59 ml/min Current Visit: No Status: Chronic - Time Spent with Patient Total time spent is greater than 50% in coordination of care (as documented) at patient's floor/unit and/or counseling patient: Internal Medicine: Result - Labs CBC & Chem 7: 01/02/19 03:55 01/02/19 03:55 Labs: Short CBC 01/02/19 Range/Units 03:55 WBC 14.7 H (4.3-11.1) K/mcL Hgb 10.7 L (11.5-15.4) g/dL Hct 34.9 L (35.3-44.9) % Plt Count 163 (140-400) K/mcL Neutrophils # 12.9 H (1.6-8.9) K/mcL BMP 01/02/19 03:55 Sodium 134 L Potassium 5.1 Chloride 100 Carbon Dioxide 21 L BUN 36 H Creatinine 3.23 H Glucose 146 H Calcium 8.5 L - Attending Attestation I examined this patient and my medical decision-making was reviewed with the Resident Physician on 01/02/19. I agree with the documented findings, disposition and treatment plan as described except to the extent set forth below. Ms Ordoñez is currently admitted for acute pyelo with E coli bacteremia. She remains moderate to high risk due to potential for worsening clinical status. Ms Ordoñez is very somnolent today. Her creatinine is worse. No fever. Blood cx positive for E coli. Exam Alert. Somnolent. NC. EOMI. Mucus membranes dry. Heart reg and distant. Lungs clear. Abd soft and nontender. Diaphoretic. Moves all extremities. I/P 1. E coli bacteremia - transition to Rocephin tomorrow 2. Acute pyelo - on IV abx 3. CKD 3 4. Acute renal failure - ? if due to ATN Further diagnoses and plan as above. <Raymond Denis - Last Filed: 01/02/19 15:47> (2) Abdominal pain Qualifiers: Abdominal location: unspecified location Qualified Code(s): R10.9 - Unspecified abdominal pain <Richard Cornejo - Last Filed: 01/02/19 16:40> (4) CAD (coronary artery disease) Qualifiers: Coronary Disease-Associated Artery/Lesion type: [place] artery [place] vs. transplanted heart: [place] heart Associated angina: without angina Qualified Code(s): I25.10 - Atherosclerotic heart disease of [place] coronary artery without angina pectoris (5) Diabetes Qualifiers: Diabetes mellitus type: type 2 Diabetes mellitus longterm insulin use: with longterm use Diabetes mellitus complication status: with hyperglycemia Qualified Code(s): E11.65 - Type 2 diabetes mellitus with hyperglycemia; Z79.4 - [facility] (current) use of insulin
--- NOTE | 2019-01-02 09:08 | Urology Progress Note ---
<Bell Galan N - Last Filed: 01/02/19 14:23> Date of Encounter: 01/02/19 Time of Encounter: 07:55 - Assessment and Plan (1) Pyelonephritis of left kidney Current Visit: Yes Status: Acute Assessment and plan: Patient is a 68-year-old female who presents with left pyelonephritis. Preliminary blood and urine cultures are positive for gram-negative rods. Vital signs are stable and afebrile, with a temperature to 99.7F. White blood cell count is elevated at 14.7, and serum creatinine acutely elevated to 3.23. Patient is receiving IV ertapenem. Ledezma catheter placement has been ordered and communicated to nurse and CAR AUDIO INSTALLER. Patient will likely require urinary diversion by ureteral stent placement. We discussed surgical risks and benefits, and patient verbalized understanding. Patient signed consent, and she is prepared undergo a cystoscopy and left ureteral stent placement. Patient will remain nothing by mouth after midnight and anticipate surgery tomorrow morning. Progress Note Narrative: Patient seen and examined lying in bed in no apparent distress. Patient reports continued flank pain, fatigue and nausea. She admits to intermittent fevers and chills. Objective Initial Vital Signs Temp Pulse Resp BP Pulse Ox 99.0 F 108 22 100/52 96 12/31/18 20:19 12/31/18 20:19 12/31/18 20:19 12/31/18 20:19 12/31/18 20:19 - General physical appearance Present: no distress, moderate pain, obese - Respiratory Present: normal expansion, normal respiratory effort - Abdomen Present: soft, non tender. Absent: distended - Genitourinary Present: other (Left CVAT) - Integumentary Present: no rash, no abnormal pigmentation - Musculoskeletal Present: normal posture - Psychiatric Present: oriented to time, oriented to person, oriented to place, speech is normal, memory intact - Labs 01/02/19 03:55 01/02/19 03:55 Diabetes panel 01/02/19 Range/Units 03:55 Sodium 134 L (136-145) mEq/L Potassium 5.1 (3.5-5.1) mEq/L Chloride 100 (98-107) mEq/L Carbon Dioxide 21 L (23-29) mEq/L BUN 36 H (8-23) mg/dL Creatinine 3.23 H (0.60-1.20) mg/dL Glucose 146 H (70-105) mg/dL Calcium 8.5 L (8.6-10.3) mg/dL Calcium panel 01/02/19 Range/Units 03:55 Calcium 8.5 L (8.6-10.3) mg/dL Pituitary panel 01/02/19 Range/Units 03:55 Sodium 134 L (136-145) mEq/L Potassium 5.1 (3.5-5.1) mEq/L Chloride 100 (98-107) mEq/L Carbon Dioxide 21 L (23-29) mEq/L BUN 36 H (8-23) mg/dL Creatinine 3.23 H (0.60-1.20) mg/dL Glucose 146 H (70-105) mg/dL Calcium 8.5 L (8.6-10.3) mg/dL Adrenal panel 01/02/19 Range/Units 03:55 Sodium 134 L (136-145) mEq/L Potassium 5.1 (3.5-5.1) mEq/L Chloride 100 (98-107) mEq/L Carbon Dioxide 21 L (23-29) mEq/L BUN 36 H (8-23) mg/dL Creatinine 3.23 H (0.60-1.20) mg/dL Glucose 146 H (70-105) mg/dL Calcium 8.5 L (8.6-10.3) mg/dL Consult Discharge Plan - Plan Referrals: Kiel Watkins MD [Primary Care Provider] - <Ancelmo Soria - Last Filed: 01/02/19 16:17> Date of Encounter: 01/02/19 - Assessment and Plan (1) Recurrent UTI Current Visit: Yes Status: Acute (2) Left flank pain Current Visit: Yes Status: Acute (3) Emphysematous pyelonephritis of left kidney Current Visit: Yes Status: Acute (4) Pyelonephritis of left kidney Current Visit: Yes Status: Acute (5) MARIBEL (acute kidney injury) Current Visit: No Status: Acute Progress Note Narrative: Patient was seen and examined independently. I agree with the plan as written by Bell Galan. Patient's labs showed worsening renal function. Catheter was placed earlier today. She is scheduled tomorrow for cystoscopy and left ureteral stent placement. Objective Initial Vital Signs Temp Pulse Resp BP Pulse Ox 99.0 F 108 22 100/52 96 08/28/19 20:19 12/31/18 20:19 12/31/18 20:19 12/31/18 20:19 12/31/18 20:19 - Labs 01/02/19 03:55 01/02/19 03:55 Diabetes panel 01/02/19 Range/Units 03:55 Sodium 134 L (136-145) mEq/L Potassium 5.1 (3.5-5.1) mEq/L Chloride 100 (98-107) mEq/L Carbon Dioxide 21 L (23-29) mEq/L BUN 36 H (8-23) mg/dL Creatinine 3.23 H (0.60-1.20) mg/dL Glucose 146 H (70-105) mg/dL Calcium 8.5 L (8.6-10.3) mg/dL Calcium panel 01/02/19 Range/Units 03:55 Calcium 8.5 L (8.6-10.3) mg/dL Pituitary panel 01/02/19 Range/Units 03:55 Sodium 134 L (136-145) mEq/L Potassium 5.1 (3.5-5.1) mEq/L Chloride 100 (98-107) mEq/L Carbon Dioxide 21 L (23-29) mEq/L BUN 36 H (8-23) mg/dL Creatinine 3.23 H (0.60-1.20) mg/dL Glucose 146 H (70-105) mg/dL Calcium 8.5 L (8.6-10.3) mg/dL Adrenal panel 01/02/19 Range/Units 03:55 Sodium 134 L (136-145) mEq/L Potassium 5.1 (3.5-5.1) mEq/L Chloride 100 (98-107) mEq/L Carbon Dioxide 21 L (23-29) mEq/L BUN 36 H (8-23) mg/dL Creatinine 3.23 H (0.60-1.20) mg/dL Glucose 146 H (70-105) mg/dL Calcium 8.5 L (8.6-10.3) mg/dL
[2019-01-02] MEDS: Ertapenem 1,000 MG in 0.9 % Sodium Chloride Mini Bag 100 ML IVPB SCH (09:21)
[2019-01-02] MEDS: 0.9 % Sodium Chloride 1,000 ML IVC SCH ×2 (09:23→19:38)
[2019-01-02] MEDS: Aspirin Enteric Coated 81 MG Tablet PO SCH (09:25)
[2019-01-02] MEDS: Insulin LISPRO 300 UNITS/3 ML VIAL SQ SCH ×4 (09:25→20:40)
[2019-01-02] MEDS: Metoprolol XL (24 HR) Succ 25 MG TAB.ER.24H PO SCH (09:25)
[2019-01-02] MEDS: Topiramate 25 MG TABLET PO SCH (09:25)
[2019-01-02] MEDS: Naloxone 0.4 MG/ML INJ IVP PRN ×2 (10:43→14:41)
[2019-01-03] MEDS: *HR* Heparin 5,000 UNIT/ML VIAL SQ SCH ×3 (02:12→20:14)
[2019-01-03] MEDS ORDERED: Lidocaine -MPF 2% 2 ML VIAL ONE (07:26)
[2019-01-03] MEDS ORDERED: *HR* FentaNYL (PF) 100 MCG/2 ML VIAL ONE (07:26)
[2019-01-03] MEDS ORDERED: *HR* Propofol 200 MG/20 ML VIAL IVP ONE (07:26)
[2019-01-03] MEDS ORDERED: *HR* Succinylcholine 200 MG/10 ML VIAL IVP ONE (07:26)
[2019-01-03] MEDS ORDERED: Dexamethasone 4 MG/ML VIAL ONE (07:29)
[2019-01-03] MEDS ORDERED: Ondansetron 4 MG/2 ML VIAL ONE (07:29)
--- NOTE | 2019-01-03 07:34 | Internal Med Progress Note ---
<Raymond Denis - Last Filed: 01/03/19 12:23> Hospitalist Progress Note - Encounter Date of Encounter: 01/03/19 Time of Encounter: 07:34 - Subjective Interval History: Pt awake, drowsy from anesthesia, appears comfortable. S/P ureteral stent placement. Endorses feelings of incomplete bladder emptying. Urine appears yellow, slightly thick in consistency in catheter w/o catherine blood. Abdominal and flank pain improved. - Exam Vitals: Temp Pulse Resp BP Pulse Ox 98.5 F 88 15 121/71 94 01/03/19 05:43 01/03/19 00:52 01/03/19 00:52 01/03/19 00:52 01/03/19 00:52 Exam: Gen: A&Ox2, drowsy, medicated. HEENT: atraumatic, normocephalic, mucous membranes moist. Resp: CTA bilaterally, no wheezing, rhonchi, or rales. CV: RRR, Normal S1 and S2. No murmur, gallops, or rubs. GI/Abdominal exam: bowel sounds normal throughout, bilateral flank tenderness to palpation, no hepatomegaly. : Ledezma catheter in place. Ext: no cyanosis, clubbing, edema. LE pulses +1 bilaterally. Neuro: drowsy, no focal deficits, small pupils, CN grossly intact. - Assessment and Plan (1) Emphysematous pyelonephritis Current Visit: No Status: Acute Assessment and Plan: WBC down from 14.7 to 6.0. S/P ureteral diversion. Urology to follow. De- escalate abx today. -Start Rocephin 2 g IV for GNRs, pyelo. -D/C IV ertapenem. -Monitor renal function. (2) Bacteremia Current Visit: No Status: Acute Assessment and Plan: Initial blood culture demonstrated e coli sensitive to rocephin. Pts temperature has reduced from 102 to 98.5 today. S/P ureteral stent. - Start Rocephin 2 g IV. - Repeat blood cultures. (3) MARIBEL (acute kidney injury) Current Visit: No Status: Acute Assessment and Plan: Creatine decreased from 3.23 to 1.79 s/p stent. Ledezma catheter in place. - Continue IV fluids. - Avoid nephrotoxic drugs. - Daily BUN/Cr monitoring. (4) Poorly controlled diabetes mellitus Current Visit: No Status: Acute Assessment and Plan: BS down to 128 today. Pt has had poor PO intake secondary to mental status changes and surgey. - Monitor for hypoglycemia. - Continue basal-bolus regimen. - Time Spent with Patient Total time spent is greater than 50% in coordination of care (as documented) at patient's floor/unit and/or counseling patient: Plan of Care Discussed with: patient Internal Medicine: Result - Labs CBC & Chem 7: 01/03/19 10:30 01/03/19 10:30 Consult Discharge Plan - Plan Referrals: Kiel Watkins MD [Primary Care Provider] - <Richard Cornejo - Last Filed: 01/03/19 16:02> Hospitalist Progress Note - Encounter Date of Encounter: 01/03/19 - Exam Vitals: Temp Pulse Resp BP Pulse Ox 98.3 F 91 16 137/73 94 01/03/19 15:43 01/03/19 15:43 01/03/19 15:43 01/03/19 15:43 01/03/19 15:43 - Assessment and Plan (1) Acute pyelonephritis Current Visit: No Status: Acute (2) MARIBEL (acute kidney injury) Current Visit: No Status: Acute (3) Bacteremia Current Visit: No Status: Acute (4) CAD (coronary artery disease) Current Visit: No Status: Acute (5) Diabetes Current Visit: No Status: Chronic (6) CKD (chronic kidney disease) stage 3, GFR 30-59 ml/min Current Visit: No Status: Chronic - Time Spent with Patient Total time spent is greater than 50% in coordination of care (as documented) at patient's floor/unit and/or counseling patient: Internal Medicine: Result - Labs CBC & Chem 7: 01/03/19 10:30 01/03/19 10:30 Labs: Short CBC 01/03/19 Range/Units 10:30 WBC 6.0 D (4.3-11.1) K/mcL Hgb 9.1 L D (11.5-15.4) g/dL Hct 29.0 L (35.3-44.9) % Plt Count 116 L (140-400) K/mcL Neutrophils # 5.0 (1.6-8.9) K/mcL BMP 01/03/19 10:30 Sodium 132 L Potassium 4.5 Chloride 102 Carbon Dioxide 20 L BUN 44 H Creatinine 1.79 H Glucose 128 H Calcium 7.9 L - Impressions Impressions Fluoroscopy 01/03/19 00:00 IMPRESSION: Intraprocedural fluoroscopic spot images as above. See separate procedure report for more information. D/ / Dwaine Carpenter MD / Dwaine Carpenter MD Interpreting Provider: Dwaine Carpenter MD X-Ray 01/03/19 00:00 IMPRESSION: Intraprocedural fluoroscopic spot images as above. See separate procedure report for more information. D/ / Dwaine Carpenter MD / Dwaine Carpenter MD Interpreting Provider: Dwaine Carpenter MD - Attending Attestation I examined this patient and my medical decision-making was reviewed with the Resident Physician on 01/03/19. I agree with the documented findings, disposition and treatment plan as described except to the extent set forth below. Ms Ordoñez is currently admitted for acute emphysematous pyelo and bacteremia. She remains moderate to high risk due to potential for worsening clinical status. Ms Ordoñez just returned from OR. She is sleepy but arousable and interactive. Febrile last night. Pain is overall improving. No N/V. No CP or SOB. Exam Alert. Comfortable at this time Mucus membranes dry Heart not tachy. No wheeze Abd soft Plan Continue IV abx. Supportive care. Treat bactermia. Pt will need IV abx at discharge. Recheck blood cultures as she may need a PICC line. _ <Richard Cornejo - Last Filed: 01/03/19 16:02> (4) CAD (coronary artery disease) Qualifiers: Coronary Disease-Associated Artery/Lesion type: [place] artery [place] vs. transplanted heart: tribal heart Associated angina: without angina Qualified Code(s): I25.10 - Atherosclerotic heart disease of [place] coronary artery without angina pectoris (5) Diabetes Qualifiers: Diabetes mellitus type: type 2 Diabetes mellitus rodent exterminator insulin use: with rodent exterminator use Diabetes mellitus complication status: with hyperglycemia Qualified Code(s): E11.65 - Type 2 diabetes mellitus with hyperglycemia; Z79.4 - rodent exterminator (current) use of insulin
--- NOTE | 2019-01-03 07:41 | Anesthesia Evaluation PreOp ---
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: TIA, Other (chronic pain, DDD, spinal stenosis with neuropathy, anxiety/depression) Other Medical History: Renal (pyelonephritis, acute on chronic renal disease,), Diabetes Type II, Thyroid (thyroid mass removal with tracheostomy), Other (gastric ulcer) Anesthesia History: No Prior Anesthetic Complications, Past Anesthesia (appy, cataract, hunter, hyst, orthopedic, thyroidectomy with tracheostomy, stents, knee surgerys, T&A, ankle, bilat foot, tubal, dental surgery, trigger finger,) Alcohol Use: none Drug use: none Medications and Allergies Duloxetine HCl [Cymbalta] 60 mg PO BID 12/05/14 [History] Insulin ASPART [NovoLOG] 10 - 24 unit SQ BID 12/05/14 [History] Pantoprazole Sodium [Protonix] 40 mg PO DAILY 09/18/16 [History] Ergocalciferol (VITAMIN D2) [Vitamin D2] 50,000 unit PO CAMPOS 02/19/18 [History] Gabapentin [Neurontin] 300 mg PO HS 02/19/18 [History] Mirabegron [Myrbetriq] 50 mg PO DAILY 02/19/18 [History] metFORMIN [Glucophage] 1,000 mg PO BID 02/19/18 [History] Insulin Degludec [Tresiba Flextouch U-100] 86 unit SQ QAM 05/02/18 [History] Aspirin Enteric Coated [Aspirin EC] 81 mg PO DAILY #30 tablet.dr 05/04/18 [Rx] Lisinopril [Zestril] 5 mg PO DAILY #30 tablet 05/04/18 [Rx] Atorvastatin Calcium [Lipitor] 20 mg PO DAILY 08/05/18 [History] Clotrimazole 1% CRM [Lotrimin 1%] 1 appl TP BID #0 08/05/18 [History] Doxylamine Succinate [Unisom] 25 mg PO HS 08/05/18 [History] Topiramate [Topamax] 50 mg PO DAILY 09/26/18 [History] Metoprolol XL (24 HR) Succ [Toprol XL] 25 mg PO DAILY #30 tab.er.24h 09/27/18 [Rx] Clopidogrel [Plavix] 75 mg PO DAILY 10/30/18 [History] Allergy/AdvReac Type Severity Reaction Status Date / Time ampicillin Allergy Unknown See Verified 12/31/18 20:25 Comments Cortisone Allergy Unknown Hives Verified 12/31/18 20:25 oxycodone [Oxycodone] Allergy Unknown Hives Verified 12/31/18 20:25 Penicillins Allergy Unknown See Verified 12/31/18 20:25 Comments Sulfa (Sulfonamide Allergy Unknown See Verified 12/31/18 20:25 Antibiotics) Comments ciprofloxacin AdvReac Unknown Rash Verified 12/31/18 20:25 codeine AdvReac Unknown Itching Verified 12/31/18 20:25 hydromorphone [Hydromorphone] AdvReac Unknown Vomiting Verified 12/31/18 20:25 phenazopyridine AdvReac Unknown Vomiting Verified 12/31/18 20:25 [Phenazopyridine] tramadol AdvReac Unknown Vomiting Verified 12/31/18 20:25 hydrocodone AdvReac Itching Verified 12/31/18 20:25 - Meds/Allergy Pre-op Review Medications Reviewed: Yes Allergies Reviewed: Yes Beta Blockers on Current Med List: Yes Anesthesia Results - Labs 01/02/19 03:55 01/02/19 03:55 - Imaging EKG: report reviewed (NSR), image reviewed Additional studies: stress test no abnormalities but only went 1:30 due to leg pain echo EF 65% Anesthesia Exam Vital Signs/O2 Sat, Most Current Temp Pulse Resp BP Pulse Ox 98.6 F 91 15 113/69 92 01/03/19 07:39 01/03/19 07:39 01/03/19 07:39 01/03/19 07:39 01/03/19 07:39 - HEENT Pupil (Motor): Pupils equal, EOMI Mallampati: III Teeth: Edentulous Oral Opening: Greater than 3 - BUILDING CARPENTER HELPER LOC: Oriented BUILDING CARPENTER HELPER Motor: Normal RUE, Normal LUE, Normal RLE, Normal LLE, Normal Face BUILDING CARPENTER HELPER Sensory: Normal: RUE, LUE, RLE, LLE, Face - Cardiac Rhythm: Regular Murmur: None JVD: No - Pulmonary Breath Sounds: bilateral Clear Respiratory Effort: Symmetrical Anesthesia Assess/Plan ASA Score: 4 Level of consciousness: Cooperative, Oriented Anesthetic Plan: General Monitoring Plan: Standard Monitors Recovery Plan: PACU
[2019-01-03] MEDS: Metoprolol XL (24 HR) Succ 25 MG TAB.ER.24H PO SCH (07:43)
[2019-01-03] MEDS: Insulin LISPRO 300 UNITS/3 ML VIAL SQ SCH ×4 (07:57→20:16)
[2019-01-03] MEDS ORDERED: Ondansetron 4 MG/2 ML VIAL IVP ONE (08:16)
--- NOTE | 2019-01-03 08:16 | Urology Progress Note ---
Date of Encounter: 01/03/19 Time of Encounter: 08:15 - Assessment and Plan (1) Recurrent UTI Current Visit: Yes Status: Acute (2) Left flank pain Current Visit: Yes Status: Acute (3) Emphysematous pyelonephritis of left kidney Current Visit: Yes Status: Acute Assessment and plan: To operating room today for cystoscopy and left ureteral stent placement. (4) Pyelonephritis of left kidney Current Visit: Yes Status: Acute (5) MARIBEL (acute kidney injury) Current Visit: No Status: Acute Progress Note Narrative: Patient seen this morning. Patient remained febrile overnight. Objective Initial Vital Signs Temp Pulse Resp BP Pulse Ox 99.0 F 108 22 100/52 96 12/31/18 20:19 12/31/18 20:19 12/31/18 20:19 12/31/18 20:19 12/31/18 20:19 - General physical appearance Present: well developed, well nourished - Abdomen Present: soft. Absent: tender - Labs 01/02/19 03:55 01/02/19 03:55 Consult Discharge Plan - Plan Referrals: Kiel Watkins MD [Primary Care Provider] -
[2019-01-03] MEDS ORDERED: Ringers Solution, Lactated 1,000 ML IVC SCH (08:30)
[2019-01-03] MEDS ORDERED: *HR* PHENYLEPHRINE 1,000 MCG/10 ML SYRINGE IVP ONE (08:52)
[2019-01-03] MEDS ORDERED: cefTRIAXone 2,000 MG in 0.9 % Sodium Chloride Mini Bag 100 ML IVPB SCH (09:00)
[2019-01-03] MEDS ORDERED: cefTRIAXone 2,000 MG in Water for inj. (sterile) 20 ML IVP SCH (09:00)
--- NOTE | 2019-01-03 09:26 | Operative Note ---
Date of procedure: 01/03/19 Pre-op diagnosis: left emphysematous pyelonephritis Post-op diagnosis: same Procedure: Cystoscopy and left 6 x 26 cm ureteral stent placement Anesthesia: TODDA Surgeon: Ancelmo Soria Was there an project administrative assistant present: No Estimated blood loss (cc): 0 Specimen: none Condition: stable Disposition: PACU Procedure in Detail: Patient was prepped and draped in normal sterile fashion. Timeout procedure performed. I then inserted the cystoscope into the patient's bladder. I was able to cannulate the left ureteral orifice. This wire was then placed into the left kidney using fluoroscopy. I then placed a 6 x 26 cm stent with good curl seen in the left kidney and in the bladder. Strings had been removed. Catheter was then replaced into the patient's bladder. Procedure was ended and patient was taken to PACU in stable condition.
[2019-01-03] MEDS ORDERED: *HR* Vasopressin 20 UNIT/ML VIAL ONE (09:31)
[2019-01-03] MEDS ORDERED: Lidocaine HCL 4 ML Topical Solution (Laryng-O-Jet Kit Sterile Pak) TP ONE (09:39)
[2019-01-03] MEDS ORDERED: Ringers Solution, Lactated 1,000 ML ONE (09:51)
--- NOTE | 2019-01-03 09:55 | Anesthesia Evaluation Post Op ---
Date of Encounter: 01/03/19 Time of Encounter: 09:53 - Vital Signs Vital Signs: Vital Signs/O2 Sat, Most Current Temp Pulse Resp BP Pulse Ox 98.5 F 85 10 137/68 94 01/03/19 09:17 01/03/19 09:37 01/03/19 09:37 01/03/19 09:37 01/03/19 09:37 - Lungs Lungs: Clear Ascult./Percussion - Airway Airway: Non-obstructed - Cardiovascular Regular Rate, Baseline Rhythm - Mental Status Mental Status: Asleep with brisk response to light stimulation - Pain Pain Scale: 0 - Nausea Vomiting Nausea Vomiting: Unable to assess - Discharge PostOp Status: Transfer Patient to floor
[2019-01-03] MEDS ORDERED: Naloxone 0.4 MG/ML INJ IVP PRN (10:57)
[2019-01-03] MEDS ORDERED: Acetaminophen 325 MG TABLET PO PRN (10:57)
[2019-01-03] MEDS ORDERED: *HR* Dextrose 50 % in Water (Syg) 50 ML SYRINGE IVP PRN (10:57)
[2019-01-03] MEDS ORDERED: Dextrose Gel 15 GM/37.5 ML TUBE PO PRN ×2 (10:57)
[2019-01-03 11:02] LABS: Basophils % 0.2 %; Eosinophils # 0.1 K/mcL (0.0-0.6); Eosinophils % 1.5 %; Lymphocytes # 0.4 K/mcL (0.6-4.6); Mean Corpuscular HGB Conc 31.4 g/dL (31.6-35.5); Mean Corpuscular Volume 82.9 fL (83.0-100.0); Mean Platelet Volume 10.6 fL (9.4-12.4); Monocytes # 0.5 K/mcL (0.0-1.3); Monocytes % 8.2 %; Platelet Count 116 K/mcL (140-400); Red Cell Distribution Width 16.7 % (11.5-14.5); Segmented Neutrophils % 83.1 %
[2019-01-03 11:21] LABS: Calcium 7.9 mg/dL (8.6-10.3); Potassium 4.5 mEq/L (3.5-5.1)
[2019-01-03 11:38] LABS: Hemoglobin 9.1 g/dL (11.5-15.4)
--- NOTE | 2019-01-04 00:05 | Electrocardiograph Report ---
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
[2019-01-04 02:56] LABS: Basophils % 0.2 %; Hemoglobin 9.1 g/dL (11.5-15.4); Immature Granulocytes % 0.5 % (0-4); Lymphocytes # 0.5 K/mcL (0.6-4.6); Lymphocytes % 8.9 %; Mean Corpuscular HGB Conc 31.4 g/dL (31.6-35.5); Mean Corpuscular Hemoglobin 26.1 pg (28.0-33.3); Mean Corpuscular Volume 83.1 fL (83.0-100.0); Mean Platelet Volume 10.7 fL (9.4-12.4); Monocytes # 0.4 K/mcL (0.0-1.3); Monocytes % 6.7 %; Neutrophils # 5.1 K/mcL (1.6-8.9); Platelet Count 113 K/mcL (140-400); Red Blood Count 3.49 M/mcL (3.82-4.97); Red Cell Distribution Width 16.4 % (11.5-14.5); Segmented Neutrophils % 83.7 %; White Blood Count 6.1 K/mcL (4.3-11.1)
[2019-01-04 03:16] LABS: Calcium 8.3 mg/dL (8.6-10.3); Potassium 5.1 mEq/L (3.5-5.1)
--- NOTE | 2019-01-04 07:48 | Internal Med Progress Note ---
<Cira M - Last Filed: 01/04/19 09:46> Hospitalist Progress Note - Encounter Date of Encounter: 01/04/19 Time of Encounter: 07:47 - Subjective Interval History: Pt awake, alert, eating in bed. Still slightly drowsy. Appears comfortable. Reports that her pain has improved significantly. Urinating normally today. Denies fever, chills, n/v, cp, sob. - Exam Vitals: Temp Pulse Resp BP Pulse Ox 97.9 F 79 13 153/84 94 01/04/19 04:26 01/04/19 04:26 01/04/19 04:01/04/19 04:01/04/19 04:26 Exam: Gen: A&Ox2, drowsy, medicated. HEENT: atraumatic, normocephalic, mucous membranes moist. Resp: CTA bilaterally, no wheezing, rhonchi, or rales. CV: RRR, Normal S1 and S2. No murmur, gallops, or rubs. GI/Abdominal exam: bowel sounds normal throughout, bilateral flank tenderness to palpation, no hepatomegaly. : urinating appropriately. Ledezma removed. Ext: no cyanosis, clubbing, edema. LE pulses +1 bilaterally. Neuro: drowsy, no focal deficits, small pupils, CN grossly intact. - Assessment and Plan (1) Emphysematous pyelonephritis Current Visit: No Status: Acute Assessment and Plan: WBC 6.1 today. S/P ureteral diversion. Urology following. -Continue Rocephin 2 g IV for GNRs, pyelo. -Monitor renal function. (2) Bacteremia Current Visit: No Status: Acute Assessment and Plan: Initial blood culture demonstrated e coli sensitive to rocephin. Afebrile for 24 hours. S/P ureteral stent. - Continue Rocephin 2 g IV. - Awaiting repeat blood cultures. (3) MARIBEL (acute kidney injury) Current Visit: No Status: Acute Assessment and Plan: BUN up from 44 to 49 today. Creatine trending down from 1.79 to 1.55 today. Ledezma removed. - Continue IV fluids. - Avoid nephrotoxic drugs. - Daily BUN/Cr monitoring. (4) Poorly controlled diabetes mellitus Current Visit: No Status: Chronic Assessment and Plan: BS at 256 today, likely related to starting diet. - Accuchecks ACHS. - Continue basal-bolus regimen. DVT Prophylaxis: Heparin 5,000 U SQ. - Time Spent with Patient Total time spent is greater than 50% in coordination of care (as documented) at patient's floor/unit and/or counseling patient: Plan of Care Discussed with: patient Internal Medicine: Result - Labs CBC & Chem 7: 01/04/19 02:30 01/04/19 02:30 Labs: Short CBC 01/03/19 01/04/19 Range/Units 10:30 02:30 WBC 6.0 D 6.1 (4.3-11.1) K/mcL Hgb 9.1 L D 9.1 L (11.5-15.4) g/dL Hct 29.0 L 29.0 L (35.3-44.9) % Plt Count 116 L 113 L (140-400) K/mcL Neutrophils # 5.0 5.1 (1.6-8.9) K/mcL BMP 01/03/19 01/04/19 10:30 02:30 Sodium 132 L 134 L Potassium 4.5 5.1 Chloride 102 103 Carbon Dioxide 20 L 21 L BUN 44 H 49 H Creatinine 1.79 H 1.55 H Glucose 128 H 256 H Calcium 7.9 L 8.3 L - Impressions Impressions Fluoroscopy 01/03/19 00:00 IMPRESSION: Intraprocedural fluoroscopic spot images as above. See separate procedure report for more information. D/ / Dwaine Carpenter MD / Dwaine Carpenter MD Interpreting Provider: Dwaine Carpenter MD X-Ray 01/03/19 00:00 IMPRESSION: Intraprocedural fluoroscopic spot images as above. See separate procedure report for more information. D/ / Dwaine Carpenter MD / Dwaine Carpenter MD Interpreting Provider: Dwaine Carpenter MD Consult Discharge Plan - Plan Referrals: Kiel Watkins MD [Primary Care Provider] - <Richard Cornejo - Last Filed: 01/04/19 14:25> Hospitalist Progress Note - Encounter Date of Encounter: 01/04/19 - Exam Vitals: Temp Pulse Resp BP Pulse Ox 98.2 F 77 18 158/78 93 01/04/19 11:43 01/04/19 11:43 01/04/19 11:43 01/04/19 11:43 01/04/19 11:43 - Assessment and Plan (1) Acute pyelonephritis Current Visit: No Status: Acute (2) MARIBEL (acute kidney injury) Current Visit: No Status: Acute (3) Bacteremia Current Visit: No Status: Acute (4) CAD (coronary artery disease) Current Visit: No Status: Acute (5) Diabetes Current Visit: No Status: Chronic (6) CKD (chronic kidney disease) stage 3, GFR 30-59 ml/min Current Visit: No Status: Chronic - Time Spent with Patient Total time spent is greater than 50% in coordination of care (as documented) at patient's floor/unit and/or counseling patient: Internal Medicine: Result - Labs CBC & Chem 7: 01/04/19 02:30 01/04/19 02:30 Labs: Short CBC 01/04/19 Range/Units 02:30 WBC 6.1 (4.3-11.1) K/mcL Hgb 9.1 L (11.5-15.4) g/dL Hct 29.0 L (35.3-44.9) % Plt Count 113 L (140-400) K/mcL Neutrophils # 5.1 (1.6-8.9) K/mcL BMP 01/04/19 02:30 Sodium 134 L Potassium 5.1 Chloride 103 Carbon Dioxide 21 L BUN 49 H Creatinine 1.55 H Glucose 256 H Calcium 8.3 L - Attending Attestation I examined this patient and my medical decision-making was reviewed with the Resident Physician on 01/04/19. I agree with the documented findings, disposition and treatment plan as described except to the extent set forth below. Ms Ordoñez is currently admitted for pyelonephritis and bacteremia. She remains moderate to high risk due to potential for worsening of respiratory status and sepsis. Ms Ordoñez is more alert and oriented today. She still has some confusion. No fever or chills. No further temp since stent placement. Tearful today. Exam Alert. Comfortable. Oriented more today. NC. EOMI. Mucus membranes dry. Neck supple. Heart reg and distant. Lungs diminished. Abd soft. No flank pain. Moves all extremities. Plan: Continue IV abx. Will need IV abx at discharge. Supportive care. <Richard Cornejo - Last Filed: 01/04/19 14:25> (4) CAD (coronary artery disease) Qualifiers: Coronary Disease-Associated Artery/Lesion type: [place] artery [place] vs. transplanted heart: [place] heart Associated angina: without angina Qualified Code(s): I25.10 - Atherosclerotic heart disease of [place] coronary artery without angina pectoris (5) Diabetes Qualifiers: Diabetes mellitus type: type 2 Diabetes mellitus assisted insulin use: with vermin exterminator use Diabetes mellitus complication status: with hyperglycemia Qualified Code(s): E11.65 - Type 2 diabetes mellitus with hyperglycemia; Z79.4 - jail (current) use of insulin
[2019-01-04] MEDS: Metoprolol XL (24 HR) Succ 25 MG TAB.ER.24H PO SCH (10:47)
[2019-01-04] MEDS: Aspirin Enteric Coated 81 MG Tablet PO SCH (10:47)
--- NOTE | 2019-01-04 10:47 | Urology Progress Note ---
Date of Encounter: 01/04/19 Time of Encounter: 10:45 - Assessment and Plan (1) Recurrent UTI Current Visit: Yes Status: Acute (2) Left flank pain Current Visit: Yes Status: Acute (3) Emphysematous pyelonephritis of left kidney Current Visit: Yes Status: Acute Assessment and plan: Patient to continue with antibiotics recommend a 2-3 week total course.. Okay to remove catheter per primary team. Patient will need follow-up with Dr. Bañuelos in 2-3 weeks to discuss long-term management of stent. Please call with any questions. (4) Pyelonephritis of left kidney Current Visit: Yes Status: Acute (5) MARIBEL (acute kidney injury) Current Visit: No Status: Acute Progress Note Narrative: Patient seen this morning. Patient feeling better. Status post ureteral stent placement yesterday. Good urine output. No fevers. Objective Initial Vital Signs Temp Pulse Resp BP Pulse Ox 99.0 F 108 22 100/52 96 12/31/18 20:19 12/31/18 20:19 12/31/18 20:19 12/31/18 20:12/31/18 20:19 - General physical appearance Present: well developed, well nourished - Abdomen Present: soft. Absent: tender - Integumentary Present: no rash, no abnormal pigmentation - Labs 01/04/19 02:30 01/04/19 02:30 Diabetes panel 01/03/19 01/04/19 Range/Units 10:30 02:30 Sodium 132 L 134 L (136-145) mEq/L Potassium 4.5 5.1 (3.5-5.1) mEq/L Chloride 102 103 (98-107) mEq/L Carbon Dioxide 20 L 21 L (23-29) mEq/L BUN 44 H 49 H (8-23) mg/dL Creatinine 1.79 H 1.55 H (0.60-1.20) mg/dL Glucose 128 H 256 H (70-105) mg/dL Calcium 7.9 L 8.3 L (8.6-10.3) mg/dL Calcium panel 01/03/19 01/04/19 Range/Units 10:30 02:30 Calcium 7.9 L 8.3 L (8.6-10.3) mg/dL Pituitary panel 01/03/19 01/04/19 Range/Units 10:30 02:30 Sodium 132 L 134 L (136-145) mEq/L Potassium 4.5 5.1 (3.5-5.1) mEq/L Chloride 102 103 (98-107) mEq/L Carbon Dioxide 20 L 21 L (23-29) mEq/L BUN 44 H 49 H (8-23) mg/dL Creatinine 1.79 H 1.55 H (0.60-1.20) mg/dL Glucose 128 H 256 H (70-105) mg/dL Calcium 7.9 L 8.3 L (8.6-10.3) mg/dL Adrenal panel 01/03/19 01/04/19 Range/Units 10:30 02:30 Sodium 132 L 134 L (136-145) mEq/L Potassium 4.5 5.1 (3.5-5.1) mEq/L Chloride 102 103 (98-107) mEq/L Carbon Dioxide 20 L 21 L (23-29) mEq/L BUN 44 H 49 H (8-23) mg/dL Creatinine 1.79 H 1.55 H (0.60-1.20) mg/dL Glucose 128 H 256 H (70-105) mg/dL Calcium 7.9 L 8.3 L (8.6-10.3) mg/dL Consult Discharge Plan - Plan Referrals: Kiel Watkins MD [Primary Care Provider] -
[2019-01-04] MEDS: cefTRIAXone 2,000 MG in Water for inj. (sterile) 20 ML IVP SCH (10:48)
[2019-01-04] MEDS: Topiramate 25 MG TABLET PO SCH (10:48)
[2019-01-04] MEDS: Insulin LISPRO 300 UNITS/3 ML VIAL SQ SCH ×4 (11:04→21:26)
[2019-01-04] MEDS: *HR* Heparin 5,000 UNIT/ML VIAL SQ SCH ×3 (11:05→21:28)
[2019-01-05] MEDS: Artificial Tears SOLN 15 ML BOTTLE BOTH EYES SCH ×5 (00:23→21:01)
[2019-01-05 05:09] LABS: Basophils % 0.2 %; Eosinophils % 0.5 %; Hemoglobin 9.6 g/dL (11.5-15.4); Immature Granulocytes % 0.5 % (0-4); Lymphocytes # 1.6 K/mcL (0.6-4.6); Lymphocytes % 24.1 %; Mean Corpuscular Volume 81.3 fL (83.0-100.0); Mean Platelet Volume 10.2 fL (9.4-12.4); Monocytes # 0.6 K/mcL (0.0-1.3); Monocytes % 8.9 %; Platelet Count 144 K/mcL (140-400); Red Blood Count 3.69 M/mcL (3.82-4.97); Red Cell Distribution Width 16.3 % (11.5-14.5); Segmented Neutrophils % 65.8 %; White Blood Count 6.6 K/mcL (4.3-11.1)
[2019-01-05 05:19] LABS: Neutrophils # 4.3 K/mcL (1.6-8.9)
[2019-01-05 05:27] LABS: BUN/Creatinine Ratio 36 (6-26); Blood Urea Nitrogen 38 mg/dL (8-23); Calcium 8.8 mg/dL (8.6-10.3); Carbon Dioxide 23 mEq/L (23-29); Chloride 105 mEq/L (98-107); Glucose 127 mg/dL (70-105); Osmolality,Calculated 293 (280-300); Potassium 4.6 mEq/L (3.5-5.1); Sodium 136 mEq/L (136-145); eGFR For African Americans > 60 (> 60); eGFR For Non-African Americans 52 (> 60)
[2019-01-05] MEDS: *HR* Heparin 5,000 UNIT/ML VIAL SQ SCH ×3 (05:33→21:00)
[2019-01-05 05:46] LABS: Platelet Estimate Normal (Normal)
--- NOTE | 2019-01-05 07:33 | Internal Med Progress Note ---
<Raymond Denis Cam - Last Filed: 01/05/19 11:31> Hospitalist Progress Note - Encounter Date of Encounter: 01/05/19 Time of Encounter: 07:33 - Subjective Interval History: Pt awake, alert. Laying in bed. Reports that her fatigue is unchanged. Pain continues to improve. Urinating appropriately w/o evidence of blood, dysuria. Denies fever, chills, cp, sob. We discussed possible discharge tomorrow and need for continued IV abx. - Exam Vitals: Temp Pulse Resp BP Pulse Ox 98.1 F 67 15 157/79 95 01/05/19 06:26 01/05/19 06:26 01/05/19 06:26 01/05/19 06:26 01/05/19 06:26 Exam: Gen: A&Ox2, drowsy, medicated. HEENT: atraumatic, normocephalic, mucous membranes moist. Resp: CTA bilaterally, no wheezing, rhonchi, or rales. CV: RRR, Normal S1 and S2. No murmur, gallops, or rubs. GI/Abdominal exam: bowel sounds normal throughout, bilateral flank tenderness has resolved. : urinating appropriately, no evidence of hematuria. Ext: no cyanosis, clubbing, edema. LE pulses +1 bilaterally. Neuro: drowsy, no focal deficits, CN grossly intact. - Assessment and Plan (1) Emphysematous pyelonephritis Current Visit: No Status: Acute Assessment and Plan: Mrs. Ordoeñz is S/P ureteral diversion. Urology following, recs continued IV abx therapy at this time. Plan for paraglide or PICC tomorrow. -Continue Rocephin 2 g IV for GNRs, pyelo. -Monitor renal function. (2) Bacteremia Current Visit: No Status: Acute Assessment and Plan: Pt continues to remain afebrile. - Continue Rocephin 2 g IV. - Awaiting repeat blood cultures. (3) MARIBEL (acute kidney injury) Current Visit: No Status: Acute Assessment and Plan: BUN decreased from 49 to 38 today. Creatinine down from 1.55 to 1.05. - Continue IV fluids. - Avoid nephrotoxic drugs. - Daily BUN/Cr monitoring. (4) Poorly controlled diabetes mellitus Current Visit: No Status: Chronic Assessment and Plan: BS down from 256 to 127 today. - Accuchecks ACHS. - Continue basal-bolus regimen. DVT Prophylaxis: Heparin 5,000 U SQ. - Time Spent with Patient Total time spent is greater than 50% in coordination of care (as documented) at patient's floor/unit and/or counseling patient: Plan of Care Discussed with: patient Internal Medicine: Result - Labs CBC & Chem 7: 01/05/19 04:35 01/05/19 04:35 Labs: Short CBC 01/05/19 Range/Units 04:35 WBC 6.6 (4.3-11.1) K/mcL Hgb 9.6 L (11.5-15.4) g/dL Hct 30.0 L (35.3-44.9) % Plt Count 144 (140-400) K/mcL Neutrophils # 4.3 (1.6-8.9) K/mcL BMP 01/05/19 04:35 Sodium 136 Potassium 4.6 Chloride 105 Carbon Dioxide 23 BUN 38 H Creatinine 1.05 Glucose 127 H Calcium 8.8 Consult Discharge Plan - Plan Referrals: Kiel Watkins MD [Primary Care Provider] - <Richard Cornejo - Last Filed: 01/05/19 15:42> Hospitalist Progress Note - Encounter Date of Encounter: 01/05/19 - Exam Vitals: Temp Pulse Resp BP Pulse Ox 98.1 F 67 15 157/79 95 01/05/19 06:26 01/05/19 06:26 01/05/19 06:26 01/05/19 06:26 01/05/19 06:26 - Assessment and Plan (1) Acute pyelonephritis Current Visit: No Status: Acute (2) MARIBEL (acute kidney injury) Current Visit: No Status: Acute (3) Bacteremia Current Visit: No Status: Acute (4) CAD (coronary artery disease) Current Visit: No Status: Acute (5) Diabetes Current Visit: No Status: Chronic (6) CKD (chronic kidney disease) stage 3, GFR 30-59 ml/min Current Visit: No Status: Chronic - Time Spent with Patient Total time spent is greater than 50% in coordination of care (as documented) at patient's floor/unit and/or counseling patient: Internal Medicine: Result - Labs CBC & Chem 7: 01/05/19 04:35 01/05/19 04:35 Labs: Short CBC 01/05/19 Range/Units 04:35 WBC 6.6 (4.3-11.1) K/mcL Hgb 9.6 L (11.5-15.4) g/dL Hct 30.0 L (35.3-44.9) % Plt Count 144 (140-400) K/mcL Neutrophils # 4.3 (1.6-8.9) K/mcL BMP 01/05/19 04:35 Sodium 136 Potassium 4.6 Chloride 105 Carbon Dioxide 23 BUN 38 H Creatinine 1.05 Glucose 127 H Calcium 8.8 - Attending Attestation I examined this patient and my medical decision-making was reviewed with the Resident Physician on 01/05/19. I agree with the documented findings, disposition and treatment plan as described except to the extent set forth below. Ms Ordoñez is currently admitted for emphysematous pyelonephritis s/p stent. She remains moderate to high risk due to potential for worsening clinical status. Ms Ordoñez is more alert. She has back pain from the bed. No fever or chills. No GI issues. Exam: Alert. comfortable. NC. Mucus membranes dry. EOMI. Heart not tachy. No wheeze. Abd soft. Moves all extremities. Plan: Continue IV abx. Probable d/c tomorrow on IV Rocephin - 2 weeks total. <Richard Cornejo - Last Filed: 01/05/19 15:42> (4) CAD (coronary artery disease) Qualifiers: Coronary Disease-Associated Artery/Lesion type: [place] artery [place] vs. transplanted heart: [place] heart Associated angina: without angina Qualified Code(s): I25.10 - Atherosclerotic heart disease of [place] coronary artery without angina pectoris (5) Diabetes Qualifiers: Diabetes mellitus type: type 2 Diabetes mellitus manager long term care insulin use: with manager long term care use Diabetes mellitus complication status: with hyperglycemia Qualified Code(s): E11.65 - Type 2 diabetes mellitus with hyperglycemia; Z79.4 - [facility] (current) use of insulin
[2019-01-05] MEDS: Metoprolol XL (24 HR) Succ 25 MG TAB.ER.24H PO SCH (08:33)
[2019-01-05] MEDS: cefTRIAXone 2,000 MG in Water for inj. (sterile) 20 ML IVP SCH (08:33)
[2019-01-05] MEDS: Topiramate 25 MG TABLET PO SCH (08:33)
[2019-01-05] MEDS: Aspirin Enteric Coated 81 MG Tablet PO SCH (08:33)
[2019-01-05] MEDS: Insulin LISPRO 300 UNITS/3 ML VIAL SQ SCH ×4 (12:46→21:01)
--- NOTE | 2019-01-05 16:24 | Physician Discharge Referral ---
- Diagnosis (1) Acute pyelonephritis Status: Acute (2) MARIBEL (acute kidney injury) Status: Acute (3) Bacteremia Status: Acute (4) CAD (coronary artery disease) Status: Acute (5) Diabetes Status: Chronic (6) CKD (chronic kidney disease) stage 3, GFR 30-59 ml/min Status: Chronic - Respiratory Orders Smoking Cessation: Smoking cessation has been advised. For more information, call the [facility]uit Line at [phone]-TBVI-NOW. - Transfer Medications Home Medications: Duloxetine HCl [Cymbalta] 60 mg PO BID 12/05/14 [History] Insulin ASPART [NovoLOG] 10 - 24 unit SQ BID 12/05/14 [History] Pantoprazole Sodium [Protonix] 40 mg PO DAILY 09/18/16 [History] Ergocalciferol (VITAMIN D2) [Vitamin D2] 50,000 unit PO CAMPOS 02/19/18 [History] Gabapentin [Neurontin] 300 mg PO HS 02/19/18 [History] Mirabegron [Myrbetriq] 50 mg PO DAILY 02/19/18 [History] metFORMIN [Glucophage] 1,000 mg PO BID 02/19/18 [History] Insulin Degludec [Tresiba Flextouch U-100] 86 unit SQ QAM 05/02/18 [History] Aspirin Enteric Coated [Aspirin EC] 81 mg PO DAILY #30 tablet.dr 05/04/18 [Rx] Lisinopril [Zestril] 5 mg PO DAILY #30 tablet 05/04/18 [Rx] Atorvastatin Calcium [Lipitor] 20 mg PO DAILY 08/05/18 [History] Clotrimazole 1% CRM [Lotrimin 1%] 1 appl TP BID #0 08/05/18 [History] Doxylamine Succinate [Unisom] 25 mg PO HS 08/05/18 [History] Topiramate [Topamax] 50 mg PO DAILY 09/26/18 [History] Metoprolol XL (24 HR) Succ [Toprol XL] 25 mg PO DAILY #30 tab.er.24h 09/27/18 [Rx] Clopidogrel [Plavix] 75 mg PO DAILY 10/30/18 [History] Allergies/Adverse Reactions: Allergy/AdvReac Type Severity Reaction Status Date / Time ampicillin Allergy Unknown See Verified 12/31/18 20:25 Comments Cortisone Allergy Unknown Hives Verified 12/31/18 20:25 oxycodone [Oxycodone] Allergy Unknown Hives Verified 12/31/18 20:25 Penicillins Allergy Unknown See Verified 12/31/18 20:25 Comments Sulfa (Sulfonamide Allergy Unknown See Verified 12/31/18 20:25 Antibiotics) Comments ciprofloxacin AdvReac Unknown Rash Verified 12/31/18 20:25 codeine AdvReac Unknown Itching Verified 12/31/18 20:25 hydromorphone [Hydromorphone] AdvReac Unknown Vomiting Verified 12/31/18 20:25 phenazopyridine AdvReac Unknown Vomiting Verified 12/31/18 20:25 [Phenazopyridine] tramadol AdvReac Unknown Vomiting Verified 12/31/18 20:25 hydrocodone AdvReac Itching Verified 12/31/18 20:25 Certification: Further, I certify that my clinical findings support that this patient is homebound (i.e. absences from home require considerable and taxing effort and are for medical reasons or druze services or infrequently or short duration when for other reasons) because: Attestation: My signature below is to certify that this patient is under my care and that I, or nurse practitioner, or a physician's sales assistant displays working with me, has a [id number] encounter with this patient.
[2019-01-06] MEDS: Ondansetron ODT 4 MG TAB.RAPDIS SL PRN ×2 (03:28→11:34)
[2019-01-06 04:31] LABS: Basophils % 0.4 %; Eosinophils # 0.1 K/mcL (0.0-0.6); Eosinophils % 1.2 %; Hematocrit 32.9 % (35.3-44.9); Hemoglobin 10.5 g/dL (11.5-15.4); Immature Granulocytes % 0.4 % (0-4); Lymphocytes # 1.4 K/mcL (0.6-4.6); Lymphocytes % 28.3 %; Mean Corpuscular HGB Conc 31.9 g/dL (31.6-35.5); Mean Corpuscular Hemoglobin 25.7 pg (28.0-33.3); Mean Corpuscular Volume 80.4 fL (83.0-100.0); Monocytes # 0.5 K/mcL (0.0-1.3); Monocytes % 10.1 %; Platelet Count 159 K/mcL (140-400); Red Blood Count 4.09 M/mcL (3.82-4.97); Red Cell Distribution Width 16.3 % (11.5-14.5); Segmented Neutrophils % 59.6 %; White Blood Count 5.1 K/mcL (4.3-11.1)
[2019-01-06 04:55] LABS: BUN/Creatinine Ratio 26 (6-26); Blood Urea Nitrogen 24 mg/dL (8-23); Calcium 9.3 mg/dL (8.6-10.3); Carbon Dioxide 25 mEq/L (23-29); Chloride 99 mEq/L (98-107); Glucose 187 mg/dL (70-105); Osmolality,Calculated 287 (280-300); Potassium 4.2 mEq/L (3.5-5.1); Sodium 134 mEq/L (136-145); eGFR For African Americans > 60 (> 60); eGFR For Non-African Americans > 60 (> 60)
[2019-01-06] MEDS: *HR* Heparin 5,000 UNIT/ML VIAL SQ SCH (05:43)
[2019-01-06 05:57] LABS: Platelet Estimate Normal (Normal); Reactive Lymphocytes Present (Not Present)
[2019-01-06] MEDS: Topiramate 25 MG TABLET PO SCH (08:23)
[2019-01-06] MEDS: Metoprolol XL (24 HR) Succ 25 MG TAB.ER.24H PO SCH (08:24)
[2019-01-06] MEDS: Aspirin Enteric Coated 81 MG Tablet PO SCH (08:24)
[2019-01-06] MEDS: Insulin LISPRO 300 UNITS/3 ML VIAL SQ SCH (08:33)
[2019-01-06] MEDS: Artificial Tears SOLN 15 ML BOTTLE BOTH EYES SCH (08:34)
--- NOTE | 2019-01-06 09:06 | Discharge Summary ---
<Raymond Denis - Last Filed: 01/06/19 13:06> - NOTES TO OUTPATIENT PROVIDER Notes to Outpatient Provider: Mrs. Ordoñez is a 68 F w/PMHx of multiple UTIs who was admitted on 01/01/19 for progressive bilateral flank pain, suprapubic pain, tachycardia and nausea. CT demonstrated emphysematous pyelonephritis. She was given 1 dose of Ceftriaxone and admitted for further care. Urology was consulted for further management and recommended IV ertapenem. She continued to have significant leukocytosis and fevers, it was then recommended to perform left ureteral stent placement. Patient improved following surgery and antibiotics were de-escalated to Rocephin 2g IV. Urine culture grew E. coli with pansensitivity. Plan is to continue Rocephin 2 g IV at home for additional 8 days. F/U with Dr. Bañuelos with [facility] in 2-3 weeks for long-term stent management. Orders not resulted at time of discharge: Pending orders 01/03/19 14:28 Culture,Blood [] Routine Date of Encounter: 01/06/19 Time of Encounter: 09:05 - Discharge Diagnosis (1) Emphysematous pyelonephritis Priority: Primary Status: Resolved Assessment and Plan: Patient is a 68 y/o F w/pmhx of multiple UTIs, uncontrolled DM, and depression who presented with acute flank pain. Imaging revealed left sided emphysematous pyelonephritis. Urology consulted, pt treated with stent and IV Rocephin. She improved following procedure. - Additional 8 days 2 grams IV Rocephin at home. - Invasive line management consulted. Paraglide placed. - Social work consulted. - F/U with Dr. Bañuelos in urology in 2-3 weeks to discuss stent management. - PCP follow-up. (2) Bacteremia Priority: Secondary Status: Resolved Assessment and Plan: Pt afebrile for >72 hours. Feels well, no chills, diaphoresis, n/v. She is anticipating discharge. Awaiting repeat blood cultures, however initial blood culture revealed no growth. - 2 grams IV rocephin at home for 8 days. (3) Poorly controlled diabetes mellitus Priority: Secondary Status: Chronic Assessment and Plan: BS was maintained on basal-bolus regimen during admission. - Follow-up with PCP. - Continue home Tresiba. - Home glucose monitoring. Hospital course: Ms. Ordoñez is a 68 year old female w/PMHx of multiple UTIs, uncontrolled DM, HTN, CAD, HLD who presented to the ED on 01/01/19 complaining of 1 week progressive bilateral flank pain, suprapubic pain, tachycardia and nausea. She was managed with anti-emetics and pain control. Cardiac w/u negative. CT was performed and demonstrated left sided emphysematous pyelonephritis. She was given 1 dose of Ceftriaxone and admitted for further care. Urology was consulted for further management and recommended IV ertapenem. She was started on IV ertapenem without significant improvement in leukocytosis and pain. She later developed persistent fevers. It was then recommended to perform left ureteral stent placement. Following the procedure, the patient significant improvement in her pain. Leukocytosis resolved following procedure and it was recommended to de-escalate antibiotics to Rocephin 2g IV on day 3 of hospital stay. Urine culture grew E. coli with pansensitivity. Plan is to continue Rocephin 2 g IV at home for additional 8 days. F/U with Dr. Bañuelos with [facility] in 2-3 weeks for long-term stent management. Total hospital stay 6 days. Discharge discussed with: patient - Time Spent with Patient Total time spent providing and/or coordinating discharge services: Time spent: Greater than 30 minutes - Discharge Medications Prescriptions: New cefTRIAXone [Rocephin] 2,000 mg IVPB DAILY 8 Days #8 vial Continued Insulin ASPART [NovoLOG] 10 - 24 unit SQ BID Duloxetine HCl [Cymbalta] 60 mg PO BID Pantoprazole Sodium [Protonix] 40 mg PO DAILY Gabapentin [Neurontin] 300 mg PO HS metFORMIN [Glucophage] 1,000 mg PO BID Ergocalciferol (VITAMIN D2) [Vitamin D2] 50,000 unit PO CAMPOS Mirabegron [Myrbetriq] 50 mg PO DAILY Insulin Degludec [Tresiba Flextouch U-100] 86 unit SQ QAM Lisinopril [Zestril] 5 mg PO DAILY #30 tablet Aspirin Enteric Coated [Aspirin EC] 81 mg PO DAILY #30 tablet. Atorvastatin Calcium [Lipitor] 20 mg PO DAILY Clotrimazole 1% CRM [Lotrimin 1%] 1 appl TP BID #0 Doxylamine Succinate [Unisom] 25 mg PO HS Topiramate [Topamax] 50 mg PO DAILY Metoprolol XL (24 HR) Succ [Toprol Xl] 25 mg PO DAILY #30 tab.er.24h Clopidogrel [Plavix] 75 mg PO DAILY Home Medications: Duloxetine HCl [Cymbalta] 60 mg PO BID 12/05/14 [History] Insulin ASPART [NovoLOG] 10 - 24 unit SQ BID 12/05/14 [History] Pantoprazole Sodium [Protonix] 40 mg PO DAILY 09/18/16 [History] Ergocalciferol (VITAMIN D2) [Vitamin D2] 50,000 unit PO CAMPOS 02/19/18 [History] Gabapentin [Neurontin] 300 mg PO HS 02/19/18 [History] Mirabegron [Myrbetriq] 50 mg PO DAILY 02/19/18 [History] metFORMIN [Glucophage] 1,000 mg PO BID 02/19/18 [History] Insulin Degludec [Tresiba Flextouch U-100] 86 unit SQ QAM 05/02/18 [History] Aspirin Enteric Coated [Aspirin EC] 81 mg PO DAILY #30 tablet. 05/04/18 [Rx] Lisinopril [Zestril] 5 mg PO DAILY #30 tablet 05/04/18 [Rx] Atorvastatin Calcium [Lipitor] 20 mg PO DAILY 08/05/18 [History] Clotrimazole 1% CRM [Lotrimin 1%] 1 appl TP BID #0 08/05/18 [History] Doxylamine Succinate [Unisom] 25 mg PO HS 08/05/18 [History] Topiramate [Topamax] 50 mg PO DAILY 09/26/18 [History] Metoprolol XL (24 HR) Succ [Toprol Xl] 25 mg PO DAILY #30 tab.er.24h 09/27/18 [Rx] Clopidogrel [Plavix] 75 mg PO DAILY 10/30/18 [History] cefTRIAXone [Rocephin] 2,000 mg IVPB DAILY 8 Days #8 vial 01/05/19 [Rx] Allergies/Adverse Reactions: Allergy/AdvReac Type Severity Reaction Status Date / Time ampicillin Allergy Unknown See Verified 12/31/18 20:25 Comments Cortisone Allergy Unknown Hives Verified 12/31/18 20:25 oxycodone [Oxycodone] Allergy Unknown Hives Verified 12/31/18 20:25 Penicillins Allergy Unknown See Verified 12/31/18 20:25 Comments Sulfa (Sulfonamide Allergy Unknown See Verified 12/31/18 20:25 Antibiotics) Comments ciprofloxacin AdvReac Unknown Rash Verified 12/31/18 20:25 codeine AdvReac Unknown Itching Verified 12/31/18 20:25 hydromorphone [Hydromorphone] AdvReac Unknown Vomiting Verified 12/31/18 20:25 phenazopyridine AdvReac Unknown Vomiting Verified 12/31/18 20:25 [Phenazopyridine] tramadol AdvReac Unknown Vomiting Verified 12/31/18 20:25 hydrocodone AdvReac Itching Verified 12/31/18 20:25 Date of admission: 01/01/19 01:10 Primary care physician: Kiel Watkins MD Consults: 12/31/18 23:31 Consult to Urology [CONS] Stat Consulting Provider: Urology Yvonne Reason for Consult: possible emphesematous pyelonephritis Time Notified: 23:32 Call Completed: Yes 01/04/19 11:57 Consult to Occupational Therapy [CONS] Routine Comment: Evaluate, develop and implement POC Reason for Consult: weakness Does patient have active BEDREST order?: No Is patient medically & hemodynamically stable?: Yes Consult to Physical Therapy [CONS] Routine Comment: Evaluate, develop and implement POC Reason for Consult: Weakness Does patient have active BEDREST order?: No Is patient medically & hemodynamically stable?: Yes 01/05/19 16:52 Consult to Invasive Line Access Team [CONS] Routine Reason for Consult: Patient needs 8 days IV antibiotics Line Type: EPIV Discharging clinician: Raymond Denis Anticipated date of discharge: 01/06/19 - Constitutional Vitals: Temp Pulse Resp BP Pulse Ox 98.5 F 93 18 144/81 97 01/06/19 07:16 01/06/19 07:16 01/06/19 07:16 01/06/19 07:16 01/06/19 07:16 General appearance: Present: A&O X 3, pleasant, obese Exam: see below - Head Head exam: Present: atraumatic, normocephalic - Eye Eye exam: Present: EOMI, conjuntiva pink. Absent: scleral icterus Pupils: Present: PERRL - ENT ENT exam: Present: mucous membranes moist, normal oropharynx - Neck Neck exam general surgery: Present: normal inspection. Absent: lymphadenopathy, tenderness - Respiratory Respiratory exam: Present: CTAB. Absent: rales, respiratory distress, rhonchi, wheezes - Cardiovascular Cardiovascular exam: Present: RRR, +S1, +S2. Absent: diastolic murmur, JVD, systolic murmur - GI/Abdominal GI/Abdominal exam: Present: soft, tenderness (very mild tenderness at the flanks bilaterally, significantly improved), no peritoneal signs. Absent: distended, firm, guarding, rebound - Extremities Exam Extremities exam: Absent: cyanotic, joint swelling, tenderness - Neurological Exam Neurological exam: Present: alert, CN II-XII intact, oriented X3, no focal deficits - Psychiatric Psychiatric exam: Present: depressed (tearful, she has history of chronic depression) - Skin Skin exam: Present: dry, intact, normal color - Patient Status Disposition: Home Health Service Condition: Good Functional capacity at discharge: independent ambulation Overall status at discharge: patient is back to baseline - Discharge Instructions Instructions: Urinary Tract Infection in Women (DC), Acute Pyelonephritis (DC) Follow Up With: Kiel Watkins MD [Primary Care Provider] - 01/12/19 2:15 pm Israel Bañuelos MD [Partnered Physician] - 01/26/19 9:45 am Additional Instructions: Follow-up appointments: If there is not an appointment listed below, please call your physician and schedule a follow-up appointment. If you have congestive heart failure and your symptoms return, make an appointment with your physician. Medication List: Carry an up to date list of medications you are taking at all time. We have given you an updated medication list including any new medications that you have been prescribed. Please provide that list to your primary provider Symptoms: If your condition changes or you experience any of the following symptoms, notify your physician immediately: Unusual or worsening pain, fever, persistent nausea and vomiting, bleeding, increase in swelling (especially in your legs), sudden weight gain, extreme dizziness, chest pain, increased drainage or redness from a wound or incision. Go to the emergency department if you experience a problem with breathing. Weights: If you have a history of swelling or shortness of breath, weigh yourself daily and notify your physician if you have a weight gain of two or more pounds in one day or 5 or more pounds in a week. If you experience any of the warning signs for stroke: Sudden numbness or weakness of the face, arm or leg; especially on one side of the body, sudden confusion, trouble speaking or understanding, sudden trouble seeing in one or both eyes, sudden trouble walking, dizziness, loss of balance or coordination, sudden sever headache with no cause; Call 911 or go to the emergency room. Stroke is a medical emergency. Some risk factors for stroke: Age, cigarette smoking, diabetes, excessive alcohol consumption, family history, high blood pressure, overweight, physical inactivity, prior stroke, heart attack, diagnosis of carotid artery stenosis or other artery disease. If you smoke, STOP: Smoking or tobacco use significantly increases your risk of heart and lung disease. Your chance of disease greatly increases if you continue to smoke. For more information, call the [place] quit line for smoking cessation 6-336-LNKL-NOW ( ) - Diet and Activity Activity: increase activity as tolerated Diet: advance to your usual diet <Richard Cornejo - Last Filed: 01/06/19 16:21> Orders not resulted at time of discharge: Pending orders 01/03/19 14:28 Culture,Blood [BC] Routine Date of Encounter: 01/06/19 - Discharge Diagnosis (1) Acute pyelonephritis Status: Acute (2) MARIBEL (acute kidney injury) Status: Resolved (3) Bacteremia Status: Resolved (4) CAD (coronary artery disease) Status: Acute Qualifiers: Coronary Disease-Associated Artery/Lesion type: [place] artery [place] vs. 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 Ordoñez is a 68 year old female - Time Spent with Patient Total time spent providing and/or coordinating discharge services: Date of admission: 01/01/19 01:10 Primary care physician: Kiel Watkins MD Consults: 12/31/18 23:31 Consult to Urology [CONS] Stat Consulting Provider: Jodi Russell Reason for Consult: possible emphesematous pyelonephritis Time Notified: 23:32 Call Completed: Yes 01/04/19 11:57 Consult to Occupational Therapy [CONS] Routine Comment: Evaluate, develop and implement POC Reason for Consult: weakness Does patient have active BEDREST order?: No Is patient medically & hemodynamically stable?: Yes Consult to Physical Therapy [CONS] Routine Comment: Evaluate, develop and implement POC Reason for Consult: Weakness Does patient have active BEDREST order?: No Is patient medically & hemodynamically stable?: Yes 01/05/19 16:52 Consult to Invasive Line Access Team [CONS] Routine Reason for Consult: Patient needs 8 days IV antibiotics Line Type: EPIV 01/06/19 12:10 Consult to Invasive Line Access Team [CONS] Routine Reason for Consult: limited vascular access Line Type: EPIV - Constitutional Vitals: Temp Pulse Resp BP Pulse Ox 98.2 F 76 18 147/82 96 01/06/19 12:01 01/06/19 12:01 01/06/19 12:01 01/06/19 12:01 01/06/19 12:01 - Attending Attestation I examined this patient and my medical decision-making was reviewed with the Resident Physician on 01/06/19. I agree with the documented findings, disposition and treatment plan as described except to the extent set forth below. Ms Ordoñez has been admitted for pyelonephritis. She is s/p stent. Her urine and blood both had E coli S to Rocephin. She is now afebrile and home abx arranged. She is ready for discharge home. Exam Alert. Comfortable NC. Mucus membranes dry. EOMI Heart reg No wheeze Plan D/C home today on IV Rocephin to complete 2 weeks abx. D/C time 35min
[2019-01-06] MEDS: cefTRIAXone 2,000 MG in Water for inj. (sterile) 20 ML IVP SCH (10:16)
--- NOTE | 2019-01-06 11:52 | Physician Discharge Referral ---
Home Health/Hosp Referral Info Transfer to: Home Health Provider in Charge Post Discharge: PCP - Diagnosis (1) Acute pyelonephritis Priority: Primary Status: Acute (2) MARIBEL (acute kidney injury) Priority: Secondary Status: Resolved (3) Bacteremia Priority: Secondary Status: Acute (4) CAD (coronary artery disease) Priority: Secondary Status: Acute (5) Diabetes Priority: Secondary Status: Chronic (6) CKD (chronic kidney disease) stage 3, GFR 30-59 ml/min Priority: Secondary Status: Chronic - Respiratory Orders None Smoking Cessation: Smoking cessation has been advised. For more information, call the [place] Tobacco Quit Line at 8-229-KADR-NOW. - Diet/Nutrition Diet/Nutrition Orders: Cardiac, No Concentrated Sweets - Activity Activity Orders: Up ad porfirio - Services Needed Following services are medically necessary services: Nursing, Physical Therapy, Occupational Therapy - Transfer Medications Prescriptions: cefTRIAXone [Rocephin] 2,000 mg IVPB DAILY 8 Days #8 vial Home Medications: Duloxetine HCl [Cymbalta] 60 mg PO BID 12/05/14 [History] Insulin ASPART [NovoLOG] 10 - 24 unit SQ BID 12/05/14 [History] Pantoprazole Sodium [Protonix] 40 mg PO DAILY 09/18/16 [History] Ergocalciferol (VITAMIN D2) [Vitamin D2] 50,000 unit PO CAMPOS 02/19/18 [History] Gabapentin [Neurontin] 300 mg PO HS 02/19/18 [History] Mirabegron [Myrbetriq] 50 mg PO DAILY 02/19/18 [History] metFORMIN [Glucophage] 1,000 mg PO BID 02/19/18 [History] Insulin Degludec [Tresiba Flextouch U-100] 86 unit SQ QAM 05/02/18 [History] Aspirin Enteric Coated [Aspirin EC] 81 mg PO DAILY #30 tablet. 05/04/18 [Rx] Lisinopril [Zestril] 5 mg PO DAILY #30 tablet 05/04/18 [Rx] Atorvastatin Calcium [Lipitor] 20 mg PO DAILY 08/05/18 [History] Clotrimazole 1% CRM [Lotrimin 1%] 1 appl TP BID #0 08/05/18 [History] Doxylamine Succinate [Unisom] 25 mg PO HS 08/05/18 [History] Topiramate [Topamax] 50 mg PO DAILY 09/26/18 [History] Metoprolol XL (24 HR) Succ [Toprol XL] 25 mg PO DAILY #30 tab.er.24h 09/27/18 [Rx] Clopidogrel [Plavix] 75 mg PO DAILY 10/30/18 [History] cefTRIAXone [Rocephin] 2,000 mg IVPB DAILY 8 Days #8 vial 01/05/19 [Rx] Allergies/Adverse Reactions: Allergy/AdvReac Type Severity Reaction Status Date / Time ampicillin Allergy Unknown See Verified 12/31/18 20:25 Comments Cortisone Allergy Unknown Hives Verified 12/31/18 20:25 oxycodone [Oxycodone] Allergy Unknown Hives Verified 12/31/18 20:25 Penicillins Allergy Unknown See Verified 12/31/18 20:25 Comments Sulfa (Sulfonamide Allergy Unknown See Verified 12/31/18 20:25 Antibiotics) Comments ciprofloxacin AdvReac Unknown Rash Verified 12/31/18 20:25 codeine AdvReac Unknown Itching Verified 12/31/18 20:25 hydromorphone [Hydromorphone] AdvReac Unknown Vomiting Verified 12/31/18 20:25 phenazopyridine AdvReac Unknown Vomiting Verified 12/31/18 20:25 [Phenazopyridine] tramadol AdvReac Unknown Vomiting Verified 12/31/18 20:25 hydrocodone AdvReac Itching Verified 12/31/18 20:25 Certification: Further, I certify that my clinical findings support that this patient is homebound (i.e. absences from home require considerable and taxing effort and are for medical reasons or [employer] services or infrequently or short duration when for other reasons) because: Homebound Reason: Leaving home requires considerable and taxing effort due to condition, Severity of cardiac or pulmonary status limits activity tolerance Attestation: My signature below is to certify that this patient is under my care and that I, or nurse practitioner, or a physician's electrical assistant working with me, has a [id number] encounter with this patient.
[2019-01-06 12:11] VITALS: BP 147/82
== END 2019-01-06 14:47 | disposition home health service (06) | DRG 660 ==
LOC: 3ANU 20:03 → EMEROOARM 20:03 → 3ANU 01-01 00:25 → SUATTDRO 01-01 01:10
PROVIDERS: ADMIT Internal Medicine; ATTEND Internal Medicine

== ENCOUNTER 2019-02-20 16:51 | Observation (INO) ==
[2019-02-20] MEDS ORDERED: Ondansetron 4 MG/2 ML VIAL IVP ONE (17:10)
[2019-02-20] MEDS ORDERED: *HR* FentaNYL (PF) 100 MCG/2 ML VIAL IVP ONE (17:10)
[2019-02-20 18:34] LABS: White Blood Count 5.8 K/mcL (4.3-11.1)
[2019-02-20 18:35] LABS: Basophils % 0.3 %; Eosinophils # 0.3 K/mcL (0.0-0.6); Eosinophils % 4.3 %; Hematocrit 33.3 % (35.3-44.9); Hemoglobin 11.1 g/dL (11.5-15.4); Immature Granulocytes % 0.3 % (0-4); Lymphocytes # 1.7 K/mcL (0.6-4.6); Lymphocytes % 28.9 %; Mean Corpuscular HGB Conc 33.3 g/dL (31.6-35.5); Mean Corpuscular Hemoglobin 26.3 pg (28.0-33.3); Mean Corpuscular Volume 78.9 fL (83.0-100.0); Monocytes # 0.5 K/mcL (0.0-1.3); Monocytes % 8.2 %; Neutrophils # 3.4 K/mcL (1.6-8.9); Platelet Count 188 K/mcL (140-400); Red Blood Count 4.22 M/mcL (3.82-4.97); Red Cell Distribution Width 15.7 % (11.5-14.5)
[2019-02-20 19:10] LABS: BUN/Creatinine Ratio 18 (6-26); Blood Urea Nitrogen 17 mg/dL (8-23); Calcium 9.2 mg/dL (8.6-10.3); Carbon Dioxide 23 mEq/L (23-29); Chloride 101 mEq/L (98-107); Glucose 231 mg/dL (70-105); Osmolality,Calculated 285 (280-300); Potassium 4.1 mEq/L (3.5-5.1); Sodium 133 mEq/L (136-145); eGFR For African Americans > 60 (> 60); eGFR For Non-African Americans 57 (> 60)
[2019-02-20 19:37] LABS: Bilirubin,Urine Negative (Negative); Blood,Urine Small (Negative); Clarity,Urine Cloudy (Clear); Color,Urine Yellow (Yellow); Glucose,Urine (UA) Normal (Normal); Ketones,Urine Negative (Negative); Leukocyte Esterase,Urine Large (Negative); Nitrite,Urine Positive (Negative); PH,Urine 6.5 pH Units (5.0-8.0); Protein,Urine 30 mg/dL (Neg-Trace); Specific Gravity,Urine 1.019 (1.010-1.025); Urobilinogen,Urine Normal (Normal)
[2019-02-20 19:40] LABS: Bacteria,Urine Many per hpf (None-Few); Hyaline Casts,Urine None Seen per lpf (None-Few); Squamous Epithelial Cell,Urine None Seen per lpf (None-Few); WBC,Urine TNTC per hpf (0-3)
[2019-02-20] MEDS ORDERED: cefTRIAXone 2,000 MG in Water for inj. (sterile) 20 ML IVP ONE (19:43)
[2019-02-21] MEDS ORDERED: Naloxone 0.4 MG/ML INJ IVP PRN (00:20)
[2019-02-21] MEDS ORDERED: Dextrose Gel 15 GM/37.5 ML TUBE PO PRN ×2 (00:21)
[2019-02-21] MEDS ORDERED: D5% in Water 1,000 ML IVC PRN (00:21)
[2019-02-21] MEDS ORDERED: *HR* Dextrose 50 % in Water (Syg) 50 ML SYRINGE IVP PRN (00:21)
[2019-02-21 05:55] LABS: Hematocrit 35.2 % (35.3-44.9); Hemoglobin 11.3 g/dL (11.5-15.4); Mean Corpuscular HGB Conc 32.1 g/dL (31.6-35.5); Mean Corpuscular Hemoglobin 26.2 pg (28.0-33.3); Mean Corpuscular Volume 81.7 fL (83.0-100.0); Mean Platelet Volume 9.6 fL (9.4-12.4); Platelet Count 200 K/mcL (140-400); Red Blood Count 4.31 M/mcL (3.82-4.97); Red Cell Distribution Width 15.9 % (11.5-14.5); White Blood Count 6.3 K/mcL (4.3-11.1)
[2019-02-21] MEDS: Insulin LISPRO 300 UNITS/3 ML VIAL SQ SCH ×3 (06:05→17:34)
[2019-02-21 06:12] LABS: Calcium 9.5 mg/dL (8.6-10.3)
[2019-02-21] MEDS: *HR* Heparin 5,000 UNIT/ML VIAL SQ SCH ×2 (06:14→16:14)
[2019-02-21] MEDS ORDERED: Insulin LISPRO 300 UNITS/3 ML VIAL SQ SCH ×3 (07:30→21:00)
[2019-02-21] MEDS: Metoprolol XL (24 HR) Succ 25 MG TAB.ER.24H PO SCH (07:45)
[2019-02-21] MEDS: Aspirin Enteric Coated 81 MG Tablet PO SCH (07:45)
[2019-02-21] MEDS: INSULIN DEGLUDEC SQ SCH (07:47)
[2019-02-21] MEDS ORDERED: cefTRIAXone 1,000 MG in 0.9 % Sodium Chloride Mini Bag 100 ML IVPB ONE (08:08)
[2019-02-21] MEDS ORDERED: Ondansetron 4 MG/2 ML VIAL IVP PRN (09:38)
[2019-02-21] MEDS ORDERED: Cefepime HCl 2,000 MG in Water for inj. (sterile) 20 ML IVP SCH (09:43)
[2019-02-21] MEDS: Cefepime HCl 2,000 MG in Water for inj. (sterile) 20 ML IVP SCH (16:14)
[2019-02-21] MEDS ORDERED: Gabapentin 300 MG CAPSULE PO SCH (21:00)
[2019-02-21] MEDS ORDERED: Insulin DETEMIR 100 UNIT/ML X5UNITS SQ SCH (21:00)
[2019-02-22] MEDS: Cefepime HCl 2,000 MG in Water for inj. (sterile) 20 ML IVP SCH (05:36)
[2019-02-22] MEDS: *HR* Heparin 5,000 UNIT/ML VIAL SQ SCH (05:36)
[2019-02-22] MEDS: Metoprolol XL (24 HR) Succ 25 MG TAB.ER.24H PO SCH (08:21)
[2019-02-22] MEDS: Insulin LISPRO 300 UNITS/3 ML VIAL SQ SCH ×2 (08:22→12:15)
[2019-02-22] MEDS: INSULIN DEGLUDEC SQ SCH (08:22)
[2019-02-22] MEDS: Aspirin Enteric Coated 81 MG Tablet PO SCH (08:22)
[2019-02-22 11:47] VITALS: BP 143/66
[2019-02-22] MEDS ORDERED: Isosorbide MONOnitrate (24 HR) 30 MG TAB.ER.24H PO SCH (15:00)
== END 2019-02-22 17:33 | disposition home or self-care (01) ==
LOC: 3BNU 16:51 → EMEROOARM 16:51 → SUATTDRO 20:38 → 3BNU 21:23
PROVIDERS: ADMIT Internal Medicine; ATTEND Internal Medicine

== ENCOUNTER 2020-01-27 11:22 | Inpatient (IN) ==
[2020-01-27] MEDS ORDERED: Ondansetron 4 MG/2 ML VIAL IVP ONE (12:35)
[2020-01-27] MEDS ORDERED: *HR* FentaNYL (PF) 100 MCG/2 ML VIAL IVP ONE (12:35)
[2020-01-27] MEDS ORDERED: 0.9 % Sodium Chloride 1,000 ML IVC ONE (12:35)
[2020-01-27 13:04] LABS: Basophils % 0.6 %; Eosinophils # 0.4 K/mcL (0.0-0.6); Eosinophils % 5.4 %; Hematocrit 35.8 % (35.3-44.9); Hemoglobin 11.3 g/dL (11.5-15.4); Immature Granulocytes % 0.6 % (0-4); Lymphocytes # 1.7 K/mcL (0.6-4.6); Lymphocytes % 22.9 %; Mean Corpuscular HGB Conc 31.6 g/dL (31.6-35.5); Mean Corpuscular Hemoglobin 26.6 pg (28.0-33.3); Mean Corpuscular Volume 84.2 fL (83.0-100.0); Mean Platelet Volume 9.9 fL (9.4-12.4); Monocytes # 0.8 K/mcL (0.0-1.3); Monocytes % 10.8 %; Neutrophils # 4.3 K/mcL (1.6-8.9); Platelet Count 239 K/mcL (140-400); Red Blood Count 4.25 M/mcL (3.82-4.97); Red Cell Distribution Width 16.1 % (11.5-14.5); Segmented Neutrophils % 59.7 %; White Blood Count 7.2 K/mcL (4.3-11.1)
[2020-01-27 13:08] LABS: INR 1.1; Prothrombin Time 12.9 Seconds (9.4-12.1)
[2020-01-27 13:10] LABS: Activated Partial Thrombo Time 34.3 Seconds (26.0-36.0)
[2020-01-27 13:24] LABS: Alanine Aminotransferase 11 Units/L (7-52); Albumin 3.5 g/dL (3.5-5.7); Albumin/Globulin Ratio 0.9 (1.1-2.2); Alkaline Phosphatase 97 Units/L (34-104); Aspartate Amino Transferase 16 Units/L (13-39); BUN/Creatinine Ratio 21 (6-26); Bilirubin,Direct 0.2 mg/dL (0.0-0.2); Bilirubin,Indirect 0.5 mg/dL (0.0-1.0); Bilirubin,Total 0.7 mg/dL (0.3-1.0); Blood Urea Nitrogen 22 mg/dL (8-23); Calcium 9.6 mg/dL (8.6-10.3); Carbon Dioxide 24 mEq/L (23-29); Chloride 99 mEq/L (98-107); Globulin 3.8 g/dL (2.4-3.5); Glucose 189 mg/dL (70-105); Lipase 5 Units/L (11-82); Osmolality,Calculated 280 (280-300); Potassium 4.4 mEq/L (3.5-5.1); Sodium 131 mEq/L (136-145); Total Protein 7.3 g/dL (6.4-8.9); Troponin I < 0.03 ng/mL (< 0.04); eGFR For African Americans > 60 (> 60); eGFR For Non-African Americans 51 (> 60)
[2020-01-27 14:23] LABS: Bacteria,Urine Few per hpf (None-Few); Bilirubin,Urine Negative (Negative); Blood,Urine Moderate (Negative); Clarity,Urine Turbid (Clear); Color,Urine Yellow (Yellow); Glucose,Urine (UA) 300 mg/dL (Normal); Ketones,Urine Negative (Negative); Leukocyte Esterase,Urine Large (Negative); Mucus,Urine Few per lpf (None-Few); Nitrite,Urine Negative (Negative); Protein,Urine 70 mg/dL (Neg-Trace); RBC,Urine 50-100 per hpf (0-3); Squamous Epithelial Cell,Urine Few per hpf (None-Few); WBC,Urine TNTC per hpf (0-3)
[2020-01-27] MEDS ORDERED: cefTRIAXone 1,000 MG in Water for inj. (sterile) 10 ML IVP ONE (14:38)
[2020-01-27] MEDS ORDERED: Naloxone 0.4 MG/ML INJ IVP PRN (16:22)
[2020-01-27] MEDS ORDERED: Ondansetron 4 MG/2 ML VIAL IVP PRN (16:22)
[2020-01-27] MEDS ORDERED: Dextrose Gel 15 GM/37.5 ML TUBE PO PRN ×2 (17:16)
[2020-01-27] MEDS ORDERED: D5% in Water 1,000 ML IVC PRN (17:16)
[2020-01-27] MEDS ORDERED: *HR* Dextrose 50 % in Water (Vial) 50 ML VIAL IVP PRN (17:16)
[2020-01-27] MEDS ORDERED: polyethylene glycoL 3350 17 GM POWD.PACK PO PRN (17:27)
[2020-01-27] MEDS: 0.9 % Sodium Chloride 1,000 ML IVC SCH (20:11)
[2020-01-27] MEDS: Ketorolac 30 MG/ML VIAL IVP PRN (20:12)
[2020-01-27] MEDS: Insulin DETEMIR 100 UNIT/ML X5UNITS SQ SCH (22:21)
[2020-01-27] MEDS: Insulin LISPRO 300 UNITS/3 ML VIAL SQ SCH (22:21)
[2020-01-28] MEDS: Ketorolac 30 MG/ML VIAL IVP PRN ×2 (03:57→10:58)
[2020-01-28] MEDS: 0.9 % Sodium Chloride 1,000 ML IVC SCH (05:03)
[2020-01-28 05:25] LABS: Basophils % 0.5 %; Eosinophils # 0.4 K/mcL (0.0-0.6); Eosinophils % 5.9 %; Hematocrit 33.6 % (35.3-44.9); Hemoglobin 10.6 g/dL (11.5-15.4); Immature Granulocytes % 0.7 % (0-4); Lymphocytes # 1.2 K/mcL (0.6-4.6); Lymphocytes % 19.4 %; Mean Corpuscular HGB Conc 31.5 g/dL (31.6-35.5); Mean Corpuscular Hemoglobin 26.6 pg (28.0-33.3); Mean Corpuscular Volume 84.2 fL (83.0-100.0); Mean Platelet Volume 10.2 fL (9.4-12.4); Monocytes # 0.6 K/mcL (0.0-1.3); Monocytes % 10.7 %; Neutrophils # 3.8 K/mcL (1.6-8.9); Platelet Count 188 K/mcL (140-400); Red Blood Count 3.99 M/mcL (3.82-4.97); Red Cell Distribution Width 16.3 % (11.5-14.5); Segmented Neutrophils % 62.8 %
[2020-01-28 05:26] LABS: BUN/Creatinine Ratio 20 (6-26); Blood Urea Nitrogen 20 mg/dL (8-23); Calcium 8.7 mg/dL (8.6-10.3); Carbon Dioxide 24 mEq/L (23-29); Chloride 103 mEq/L (98-107); Glucose 142 mg/dL (70-105); Osmolality,Calculated 285 (280-300); Potassium 4.6 mEq/L (3.5-5.1); Sodium 135 mEq/L (136-145); eGFR For African Americans > 60 (> 60); eGFR For Non-African Americans 55 (> 60)
[2020-01-28] MEDS: Insulin LISPRO 300 UNITS/3 ML VIAL SQ SCH ×4 (08:13→21:05)
[2020-01-28] MEDS ORDERED: *HR* OxyCODONE/APAP 5/325 TABLET PO PRN (14:29)
[2020-01-28] MEDS ORDERED: cefTRIAXone 1,000 MG in Water for inj. (sterile) 10 ML IVP SCH (16:00)
[2020-01-28] MEDS ORDERED: lisinopriL 5 MG TABLET PO SCH (21:00)
[2020-01-28] MEDS ORDERED: Gabapentin 300 MG CAPSULE PO SCH (21:00)
[2020-01-28] MEDS ORDERED: Topiramate 25 MG TABLET PO SCH (21:00)
[2020-01-28] MEDS: Insulin DETEMIR 100 UNIT/ML X5UNITS SQ SCH (21:05)
[2020-01-29 00:49] LABS: Basophils % 0.4 %; Eosinophils # 0.3 K/mcL (0.0-0.6); Hematocrit 32.8 % (35.3-44.9); Hemoglobin 10.3 g/dL (11.5-15.4); Immature Granulocytes % 0.4 % (0-4); Lymphocytes # 0.8 K/mcL (0.6-4.6); Lymphocytes % 15.5 %; Mean Corpuscular HGB Conc 31.4 g/dL (31.6-35.5); Mean Corpuscular Volume 86.1 fL (83.0-100.0); Mean Platelet Volume 10.2 fL (9.4-12.4); Monocytes # 0.6 K/mcL (0.0-1.3); Monocytes % 13.1 %; Neutrophils # 3.1 K/mcL (1.6-8.9); Platelet Count 191 K/mcL (140-400); Red Blood Count 3.81 M/mcL (3.82-4.97); Red Cell Distribution Width 16.3 % (11.5-14.5); Segmented Neutrophils % 63.6 %; White Blood Count 4.9 K/mcL (4.3-11.1)
[2020-01-29 01:08] LABS: Calcium 8.8 mg/dL (8.6-10.3); Potassium 4.2 mEq/L (3.5-5.1)
[2020-01-29] MEDS: Insulin LISPRO 300 UNITS/3 ML VIAL SQ SCH ×2 (08:52→13:06)
[2020-01-29 10:43] VITALS: BP 161/63
[2020-01-29] MEDS ORDERED: Lactulose Oral Soln 20 GM/30 ML UDC PO ONE (12:43)
[2020-01-31] MEDS ORDERED: Ergocalciferol (VIT D2) 50,000 UNIT (1.25MG) CAP PO SCH (15:07)
== END 2020-01-29 15:19 | disposition home or self-care (01) | DRG 699 ==
LOC: EMEROOARM 11:22 → 3ANU 11:22 → SUATTDRO 17:33 → 3ANU 18:14
PROVIDERS: ADMIT Family Medicine; ATTEND Family Medicine

== ENCOUNTER 2021-03-24 06:26 | Observation (INO) ==
[2021-03-24] MEDS ORDERED: Vancomycin 1,500 MG/265 ML IV.SOLN IVPB ONE (09:30)
[2021-03-25] MEDS ORDERED: Naloxone 0.4 MG/ML INJ IVP PRN (00:46)
[2021-03-25] MEDS ORDERED: Melatonin 3 MG TABLET PO PRN (00:46)
[2021-03-25] MEDS ORDERED: D5% in Water 1,000 ML IVC PRN (00:52)
[2021-03-25] MEDS ORDERED: *HR* Dextrose 50 % in Water (Syg) 50 ML SYRINGE IVP PRN (00:52)
[2021-03-25] MEDS ORDERED: Dextrose Gel 15 GM/37.5 ML TUBE PO PRN ×2 (00:52)
[2021-03-25] MEDS: Piperacillin/Tazobactam 3.375 GM in 0.9 % Sodium Chloride Mini Bag 100 ML IVPB SCH ×2 (02:12→08:27)
[2021-03-25 02:27] LABS: Basophils % 0.3 %; Eosinophils # 0.2 K/mcL (0.0-0.6); Eosinophils % 3.7 %; Hematocrit 35.3 % (35.3-44.9); Hemoglobin 11.1 g/dL (11.5-15.4); Immature Granulocytes % 0.2 % (0-4); Lymphocytes # 1.5 K/mcL (0.6-4.6); Lymphocytes % 24.9 %; Mean Corpuscular HGB Conc 31.4 g/dL (31.6-35.5); Mean Corpuscular Hemoglobin 26.6 pg (28.0-33.3); Mean Corpuscular Volume 84.7 fL (83.0-100.0); Mean Platelet Volume 10.3 fL (9.4-12.4); Monocytes # 0.6 K/mcL (0.0-1.3); Neutrophils # 3.7 K/mcL (1.6-8.9); Platelet Count 175 K/mcL (140-400); Red Blood Count 4.17 M/mcL (3.82-4.97); Red Cell Distribution Width 15.3 % (11.5-14.5); Segmented Neutrophils % 60.9 %
[2021-03-25 02:32] LABS: INR 1.1
[2021-03-25 02:47] LABS: BUN/Creatinine Ratio 21 (6-26); Blood Urea Nitrogen 22 mg/dL (8-23); C-Reactive Protein 110 mg/L (Less than 10); Calcium 9.3 mg/dL (8.6-10.3); Carbon Dioxide 23 mEq/L (23-29); Chloride 101 mEq/L (98-107); Glucose 223 mg/dL (70-105); Osmolality,Calculated 286 (280-300); Potassium 4.6 mEq/L (3.5-5.1); Sodium 133 mEq/L (136-145); eGFR For African Americans > 60 (> 60); eGFR For Non-African Americans 53 (> 60)
[2021-03-25] MEDS ORDERED: *HR* Heparin 5,000 UNIT/ML VIAL SQ SCH ×2 (06:00→12:00)
[2021-03-25] MEDS ORDERED: Insulin LISPRO 300 UNITS/3 ML VIAL SUBQ SCH ×2 (07:30→21:00)
[2021-03-25] MEDS ORDERED: Famotidine 20 MG TABLET PO SCH (09:00)
[2021-03-25] MEDS ORDERED: Vancomycin 1,250 MG/262.5 ML IV.SOLN IVPB SCH (10:00)
[2021-03-25 10:38] VITALS: BP 167/84; PULSE 84; TEMP 98.1; O2SAT 95
[2021-03-25] MEDS ORDERED: Isosorbide MONOnitrate (24 HR) 30 MG TAB.ER.24H PO SCH (21:00)
[2021-03-25] MEDS ORDERED: Pregabalin 50 MG CAPSULE PO SCH (21:00)
[2021-03-25] MEDS ORDERED: tiZANidine 4 MG TABLET PO SCH (21:00)
[2021-03-25] MEDS ORDERED: Aspirin Enteric Coated 81 MG Tablet PO SCH (21:00)
[2021-03-25] MEDS ORDERED: (Mirabegron [Myrbetriq] 50 MG Tab.Er.24h) PO SCH (21:00)
[2021-03-25] MEDS ORDERED: lisinopriL 5 MG TABLET PO SCH (21:00)
== END 2021-03-25 13:25 | disposition short-term general hospital (02) ==
LOC: EMEROOARM 06:26 → 4WAOSI 06:26 → SUATTDRO 03-25 00:47 → 4WAOSI 03-25 01:24
PROVIDERS: ADMIT Student in an Organized Health Care Education/Training Program; ATTEND General Practice

== ENCOUNTER 2021-10-12 02:10 | Observation (INO) ==
[2021-10-12] MEDS ORDERED: 0.9 % Sodium Chloride 1,000 ML IVC ONE (02:32)
[2021-10-12] MEDS ORDERED: Isovue-370 500 ML BOTTLE IVP ONE (02:33)
[2021-10-12 03:05] LABS: VBG HCO3 27 mEq/L (21-27); VBG PCO2 56 mmHg (41-51); VBG PO2 45 mmHg (25-50)
[2021-10-12 03:09] LABS: Basophils % 0.4 %; Eosinophils # 0.2 K/mcL (0.0-0.6); Eosinophils % 2.7 %; Hematocrit 31.9 % (35.3-44.9); Hemoglobin 10.1 g/dL (11.5-15.4); Immature Granulocytes % 0.1 % (0-4); Lymphocytes # 2.6 K/mcL (0.6-4.6); Lymphocytes % 37.5 %; Mean Corpuscular HGB Conc 31.7 g/dL (31.6-35.5); Mean Corpuscular Hemoglobin 25.3 pg (28.0-33.3); Mean Corpuscular Volume 79.8 fL (83.0-100.0); Mean Platelet Volume 10.1 fL (9.4-12.4); Monocytes # 0.6 K/mcL (0.0-1.3); Monocytes % 9.1 %; Neutrophils # 3.5 K/mcL (1.6-8.9); Platelet Count 255 K/mcL (140-400); Red Cell Distribution Width 16.3 % (11.5-14.5); Segmented Neutrophils % 50.2 %
[2021-10-12] MEDS ORDERED: 0.9 % Sodium Chloride 1,000 ML IV ONE ×2 (03:14→05:37)
[2021-10-12] MEDS ORDERED: Vancomycin 1,750 MG/517.5 ML IV.SOLN IVPB ONE (03:19)
[2021-10-12] MEDS ORDERED: cefTRIAXone 1,000 MG in 0.9 % Sodium Chloride Mini Bag 100 ML IVPB ONE (03:19)
[2021-10-12] MEDS ORDERED: MetroNIDAZOLE 500 MG/100 ML 500 MG/100 ML BAG IVPB ONE (03:19)
[2021-10-12 03:20] LABS: INR 1.1; Prothrombin Time 11.8 Seconds (9.4-12.1)
[2021-10-12 03:23] LABS: Activated Partial Thrombo Time 34.9 Seconds (26.0-36.0)
[2021-10-12 03:27] LABS: Alanine Aminotransferase 12 Units/L (7-52); Albumin 3.3 g/dL (3.5-5.7); Albumin/Globulin Ratio 0.8 (1.1-2.2); Alkaline Phosphatase 123 Units/L (34-104); Aspartate Amino Transferase 25 Units/L (13-39); BUN/Creatinine Ratio 13 (6-26); Bilirubin,Direct 0.2 mg/dL (0.0-0.2); Bilirubin,Indirect 0.4 mg/dL (0.0-1.0); Bilirubin,Total 0.6 mg/dL (0.3-1.0); Blood Urea Nitrogen 21 mg/dL (8-23); Carbon Dioxide 27 mEq/L (23-29); Chloride 97 mEq/L (98-107); Creatine Kinase 34 Units/L (30-223); Ethanol < 10 mg/dL (Less than 10); Globulin 4.3 g/dL (2.4-3.5); Glucose 304 mg/dL (70-105); Osmolality,Calculated 292 (280-300); Potassium 4.1 mEq/L (3.5-5.1); Sodium 134 mEq/L (136-145); Total Protein 7.6 g/dL (6.4-8.9); Troponin I < 0.03 ng/mL (< 0.04); eGFR For African Americans 39 (> 60); eGFR For Non-African Americans 32 (> 60)
[2021-10-12 03:36] LABS: Amphetamine Screen,Urine Negative ng/mL (Cutoff=1000); Barbiturate Screen,Urine Negative ng/mL (Cutoff=200); Benzodiazepines Screen,Urine Negative ng/mL (Cutoff=200); Cannabinoid Screen,Urine Negative ng/mL (Cutoff = 50); Cocaine Screen,Urine Negative ng/mL (Cutoff= 300); Opiate Screen,Urine Positive ng/mL (Cutoff=300); Phencyclidine Screen,Urine Negative ng/mL (Cutoff=25)
[2021-10-12 03:37] LABS: Bilirubin,Urine Negative (Negative); Blood,Urine Large (Negative); Clarity,Urine Turbid (Clear); Color,Urine Yellow (Yellow); Glucose,Urine (UA) 300 mg/dL (Normal); Ketones,Urine Negative (Negative); Leukocyte Esterase,Urine Large (Negative); Nitrite,Urine Negative (Negative); PH,Urine 5.5 pH Units (5.0-8.0); Protein,Urine 100 mg/dL (Neg-Trace); Specific Gravity,Urine 1.022 (1.010-1.025)
[2021-10-12 03:40] LABS: Thyroid Stimulating Hormone 3.481 mcIU/mL (0.340-5.600)
[2021-10-12 03:41] LABS: Bacteria,Urine Many per hpf (None-Few); Hyaline Casts,Urine None Seen per lpf (None Seen); RBC,Urine 30-50 per hpf (0-3); Squamous Epithelial Cell,Urine Few per hpf (None-Few); WBC,Urine TNTC per hpf (0-3)
[2021-10-12 03:42] LABS: Influenza A PCR Negative (Negative); Influenza B PCR Negative (Negative); Resp. Syncytial Virus PCR Negative (Negative)
[2021-10-12 03:43] LABS: SARS-CoV-2 by PCR (In House) Negative (Negative)
[2021-10-12] MEDS ORDERED: Naloxone 0.4 MG/ML INJ IVP PRN (08:30)
[2021-10-12] MEDS ORDERED: Ondansetron 4 MG/2 ML VIAL IVP PRN (08:30)
[2021-10-12] MEDS ORDERED: D5% in Water 1,000 ML IVC PRN (08:33)
[2021-10-12] MEDS ORDERED: *HR* Dextrose 50 % in Water (Syg) 50 ML SYRINGE IVP PRN (08:33)
[2021-10-12] MEDS ORDERED: Dextrose Gel 15 GM/37.5 ML TUBE PO PRN ×2 (08:33)
[2021-10-12] MEDS: 0.9 % Sodium Chloride 1,000 ML IVC SCH (10:26)
[2021-10-12] MEDS: Insulin LISPRO 300 UNITS/3 ML VIAL SUBQ SCH ×3 (14:14→20:24)
[2021-10-12] MEDS ORDERED: Nitroglycerin 0.4 MG TAB.SUBL SL PRN (17:57)
[2021-10-12] MEDS: Aspirin Enteric Coated 81 MG Tablet PO SCH (20:18)
[2021-10-12] MEDS: Isosorbide MONOnitrate (24 HR) 60 MG TAB.ER.24H PO SCH (20:22)
[2021-10-12] MEDS: Insulin DETEMIR 100 UNIT/ML X5UNITS SUBQ SCH (20:22)
[2021-10-13 01:55] LABS: Basophils % 0.4 %; Eosinophils # 0.2 K/mcL (0.0-0.6); Eosinophils % 3.7 %; Hemoglobin 8.7 g/dL (11.5-15.4); Immature Granulocytes % 0.2 % (0-4); Lymphocytes # 1.4 K/mcL (0.6-4.6); Lymphocytes % 29.2 %; Mean Corpuscular HGB Conc 31.1 g/dL (31.6-35.5); Mean Corpuscular Volume 80.5 fL (83.0-100.0); Monocytes # 0.5 K/mcL (0.0-1.3); Monocytes % 9.9 %; Neutrophils # 2.6 K/mcL (1.6-8.9); Platelet Count 162 K/mcL (140-400); Red Blood Count 3.48 M/mcL (3.82-4.97); Red Cell Distribution Width 16.1 % (11.5-14.5); Segmented Neutrophils % 56.6 %; White Blood Count 4.7 K/mcL (4.3-11.1)
[2021-10-13 02:14] LABS: BUN/Creatinine Ratio 13 (6-26); Blood Urea Nitrogen 13 mg/dL (8-23); Calcium 8.1 mg/dL (8.6-10.3); Carbon Dioxide 25 mEq/L (23-29); Chloride 107 mEq/L (98-107); Glucose 97 mg/dL (70-105); Magnesium 1.6 mg/dL (1.6-2.6); Osmolality,Calculated 284 (280-300); Potassium 3.6 mEq/L (3.5-5.1); Sodium 137 mEq/L (136-145); eGFR For African Americans > 60 (> 60); eGFR For Non-African Americans 54 (> 60)
[2021-10-13] MEDS: 0.9 % Sodium Chloride 1,000 ML IVC SCH (03:41)
[2021-10-13] MEDS ORDERED: Acetaminophen 325 MG TABLET PO ONE (03:41)
[2021-10-13 04:31] LABS: Estimated Average Glucose 217 mg/dl; Hemoglobin A1C 9.2 %
[2021-10-13] MEDS: Insulin LISPRO 300 UNITS/3 ML VIAL SUBQ SCH ×4 (08:09→20:47)
[2021-10-13] MEDS: Cholecalciferol (D-3) 1,000 UNIT (25MCG) TABLET PO SCH (08:15)
[2021-10-13] MEDS: cefTRIAXone 1,000 MG in 0.9 % Sodium Chloride 10 ML IVPB SCH (08:47)
[2021-10-13] MEDS ORDERED: cefTRIAXone 1,000 MG in 0.9 % Sodium Chloride 10 ML IVPB SCH (09:00)
[2021-10-13] MEDS ORDERED: NON-FORMULARY MEDICATION 1 EACH EACH (Diclofenac Sodium [Voltaren] 100 GM Gel..Gram.) TD PRN (11:18)
[2021-10-13] MEDS ORDERED: tiZANidine 4 MG TABLET PO PRN (11:18)
[2021-10-13] MEDS: *HR* OxyCODONE/APAP 10/325 TABLET PO SCH ×2 (11:41→20:45)
[2021-10-13] MEDS: Aspirin Enteric Coated 81 MG Tablet PO SCH (20:45)
[2021-10-13] MEDS: Isosorbide MONOnitrate (24 HR) 60 MG TAB.ER.24H PO SCH (20:45)
[2021-10-13] MEDS: Insulin DETEMIR 100 UNIT/ML X5UNITS SUBQ SCH (20:47)
[2021-10-13] MEDS ORDERED: Pregabalin 50 MG CAPSULE PO SCH (21:00)
[2021-10-14 05:02] LABS: Basophils % 0.2 %; Eosinophils # 0.2 K/mcL (0.0-0.6); Eosinophils % 3.8 %; Hemoglobin 9.5 g/dL (11.5-15.4); Immature Granulocytes % 0.2 % (0-4); Lymphocytes # 1.8 K/mcL (0.6-4.6); Lymphocytes % 38.9 %; Mean Corpuscular HGB Conc 31.7 g/dL (31.6-35.5); Mean Corpuscular Hemoglobin 25.2 pg (28.0-33.3); Mean Corpuscular Volume 79.6 fL (83.0-100.0); Mean Platelet Volume 9.6 fL (9.4-12.4); Monocytes # 0.4 K/mcL (0.0-1.3); Monocytes % 8.7 %; Neutrophils # 2.3 K/mcL (1.6-8.9); Platelet Count 179 K/mcL (140-400); Red Blood Count 3.77 M/mcL (3.82-4.97); Red Cell Distribution Width 16.5 % (11.5-14.5); Segmented Neutrophils % 48.2 %; White Blood Count 4.7 K/mcL (4.3-11.1)
[2021-10-14 05:26] LABS: BUN/Creatinine Ratio 9 (6-26); Blood Urea Nitrogen 8 mg/dL (8-23); Calcium 8.6 mg/dL (8.6-10.3); Carbon Dioxide 27 mEq/L (23-29); Chloride 105 mEq/L (98-107); Glucose 107 mg/dL (70-105); eGFR For African Americans > 60 (> 60); eGFR For Non-African Americans 60 (> 60)
[2021-10-14 05:28] LABS: Osmolality,Calculated 291 (280-300); Potassium 3.3 mEq/L (3.5-5.1); Sodium 141 mEq/L (136-145)
[2021-10-14 07:16] VITALS: PULSE 65
[2021-10-14] MEDS: *HR* OxyCODONE/APAP 10/325 TABLET PO SCH (07:56)
[2021-10-14] MEDS: cefTRIAXone 1,000 MG in 0.9 % Sodium Chloride 10 ML IVPB SCH (07:57)
[2021-10-14] MEDS: Cholecalciferol (D-3) 1,000 UNIT (25MCG) TABLET PO SCH (07:57)
[2021-10-14] MEDS: Insulin LISPRO 300 UNITS/3 ML VIAL SUBQ SCH (07:59)
[2021-10-14] MEDS ORDERED: Famotidine 20 MG TABLET PO SCH (09:00)
[2021-10-14] MEDS ORDERED: lisinopriL 10 MG TABLET PO SCH (09:00)
[2021-10-14 11:10] VITALS: BP 135/80; TEMP 98.3; O2SAT 95
== END 2021-10-14 11:50 | disposition home or self-care (01) ==
LOC: 3ANU 02:10 → EMEROOARM 02:10 → SUATTDRO 08:42 → 3ANU 09:37
PROVIDERS: ADMIT Hospitalist; ATTEND Internal Medicine

== ENCOUNTER 2021-11-02 08:26 | Observation (INO) ==
[2021-11-02 10:30] LABS: Bacteria,Urine Few per hpf (None-Few); Bilirubin,Urine Negative (Negative); Blood,Urine Moderate (Negative); Clarity,Urine Ex.Turbid (Clear); Color,Urine Yellow (Yellow); Glucose,Urine (UA) Normal (Normal); Ketones,Urine Trace mg/dL (Negative); Leukocyte Esterase,Urine Large (Negative); Mucus,Urine Few per lpf (None-Few); Nitrite,Urine Negative (Negative); PH,Urine 5.5 pH Units (5.0-8.0); Protein,Urine 100 mg/dL (Neg-Trace); RBC,Urine 30-50 per hpf (0-3); Specific Gravity,Urine 1.023 (1.010-1.025); Squamous Epithelial Cell,Urine Moderate per hpf (None-Few); Transitional Epi Cells,Urine Moderate per hpf (None-Few); WBC,Urine TNTC per hpf (0-3)
[2021-11-02 11:26] LABS: Alanine Aminotransferase 14 Units/L (7-52); Albumin 3.2 g/dL (3.5-5.7); Albumin/Globulin Ratio 0.8 (1.1-2.2); Alkaline Phosphatase 139 Units/L (34-104); Aspartate Amino Transferase 29 Units/L (13-39); BUN/Creatinine Ratio 13 (6-26); Bilirubin,Direct 0.2 mg/dL (0.0-0.2); Bilirubin,Indirect 0.5 mg/dL (0.0-1.0); Bilirubin,Total 0.7 mg/dL (0.3-1.0); Blood Urea Nitrogen 26 mg/dL (8-23); Calcium 9.1 mg/dL (8.6-10.3); Carbon Dioxide 27 mEq/L (23-29); Chloride 94 mEq/L (98-107); Ethanol < 10 mg/dL (Less than 10); Glucose 165 mg/dL (70-105); Osmolality,Calculated 284 (280-300); Potassium 3.4 mEq/L (3.5-5.1); Sodium 133 mEq/L (136-145); Total Protein 7.2 g/dL (6.4-8.9); Troponin I < 0.03 ng/mL (< 0.04); eGFR For African Americans 30 (> 60); eGFR For Non-African Americans 25 (> 60)
[2021-11-02 11:51] LABS: Basophils % 0.3 %; Eosinophils # 0.1 K/mcL (0.0-0.6); Eosinophils % 1.9 %; Hematocrit 32.1 % (35.3-44.9); Hemoglobin 10.2 g/dL (11.5-15.4); Immature Granulocytes % 0.3 % (0-4); Lymphocytes # 1.9 K/mcL (0.6-4.6); Lymphocytes % 31.8 %; Mean Corpuscular HGB Conc 31.8 g/dL (31.6-35.5); Mean Corpuscular Hemoglobin 26.2 pg (28.0-33.3); Mean Corpuscular Volume 82.3 fL (83.0-100.0); Monocytes # 0.6 K/mcL (0.0-1.3); Monocytes % 9.8 %; Neutrophils # 3.3 K/mcL (1.6-8.9); Platelet Count 195 K/mcL (140-400); Segmented Neutrophils % 55.9 %; White Blood Count 5.9 K/mcL (4.3-11.1)
[2021-11-02 12:00] LABS: INR 1.2; Prothrombin Time 13.1 Seconds (9.4-12.1)
[2021-11-02 12:09] LABS: Activated Partial Thrombo Time 34.9 Seconds (26.0-36.0)
[2021-11-02] MEDS ORDERED: 0.9 % Sodium Chloride 1,000 ML IV ONE (12:15)
[2021-11-02] MEDS ORDERED: Naloxone 0.4 MG/ML INJ IVP PRN (16:04)
[2021-11-02] MEDS ORDERED: *HR* HYDROcodone/Acet 5/325 mg TABLET PO PRN (16:04)
[2021-11-02] MEDS ORDERED: Ondansetron 4 MG/2 ML VIAL IVP PRN (16:04)
[2021-11-02] MEDS ORDERED: Acetaminophen 325 MG TABLET PO PRN (16:04)
[2021-11-02] MEDS ORDERED: *HR* OxyCODONE Immed Rel 5 MG TABLET PO PRN (16:04)
[2021-11-02] MEDS ORDERED: *HR* Dextrose 50 % in Water (Syg) 50 ML SYRINGE IVP PRN (16:36)
[2021-11-02] MEDS ORDERED: Dextrose Gel 15 GM/37.5 ML TUBE PO PRN ×2 (16:36)
[2021-11-02] MEDS ORDERED: D5% in Water 1,000 ML IVC PRN (16:36)
[2021-11-02] MEDS ORDERED: 0.9 % Sodium Chloride 1,000 ML IVC SCH (16:45)
[2021-11-02] MEDS: Insulin LISPRO 300 UNITS/3 ML VIAL SUBQ SCH (17:22)
[2021-11-02 17:43] LABS: Estimated Average Glucose 200 mg/dl; Hemoglobin A1C 8.6 %
[2021-11-02] MEDS ORDERED: Estrogens, Conjugated CREAM 30 GM TUBE VG SCH (21:00)
[2021-11-02] MEDS ORDERED: Aspirin Enteric Coated 81 MG Tablet PO SCH (21:00)
[2021-11-02] MEDS: *HR* Heparin 5,000 UNIT/ML VIAL SQ SCH (22:02)
[2021-11-03] MEDS: Insulin LISPRO 300 UNITS/3 ML VIAL SUBQ SCH ×3 (01:28→11:31)
[2021-11-03] MEDS: *HR* Heparin 5,000 UNIT/ML VIAL SQ SCH (05:45)
[2021-11-03] MEDS ORDERED: *HR* Metoprolol 5 MG/5 ML VIAL IVP PRN (07:51)
[2021-11-03] MEDS ORDERED: Lidocaine -MPF 2% 5 ML VIAL ONE (08:05)
[2021-11-03] MEDS ORDERED: *HR* Propofol 200 MG/20 ML VIAL IVP ONE (08:05)
[2021-11-03] MEDS ORDERED: *HR* FentaNYL (PF) 100 MCG/2 ML VIAL ONE (08:05)
[2021-11-03] MEDS ORDERED: *HR* Succinylcholine 200 MG/10 ML VIAL IVP ONE (08:05)
[2021-11-03] MEDS ORDERED: Ondansetron 4 MG/2 ML VIAL ONE (08:05)
[2021-11-03] MEDS ORDERED: Lidocaine Jelly 11 ml Syringe ONE (08:08)
[2021-11-03 08:14] LABS: Basophils % 0.5 %; Eosinophils # 0.1 K/mcL (0.0-0.6); Eosinophils % 1.1 %; Hematocrit 35.8 % (35.3-44.9); Hemoglobin 11.5 g/dL (11.5-15.4); Immature Granulocytes % 0.2 % (0-4); Lymphocytes # 1.4 K/mcL (0.6-4.6); Lymphocytes % 32.2 %; Mean Corpuscular HGB Conc 32.1 g/dL (31.6-35.5); Mean Corpuscular Hemoglobin 26.2 pg (28.0-33.3); Mean Corpuscular Volume 81.5 fL (83.0-100.0); Mean Platelet Volume 9.8 fL (9.4-12.4); Monocytes # 0.4 K/mcL (0.0-1.3); Monocytes % 8.9 %; Neutrophils # 2.5 K/mcL (1.6-8.9); Platelet Count 175 K/mcL (140-400); Red Blood Count 4.39 M/mcL (3.82-4.97); Red Cell Distribution Width 18.3 % (11.5-14.5); Segmented Neutrophils % 57.1 %; White Blood Count 4.4 K/mcL (4.3-11.1)
[2021-11-03 08:20] LABS: Calcium 8.2 mg/dL (8.6-10.3); Potassium 3.7 mEq/L (3.5-5.1)
[2021-11-03] MEDS ORDERED: Isosorbide MONOnitrate (24 HR) 30 MG TAB.ER.24H PO SCH (09:00)
[2021-11-03] MEDS ORDERED: Famotidine 20 MG TABLET PO SCH (09:00)
[2021-11-03 10:20] VITALS: TEMP 97.8
[2021-11-03 11:14] VITALS: PULSE 91
[2021-11-03 12:10] VITALS: BP 126/76; O2SAT 94
== END 2021-11-03 14:15 | disposition home or self-care (01) ==
LOC: EMEROOARM 08:26 → 3BNU 08:26 → EMEROOARM 10:14 → SUATTDRO 15:50 → 3BNU 15:53
PROVIDERS: ADMIT General Practice; ATTEND Nurse Practitioner